=== PATIENT | male | born 1950 | race Caucasian/White ===

== ENCOUNTER 2024-10-04 11:03 | Outpatient (AMB) | payer MEDICARE, SELFPAY ==
--- NOTE | 2024-10-04 11:07 | A.OFFVIS_ITS ---
Intake Visit Reasons: urinary incontinence Intake Note: New Patient presents for initial visit for urinary incontinence Urology Medications: alfuzosin Blood Thinner: clopidogrel PVR: 22ml's [employer] Required: No Accompanied by: Self / Same As Patient Allergies januvia Adverse Reaction (Uncoded 10/04/24 11:55) dizziness Medication List - Last Reconciled 10/04/24 by AUSTIN Knutson atorvastatin mg PO DAILY bupropion HCl XL mg PO DAILY cholecalciferol (vitamin D3) 50 mcg PO DAILY clopidogrel mg PO DAILY donepezil mg PO DAILY dulaglutide (Trulicity) mg subcut glipizide ER mg PO DAILY lisinopril mg PO DAILY mecobalamin (vitamin B12) mcg PO metformin mg PO sertraline mg PO DAILY HPI Comments Details: Jamal is a very pleasantly confused 74-year-old male patient of Dr. Naidu who was accompanied by his Marta at today's office visit. He has a past medical history of bladder cancer, type 2 diabetes, hyperlipidemia, urinary incontinence, depression, cerebral infarction, abnormal gait, neuropathy, anxiety, dementia, and sensorineural hearing loss. He presents to the office today as a new patient for ongoing lower urinary tract symptoms he has been experiencing. In discussion with the patient and his today reports previously following up with [facility] Dr. Chambers and has a longstanding history of bladder cancer. He reports his last follow-up in November 2023 cystoscopy noted no acute findings. He reports having trialed alfuzosin as well as Flomax in the past for episodes of urinary urgency and frequency continues to experience. Also reports noting urinary incontinence at night. He otherwise denies hematuria, dysuria, foul smelling urine, changes to urinary stream, flank pain, fever, and or chills. He reports wanting to establish his urological care here. We discussed obtaining medical release form to obtain previous urology records for continuity of care. We discussed obtaining retroperitoneal ultrasound as well as PSA for further assessment evaluation. We discussed at length potential causes of lower urinary tract symptoms patient was experiencing as well as further workup in risks and benefits of these interventions. In office urinalysis results reviewed with the patient today. PVR 22mls. He discusses being told by previous urologist he had an enlarged prostate. We discussed in office cystoscopy during this office visit. [facility] Medical History (Updated 10/04/24 @ 11:56 by KARIE Knutson) Bladder cancer Type 2 diabetes mellitus Hyperlipidemia Urinary incontinence Major depressive disorder Rosacea Cerebral infarction Abnormal gait Neuropathy Anxiety Dementia with behavioral disturbance Sensorineural hearing loss Surgical History History of basal cell carcinoma excision Review of Systems Eyes Reports no additional complaints ENT Reports no additional complaints Card Reports as per HPI Resp Reports no additional complaints GI Reports no additional complaints Reports as per HPI Musc Reports as per HPI Neuro Reports as per HPI Psych Reports as per HPI Endo Reports as per HPI Damaso/Lymph Reports no additional complaints Aller/Immun Reports no additional complaints Physical Exam Const General: cooperative, healthy appearing, comfortable, no acute distress, well developed, alert and awake Orientation/consciousness: oriented to person HEENT Head: Yes normal to inspection, Yes normocephalic and Yes atraumatic Ears: hearing grossly normal bilaterally Eyes General: appearance normal, both eyes and all related structures Neck Neck: Yes normal visual inspection and Yes trachea midline Chest Chest palpation & inspection: normal inspection of the chest Resp Effort & Inspection: normal respiratory effort and able to speak in complete sentences Cardio Rate: regular rate GI Inspection: Yes normal to inspection General: Yes no CVA tenderness Back/Spine/Pelvis Back: no CVA tenderness Skin General skin exam: no rashes or lesions noted Neuro General: oriented to person Extrem General: Yes normal to inspection Psych Appearance: grossly normal and well kempt Mental Status: mental status grossly normal Speech and movement: Normal speech and movement present and Clear speech present Affect: normal affect Attitude: cooperative Thought process: Normal thought process present Thought content: Normal thought content present Insight: Limited insight present (Psych) Judgement: Limited judgement present (Psych) Office Procedures Post Void Residual Post Residual Void Post Void Residual (PVR): 22 [id number] Void Residual by ultrasound Results AMB Urinalysis, Automated UA Leukoctes 0 Rocco/uL Last Edit by Yani Mclaughlin on 10/04/24 12:15 UA Nitrite Negative Last Edit by Yani Mclaughlin on 10/04/24 12:15 UA Urobilinogen 0.2 mg/dL Last Edit by Yani Mclaughlin on 10/04/24 12:15 UA Protein 15 mg/dL Last Edit by Yani Mclaughlin on 10/04/24 12:15 UA pH 6.0 Last Edit by Yani Mclaughlin on 10/04/24 12:15 UA Blood 0 Daren/uL Last Edit by Yani Mclaughlin on 10/04/24 12:15 UA Specific [place] 1.015 Last Edit by Yani Mclaughlin on 10/04/24 12:15 UA Ketone Negative Last Edit by Yani Mclaughlin on 10/04/24 12:15 UA Bilirubin 0 mg/dL Last Edit by Yani Mclaughlin on 10/04/24 12:15 UA Glucose 0 mg/dL Last Edit by Yani Mclaughlin on 10/04/24 12:15 Results Reviewed Results Reviewed: Laboratory Last Values Urine pH (Auto) 6.0 10/04/24 11:49 Specific [place] (Auto) 1.015 10/04/24 11:49 Urine Protein (Auto) 15 mg/dL 10/04/24 11:49 Glucose (UA)(Auto) 0 mg/dL 10/04/24 11:49 Urine Ketones (Auto) Negative 10/04/24 11:49 Urine Blood (Auto) 0 Daren/uL 10/04/24 11:49 Urine Nitrite (Auto) Negative 10/04/24 11:49 Urine Bilirubin (Auto) 0 mg/dL 10/04/24 11:49 Urine Urobilinogen (Auto) 0.2 mg/dL 10/04/24 11:49 Leukocyte Esterase (Auto) 0 Rocco/uL 10/04/24 11:49 Assessment & Plan Assessment & Plan (1) Bladder cancer: Code(s): C67.9 - Malignant neoplasm of bladder, unspecified Category: Medical (2) Enlarged prostate: Code(s): N40.0 - Benign prostatic hyperplasia without lower urinary tract symptoms Category: Medical Plan In office urinalysis results reviewed with the patient today; as noted above. PVR 22 mL. Stop alfuzosin. Start VESIcare 5 mg at bedtime as discussed and prescribed. Will obtain retroperitoneal ultrasound for further assessment evaluation. NOY offered however deferred. Will obtain PSA for further assessment evaluation. Discussed in office cystoscopy as patient with a longstanding history of bladder cancer. We discussed at length potential causes of lower urinary tract symptoms patient was experiencing as well as further treatment options and risks and benefits of these treatment options. Will attempt to send prescription to [facility] for [place]/condom catheters. Orders: Orders AMB Urinalysis Automated Today Z13.9 - Encounter for screening, unspecified AMB Post Void Residual by ultrasound Today Z13.9 - Encounter for screening, unspecified US retroperitoneal comp Today C67.9 - Malignant neoplasm of bladder, unspecified, N40.0 - Benign prostatic hyperplasia without lower urinary tract symptoms Prostate Specific Antigen Today N40.0 - Benign prostatic hyperplasia without lower urinary tract symptoms Medications: New solifenacin (Vesicare) 5 mg PO DAILY 30 days 30 tabs 3RF Patient Instructions: The patient had an opportunity to ask questions regarding the treatment plan. All questions were answered. Physical exam, labs, and imaging were discussed and reviewed in detail. As well as risks, benefits, and discussion of treatment choices. No major barriers to understanding were identified. The patient expressed understanding and agreement with the above treatment plan. The patient was made aware they should contact our office by phone for worsening of their current condition, the appearance of new symptoms, or with any questions or concerns. Compliance is encouraged with any medications and follow up testing that is ordered. It is a privilege to be allowed the opportunity to participate in? your urological care.? Again, if you have any questions or concerns If you have any questions or concerns please do not hesitate to contact me. The office is [phone]. This note is constructed using voice recognition software. While every effort has been made to ensure accuracy dobby loom fixer errors may have been included. Yours sincerely, AUSTIN Knutson Coding Level of Care Code New Pt Level 4 (15337) Diagnoses Bladder cancer C67.9 Enlarged prostate N40.0 CPT Codes Post Residual Void - PVR CPT Code: 38920-Ozpv Void Residual by ultrasound ([id number])
--- OUTSIDE RECORDS SUMMARY | 2024-10-04 12:19 | XMS_ITS | Data Portability ---
Author Organization [facility] [employer] [facility], [facility] Address [address] [place] [address] Care Team Providers Care Tray Room Worker Name Role Phone CRISTIANO IRWIN Primary Care Provider [phone] PAULETTE YEBOAH [employer] Consultant [phone] Assessment Encounter Date Assessment Date Assessment LastModified by Organization Details LastModified Time 01/12/2024 01/12/2024 Assessment and plan based on Geriatric 5 M framework (Mind, Mobility, Multicomplexity, Medications, and Matters Most) Mind: Cognition: Dementia, moderate, likely mixed, Alzheimer's + Vascular with behaviors (anxiety, irritabilty) Contributing factors: hearing loss, poorly controlled DMII, h/o prior CVA From initial history: Per Ady: he is aware he has some memory changes but cant really give details. Denies AH/VH, doesnt think that anyone is stealing from him. Has dreams but no nightmares Denies tremors, denies shuffling. He denies movements in his mouth Per : Summer 2021 - first noticed that Ady started repeating himself. He does have sig hearing loss - but loses his hearing aides. She was questioning his hearing as part of the memory problem. Her kids were noticing things (some before them) that she didnt want to agree with them about. Their son, Julián, was seeing things and trying to convince Marta that there was dementia. In the fall 2021, they told PCP about his concerns. He had evaluation by Dr Quiroz,[facility] and Dr Nelson on November 11, 2022. Since then she has seen a decline in memory. Dr Nelson noted that Dr Quiroz noted a gait disorder with superimposed cognitive and memory impairment but didnt diagnose Parkinsonism. He suggested MRi C spine, neuropsych eval, PT and return visit in [address] Nelson noted that had noted a declined over the past 2 years, with diffiuclty recalling recent events, conversations, dates and locations as well as naming problems and trouble keeping track of time. Labs: None in our chart Head imaging: per report, has had head ct done in the past. MOCA 8.1: (done today 01/11/23) VIsuospatial/execu tive: 1/5 able to draw hands Namin /3 Attention: 5/6 difficulty with serial 7 Language: 1/3 Abstraction: 2/2 Delayed recall:0 /5; MIS = 2 Score: Plan: As part of w/u Would consider getting Brain MRI Agree with assessment for sleep apnea - appreciate that insurance denied in home study - would consider trying to appeal. Could at least try an inhome overnight pulse ox assessment. Continue donepezil 10 mg- monitor for urinary symptoms. Reviewing the chart - I was concerned that there might be a movement component along with the cognitive impairment. But, notes gait/posture have been going on for some time and may be due to deconditioning and the tongue movements had always been somewhat present and are better now that he is not trying to work on the computer. Would monitor If further eval thought needed, would look into [facility] - Dr Ribera or Dr Vazquez Note he scored high in anxiety and lower mood: I would start sertraline 25 mg daily - I think it will help with anxiety and irritabilty. SE could include GI upset, It can take 2-3 weeks to work and we may have to increase dose. Asked to keep us posted. May be able to stop or lower dose of am quetiapine. Consider day program - [facility] in [place] Would consider a Memory Cafe. Would be in touch with SS - check on dementia resources. Would think about financial planning. Would look at [employer] videos Continue to check with elder care medical pathologist Can look at [facility] for resources. Caregiver stress: Appreciate how difficult this journey can be Would look into resources mentioned above. Gave info on dementia road map, legal planning. Will schedule a cognitive care plan in a few months. Diagnosis reviewed? yes, with . They do not discuss dx with Ady Mood: anxiety/depression , ongoing Dr Nelson noted he saw a experimental rocketsled mechanic from 2001 to 2003 and was also in counseling at that time. PHQ9: 9 tired, appetite changes CIRILO 7: 18 feeling nervous, trouble relaxing, becoming easily annoyed Was tapered off Paxil as it was anti-cholinergic. notes that Ady wont talk about his symptoms (he completed screening on his own) but she agreed with what he wrote. Plan: will start sertraline as above Mobility: gait instability: in part due to sig deconditioning, also had C spine laminectomy. also with diabetic neuropathy. Plan: Appreciate that he doesnt have motivation and spends most of day in his lounge chair Would consider a day program for more activity. Would see if they can have someone help with exercises. For neck pain, hand weakness - would check in with Dr Carlson, Neurosurgery. - to contact. Multicomplexity/ Medications: managing meds which is appropriate. Will discuss urinary symptoms further next visit. Matters most: ACP: Health care proxy: Dianst:didnt discuss I personally spent 120 minutes preparing for, caring for the patient (F2F and non-F2F), and finalizing the visit for this patient, which included discussion with patient and/or family about diagnosis, prognosis, recommendations, risk/benefits, risk reduction and education of above. Thank you for this interesting consult. Will f/u in 2 months for a repeat cognitive care plan. Not available 01/12/2024 14:59:17 03/15/2024 03/15/2024 Assessment and plan based on Geriatric 5 M framework (Mind, Mobility, Multicomplexity, Medications, and Matters Most) Elements: Cognition: Dementia, moderate, likely mixed, Alzheimer's + Vascular with behaviors (anxiety, irritabilty) Contributing factors: hearing loss, poorly controlled DMII, h/o prior CVA From initial history: Per Ady: he is aware he has some memory changes but cant really give details. Denies AH/VH, doesnt think that anyone is stealing from him. Has dreams but no nightmares Denies tremors, denies shuffling. He denies movements in his mouth Per : Summer 2021 - she first noticed that Ady started repeating himself. He does have sig hearing loss - but was losing his hearing aides. She was questioning if his hearing was part of the memory problem. Her kids were noticing things that she didnt want to agree with them about. Their son, Julián, was seeing things and trying to convince Marta that Ady had dementia. In the fall 2021, they told PCP about his concerns. He had evaluation by Dr Quiroz, [facility] and Dr Nelson on November 11, 2022. Since then she has seen a decline in his memory. Dr Nelson noted that Dr Quiroz noted a gait disorder with super-imposed cognitive and memory impairment but didnt diagnose Parkinsonism. He suggested MRi C spine, neuropsych eval, PT and return visit in [address] Nelson noted that had noted a decline over the past 2 years, with diffiuculty recalling recent events, conversations, dates and locations as well as naming problems and trouble keeping track of time. Labs: None in our chart Head imaging: per report, has had head ct done in the past. MOCA 8.1: (done 01/11/23) VIsuospatial/execu tive: 1/5 able to draw hands Namin /3 Attention: 5/6 difficulty with serial 7 Language: 1/3 Abstraction: 2/2 Delayed recall:0 /5; MIS = 2 Score: Since last visit, he was started on sertraline with good effect. has been dealing with her own issues and having a difficult time making calls to get more assistance. Plan: As part of w/u Would consider getting Brain MRI - declines at this time Agree with assessment for sleep apnea - appreciate that insurance denied in-home study - would consider trying to appeal. Could at least try an in-home overnight pulse ox assessment. Continue donepezil 10 mg- monitor for urinary symptoms. Reviewing the chart - I was concerned that there might be a movement component along with the cognitive impairment. But, notes gait/posture have been going on for some time and may be due to deconditioning and the tongue movements had always been somewhat present and are better now that he is not trying to work on the computer. Would monitor If further eval thought needed, would look into [facility], [facility] - Dr Ribera or Dr Vazquez We started sertraline 25 to help with anxiety and irritabilty - it has been effective but may be wearing off. Will increase dose to 50 mg daily In one week, stop the AM dose of quetiapine. See how he does. If he seems calmer, after another 1 week, stop the PM dose of quetiapine. We will check in in 3-4 weeks. Please call us if anything. I will write for donepezil refill Consider day program - [facility] in [place] - noted that her therapist didnt think he was ready for it - but I disagree and feel it is worth trying - and will give her some time as well. Will make a referral to [facility] caregiver program Would be in touch with [facility] - check on dementia resources - she has not done this yet but gave me permission to do so. Would continue to work on financial planning - she will look for her financials this week. She looked at [employer] videos - and found some helpful. Reviewed that he can become perserverative in late afternoons - may be a form of sundowning - would try to involve him in dinner prep if possible, give warm tea, play music - more sensory input may be needed. Diagnosis reviewed? yes, with . They do not discuss dx with Ady 2. Function: a. [place] ADL: 6 b. [place] IADL: 4 not driving, c. Plan: helping with finances, meds, shopping and driving - he still wants to help around the house and would work to ensure he has jobs. 3. Stage of cognitive impairment: a. Dementia Severity Rating Scale (DSRS) : 9 - memory, speech, orientation to time, ability to make decisions, home activities, sometimes forgets personal care b. Plan: I honestly think that the DSRS score understates his degree of dementia - I would say he has mild-moderate dementia though appreciate that apathy likely playing a role in his responses. i. Continue to think about planning for the future based on stages and care recommendations ii. Continue to work with elder care manager business management I will reach out to [facility] to see if they can help with planning. 4. Decision-making: a. 3 level rating scale global clinician judgement: very limited - I do not think he is can make his own decisions. b. (Able to make own decisions, not able to , uncertain/needs more evaluation) c. Plan: I will invoke HCP as his insight into his disease process is very limited. 5. Neuropsychiatric symptoms/Depressio n: a. Assessment tool: NPI-Q (12 items) Severity: 1-2/ Distress to caregiver: 2 Mood: anxiety/depression , ongoing Dr Nelson noted he saw a experimental rocketsled mechanic from 2001 to 2003 and was also in counseling at that time. Was tapered off Paxil as it was anti-cholinergic. notes that Ady won't talk about his symptoms (he completed screening on his own) but she agreed with what he wrote. Plan: as above, will increase sertraline to 50 mg daily. In one week, stop the AM dose of quetiapine. See how he does. If he seems calmer, after another 1 week, stop the PM dose of quetiapine. We will check in in 3-4 weeks. Please call us if anything. 6. Medication review and reconciliation: a. Medications reviewed and reconciled: Yes b. PIMs (Potentially Inappropriate Medications) identified: quetiapine c. Administration: helping with meds, will work to taper off quetiapine as above. 7. Safety: a. Safety Assessment Guide: i. Is the patient still driving? no ii. Is the patient taking medications as prescribed? yes iii. Are there concerns about safety in the home? no iv. Has the patient gotten lost in familiar places or wandered? no v. Are firearms present in the home? no vi. Has the patient experienced unsteadiness or sustained falls? yes vii. Does the patient live alone? no Mobility: gait instability: in part due to sig deconditioning, also had C spine laminectomy. also with diabetic neuropathy. Plan: Appreciate that he doesnt have motivation and spends most of day in his lounge chair Would consider a day program for more activity. Would see if they can have someone help with exercises. For neck pain - as prior, could check in with Dr Carlson, Neurosurgery who did his surgery. 8. Caregiver identification and needs assessment: a. Assessment tool: Stress thermometer: very stressed ; JAMAICARIT-12: 31 feels like she has lost control of her life due to her 's illness. Plan: Appreciate how hard this is for all of them - she is left trying to manage everything amidst her own depression. Continue to check with elder care medical pathologist Will put in referral for [facility] Caregiver plan as well as contact SS Gave info on dementia road map, legal planning. She is working on her mental health - with therapy and Psych - and knows to contact us with any concerns. 9. Advance care planning: a. Checklist reviewed b. Plan (Preferences and legal needs): c. HCP: yes d. MOLST didnt discuss e. POA: no f. Is there an emergency plan in case the caregiver is unable to provide care?: son lives with them. Patient and caregiver resources discussed and/or handed out More than 50% of this 90 minute visit was spent face to face with the patient and/or family caregiver, providing counseling, decision making, and coordination of care. Written plan discussed with and given to the patient and/or family caregiver. Written plan shared with PCP Will f/u in 2 months Not available 03/15/2024 22:11:41 05/17/2024 05/17/2024 Assessment and plan based on Geriatric 5 M framework (Mind, Mobility, Multicomplexity, Medications, and Matters Most) Cognition: Dementia, moderate, likely mixed, Alzheimer's + Vascular with behaviors (anxiety, irritabilty) Contributing factors: hearing loss, poorly controlled DMII, h/o prior CVA From initial history, 01/2024: Per Ady: he is aware he has some memory changes but cant really give details. Denies AH/VH, doesnt think that anyone is stealing from him. Has dreams but no nightmares Denies tremors, denies shuffling. He denies movements in his mouth Per : Summer 2021 - she first noticed that Ady started repeating himself. He does have sig hearing loss - but was losing his hearing aides. She was questioning if his hearing was part of the memory problem. Her kids were noticing things that she didnt want to agree with them about. Their son, Julián, was seeing things and trying to convince Marta that Ady had dementia. In the fall 2021, they told PCP about his concerns. He had evaluation by Dr Quiroz, [facility] and Dr Nelson on November 11, 2022. Since then she has seen a decline in his memory. Dr Nelson noted that Dr Quiroz noted a gait disorder with super-imposed cognitive and memory impairment but didnt diagnose Parkinsonism. He suggested MRi C spine, neuropsych eval, PT and return visit in [address] Nelson noted that had noticed a decline over the past 2 years, with difficulty recalling recent events, conversations, dates and locations as well as naming problems and trouble keeping track of time. Labs: None in our chart Head imaging: per report, has had head ct done in the past. MOCA 8.1: (done 01/11/23) VIsuospatial/execu tive: 1 able to draw hands Namin Attention: 5/6 difficulty with serial 7 Language: 1/ Abstraction: 2/2 Delayed recall:0 /5; MIS = 2 Score: Since last visit, he continues on sertraline with good effect. no sig events but notices his memory is getting worse, he keeps asking the same questions - but she has been in touch with [facility] and they have been helpful. Plan: As part of w/u Would consider getting Brain MRI - declines at this time Agree with assessment for sleep apnea - appreciate that insurance denied in-home study - would consider trying to appeal. Could at least try an in-home overnight pulse ox assessment. Continue donepezil 10 mg - has tolerated it well. Reviewing the chart - I was concerned that there might be a movement component along with the cognitive impairment. But, notes gait/posture have been going on for some time and may be due to deconditioning and the tongue movements had always been somewhat present and are better now that he is not trying to work on the computer. Would monitor If further eval thought needed, would look into [facility], [facility] - Dr Ribera or Dr Vazquez Continue to Sertraline 50 mg daily to help with irritability . Plan was to stop the AM dose of quetiapine but kept it on - she was nervous to stop as it was started when he was getting angry, throwing things. We reviewed she could try to stop the quetiapine and if he becomes agitated again, she can restart it. Consider day program - [facility] in [place] - noted that her therapist didnt think he was ready for it - but I disagree and feel it is worth trying - and will give her some time as well. We reviewed this again - she will also look into Memory Cafes. Referral made to to [facility] caregiver program She is in touch with [facility] which is great. Would continue to work on financial planning - she will look for her financials this week. She looked at [employer] videos - and found some helpful. We watched one today - Brain Changes and Dementia. Reviewed that he can become perserverative in late afternoons - may be a form of sundowning - would try to involve him in dinner prep if possible, give warm tea, play music - more sensory input may be needed. Diagnosis reviewed? yes, with . Continue to think about planning for the future based on stages and care recommendations Continue to work with elder care manager business management Neuropsychiatric symptoms/Depressio n: a. Assessment tool: NPI-Q (12 items) Severity: 1-2/ Distress to caregiver: 2 Mood: anxiety/depression , ongoing Dr Nelson noted he saw a experimental rocketsled mechanic from 2001 to 2003 and was also in counseling at that time. PHQ9: 8 - little interest in doing things, feeling down, feeling tired GAD7: 2 Was feeling down when he had pain in his neck, better now. Plan: Continue sertraline 50 mg daily. Also on buproprion 300 mg daily Could stop the AM dose of quetiapine. See how he does - can restart if needed. Caregiver identification and needs assessment: a. Assessment tool: Stress thermometer: very stressed ; JAMAICARIT-12: 31 feels like she has lost control of her life due to her 's illness. Plan: Appreciate how hard this is for all of them - she is left trying to manage everything amidst her own depression. Continue to check with elder care medical pathologist Continue with [facility] Caregiver plan as well as contact [facility] Gave info on dementia road map, legal planning at last visit. She is working on her mental health - with therapy and Psych - and knows to contact us with any concerns. 9. Advance care planning: a. Checklist reviewed b. Plan (Preferences and legal needs): c. HCP: yes d. TYREE didnt discuss e. POA: no f. Is there an emergency plan in case the caregiver is unable to provide care?: son lives with them. Patient and caregiver resources discussed and/or handed out More than 50% of this 70 minute visit was spent face to face with the patient and/or family caregiver, providing counseling, decision making, and coordination of care. Written plan discussed with and given to the patient and/or family caregiver. Written plan shared with PCP Will f/u after Oct 16 2024 for cognitive care plan. Not available 05/17/2024 14:08:21 Plan of Treatment Reminders Order Date Submit Date Provider Last Modified By Organization Details Last Modified Time Details Appointments None recorded. Lab None recorded. Referral None recorded. Procedures None recorded. Surgeries None recorded. Imaging None recorded. Medication Orders sertraline 25 mg tablet [address] [facility] [place], [address], 4 22:13:03 sertraline 25 mg tablet 2023 [facility] [place], [address], 4 22:17:52 donepezil 10 mg tablet 2023 [facility], [place], [address], 4 22:12:15 sertraline 50 mg tablet 2023 [facility], [place], [address], 4 22:12:15 Patient TargetsNo targets recorded. Patient Instructions Encounter Date Encounter Id Patient Instructions Last Modified By Organization Details Last Modified Time 01/12/2024 [id number] anxiety disorder : care instructions Not available 01/12/2024 15:00:04 Plan: Note he scored high in anxiety and lower mood: I wouldstart sertraline 25 mg daily - I think it will help with anxiety and irritabilty. SE could include GI upset, It can take 2-3 weeks to work and we may have to increase dose. Asked to keep us posted. May be able to stop or lower dose of am quetiapine. Consider day program - [facility] in [place] Would consider a Memory Cafe. Would be in touch with [facility] - check on dementia resources. Would think about financial planning. Would look at [employer] videos Continue to check with elder care medical pathologist Can look at [facility] for resources. Not available 01/12/2024 12:35:54 Reason for Referral None Reported. Problems Name Problem SNOMED Code Status Onset Date Resolution Date Notes Provider Name and Address Organization Details Recorded Time Type 2 diabetes mellitus 29556778 Active 2023 last AIC 9.3, sees Dr Nuñez , Endocrin e, [facility]. Nadia Montague MD [address], [place], [address], [employer] 4 20:11:36 Hyperlip idemia 12754267 Active 2023 Nadia Montague MD [address], [place], [address], [employer] 4 20:11:49 Urinary incontin ence 331329019 Active 2023 Nadia Montague MD [address], [place], [address], [employer] 4 20:12:36 Malignan t neoplasm of urinary bladder 446126850 Completed 202301/10/2024 dx 2004 (Paulette rose) Nadia Montague MD [address], [place], [address], [employer] 4 20:13:16 Major depressi ve disorder 340130459 Active 2023 Nadia Montague MD [address], [place], [address], [employer] 4 20:13:35 Educatio n of caregive r 710174381 Active 2023 Nadia Montague MD [address], [place], [address], [employer] 4 14:09:04 Rosacea 512739378 Active 2023 Nadia Montague MD [address], [place], [address], [employer] 4 20:13:45 Basal cell carcinom a of skin 485812131 Completed 202301/10/2024 Removal Reason: Sees new [facility] yearly Nadia Montague MD [address], [place], [address], [employer] 4 20:14:08 Cerebral infarcti on 143146671 Active 2023 h/o. right temporal lob infarct seen on CT 10/13/19 - chronic appearin g. Nadia Montague MD [address], [place], [address], [employer] 4 20:15:14 Abnormal gait 96879413 Active 2023 Nadia Montague MD [address], [place], [address], [employer] 4 20:24:03 Neuropat hy 145269734 Active 2023 right hand, h/o CTS Nadia Montague MD [address], [place], [address], [employer] 4 20:28:50 Anxiety 05661173 Active 2023 Nadia Montague MD [address], [place], [address], [employer] 4 20:28:59 Advance care planning Active 2023 Nadia Montague MD [address], [place], [address], [employer] 4 20:29:15 Dementia with behavior al disturba ohe [id number] 03 Active 2023 Nadia Montague MD [address], [place], [address], [facility] 20:30:44 Review of advance care plan Active 2023 HCP: Marta Hercules Nadia Montague MD [address] [facility] [address] [facility] [address], [place], [address], [facility] 13:54:10 Sensorin eural hearing loss [id number] Active 2023 Nadia Montague MD [address], [place], [address], [facility] 13:54:54 Problem Notes None recorded. Procedures Surgical History Date Name Laterality Status Provider Name and Address Organization Details Recorded Time 12/07/19 23 primary decompression of cervical spine completed Nadia Montague MD [address] [facility],[address], [address], [facility] 01/10/2024 20:16:04 01/06/20 10 excision of basal cell carcinoma completed Nadia Montague MD [address] [facility],[address], [address], [facility] 01/10/2024 20:16:36 excision of basal cell carcinoma completed Nadia Montague MD [address] [facility],[address], [address], [facility] 01/10/2024 20:16:42 removal of sebaceous cyst completed Nadia Montague MD [address] [facility] [address] [facility] [address] [place] [address], [address], [facility] 01/10/2024 20:17:46 Imaging Results None recorded. Procedure Notes None recorded. Medical Equipment None Reported. Allergies Allergen ID Allergen Name Allergen Category Reaction Reaction Severity Criticality Documentation Date Start Date Code Code System Note Provider Name and Address Organization Details Recorded Time 61 Januvia medicatio n dizziness Not available Not available 01/10/2024 98409 6 RxNorm Nadia Montague MD 264 [facility] 12[facility], [address], [facility] [employer] [facility] 20:25:15 Medications Name Sig Start Date Stop Date Status Note LastModified by Organization Details LastModified Time quetiapine 25 mg tablet active Not Available Not Available Not Available atorvastati n 40 mg tablet active Not Available Not Available Not Available metformin 500 mg tablet active Not Available Not Available Not Available atorvastati n 80 mg tablet 01/11 completed Not Available Not Available Not Available donepezil 5 mg tablet TAKE 1 TABLET BY MOUTH EVERYDAY AT BEDTIME 01/11 completed Not Available Not Available Not Available donepezil 10 mg tablet Take 1 tablet every day by oral route. active Not Available Not Available No t Available clopidogrel 75 mg tablet active Not Available Not Available Not Available triamcinolo ne acetonide 0.1 % topical cream APPLY TO AFFECTED AREA EVERY DAY FOR 10 DAYS 01/11 completed Not Available Not Available Not Available tamsulosin 0.4 mg capsule TAKE 1 CAPSULE BY MOUTH EVERYDAY AT BEDTIME active Not Available Not Available No t Available glipizide ER 2.5 mg tablet, extended release 24 hr active Not Available Not Available Not Available nystatin 100,000 unit/gram topical cream APPLY 1 APPLICATI ON TOPICALLY EVERY DAY FOR 30 DAYS 01/11 completed Not Available Not Available Not Available sertraline 25 mg tablet Take 1 tablet every day by oral route. 03/15 completed Not Available Not Available Not Available lisinopril 5 mg tablet TAKE 1 TABLET BY MOUTH EVERY DAY FOR 30 DAYS active Not Available Not Available No t Available oxybutynin chloride 5 mg tablet TAKE 1 TABLET BY MOUTH EVERY DAY IN THE MORNING 01/11 completed Not Available Not Available Not Available sertraline 50 mg tablet TAKE 1 TABLET DAILY IN THE MORNING 2023 active Not Available Not Available Not Avai lable metronidazo le 0.75 % topical gel APPLY TO AFFECTED AREA TWICE A DAY FOR 30 DAYS 01/11 completed Not Available Not Available Not Available bupropion HCl SR 200 mg tablet,12 hr sustained-r elease 01/11 completed Not Available Not Available Not Available Vitamin D3 25 mcg (1,000 unit) capsule active Not Available Not Available Not Available bupropion HCl XL 300 mg 24 hr tablet, extended release TAKE 1 TABLET BY MOUTH EVERY DAY IN THE MORNING active Not Available Not Available No t Available alfuzosin ER 10 mg tablet,exte nded release 24 hr TAKE 1 TABLET BY MOUTH EVERYDAY AT BEDTIME 01/11 completed Not Available Not Available Not Available Vitamin D3 2000 IU two times per day 05/15 completed Not Available Not Available Not Available Vitamin B12 1000 mg every other day active Not Available Not Available No t Available Trulicity 0.75 mg/0.5 mL subcutaneou s pen injector INJECT 0.5 ML (0.75 MG total) UNDER THE SKIN EVERY SEVEN DAYS active Not Available Not Available No t Available OneTouch Delica Plus Lancet 33 gauge active Not Available Not Available Not Available Vitals Date Recorded Heart rate Body height Body mass index (BMI) Body weight Oxygen saturation Oxygen saturation in Arterial blood by Pulse oximetry Systolic blood pressure Diastolic blood pressure Provider Name and Address Organization Details Last Updated DateTime 4 88 /min 167.01 cm 31.4 kg/m2 20758.3 3 g 96 % 96 % 120 mm[Hg] 64 mm[Hg] [employer] 4 11:09:39 Date Recorded Body height Heart rate Body mass index (BMI) Body weight Oxygen saturation Oxygen saturation in Arterial blood by Pulse oximetry Systolic blood pressure Diastolic blood pressure Provider Name and Address Organization Details Last Updated DateTime 4 167.01 cm 96 /min 29.6 kg/m2 08946.5 3 g 74 % 74 % 124 mm[Hg] 64 mm[Hg] [employer] 4 12:53:14 Date Recorded Body height Heart rate Body mass index (BMI) Body weight Oxygen saturation Oxygen saturation in Arterial blood by Pulse oximetry Systolic blood pressure Diastolic blood pressure Provider Name and Address Organization Details Last Updated DateTime 4 167.01 cm 88 /min 30.6 kg/m2 69994.3 7 g 96 % 96 % 110 mm[Hg] 68 mm[Hg] [employer] 4 11:30:17 Social History Question Answer Notes LastModified by Organizat ion Details LastModified Time Tobacco Smoking Status Former Smoker Nadia Montague MD [address] [address], [place], [address], [facility] 01/10/2024 20:21:00 When Did You Quit Smoking? 11-15yearssi bk calderon Information not available 01/10/2024 What Is Your Relationship Status? Information not available 01/10/2024 Sex: Unknown Functional Status None recorded. Mental Status None recorded. Family History Relationship Description Onset Age of this Age Resolved Age Notes LastModified by Organization Details LastModified Time Father Myocardial infarction 56 56 Not available 01/09 20:18:28 Mother Diabetes mellitus 84 Not available 2023 20:18:46 Unspecified Relation Malignant tumor of colon salma billingsley Not available 01/10/2024 20:20:00 Medical History No medical history recorded. Past Encounters Encounter ID Performer Location Encounter Start Date Encounter Closed Date Diagnosis/Indication Diagnosis SNOMED-CT Code Diagnosis ICD10 Code Diagnosis Note 56 MD [facility] [address] [address] 01/12/2024 10:45:34 01/12/2024 12:43:02 Mixed dementia [id number] 9107 G30.1 see above Abnormal gait 13439659 R 26.9 Advance care planning 71 8358604 Z71.89 HCP is .on border of needing to invoke HCP. Will further assess next visit. Anxiety 95376296 F41.9 Cerebral infarction 4325 85277 I63.9 Major depr essive disorder 288810737 F32.9 see above Urinary incontinence 165 619519 R32 185 MD [facility] [address] [address] 03/15/2024 11:19:03 03/15/2024 22:15:25 Abnormal gait 04891739 R26.9 as above, would consider PT appt and f/u iwth Neurosurge ry - will defer to PCP. Advance care planning 71 8609006 Z71.89 HCP is .Will invoke HCP Anxiety 64797026 F41.9 as above Dementia w ith behavioral disturbance 2023360645 103 F01.518 as above Major depr essive disorder 431550654 F32.9 see aboveincre ase sertraline to 50 mg dailycan discuss buproprion next visit - may be able to decrease dose. 357 MD [facility] [address] [place] [address] 05/17/2024 12:28:27 05/17/2024 14:14:58 Anxiety 68263385 F41.9 as above Dementia w ith behavioral disturbance 5679086871 103 F01.518 as above Major depr essive disorder 182217446 F32.9 as above Education of caregiver 084057039 Z71.9 spoke to at length - informatio n as above. Goals Section Goal Description Status Start Date LastModified by Organization Details LastModified Time Activities of Daily Living Performs activities of daily living independently or with minimal assistance Goal not achieved Margie Onushco Information not available 03/30/2024 20:25:16 Exercise Regularly Follows a regular exercise regimen or instructed exercise plan as per care team recommendation( s) Goal not achieved 024 Margie Onush[employer] Information not available 03/30/2024 20:25:16 Medication Regimen Follows medication regimen as per care team recommendation( s) Goal not achieved 024 Margie Onushco Information not available 03/30/2024 20:25:16 Adequate Sleep Achieves adequate, well-rested sleep with minimal disruption Goal not achieved 024 Margie Onushco Information not available 03/30/2024 20:25:16 Home/Environ ment Safety Reports having a safe environment that promotes independence and prevents injury Goal not achieved 024 Margie Onushco Information not available 03/30/2024 20:25:16 Health Concerns Section Related Observation LastModified by Organization Detai ls LastModified Time None Recorded Concern Status LastModified by Organization Details LastModified Time Dementia with behavioral disturbance Active Margie Onushco Not Available 03/30/2024 20:23 :06 Advance Directives Directive None Recorded Payers Encounter Date Sequence Insurance Name Policy Number Policy Gomez Covered Member ID Gomez Member ID Guarantor Name 01/12/2024 1 [facility]: MEDICARE [place] BLUE (MEDICARE REPLACEMENT PPO) [id number] Jamal Hercules [id number] Jamal Hercules 03/15/2024 1 [facility] (MEDICARE REPLACEMENT PPO) [id number] Jamal Hercules [id number] Jamal Hercules 05/17/2024 1 [facility]: [place]UE (MEDICARE REPLACEMENT PPO) [id number] Jamal Hercules [id number] Jamal Hercules Notes Date Note Type Note Provider Name and Address Organization Details Recorded Time text/html Person to contact for follow up visits: Goals for visit:She is hopeful that getting different medications might help. She is concerned about the side effects that might be affecting him. Problems or specific concerns for this visit: Alzheimer's DementiaMixed per Neurology PHQ9: 9GAD7: 18 Patient history: Ady Mood:Yes - does feel depressed. has had things - like biting inside his mouth, drops his keys.Sometimes gets angry or frustrated, doesnt know why - maybe because he is biting his mouth. Memory:Noticing some trouble with his memory. Forgetting things - not some big deal. Denies having evaluation of his memory. Denies AH/VH, doesnt think that anyone is stealing from him.Has dreams but no nightmaresDenies tremors, denies shuffling. He denies movements in his mouth he doesnt remember name of his doctor.When asked what his medical problems - he asks his about blood pressure. sugar but denies any problems lately. Notes some pain in side of his neck and shoulders. ( notes that he has had surgery on his cervical spine C3,C4, C5 a year ago by Dr Carlson) was not sure what symptoms pointed to that diagnosis.Has some challenges with balance and had to have surgery. when asked what he liked to do in the past, he thinks about it.Did some woodworking. Finds things in the house that he takes care of.Not doing much, not watching TV, sometimes he reads Family/caregiver history: Marta Summer 2021 - first noticed that Ady started repeating himself. He does have sig hearing loss - but loses his hearing aides. She was questioning his hearing as part of the memory problem. Her kids were noticing things (some before them) that she didnt want to agree with them about. Their son, Julián, was seeing things and trying to convince Marta that there was dementia. In the fall 2021, they told PCP about his concerns.He had evaluation by [facility] and Dr Nelson in spring 2022. Since then she has seen a decline in memory. Posture has declined in the past 3-4 years, sits in a recliner all day long and when he gets up, this posture continues. He is weak. HIs neck and shoulders hurt - she thinks he tries to do things that require strength. He gets PASTOR when he is doing things that are physical. She has friends that are very supportive and joined a support group as well. The clumsiness in his hands is concerning. He has foot neuropathy and she wonders if he has it has in his hands. They see Dr Saldivar tomorrow.They have not seen Dr Carlson since the surgery. He didnt get noticably delirious after surgery. He did have a lot of pain after surgery and didnt expect that the recovery would be so hard. They have been 47 years and together for 9 years before that. He has always been on the quiet side. Since he retired in 2019, he has gone downhill. 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 Personality changes: a big change (referred by Roland Boykin) - a lot of disinhibition and gets frustrated, throws things (was always pessimistic but now more so) Was having some mouth/tongue movements. He was always someone who would put his tongue in and out (The tongue of concentration) -The computer has been a major source of frustration and now that he is not using the computer (he broke 2) - the tongue movements have decreased. Mood:Was on paxil but was tapered off as it could be anti-cholinergic.Was put on quetiapine after a visit with Dr Quiroz - cesar, frustrations, then dose was increased to 75 mg and then brought down to 50 mg. She feels that he is quite sedentary and feels that is related.Dr Quiroz rx quetiapine 25 mg in am and 25 mg in pm. PCP was managing SSRI. He is on donepezil and does have some urinary problems. Is on tamsulosin now. Recent ED visits/hospitalizations: None Review of chart: Seen by Dr Irwin PCP, 11/25/23gets frustrated with some things he cannot do on laptop or phone. Swears or smashes thing.s. broke screen on the laptop. ON equtiapine 75 mg daily bupriopion 300 mg/day.Seen by Dr Quiroz [facility] who left practice. Has shuffling gait but per , not told ntot [facility]. Has chronic urinary incontinence. Dr Padilla said cystoscopy ok.oxybutyin changed to alfluzosin. (now on tamsulosin) concerned that donepezil could be contributing to incontinence. DMII, uncontrolled: Sees Dr Yeboah, [facility] [place] [place] [facility], AIC up to 9.3. Plan to add back trulicity Function:ADL: (bathing, dressing, toileting, transferring, continence, feeding)independent (noted that sometimes he doesnt like to shower) IADL: ( Telephone, shopping, food preparation, housekeeping, laundry, Transportation, Medications, Finances)he lives on [facility]. is doing all the finances and medications as well as shopping and food preparation. Supports:Help at home: son helps a littleWho provides the care? and son. Ady will help take out the trash and clean up the kitchen.She used to put out index cards but that is not working. General information about you: Mobility:Assistive device: okayAny falls? noIf yes, any injuries? n/aAre you afraid of falling? aware to be careful Sleep:How would you describe your sleep? good (options: good, fair, poor)Do you snore? occasionally (options: yes, no, don't know)Have you ever been tested for sleep apnea? no, insurance wouldnt cover in home study. (yes, no, don't know) Driving?: Yes ( says no)Any concerns? he deniesTruck is not functional anymore. Nutrition:Appetite: goodHas food intake declined over the past 3 months?Weight loss/gain: had lost weight when higher dose on trulicity. Dr Saldivar took him off that, everything rebounded, put him back on smaller dose of trulicity. appetite variesWould you like assistance with meals? No Finances: Any concerns? didnt ask today Health Maintenance:Overall health: getting background noise in earsbit tongue, lips, gums, mouth - doesnt know whyDepression//sadness: okayAnxiety: depends on how much he has to go throughMemory loss: yesAre you or others concerned about your memory?: yesFeels safe at home: yesHearing Test: yes, (says he has hearing aides) Physical fitness: Gets a little exercise ( says no) Frailty Screening:Fatigue: yesResistance (able to climb a flight of stairs): yesAerobic (able to walk a block): limitedPresence of > 5 illnesses(HTN, DM, CA, chronic respiratorydisease, ID, CVA, arthritis (or RA), CKD, or liver disease): yesWeight loss > 5% in the past 6 months: noScore: 2-3 (Robust: 0, Pre-frail: 1-2, Frail: >=3) Social History:[place]ational level: Bachelor's Degree, Education 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 yesETOH: yes, now and thenConcern about amount of ETOH? doesnt think soTobacco: yes, quit a long time agoOther drugs: doesnt think so. FH:Father - heart attackMother Nadia Montague MD [address] [place] [address], [phone], [facility] 01/12/2024 16:13:02 4 text/html Subjective:Since last visit: date: 01/12/2024 Falls/change in gait: noED visits/hospitalizations: noChanges in function: overall declineChanges in medication: we started sertraline and he is doing much better.Was diagnosis from initial visit discussed?: yesPer Ady:Thinks month is December though knows it was his birthday in February and he just turned 74.Has some pain in his neckHow he spends his day ? not working, spends time around the house, doing the lawn.Has some mouth movements.Memory: sometimes pretty goodMood: denies feeling down or depressed. Per :She didn? t get in touch with [facility]. She doesn? t feel it is a priority compared to the other things she has to do. She has to meet with the medical pathologist and director financial systems.Both children are having a difficult time dealing with this diagnosis. They hate to see him the way he is and he is going to get worse. Their son lives with them but he doesn? t spend much time with him.We started him on the sertraline ? it has worked out quite well on the swearing and calming down ? 85% better but lately he seems to be getting more agitated.He is taking quetiapine 25 mg in the morning and one at night. He was started on this for anger. He doesn? t do much during the day. She wonders if she still needs it.He is depressed, he does very little. Nadia Montague MD [address] [place] [address], [phone], [facility] 03/15/2024 22:14:48 4 text/html Subjective:Since last visit: date: 03/15/24 Falls/change in gait:ED visits/hospitalizations:Mami nges in function:Changes in medication:Was diagnosis from initial visit discussed?: Mood:PHQ9: 8 - little interest in doing things, feeling down, feeling tiredGAD7: 2Was feeling down when he had pain in his neck, better now. Memory:Okay (looks to for approval) - Appetite is okay - maybe has lost around 5-6 lbs. Summer was okay. They didnt travel.They dont get out and walk as Ady cant walk that far. That has been going on for at least 5 years. They do have a treadmill. He denies working with PT. 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 They dont have a grandchild but have a granddog.Their son lives with them and dtr lives in [place]. Last saw Dr Irwin in January. 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 He gets stuck on things.He spends most of his day sitting in his chair.They had to get rid of his truck - he is having a haard time dealing with it. She has to watch him closely.He sometimes he thinks he can go out in his boxer shorts to get the mail.He can get frustrated - and say I dont have a brain Mood is okay. [place] [facility] [place] to see Shyanne from [facility] - she was interested in services. Judith Whitney called her and she really likes her - meeting with her next week. She is hoping to get more support. He went on quetiapine 25 mg to help with violence and throwing things. Dose was increased to 2 pills. Nadia Montague MD [address] [place] [address],[facility], [place], [address], [facility] 05/17/2024 14:12:09
== END 2024-10-04 13:58 | disposition home or self-care (01) ==
PROVIDERS: PCP Internal Medicine; Visit Provider Nurse Practitioner Family
DX: C67.9 Malignant neoplasm of bladder, unspecified (principal); N40.0 Benign prostatic hyperplasia without lower urinary tract symptoms; Z13.9 Encounter for screening, unspecified
CPT/HCPCS: 99204

== ENCOUNTER → 2024-10-04 11:03 | Outpatient (BNVA) | payer MEDICARE, SELFPAY | PROVIDERS: PCP Internal Medicine; Visit Provider Nurse Practitioner Family | DX: N40.0 Benign prostatic hyperplasia without lower urinary tract symptoms (principal); C67.9 Malignant neoplasm of bladder, unspecified | CPT/HCPCS: 51798; 81003; 99202 ==

== ENCOUNTER 2024-11-18 14:35 | Outpatient (REF) | payer MEDICARE, SELFPAY ==
[2024-11-18 15:57] LABS: Prostate Specific Antigen 4.81 ng/mL (<0.05-4.0)
--- OUTSIDE RECORDS SUMMARY | 2024-11-18 16:08 | XMS_ITS | Data Portability ---
Author Organization [facility] [employer] s [facility], [facility] Address [address] [place] [address] Care Team Providers Care Catalyst Operator Name Role Phone CRISTIANO IRWIN Primary Care Provider [phone] PAULETTE YEBOAH Kennel Operator Assessment Encounter Date Assessment Date Assessment LastModified [...] his concerns. He had evaluation by Dr Quiroz,[facility] and Dr Nelson on November 11, [...] further eval thought needed, would look into [facility] Neurology - Dr Ribera or Dr [...] Consider day program - [facility] [place] Would consider a Memory Cafe. Would be in touch with SS - check on dementia resources. Would think about financial planning. Would look at [employer] videos Continue to check with elder care homebirth midwife Can look at [facility] for resources. Caregiver stress: Appreciate how difficult this journey can be Would look into resources mentioned above. Gave info on dementia road map, legal planning. Will schedule a cognitive care plan in a few months. Diagnosis reviewed? yes, with . They do not discuss dx with Ady Mood: anxiety/depression , ongoing Dr Nelson noted he saw a specialty development consultant from 2001 to 2003 and was also [...] concerns. He had evaluation by Dr Quiroz, [facility] and Dr Nelson on November 11, [...] needed, would look into [facility], [facility] Neurology - Dr Ribera or Dr [...] for donepezil refill Consider day program - [facility] [place] - noted that her therapist didnt think he was ready for it - but I disagree and feel it is worth trying - and will give her some time as well. Will make a referral to [facility] caregiver program Would be in touch with [facility] - check on dementia resources - she has not done this yet but gave me permission to do so. Would continue to work on financial planning - she will look for her financials this week. She looked at [employer] videos - and found some helpful. Reviewed [...] 2. Function: a. [place] ADL: 6 b. [place] IADL: 4 not driving, c. Plan: helping [...] ii. Continue to work with elder care county attorney I will reach out to [facility] to see if they can help with [...] ongoing Dr Nelson noted he saw a specialty development consultant from 2001 to 2003 and was also [...] depression. Continue to check with elder care homebirth midwife Will put in referral for [facility] Caregiver plan as well as contact SS [...] concerns. He had evaluation by Dr Quiroz, [facility] and Dr Nelson on November 11, [...] needed, would look into [facility], [facility] Neurology - Dr Ribera or Dr [...] can restart it. Consider day program - [facility] [place] - noted that her therapist didnt think he was ready for it - but I disagree and feel it is worth trying - and will give her some time as well. We reviewed this again - she will also look into Memory Cafes. Referral made to to [facility] caregiver program She is in touch with [facility] which is great. Would continue to work on financial planning - she will look for her financials this week. She looked at [employer] videos - and found some helpful. We [...] recommendations Continue to work with elder care county attorney Neuropsychiatric symptoms/Depressio n: a. Assessment tool: NPI-Q (12 items) Severity: 1-2/ Distress to caregiver: 2 Mood: anxiety/depression , ongoing Dr Nelson noted he saw a specialty development consultant from 2001 to 2003 and was also [...] depression. Continue to check with elder care homebirth midwife Continue with [facility] Caregiver plan as well as contact [facility] Gave info on dementia road map, legal [...] Organization Details Last Modified Time Details Appointments COGNITIVE CARE PLANS 2024 01:00P M Nadia Montague MD Not available Not available Not available Lab None recorded. Referral None recorded. Procedures None recorded. Surgeries None recorded. Imaging None recorded. Medication Orders donepezil 10 mg tablet 2023 024 [facility] [place], [address], 03/15/2024 22:12:15 sertralin e 50 mg tablet 2023 024 [facility] [place], [address], 03/15/2024 22:12:15 sertralin e 25 mg tablet 2023 024 [facility] [place], [address], 03/15/2024 22:13:03 sertralin e 25 mg tablet 2023 024 [facility] [place] [place], [address], 03/15/2024 22:17:52 Patient TargetsNo targets recorded. Patient Instructions Encounter [...] of am quetiapine. Consider day program - [facility] [place] Would consider a Memory Cafe. Would be in touch with [facility] - check on dementia resources. Would think about financial planning. Would look at [employer] videos Continue to check with elder care homebirth midwife Can look at [facility] for resources. Not available 01/12/2024 12:35:54 Reason for Referral None Reported. Problems Name Problem SNOMED Code Status Onset Date Resolution Date Notes Provider Name and Address Organization Details Recorded Time Type 2 diabetes mellitus 50073589 Active 2023 last AIC 9.3, sees Dr Nuñez , Endocrin e, [facility]. Nadia Montague MD [address], [place], [address], [employer] 4 20:11:36 Hyperlip idemia 18823048 Active 2023 Nadia Montague MD [address], [place], [address], [employer] 4 20:11:49 Urinary incontin ence 889689191 Active 2023 Nadia Montague MD [address], [place], [address], [employer] 4 20:12:36 Malignan t neoplasm of urinary bladder 179964499 Completed 202301/10/2024 dx 2004 (Paulette torrese) Nadia Montague MD [address], [place], [address], [employer] 4 20:13:16 Major depressi ve disorder 129001546 Active 2023 Nadia Montague MD [address], [place], [address], [employer] 4 20:13:35 Educatio n of caregive r 706199909 Active 2023 Nadia Montague MD [address], [place], [address], [place] [facility] [employer] 4 14:09:04 Chriss 739846381 Active 2023 Nadia Montague MD [address], [place], [address], [place] [facility] [employer] 4 20:13:45 Basal cell carcinom a of skin 001717150 Completed 202301/10/2024 Removal Reason: Sees new [facility] yearly Nadia Montague MD [address], [place], [address], [place] [facility] [employer] 4 20:14:08 Cerebral infarcti on 687218927 Active 2023 h/o. right temporal lob infarct seen on CT 10/13/19 - chronic appearin g. Nadia Montague MD [address], [place], [address], [place] [facility] [employer] 20:15:14 Abnormal gait 51601155 Active 2023 Nadia Montague MD [address], [place], [address], [employer] 20:24:03 Neuropat hy 614745274 Active 2023 right hand, h/o CTS Nadia Montague MD [address], [place], [address], [place] [facility] [employer] 20:28:50 Anxiety 35356799 Active 2023 Nadia Montague MD [address], [place], [address], [place] [facility] [employer] 20:28:59 Advance care planning Active 2023 Nadia Montague MD [address], [place], [address], [place] [employer] 4 20:29:15 Dementia with behavior al disturba [facility] 59031075863 03 Active 2023 Nadia Montague MD [address] [place] [address],[address], [address], [employer] 20:30:44 Review of advance care plan Active 2023 HCP: Rakesh Hercules Nadia Montague MD [address] [place] [address],[address], [address], [employer] 13:54:10 Sensorin eural hearing loss 65275969 Active 2023 Nadia Montague MD [address] [place] [address],[address], [address], [employer] 13:54:54 Problem Notes None recorded. Procedures Surgical History Date Name Laterality Status Provider Name and Address Organization Details Recorded Time 12/07/19 23 primary decompression of cervical spine completed Nadia Montague MD [address] [place] [address],[address], [address], [employer] 01/10/2024 20:16:04 01/06/20 10 excision of basal cell carcinoma completed Nadia Montague MD [address] [place] [address], [address], [employer] 01/10/2024 20:16:36 excision of basal cell carcinoma completed Nadia Montague MD [address] [place] [address], [address], [employer] 01/10/2024 20:16:42 removal of sebaceous cyst completed Nadia Montague MD [address] [place] [address], [address], [employer] 01/10/2024 20:17:46 Imaging Results None recorded. Procedure Notes None recorded. Medical Equipment None Reported. Allergies Allergen ID Allergen Name Allergen Category Reaction Reaction Severity Criticality Documentation Date Start Date Code Code System Note Provider Name and Address Organization Details Recorded Time 61 Januvia medicatio n dizziness Not available Not available 01/10/2024 54972 6 RxNorm Nadia Montague MD [address] [place] [address], [place], [address], [facility] 20:25:15 Medications Name Sig Start Date Stop [...] Not Available Not Available No t Available Myrbetriq Take one tablet once daily active Not Available Not Available No t [...] 4 88 /min 167.01 cm 31.4 kg/m2 10992.3 3 g 96 % 96 % 120 mm[Hg] 64 mm[Hg] [employer] 4 11:09:39 Date Recorded Body height Heart rate Body mass index (BMI) Body weight Oxygen saturation Oxygen saturation in Arterial blood by Pulse oximetry Systolic blood pressure Diastolic blood pressure Provider Name and Address Organization Details Last Updated DateTime 4 167.01 cm 96 /min 29.6 kg/m2 52177.5 3 g 74 % 74 % 124 mm[Hg] 64 mm[Hg] [employer] 4 12:53:14 Date Recorded Body height Heart rate Body mass index (BMI) Body weight Oxygen saturation Oxygen saturation in Arterial blood by Pulse oximetry Systolic blood pressure Diastolic blood pressure Provider Name and Address Organization Details Last Updated DateTime 4 167.01 cm 88 /min 30.6 kg/m2 35987.3 7 g 96 % 96 % 110 mm[Hg] 68 mm[Hg] [employer] 11:30:17 Social History Question Answer Notes LastModified by Organizat ion Details LastModified Time Tobacco Smoking Status Former Smoker Nadia Montague MD [address] [place] [address], [place], [address], [employer] 01/10/2024 20:21:00 When Did You Quit Smoking? 11-15yearssi ncelastcicelina ette Information not available 01/10/2024 What Is Your [...] MD [facility] [address] [place] [address] 01/12/2024 10:45:34 01/12/2024 12:43:02 Mixed dementia 3124848604 9107 G30.1 see above Abnormal gait 56403963 R 26.9 Advance care planning 71 6721337 Z71.89 HCP is .on border of needing to invoke HCP. Will further assess next visit. Anxiety 62373993 F41.9 Cerebral infarction 4325 37809 I63.9 Major depr essive disorder 016707948 F32.9 see above Urinary incontinence 165 554990 R32 185 MD [facility] [address] [place] [address] 03/15/2024 11:19:03 03/15/2024 22:15:25 Abnormal gait 64604675 R26.9 as above, would consider PT appt and f/u [facility] - will defer to PCP. Advance care planning 71 8848820 Z71.89 HCP is .Will invoke HCP Anxiety 39424910 F41.9 as above Dementia w ith behavioral disturbance 2411485483 103 F01.518 as above Major depr essive disorder 646855382 F32.9 see aboveincre ase sertraline to 50 mg dailycan discuss buproprion next visit - may be able to decrease dose. 357 MD [facility] [address] [facility] [facility] [address] [place] [address] 05/17/2024 12:28:27 05/17/2024 14:14:58 Anxiety 30446033 F41.9 as above Dementia w ith behavioral disturbance 3118851918 103 F01.518 as above Major depr essive disorder 207905345 F32.9 as above Education of caregiver 510510764 Z71.9 spoke to at length - informatio n as above. Goals Section Goal Description Progress Status Start Date LastModified by Organization Details LastModified Time Activities of Daily Living Performs activities of daily living independently or with minimal assistance None active 2023 Margie [employer] Information not available 03/30/2024 20:25:16 Exercise Regularly Follows a regular exercise regimen or instructed exercise plan as per care team recommendation (s) None active 2023 Margie [employer] Information not available 03/30/2024 20:25:16 Medication Regimen Follows medication regimen as per care team recommendation (s) None active 2023 Margie Onush[employer] Information not available 03/30/2024 20:25:16 Adequate Sleep Achieves adequate, well-rested sleep with minimal disruption None active 2023 Margie Onush[employer] Information not available 03/30/2024 20:25:16 Home/Envir onment Safety Reports having a safe environment that promotes independence and prevents injury None active 2023 Margie Onushco Information not available 03/30/2024 20:25:16 [...] Gomez Member ID Guarantor Name 01/12/2024 1 [facility]: [place] BLUE (MEDICARE REPLACEMENT PPO) [id number] Jamal Hercules [id number] 364 Jamal Hercules 03/15/2024 1 [facility] ([place]ICARE [place]PLACEMENT PPO) [id number] Jamal Hercules [id number] 364 Jamal Hercules 05/17/2024 1 [facility] (MEDICARE [place]PLACEMENT PPO) [id number] Jamal Hercules [id number] 364 Jamal Hercules Notes Date Note Type Note Provider Name and Address Organization Details Recorded Time 4 text/html Person to contact for follow up [...] TV, sometimes he reads Family/caregiver history: Marta Burger 2022 - first noticed that Ady started repeating [...] PCP about his concerns.He had evaluation by [facility] and Dr Nelson in spring 2022. [...] he has gone downhill. 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 Has shuffling gait but per , not told ntot Desi. Has chronic urinary incontinence. Dr Padilla said cystoscopy ok.oxybutyin changed to alfluzosin. (now on tamsulosin) concerned that donepezil could be contributing to incontinence. DMII, uncontrolled: Sees Dr Yeboah, [facility] Endocrine, AIC up to 9.3. Plan to add back trulicity Function:ADL: (bathing, dressing, toileting, transferring, continence, feeding)independent (noted that sometimes he doesnt like to shower) IADL: ( Telephone, shopping, food preparation, housekeeping, laundry, Transportation, Medications, Finances)he lives on [facility]. 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 yesETOH: yes, now and thenConcern about amount of ETOH? doesnt think soTobacco: yes, quit a long time agoOther drugs: doesnt think so. FH:Father - heart attackMother Nadia Montague MD [address] [place] [address], [place], [address], [facility] 01/12/2024 16:13:02 4 text/html Subjective:Since last visit: [...] :She didn? t get in touch with [facility]. She doesn? t feel it is a priority compared to the other things she has to do. She has to meet with the homebirth midwife and financial assistance advisor.Both children are having a difficult time dealing [...] he does very little. Nadia Montague MD [address] [place] [address], [address], Y[facility] 03/15/2024 22:14:48 4 text/html Subjective:Since last visit: [...] dont get out and walk as Ady de la cruz walk that far. That has been going on for at least 5 years. They do have a treadmill. He denies working with PT. 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 They dont have a grandchild but have a granddog.Their son lives with them and dtr lives in [place]. Last saw Dr Irwin in January. says [...] a brain Mood is okay. Salina from [facility] [place] went in to see Shyanne from [facility] - she was interested in services. Judith Whitney called her and she really likes her - meeting with her next week. She is hoping to get more support. He went on quetiapine 25 mg to help with violence and throwing things. Dose was increased to 2 pills. Nadia Montague MD [address] [place] [address], [place], [address], Y[facility] - [facility] 05/17/2024 14:12:09
== END 2024-11-18 14:36 | disposition home or self-care (01) ==
LOC: HO.LAB 14:35
PROVIDERS: PCP Internal Medicine; Visit Provider Nurse Practitioner Family
DX: N40.0 Benign prostatic hyperplasia without lower urinary tract symptoms (principal); Z12.5 Encounter for screening for malignant neoplasm of prostate
CPT/HCPCS: 36415; 84153

== ENCOUNTER 2024-12-01 13:24 | Outpatient (AMB) | payer MEDICARE, SELFPAY ==
--- NOTE | 2024-12-01 13:24 | A.OFFVIS_ITS ---
Intake Visit Reasons: cysto/PSA Intake Note: Patient presents today for Cystoscopy Urology Medications: myrbetriq Blood Thinner: clopidogrel URO- G Disposable Cystoscope Lot:: [id number] Exp: 01/13/27 Lgsw Required: No Accompanied by: Self / Same As Patient Allergies januvia Adverse Reaction (Uncoded 12/02/24 09:15) dizziness Medication List - Last Reconciled 12/02/24 by AUSTIN Knutson atorvastatin mg PO DAILY bupropion HCl XL mg PO DAILY catheter ([facility] External Catheter) As directed daily cholecalciferol (vitamin D3) 50 mcg PO DAILY clopidogrel mg PO DAILY donepezil mg PO DAILY dulaglutide (Trulicity) mg subcut glipizide ER mg PO DAILY lisinopril mg PO DAILY mecobalamin (vitamin B12) mcg PO metformin mg PO mirabegron ER (Myrbetriq) 25 mg PO DAILY 30 days sertraline mg PO DAILY HPI Comments Details: Jamal is a very pleasantly confused 74-year-old male patient of Dr. Naidu who was accompanied by his Marta at today's office visit. He has a past medical history of bladder cancer, type 2 diabetes, hyperlipidemia, urinary incontinence, depression, cerebral infarction, abnormal gait, neuropathy, anxiety, dementia, and sensorineural hearing loss. He presents to the office today for follow-up of his lower urinary tract symptoms as well as longstanding history of bladder cancer. In office cystoscopy was performed no bladder lesions were noted throughout the bladder. In discussion with the patient's who provides much of today's history as patient suffers from dementia she reports no improvement in lower urinary tract symptoms with 25 mg of Myrbetriq. Also, during last office visits recommendations were made for [place] catheter at however patient's states this was unable to be carried out as patient would take off [place] catheterization shortly after she applied it. She reports feeling lower urinary tract symptoms are manageable throughout the day with timed/scheduled voiding however he continues with incontinent episodes while sleeping. He has a previous history of trialing alfuzosin as well as Flomax with no improvement in lower urinary tract symptoms. She otherwise denies patient to have hematuria, dysuria, foul smelling urine, changes to urinary stream, flank pain, fever, and or chills. During last office visit a retroperitoneal ultrasound and PSA were ordered for further assessment evaluation however patient's discusses it has been difficult getting patient to appointments therefore these are still pending. We discussed at length potential causes of lower urinary tract symptoms patient was experiencing as well as further workup in risks and benefits of these interventions. We discussed dementia in relation to lower urinary tract symptoms. In office urinalysis results reviewed with the patient today. PSA 11/29 4.8. Will await results of retroperitoneal ultrasound to further assess initiation of finasteride. [facility] Medical History (Updated 12/02/24 @ 09:29 by Rosetta Fuentes [facility]) Bladder cancer Type 2 diabetes mellitus Hyperlipidemia Urinary incontinence Major depressive disorder Rosacea Cerebral infarction Abnormal gait Neuropathy Anxiety Dementia with behavioral disturbance Sensorineural hearing loss Surgical History History of basal cell carcinoma excision Review of Systems Eyes Reports no additional complaints ENT Reports no additional complaints Card Reports as per HPI Resp Reports no additional complaints GI Reports no additional complaints Reports as per HPI Musc Reports as per HPI Neuro Reports as per HPI Psych Reports as per HPI Endo Reports as per HPI Damaso/Lymph Reports no additional complaints Aller/Immun Reports no additional complaints Physical Exam Const General: cooperative, healthy appearing, comfortable, no acute distress, well developed, alert and awake Orientation/consciousness: oriented to person HEENT Head: Yes normal to inspection, Yes normocephalic and Yes atraumatic Ears: hearing grossly normal bilaterally Eyes General: appearance normal, both eyes and all related structures Neck Neck: Yes normal visual inspection and Yes trachea midline Chest Chest palpation & inspection: normal inspection of the chest Resp Effort & Inspection: normal respiratory effort and able to speak in complete sentences Cardio Rate: regular rate GI Inspection: Yes normal to inspection General: Yes no CVA tenderness Back/Spine/Pelvis Back: no CVA tenderness Skin General skin exam: no rashes or lesions noted Neuro General: oriented to person Extrem General: Yes normal to inspection Psych Appearance: grossly normal and well kempt Mental Status: other (slow to respond at times) Speech and movement: Clear speech present Affect: normal affect Attitude: cooperative Insight: Limited insight present (Psych) Judgement: Limited judgement present (Psych) Office Procedures Cystoscopy Consent Discussed risk and benefit or proposed procedure with the patient. Information consent for procedure given to the patient. Discussed technical aspects, risks, benefits and alternatives in full. Addressed all of the patient's questions and concerns regarding the procedure. The patient demonstrated knowledge and understanding. They wish to proceed with this procedure. Preparation The patient was prepped in the usual manner. A automobile and property underwriter was present and in the room. Genitalia was prepped with betadine solution in a sterile manner. Lidocaine Jelly 2% was placed into the urethra and 16Fr flexible cystoscope was inserted into the meatus after adequate lubrication. Procedure Meatus normal position Urethra normal Bladder examination with retroflexion of cystoscope Bladder Orifices normal shape and position Trigone normal Bladder Capacity moderate Trabeculations moderate Cellule Formation none Diverticulum Formation present Mucosal Erythema none Bladder Tumor none Patient tolerated procedure well [id number] DISPOSABLE SCOPE URO-G FLEXIBLE SCOPE Procedure code (CPT) selection complete Office Meds lidocaine HCl 2 % mucosal jelly in applicator Performing Provider: AUSTIN Knutson Performing Location: [facility] Administered by: Caprice Lopez RN on 12/01/24 13:36 Dose Route Admin Location Dispensed Lot Number Expiration Date [facility] [employer] 10 mL intra-urethral 10 mL nitrofurantoin monohydrate/macrocrystals 100 mg capsule Performing Provider: AUSTIN Knutson Performing Location: [facility] Administered by: Caprice Lopez RN on 12/01/24 13:36 Dose Route Admin Location Dispensed Lot Number Expiration Date [place] [employer] 100 mg PO 1 cap Results AMB Urinalysis, Automated UA Leukoctes 0 Rocco/uL Last Edit by Yani Mclaughlin on 12/01/24 14:09 UA Nitrite Last Edit by Yani Mclaughlin on 12/01/24 14:09 UA Urobilinogen 0.2 mg/dL Last Edit by Yani Mclaughlin on 12/01/24 14:09 UA Protein 0 mg/dL Last Edit by Yani Mclaughlin on 12/01/24 14:09 UA pH 6.0 Last Edit by Yani Mclaughlin on 12/01/24 14:09 UA Blood 0 Daren/uL Last Edit by Yani Mclaughlin on 12/01/24 14:09 UA Specific [place] 1.015 Last Edit by Yani Mclaughlin on 12/01/24 14:09 UA Ketone Last Edit by Yani Mclaughlin on 12/01/24 14:09 UA Bilirubin 0 mg/dL Last Edit by Yani Mclaughlin on 12/01/24 14:09 UA Glucose 0 mg/dL Last Edit by Yani Mclaughlin on 12/01/24 14:09 Results Reviewed Results Reviewed: Laboratory Last Values Urine pH (Auto) 6.0 12/01/24 14:02 Specific [place] (Auto) 1.015 12/01/24 14:02 Urine Protein (Auto) 0 mg/dL 12/01/24 14:02 Glucose (UA)(Auto) 0 mg/dL 12/01/24 14:02 Urine Blood (Auto) 0 Daren/uL 12/01/24 14:02 Urine Bilirubin (Auto) 0 mg/dL 12/01/24 14:02 Urine Urobilinogen (Auto) 0.2 mg/dL 12/01/24 14:02 Leukocyte Esterase (Auto) 0 Rocco/uL 12/01/24 14:02 Assessment & Plan Assessment & Plan (1) Bladder cancer: Code(s): C67.9 - Malignant neoplasm of bladder, unspecified Category: Medical (2) Enlarged prostate: Code(s): N40.0 - Benign prostatic hyperplasia without lower urinary tract symptoms Category: Medical (3) Urinary incontinence: Code(s): R32 - Unspecified urinary incontinence Category: Medical Plan In office urinalysis results with the patient and today; as noted above. In office cystoscopy was performed; NAD Stop Myrbetriq. Start Toviaz as discussed and prescribed. Continue with timed/scheduled voiding. Reviewed application of [place] condom catheter. Recent PSA results reviewed with the patient and today; will await results of retroperitoneal ultrasound for measurement of prostate and further assess question of initiation of finasteride. All questions were answered. Follow-up in 1-3 months with [facility]; or sooner with any issues, concerns, and or questions Orders: Orders AMB Cystoscopy 12/01/24 C67.9 - Malignant neoplasm of bladder, unspecified, N40.0 - Benign prostatic hyperplasia without lower urinary tract symptoms AMB Urinalysis Automated 12/01/24 Z13.9 - Encounter for screening, unspecified Medications: New fesoterodine ER (Toviaz) 4 mg PO DAILY 30 days 30 tabs 3RF N39.41 - Urge incontinence Discontinued mirabegron ER (Myrbetriq) Discontinued Reason: Doctor's Order 25 mg PO DAILY 30 days 30 tabs 3RF N30.10 - Interstitial cystitis (chronic) without hematuria, N32.81 - Overactive bladder, R35.1 - Nocturia, R39.15 - Urgency of urination Patient Instructions: The patient had an opportunity to ask questions regarding the treatment plan. All questions were answered. Physical exam, labs, and imaging were discussed and reviewed in detail. As well as risks, benefits, and discussion of treatment choices. No major barriers to understanding were identified. The patient expressed understanding and agreement with the above treatment plan. The patient was made aware they should contact our office by phone for worsening of their current condition, the appearance of new symptoms, or with any questions or concerns. Compliance is encouraged with any medications and follow up testing that is ordered. It is a privilege to be allowed the opportunity to participate in? your urological care.? Again, if you have any questions or conc erns If you have any questions or concerns please do not hesitate to contact me. The office is [phone]. This note is constructed using voice recognition software. While every effort has been made to ensure accuracy marketing teacher errors may have been included. Yours sincerely, AUSTIN Knutson Coding Level of Care Code Est Pt Level 4 (49449) Diagnoses Bladder cancer C67.9 Enlarged prostate N40.0 Urinary incontinence R32 CPT Codes Cystoscopy - CPT: 87780-[id number] ([id number])
== END 2024-12-01 14:05 | disposition home or self-care (01) ==
LOC: HO.HUSH 13:24
PROVIDERS: PCP Internal Medicine; Visit Provider Nurse Practitioner Family
DX: C67.9 Malignant neoplasm of bladder, unspecified (principal); N40.0 Benign prostatic hyperplasia without lower urinary tract symptoms; Z13.9 Encounter for screening, unspecified
CPT/HCPCS: 52000; 99214

== ENCOUNTER → 2024-12-01 13:24 | Outpatient (BNVA) | payer MEDICARE, SELFPAY | PROVIDERS: PCP Internal Medicine; Visit Provider Nurse Practitioner Family | DX: C67.9 Malignant neoplasm of bladder, unspecified (principal); N40.0 Benign prostatic hyperplasia without lower urinary tract symptoms; R32 Unspecified urinary incontinence | CPT/HCPCS: 52000; 81003; 99212 ==

== ENCOUNTER 2025-03-02 19:53 | Inpatient (IN) | payer MEDICARE, SELFPAY ==
--- NOTE | 2025-03-02 | ECG_ITS ---
Test Reason : WEAKNESS Blood Pressure : */* mmHG Vent. Rate : 75 BPM Atrial Rate : 75 BPM P-R Int : 190 ms QRS Dur : 168 ms QT Int : 452 ms P-R-T Axes : 62 -28 99 degrees QTcB Int : 504 ms Normal sinus rhythm Left bundle branch block Abnormal ECG No previous ECGs available Referred By: Generic ED Physician Electronically Signed By: AYDEN VIEIRA
--- NOTE | ~2025-03-02 | XR_ITS ---
EXAMINATION: XR CHEST CLINICAL INFORMATION: fever COMPARISON: March 02, 2025. TECHNIQUE: Frontal view of the chest was obtained. FINDINGS: Linear opacities both lower midthoracic. Mild pulmonary reticular pattern. No consolidation, pleural fissure pneumothorax. Poor inspiration. Cardiomediastinal silhouette size is normal. Calcified plaque thoracic ureter corresponding multilevel thoracic spondylosis. Degenerative changes in the left glenohumeral joint. XR/XR chest 1V IMPRESSION: Subsegmental atelectasis, lung lobes. Electronically signed by: Adonay Marshall MD 03/14/2025 09:43 AM EDT
--- NOTE | ~2025-03-02 | XR_ITS ---
CLINICAL HISTORY: vomiting 1 view abdomen Comparison: CT of the abdomen from 03/03/2025 Findings: Mild bibasilar atelectasis/pneumonitis. No small bowel dilatation of the imaged abdomen. Moderate stool burden present. Portions of the pelvis including sacrum and SI joints obscured. Degenerative changes include imaged hips of the imaged spine. Calcifications nonspecific likely including phleboliths in the pelvis and old avulsion from left inferior pubic ramus. IMPRESSION: No small bowel obstruction by one view x-ray of the abdomen. This document has been electronically signed by: Best Barboza MD on 03/13/2025 20:44:42
--- NOTE | ~2025-03-02 | CT_ITS ---
CLINICAL HISTORY: Altered Mental Status CT head without contrast Comparison: None provided Findings: Encephalomalacia and/or marked volume loss involve of the right temporal lobe. Mild-moderate volume loss of the left temporal lobe noted. Small old bilateral basal ganglia region infarctions are also present. No acute intracranial hemorrhage. No midline shift or hydrocephalus accounting for the defined volume loss. Vascular calcifications noted. Imaged paranasal sinuses and imaged mastoid air cells are well aerated, with asymmetric pneumatization of the petrous apices. No acute skull fracture. Scalp thickening is nonspecific. IMPRESSION: 1. No acute intracranial hemorrhage. 2. Old infarctions including basal ganglia regions. 3. Bilateral temporal volume loss, right worse than left. This document has been electronically signed by: Best Barboza MD on 03/03/2025 02:41:19
--- NOTE | ~2025-03-02 | XR_ITS ---
CLINICAL HISTORY: Change in Mental Status 1 view chest x-ray Comparison: None provided Findings: No consolidation. Low lung volumes with minimal atelectasis. Mild emphysematous changes suggested. No definite pneumothorax accounting for emphysematous changes and lateral skin folds present. No pleural effusion in this one view study. Cardiac silhouette and mediastinum accentuated by AP magnification. Degenerative changes include imaged shoulders and imaged AC joints. IMPRESSION: No consolidation. This document has been electronically signed by: Best Barboza MD on 03/02/2025 23:26:54
--- NOTE | ~2025-03-02 | CT_ITS ---
CLINICAL HISTORY: Sepsis; Unknown Source CT abdomen and pelvis without contrast Comparison: None provided Findings: Mild bibasilar atelectasis/pneumonitis in the [id number]. Motion artifacts additional artifacts related to superficial metal and positioning of the upper extremities noted. Cholelithiasis by CT. Fat deposition noted in the imaged liver. Imaged spleen is nonenlarged. Bilateral adrenal hyperplasia in this noncontrast study with motion artifacts. Mild-moderate volume loss of the imaged pancreas. No obstructing stone of either kidney or either ureter. Punctate nephrolithiasis of the right kidney. Additional bilateral renal calcifications likely vascular. No hydronephrosis. Calcified and noncalcified plaque include imaged aorta and its branches. Mesenteric lymph nodes in the periaortic lymph nodes are nonspecific and may be reactive. No small bowel obstruction. Imaged appendix is within normal limits (imaged for 60 of series 4). No free intraperitoneal air. Fluid in the cecum can be seen with diarrhea type illnesses and mild colitis. Otherwise, moderate to severe stool burden. Wall thickening of the large intestine is nonspecific and can be seen with colitis. Other mural pathology not excluded by CT. Small thickening includes sigmoid colon. Rectum is mildly distended. Prostate gland measures 4.8 cm transverse. Mild wall thickening of the urinary bladder is nonspecific. Mild pelvis deformities appear old/chronic. Partial ankylosis of the SI joints, left worse than right. The degenerative changes include the hips and spine, with degenerative disc changes and facet arthropathy. Partial vertebral fusion of the L2-L3 with multifocal findings of spinal stenosis by CT. Schmorl's nodes are also multifocal. IMPRESSION: 1. No obstructing stone of either kidney or either ureter. 2. Cholelithiasis. 3. Wall thickening of the large intestine is nonspecific and concerning for colitis, including sigmoid colon. No small bowel obstruction. 4. Wall thickening of the urinary bladder is nonspecific. 5. Mild atelectasis/pneumonitis of the imaged lung bases. This document has been electronically signed by: Best Barboza MD on 03/03/2025 03:12:48
[2025-03-02 20:03] VITALS: BP 120/81; BP 133/76; PULSE 73; PULSE 78; RESP 16; TEMP 36.6; O2SAT 100; BMI 27.3
[2025-03-02 20:07] LABS: Glucose, Whole Blood 60 mg/dL (60-115)
--- NOTE | 2025-03-02 20:09 | PC.NURSE ---
Pt given orange juice, glucose check 60. RN aware, Resting in bed comfortably, care ongoing.
--- NOTE | 2025-03-02 20:55 | ED.GENADULT ---
HPI - General Adult General Chief complaint: General Medical Stated complaint: Not eating or drinking x5 days, poc 41 Time Seen by Provider: 03/02/25 20:55 Source: patient, family and EMS Mode of arrival: EMS Limitations: altered mental status (Baseline vascular dementia) History of Present Illness ED Provider: Darryl MCCOY HPI narrative: The patient is a 74-year-old male with history of bladder cancer, diabetes, hyperlipidemia, CVA, vascular dementia, anxiety, depression, and abnormal gait presenting to the ED from his SN[facility] today for evaluation of poor p.o. intake over the past 4-5 days. The patient is confused at baseline, majority of HPI obtained from chart review, patient's spouse, and EMS report. Patient reportedly has been not eating or drinking well for the past 4-5 days. There has been no reported associated diarrhea, vomiting, or fever. In the ED patient denies any abdominal pain. Of note patient was found upon arrival to the ED to be hypoglycemic at 41, provided juice, ice cream, and oral glucose with improvement to 60, repeat POC at time of patient interview was unchanged at 60. Related Data Home Medications ?Medication ?Instructions ?Recorded ?Confirmed atorvastatin 40 mg tablet mg PO DAILY 10/04/24 bupropion HCl 300 mg 24 hr tablet, mg PO DAILY 10/04/24 extended release cholecalciferol (vitamin D3) 50 50 mcg PO DAILY 10/04/24 mcg (2,000 unit) capsule clopidogrel 75 mg tablet mg PO DAILY 10/04/24 donepezil 10 mg tablet mg PO DAILY 10/04/24 dulaglutide 0.75 mg/0.5 mL mg subcut 10/04/24 subcutaneous pen injector ([facility]) glipizide 2.5 mg tablet, extended mg PO DAILY 10/04/24 release 24 hr lisinopril 5 mg tablet mg PO DAILY 10/04/24 mecobalamin (vitamin B12) 500 mcg mcg PO 10/04/24 chewable tablet metformin 500 mg tablet mg PO 10/04/24 sertraline 50 mg tablet mg PO DAILY 10/04/24 Previous Rx's ?Medication ?Instructions ?Recorded catheter ([facility] Male #30 ea 10/05/24 External Catheter) fesoterodine 4 mg tablet,extended 4 mg PO DAILY 30 days #30 tabs 12/02/24 release 24 hr (Toviaz) Allergies Allergy/AdvReac Type Severity Reaction Status Date / Time januvia AdvReac dizziness Uncoded 03/02/25 20:12 Review of Systems Review of Systems: Yes all other systems are reviewed and are negative [facility] Past Medical History Medical History (Updated 03/03/25 @ 03:57 by Darryl Goldberg PA-C) Bladder cancer Type 2 diabetes mellitus Hyperlipidemia Urinary incontinence Major depressive disorder Rosacea Cerebral infarction Abnormal gait Neuropathy Anxiety Dementia with behavioral disturbance Sensorineural hearing loss Surgical History History of basal cell carcinoma excision Social History Social History Smoked in Last 30 Days: No Use of substances other than those prescribed or required for medical reasons: No Advance Directives: Yes Advance Directives Information Provided: No Advance Directives on File: No Physical Exam ED Vital Signs: Vital Signs - 24 hr 03/02/25 20:03 03/02/25 22:40 03/02/25 23:33 Temperature 97.8 F Pulse Rate 78 76 83 Respiratory Rate 16 13 17 Blood Pressure 120/81 151/70 H 153/77 H Pulse Oximetry 100 95 96 Oxygen Delivery Method Room Air Room Air Room Air 03/02/25 23:40 Temperature Pulse Rate 77 Respiratory Rate 16 Blood Pressure 153/69 H Pulse Oximetry 95 Oxygen Delivery Method Room Air BMI result Body Mass Index 27.3 CONSTITUTIONAL: The patient appears non-toxic and in no acute distress. Vital signs as documented. HEAD: Atraumatic, normocephalic. EYES: EOMs grossly intact, pupils equal, conjunctiva clear, no exudate. ENT: Nares patent, no discharge. Airway patent, no audible stridor, visible mucosa is pink and moist without noted lesions. Posterior pharynx shows midline nonedematous uvula, no peritonsillar or tonsillar swelling, no tonsillar exudate. NECK: Trachea is midline, no obvious masses or gross abnormalities. CHEST: Symmetric movement, normal appearance. LUNGS: LS present and CTAB, no w/r/r. Non-labored work of breathing. CARDIAC: Regular Rhythm, S1/S2 appreciated, no murmurs, rubs or gallops. ABDOMEN: Abdomen soft and non-tender x4 quadrants, no palpable masses or organomegaly. : Deferred. EXTREMITIES: Normal tone, moves all extremities spontaneously without reported pain. No obvious acute injury or deformity noted. NEURO: Alert and pleasantly confused, at baseline per patient's spouse, CN II-XII appear grossly intact. Cerebellar Functioning grossly intact. No obvious sensory or motor deficits. Speech clear and appropriate. PSYCH: normal affect, appropriate eye contact, fluid speech, with appropriate response to questioning. No reported suicidality or homicidality. SKIN: Warm, dry, color appropriate, normal turgor. No rashes noted. Medications Administered Generic Name Dose Route Start Last Admin Trade Name Freq PRN Reason Stop Dose Admin Dextrose/Lactated Ringer's 1,000 mls @ 100 mls/hr 03/03/25 02:15 03/03/25 02:22 D5lr IVCONT 100 mls/hr .Q10H KHOI Administration Discontinued Medications Generic Name Dose Route Start Last Admin Trade Name Freq PRN Reason Stop Dose Admin Aspirin 324 mg 03/03/25 00:55 03/03/25 01:26 Aspirin 81 Mg Tab.Chew PO 03/03/25 00:56 324 mg ONCE ONE Administration Ceftriaxone Sodium 1 gm 03/02/25 22:18 03/02/25 22:31 Ceftriaxone Sodium 1 Gm Vial IVPUSH 03/02/25 22:19 1 gm ONCE ONE Administration Dextrose 25 gm 03/02/25 22:49 03/02/25 22:52 Dextrose 50 % 25 Gm/50 Ml Syringe IVPUSH 03/02/25 22:50 25 gm ONCE ONE Administration Sodium Chloride 1,000 mls @ 999 mls/hr 03/02/25 21:45 03/02/25 22:40 Ns IV 03/02/25 22:45 Infused .Q1H1M KHOI Infusion Sodium Chloride 1,000 mls @ 999 mls/hr 03/02/25 22:15 03/03/25 00:01 Ns IV 03/02/25 23:46 Not Given .Q1H1M KHOI Sodium Chloride 1,000 mls @ 999 mls/hr 03/03/25 01:00 03/03/25 01:29 Ns IV 03/03/25 02:00 Infused .Q1H1M KHOI Infusion Magnesium Oxide 400 mg 03/02/25 22:18 03/02/25 22:31 Magnesium Oxide 400 Mg Tablet PO 03/02/25 22:19 400 mg ONCE ONE Administration Medical Decision Making Medical Decision Making MDM Narrative: 9:21 PM 03/02/2025: Patient is a pleasantly confused 74-year-old male with history of vascular dementia presenting to the ED for evaluation of poor p.o. intake over the past 4-5 days. Patient arrives to the ED hypoglycemic with blood sugar of 41, provided oral glucose, ice cream, and juice, point of care glucose increased to 60. The patient's ability to provide a reliable HPI is questionable, majority of HPI obtained from EMS report, chart review, and patient's spouse who is present in the ED. The patient's exam is unremarkable, abdominal exam is nontender. Patient's EKG shows left bundle-branch block which is reported as olds by patient's spouse. The patient will be evaluated for infectious, cardiac, and metabolic process contributing to decreased p.o. intake. Spouse denies any report of recent trauma, no indication for CT imaging of the head or abdomen at this time. 9:36 PM 03/02/2025: Patient's laboratory evaluation shows critically high creatinine of 6.02, BUN is also markedly elevated at 58. Anion gap elevated at 25. Patient will receive IV fluid hydration and we will add on lactic acid. 10:15 PM 03/02/2025: Patient's lactic acid reported at 8.7, sepsis IV fluid bolus ordered to a total of 2517 mL, 1 L has already been completed. Blood cultures ordered, prophylactic Rocephin ordered, and sepsis alert called. Family updated. We will also repeat point of care glucose in the setting of fluid hydration. 10:56 PM 03/02/2025: The patient is repeat point of care glucose is 31, patient is actively receiving an amp of D50. We will conduct Q 1 hour glucose checks and consider dextrose drip. 12:39 AM 03/03/2025: Lab called to report patient's repeat lactic acid is 7.7, improving although still significantly elevated, unknown source. Patient's straight cath is still pending, discussed with RN who will be attempting straight cath at this time. We will give additional 1 L fluid bolus. 12:45 AM 03/03/2025: Lab called to report patient's repeat troponin is now elevated at 107.2, patient currently denies active chest pain. Given the spouse is report that patient has left bundle branch block is old, and in the setting of no active chest pain, we will forego heparin, we will however repeat EKG and treat with aspirin. 1:24 AM 03/03/2025: Patient's straight cath was unsuccessful, a condom catheter will be applied for UA. Due to the patient's lack of infectious source, a CT head and CT abdomen and pelvis noncontrast were obtained. Patient's case was discussed with admitting hospitalist, at this time we will await CT imaging results and UA prior to admission. 1:58 AM 03/03/2025: Repeat EKG at 01:39 hours redemonstrates sinus rhythm with a rate of 72 with a left bundle branch block, does not meet Sgarbossa criteria, prolonged QTC at 505, compared to previous there are no acute morphology changes. 3:54 AM 03/03/2025: Patient's repeat lactic acid has continued to improve to 6.5, point of care glucose has improved following initiation of dextrose. The patient's CT head has resulted and shows no acute intracranial pathology although there is significant bilateral volume loss consistent with previous infarctions. Patient's CT of the abdomen shows thickening of the bladder wall, nonspecific thickening of the colon concerning for possible colitis, and cholelithiasis. No other acute findings, no small bowel obstruction or obstructing stone. The patient's urinalysis is still pending. Patient's case was discussed again with Dr. Guevara from the hospitalist team, patient will be admitted however we will still attempt to obtain and send the UA regardless of admission. Admission/Observation Consideration of admission/observation: Escalation of care including admission/observation considered Consult Healthcare Provider Management of the patient was discussed with: Hospitalist Lab Data [facility] Lab Attestation statement: I reviewed the patient's lab results. 03/02/25 21:04 03/02/25 21:04 Labs: Lab Results 03/02/25 03/02/25 03/02/25 Range/Units 20:04 21:04 21:10 WBC 10.7 (4.8-10.8) X10*3/uL RBC 4.45 L (4.60-5.80) X10*6/uL Hgb 13.5 L (14.0-18.0) g/dl Hct 40.3 L (42.0-52.0) % MCV 90.6 (80.0-98.0) fL MCH 30.3 (27.0-33.0) pg MCHC 33.5 (31.0-36.0) g/dl RDW 14.0 (11.0-16.0) % Plt Count 296 (160-400) X10*3/uL MPV 9.7 (9.4-12.4) fL Immature Gran % (Auto) 1.5 H (0.0-0.4) % Neut % (Auto) 76.9 H (45-73) % Lymph % (Auto) 12.5 L (20-40) % [place] % (Auto) 8.3 (2-11) % Eos % (Auto) 0.4 (0-4) % Baso % (Auto) 0.4 (0-2) % Lymph # (Auto) 1.3 (1.2-4.9) X10*3/uL [place] # (Auto) 0.9 (0.1-1.2) X10*3/uL Eos # (Auto) 0.0 (0.0-0.4) X10*3/uL Baso # (Auto) 0.0 (0.0-0.2) X10*3/uL Abs Immat Gran (auto) 0.16 H (0.00-0.03) X10*3/uL Absolute Neuts (auto) 8.2 (2.0-8.3) x10*3/uL Absolute Nucleated RBC 0.000 (0.0-0.012) X10*3/uL Nucleated RBC % (auto) 0.0 (0.0-0.2) /100WBC Sodium 140 (135-145) mmol/L Potassium 5.1 (3.3-5.1) mmol/L Chloride 103 (96-108) mmol/L Carbon Dioxide 17 L (22-29) mmol/L Anion Gap 25 H (12-20) BUN 58 H (9-16) mg/dL Creatinine 6.02 H* (0.5-1.4) mg/dL Estim Creat Clear Calc 10.9 Estimated GFR 9 POC Glucose 60 60 (60-115) mg/dL Random Glucose 65 (60-115) mg/dL Lactic Acid (0.5-2.0) mmol/L Lactic Acid F/U @ 2Hr (0.5-2.0) mmol/L Lactic Acid F/U @ 4Hr (0.5-2.0) mmol/L Calcium 9.6 (8.4-10.2) mg/dL Magnesium (1.6-2.6) mg/dL Total Bilirubin 0.4 (0.0-1.0) mg/dL AST 28 (5-37) U/L ALT 11 (0-40) U/L Alkaline Phosphatase 107 (39-117) U/L Troponin I High Sens (<3.5-35.0) ng/L B-Natriuretic Peptide (<100) pg/mL Total Protein 7.2 (6.5-8.0) g/dL Albumin 4.2 (3.5-5.0) g/dL 03/02/25 03/02/25 03/02/25 Range/Units 21:49 22:48 23:59 WBC (4.8-10.8) X10*3/uL RBC (4.60-5.80) X10*6/uL Hgb (14.0-18.0) g/dl Hct (42.0-52.0) % MCV (80.0-98.0) fL MCH (27.0-33.0) pg MCHC (31.0-36.0) g/dl RDW (11.0-16.0) % Plt Count (160-400) X10*3/uL MPV (9.4-12.4) fL Immature Gran % (Auto) (0.0-0.4) % Neut % (Auto) (45-73) % Lymph % (Auto) (20-40) % [place] % (Auto) (2-11) % Eos % (Auto) (0-4) % Baso % (Auto) (0-2) % Lymph # (Auto) (1.2-4.9) X10*3/uL [place] # (Auto) (0.1-1.2) X10*3/uL Eos # (Auto) (0.0-0.4) X10*3/uL Baso # (Auto) (0.0-0.2) X10*3/uL Abs Immat Gran (auto) (0.00-0.03) X10*3/uL Absolute Neuts (auto) (2.0-8.3) x10*3/uL Absolute Nucleated RBC (0.0-0.012) X10*3/uL Nucleated RBC % (auto) (0.0-0.2) /100WBC Sodium (135-145) mmol/L Potassium (3.3-5.1) mmol/L Chloride (96-108) mmol/L Carbon Dioxide (22-29) mmol/L Anion Gap (12-20) BUN (9-16) mg/dL Creatinine (0.5-1.4) mg/dL Estim Creat Clear Calc Estimated GFR POC Glucose 31 L* 73 (60-115) mg/dL Random Glucose (60-115) mg/dL Lactic Acid 8.7 H* (0.5-2.0) mmol/L Lactic Acid F/U @ 2Hr (0.5-2.0) mmol/L Lactic Acid F/U @ 4Hr (0.5-2.0) mmol/L Calcium (8.4-10.2) mg/dL Magnesium 1.5 L (1.6-2.6) mg/dL Total Bilirubin (0.0-1.0) mg/dL AST (5-37) U/L ALT (0-40) U/L Alkaline Phosphatase (39-117) U/L Troponin I High Sens 33.5 (<3.5-35.0) ng/L B-Natriuretic Peptide 76 (<100) pg/mL Total Protein (6.5-8.0) g/dL Albumin (3.5-5.0) g/dL 03/03/25 03/03/25 03/03/25 Range/Units 00:04 00:09 01:28 WBC (4.8-10.8) X10*3/uL RBC (4.60-5.80) X10*6/uL Hgb (14.0-18.0) g/dl Hct (42.0-52.0) % MCV (80.0-98.0) fL MCH (27.0-33.0) pg MCHC (31.0-36.0) g/dl RDW (11.0-16.0) % Plt Count (160-400) X10*3/uL MPV (9.4-12.4) fL Immature Gran % (Auto) (0.0-0.4) % Neut % (Auto) (45-73) % Lymph % (Auto) (20-40) % [place] % (Auto) (2-11) % Eos % (Auto) (0-4) % Baso % (Auto) (0-2) % Lymph # (Auto) (1.2-4.9) X10*3/uL [place] # (Auto) (0.1-1.2) X10*3/uL Eos # (Auto) (0.0-0.4) X10*3/uL Baso # (Auto) (0.0-0.2) X10*3/uL Abs Immat Gran (auto) (0.00-0.03) X10*3/uL Absolute Neuts (auto) (2.0-8.3) x10*3/uL Absolute Nucleated RBC (0.0-0.012) X10*3/uL Nucleated RBC % (auto) (0.0-0.2) /100WBC Sodium (135-145) mmol/L Potassium (3.3-5.1) mmol/L Chloride (96-108) mmol/L Carbon Dioxide (22-29) mmol/L Anion Gap (12-20) BUN (9-16) mg/dL Creatinine (0.5-1.4) mg/dL Estim Creat Clear Calc Estimated GFR POC Glucose 54 L* (60-115) mg/dL Random Glucose (60-115) mg/dL Lactic Acid (0.5-2.0) mmol/L Lactic Acid F/U @ 2Hr 7.7 H* (0.5-2.0) mmol/L Lactic Acid F/U @ 4Hr (0.5-2.0) mmol/L Calcium (8.4-10.2) mg/dL Magnesium (1.6-2.6) mg/dL Total Bilirubin (0.0-1.0) mg/dL AST (5-37) U/L ALT (0-40) U/L Alkaline Phosphatase (39-117) U/L Troponin I High Sens 107.2 H* D (<3.5-35.0) ng/L B-Natriuretic Peptide (<100) pg/mL Total Protein (6.5-8.0) g/dL Albumin (3.5-5.0) g/dL 03/03/25 03/03/25 Range/Units 02:27 02:38 WBC (4.8-10.8) X10*3/uL RBC (4.60-5.80) X10*6/uL Hgb (14.0-18.0) g/dl Hct (42.0-52.0) % MCV (80.0-98.0) fL MCH (27.0-33.0) pg MCHC (31.0-36.0) g/dl RDW (11.0-16.0) % Plt Count (160-400) X10*3/uL MPV (9.4-12.4) fL Immature Gran % (Auto) (0.0-0.4) % Neut % (Auto) (45-73) % Lymph % (Auto) (20-40) % [place] % (Auto) (2-11) % Eos % (Auto) (0-4) % Baso % (Auto) (0-2) % Lymph # (Auto) (1.2-4.9) X10*3/uL [place] # (Auto) (0.1-1.2) X10*3/uL Eos # (Auto) (0.0-0.4) X10*3/uL Baso # (Auto) (0.0-0.2) X10*3/uL Abs Immat Gran (auto) (0.00-0.03) X10*3/uL Absolute Neuts (auto) (2.0-8.3) x10*3/uL Absolute Nucleated RBC (0.0-0.012) X10*3/uL Nucleated RBC % (auto) (0.0-0.2) /100WBC Sodium (135-145) mmol/L Potassium (3.3-5.1) mmol/L Chloride (96-108) mmol/L Carbon Dioxide (22-29) mmol/L Anion Gap (12-20) BUN (9-16) mg/dL Creatinine (0.5-1.4) mg/dL Estim Creat Clear Calc Estimated GFR POC Glucose 99 (60-115) mg/dL Random Glucose (60-115) mg/dL Lactic Acid (0.5-2.0) mmol/L Lactic Acid F/U @ 2Hr (0.5-2.0) mmol/L Lactic Acid F/U @ 4Hr 6.5 H* (0.5-2.0) mmol/L Calcium (8.4-10.2) mg/dL Magnesium (1.6-2.6) mg/dL Total Bilirubin (0.0-1.0) mg/dL AST (5-37) U/L ALT (0-40) U/L Alkaline Phosphatase (39-117) U/L Troponin I High Sens (<3.5-35.0) ng/L B-Natriuretic Peptide (<100) pg/mL Total Protein (6.5-8.0) g/dL Albumin (3.5-5.0) g/dL Independent Interpretation I performed an independent interpretation of an: EKG (EKG shows sinus rhythm with a rate of 75 with a left bundle branch block, does not meet Sgarbossa criteria, QTC prolonged at 504, no old for comparison however patient's spouse advises left bundle branch block is old. ) Radiology Impression Discussion of test interpretation with radiology: I have reviewed the radiologist's reading. Radiologist Impression: Findings: No consolidation. Low lung volumes with minimal atelectasis. Mild emphysematous changes suggested. No definite pneumothorax accounting for emphysematous changes and lateral skin folds present. No pleural effusion in this one view study. Cardiac silhouette and mediastinum accentuated by AP magnification. Degenerative changes include imaged shoulders and imaged AC joints. IMPRESSION: No consolidation. Independent Historian Clinical information obtained from an independent historian. History obtained from or confirmed by: Spouse External Record Review External record reviewed: Outpatient record Chronic Conditions Patient?s care impacted by: Diabetes Discharge Plan Discharge Clinical Impression: LAURIE (acute kidney injury), Acute lactic acidosis, Hypoglycemia Sepsis Qualifiers: Sepsis type: sepsis due to unspecified organism Sepsis acute organ dysfunction status: with acute organ dysfunction Severe sepsis acute organ dysfunction type: acute renal failure Acute renal failure type: unspecified Severe sepsis shock status: without septic shock Qualified Code(s): A41.9 - Sepsis, unspecified organism Patient Disposition: Admitted As Inpatient Print Language: Rw[place]an
[2025-03-02 21:08] LABS: MANUAL DIFF FLAG NO
[2025-03-02 21:14] LABS: Glucose, Whole Blood 60 mg/dL (60-115)
[2025-03-02 21:16] LABS: Hematocrit 40.3 % (42.0-52.0); Hemoglobin 13.5 g/dl (14.0-18.0); Imm Gran Abs Auto 0.16 X10*3/uL (0.00-0.03); Imm Gran Pct Auto 1.5 % (0.0-0.4); Lymphocytes Absolute Auto 1.3 X10*3/uL (1.2-4.9); Mean Corpuscular HGB Conc 33.5 g/dl (31.0-36.0); Mean Corpuscular Hemoglobin 30.3 pg (27.0-33.0); Mean Corpuscular Volume 90.6 fL (80.0-98.0); NRBC Abs Auto 0.000 X10*3/uL (0.0-0.012); NRBC Pct Auto 0.0 /100WBC (0.0-0.2); Platelet Count 296 X10*3/uL (160-400); Red Blood Count 4.45 X10*6/uL (4.60-5.80); White Blood Count 10.7 X10*3/uL (4.8-10.8)
[2025-03-02 21:31] LABS: Alanine Aminotransferase 11 U/L (0-40); Albumin Level 4.2 g/dL (3.5-5.0); Alkaline Phosphatase 107 U/L (39-117); Anion Gap 25 (12-20); Aspartate Amino Transferase 28 U/L (5-37); Blood Urea Nitrogen 58 mg/dL (9-16); Calcium 9.6 mg/dL (8.4-10.2); Carbon Dioxide 17 mmol/L (22-29); Chloride 103 mmol/L (96-108); Creatinine Clr Calc Pharmacy 10.9; Estimated Glomerular Filt Rate 9; Potassium 5.1 mmol/L (3.3-5.1); Sodium 140 mmol/L (135-145); Total Protein 7.2 g/dL (6.5-8.0)
[2025-03-02 22:10] LABS: Magnesium 1.5 mg/dL (1.6-2.6)
[2025-03-02 22:17] LABS: B Type Natriuretic Peptide 76 pg/mL (<100)
[2025-03-02 22:18] LABS: Troponin-I High Sensitivity 33.5 ng/L (<3.5-35.0)
[2025-03-02 22:40] VITALS: BP 151/70; PULSE 76; RESP 13; O2SAT 95
[2025-03-02 22:53] LABS: Glucose, Whole Blood 31 mg/dL (60-115)
[2025-03-02 23:33] VITALS: BP 153/77; PULSE 83; RESP 17; O2SAT 96
[2025-03-02 23:40] VITALS: BP 153/69; PULSE 77; RESP 16; O2SAT 95
[2025-03-02 23:53] LABS: Reflex Lactate? Lactic Acid Added
--- NOTE | 2025-03-03 00:02 | PC.NURSE ---
Addendum entered by Nel Tierney RN 03/03/25 20:33: late entry- Provider order for 2517 ml of NS on 03/02/25, hung at 2153 infused at 2331 on 03/02/25 at a rate of 999 ml/hr. Original Note: IVF complete, pt received at total of 2517 ml. Scanning issue with nov.
[2025-03-03 00:03] LABS: Glucose, Whole Blood 73 mg/dL (60-115)
[2025-03-03 00:39] LABS: ~Lactic Acid-LAB USE ONLY 7.7 mmol/L (0.5-2.0)
[2025-03-03 00:46] LABS: Troponin-I High Sensitivity 107.2 ng/L (<3.5-35.0)
--- NOTE | 2025-03-03 00:49 | ECG_ITS ---
Test Reason : NSTEMI Blood Pressure : */* mmHG Vent. Rate : 72 BPM Atrial Rate : 72 BPM P-R Int : 236 ms QRS Dur : 160 ms QT Int : 462 ms P-R-T Axes : 45 -50 107 degrees QTcB Int : 505 ms Sinus rhythm with 1st degree A-V block Left axis deviation Left bundle branch block Abnormal ECG When compared with ECG of 02-Mar-2025 20:58, MA interval has increased Referred By: Darryl Goldberg Electronically Signed By: AYDEN VIEIRA
[2025-03-03 01:37] LABS: Glucose, Whole Blood 54 mg/dL (60-115)
[2025-03-03 01:54] VITALS: BP 130/66
[2025-03-03 02:10] VITALS: BP 130/69
[2025-03-03 02:12] LABS: Reflex Lactate? 2 Y
[2025-03-03] MEDS: Dextrose 5 % and Lactated Ring 1,000 ML 100 ML IVCONT (02:22)
[2025-03-03 02:30] LABS: Glucose, Whole Blood 99 mg/dL (60-115)
[2025-03-03 03:15] LABS: ~Lactic Acid-LAB USE ONLY 6.5 mmol/L (0.5-2.0)
[2025-03-03 04:05] VITALS: BP 136/64; PULSE 67; RESP 14; TEMP 36.7; O2SAT 99
[2025-03-03 04:13] LABS: Glucose, Whole Blood 69 mg/dL (60-115)
--- NOTE | 2025-03-03 05:15 | PC.NURSE ---
Addendum entered by Nel Tierney RN 03/03/25 06:06: D5/LR IVF stopped and started D10 IVF @ 75 ml/hr per provider Alexey. Addendum entered by Nel Tierney RN 03/03/25 05:20: Per Dr. Guevara, D5/LR IVF increased from 100 ml/hr to 150 ml/hr. Original Note: Pt biba from [facility], staff reporting pt has had poor PO intake over the past 4-5 days and increasingly lethargic. NO other symptoms of concern reported. Upon EMS arrival pts POC was 41, pt was given oral glucose gel, soda, and crackers on the way to ED, POC improved to 61. Pt has dementia at baseline and is a poor historian. Upon arrival to the ED pt was noted to be alert to self and place, agitated but redirectable, and POC was 60. Pt wasgiven juice and ice cream, 1 hr POC recheck remained at 60. Pts lactic noted to be 8.7, sepsis protocol initiated, pt received 2517ml IVF NS and abx. 2248 pts POC was noted to be 31 pt was given an amp of D50 with POC improvement to 73 and q1hr POC. Pt later noted to be 54 and placed on D5/LR IVF currenty running at 100ml/hr. Pts repeat lactic 7.7, pt received 1L IVF. RN attempted straight cath but pt refused screaming it hurts, placed purwick on pt, pending urine sample. Pts repeat lactic improved to 6.5. Pt has 20G IV in LAC. labs- Anion Gap- 25 BUN- 58 Creatinine- 6.02 Trop- 33.5--> 107.2 Lactic- 8.7-->7.7-->6.5
--- NOTE | 2025-03-03 05:23 | PM.IMHP ---
History of Present Illness Date of Service: 03/03/25 Attending physician on admission: Cee Guevara Chief Complaint: poor appetite, BG 41 Patient is a 75-year-old male currently living in a assisted living/jail for the last 3 weeks s/p rehab after a fall, with past medical history of dementia, stroke, bladder cancer, urinary incontinence, cervical spine stenosis, Carpal dru surgery, neuropathy, insulin-dependent diabetes type 2, hypertension, vitamin-D deficiency, depression anxiety, hyperlipidemia presents to the emergency department via EMS from SNF as reported to staff that patient has had a loss of appetite over the last 4-5 days with profound weakness. Staff had denied patient had any other new symptoms. Patient's blood sugar was 41 when EMS arrived. Patient was still verbal and interactive. Blood glucose increased to 69. Patient's baseline confused and unable to provide any history or HPI. Workup in the ED revealed a lactic acidosis 7.7 with no leukocytosis and after fluids down to 6.5. Patient was started on D5 infusion with LR and blood sugar maximized to 99 and then dropped back down to 69. Again patient currently asymptomatic. Head CT was completed with no acute intracranial hemorrhage and identified old basal ganglia infarctions. Patient also noted have bilateral temporal volume loss, right greater than left. CT of abdomen and chest did not identify any nephrolithiasis or hydronephrosis. Evidence of cholelithiasis without cholecystitis. Also identified evidence of colitis including the sigmoid colon. No evidence of bowel obstruction. Mild atelectasis with pneumonitis also seen. Patient's creatinine 6.02, creatinine clearance 10.9 and GFR 9 indicating severe LAURIE/ CKD stage 5. There are no other labs to compare to from prior outpatient visits. Patient did present with 1 wet diaper. Since Gerri Wick has been will place patient has not produced any urine. Patient aggressively refused attempt at Stein placement. Bladder scans are now ordered Q shift and as needed. Unable to obtain urinalysis so far. Nephrology has been consulted. Patient is started on Zosyn 4.5 g q.12 hours based on creatinine clearance for evidence of colitis. Pt's troponin 33.5 initially, then 107.2 and repeat pending.ECG notes SR with 1st degree AVB, AR 236. QTC 462. Pt is not currently on AV jeri blocking agents. BNP 76. MG 1.5, pt received one dose of po MG but will add 2 GMS IV. The jail did not provide any medical information except the MOLST, which indicates patient is a full code. This leader writer was able to speak to pt's spouse by phone and stated pt has no hx of renal issues in the past. Pt had one episode of hypoglycvemia about three weeks ago when pt moved in to the [facility]. Pt's spouse is not sure if pt should return there. Review of Systems Review of Systems: Pt states No to all questions asked. Yes Unobtainable due to mental status (dementia ) [facility] [place] Medical History (Updated 03/03/25 @ 06:05 by AUSTIN Young) CVA (cerebral vascular accident) Vitamin D deficiency Hearing loss Spinal stenosis, cervical region Bladder cancer Type 2 diabetes mellitus Hyperlipidemia Urinary incontinence Major depressive disorder Rosacea Cerebral infarction Abnormal gait Neuropathy Anxiety Dementia with behavioral disturbance Sensorineural hearing loss Cognitive capacity: Alert to self only Functional capacity: bed bound Pertinent family history: pt unable to provide Surgical History (Updated 03/03/25 @ 06:05 by AUSTIN Young) History of carpal tunnel surgery History of basal cell carcinoma excision Social History Smoked in Last 30 Days: No Use of substances other than those prescribed or required for medical reasons: No Advance Directives: Yes Advance Directives Information Provided: No Advance Directives on File: No Ebola Risk: Travel/Contact With Anyone From Affected Area/s: No Has Patient Experienced Ebola Symptoms: No Meds Allergies Allergy/AdvReac Type Severity Reaction Status Date / Time januvia AdvReac dizziness Uncoded 03/02/25 20:12 Active Medications: Current Medications Acetaminophen (Acetaminophen 325 Mg Tablet) 650 mg PO Q6H PRN PRN Reason: Pain, Mild 1-3,fever,headache Calcium Carbonate (Calcium Carbonate 750 Mg Tab.Chew) 750 mg PO Q4H PRN PRN Reason: Heartburn Dextrose (Dextrose 50 % 25 Gm/50 Ml Syringe) 25 gm IVPUSH Q15M PRN; Protocol PRN Reason: per Hypoglycemia Standing Ord. Enoxaparin Sodium (Enoxaparin Sodium 40 Mg/0.4 Ml Syringe) 40 mg SUBCUT Q24H KHOI Glucose (Glucose Gel 15 Gm Gel..Gram.) 15 gm PO Q15M PRN; Protocol PRN Reason: per Hypoglycemia Standing Ord. Dextrose/Lactated Ringer's (D5lr) 1,000 mls @ 150 mls/hr IVCONT .Q6H40M [facility] Last Admin: 03/03/25 02:22 Dose: 100 mls/hr Dextrose (D10) 1,000 mls @ 75 mls/hr IVCONT .[id number] [facility] Insulin Human Lispro (Insulin Lispro 100 Unit/Ml 3 Ml Vial) 0 unit SUBCUT QIDACHS [facility]; Protocol Magnesium Hydroxide (Milk Of Magnesia 30 Ml Oral.Susp) 30 ml PO DAILY PRN PRN Reason: Constipation Melatonin (Melatonin 3 Mg Tablet) 6 mg PO BEDTIME PRN PRN Reason: Insomnia Pantoprazole Sodium (Pantoprazole Sodium 40 Mg/10 Ml Vial) 40 mg IVPUSH DAILY@0630 [facility] Sodium Chloride (0.9 % Sodium Chloride Flush 3 Ml Syringe) 3 ml IVFLUSH QSHIFT [facility] Home Medications ?Medication ?Instructions ?Recorded ?Confirmed ?Last Taken ?Type atorvastatin 40 mg tablet mg PO DAILY 10/04/24 Unknown History bupropion HCl 300 mg 24 hr tablet, mg PO DAILY 10/04/24 Unknown History extended release cholecalciferol (vitamin D3) 50 50 mcg PO DAILY 10/04/24 Unknown History mcg (2,000 unit) capsule clopidogrel 75 mg tablet mg PO DAILY 10/04/24 Unknown History donepezil 10 mg tablet mg PO DAILY 10/04/24 Unknown History dulaglutide 0.75 mg/0.5 mL mg subcut 10/04/24 Unknown History subcutaneous pen injector (Trulicity) glipizide 2.5 mg tablet, extended mg PO DAILY 10/04/24 Unknown History release 24 hr lisinopril 5 mg tablet mg PO DAILY 10/04/24 Unknown History mecobalamin (vitamin B12) 500 mcg mcg PO 10/04/24 Unknown History chewable tablet metformin 500 mg tablet mg PO 10/04/24 Unknown History sertraline 50 mg tablet mg PO DAILY 10/04/24 Unknown History Physical Exam Vital Signs and Narrative: Vital Signs: Last Vital Signs Temp 98.1 F 03/03/25 04:05 Pulse 67 03/03/25 04:05 Resp 14 03/03/25 04:05 BP 136/64 03/03/25 04:05 Pulse Ox 99 03/03/25 04:05 O2 Del Method Room Air 03/03/25 04:05 BMI result Body Mass Index 27.3 Alert and orientated to self only, verbal, able to protect airway , unable to give good history. Neuro: CN II-X11 intact, pt can follow commands, visual acuity intact EYES: PERRLA, EOM intact, sclera nonicteric ENT: hearing intact, no issues with swallowing, uvula midline, lips moist, nares patent no epistaxis Cardiac: S1 S2 RRR, no murmur, no JVD, no edema in Lower ext Pulmonary: lungs diminished B Abdominal: BS active in all 4 quadrants, no guarding, mild mid abdominal tenderness, no rebounding MSK: strength 3/5 upper and lower extremities : no CVA tenderness no bladder distension no output via Gerri WIck Extremities: no edema in lower extremities, PT and DP pulses palpable +2 Psych: mood stable, no agitation , judgement and insight poor Skin: intact, unable to check backside Results Labs 03/02/25 21:04 03/02/25 21:04 Labs: Laboratory Results - last 24 hr 03/02/25 03/02/25 03/02/25 20:04 21:04 21:10 MCV 90.6 MCH 30.3 MCHC 33.5 RDW 14.0 Plt Count 296 MPV 9.7 Immature Gran % (Auto) 1.5 H Neut % (Auto) 76.9 H Lymph % (Auto) 12.5 L [place] % (Auto) 8.3 Eos % (Auto) 0.4 Baso % (Auto) 0.4 Lymph # (Auto) 1.3 [place] # (Auto) 0.9 Eos # (Auto) 0.0 Baso # (Auto) 0.0 Abs Immat Gran (auto) 0.16 H Absolute Neuts (auto) 8.2 Absolute Nucleated RBC 0.000 Nucleated RBC % (auto) 0.0 Anion Gap 25 H Estim Creat Clear Calc 10.9 Estimated GFR 9 POC Glucose 60 60 Random Glucose 65 Lactic Acid Lactic Acid F/U @ 2Hr Lactic Acid F/U @ 4Hr Calcium 9.6 Magnesium Total Bilirubin 0.4 AST 28 ALT 11 Alkaline Phosphatase 107 Troponin I High Sens B-Natriuretic Peptide Total Protein 7.2 Albumin 4.2 03/02/25 03/02/25 03/02/25 21:49 22:48 23:59 MCV MCH MCHC RDW Plt Count MPV Immature Gran % (Auto) Neut % (Auto) Lymph % (Auto) [place] % (Auto) Eos % (Auto) Baso % (Auto) Lymph # (Auto) [place] # (Auto) Eos # (Auto) Baso # (Auto) Abs Immat Gran (auto) Absolute Neuts (auto) Absolute Nucleated RBC Nucleated RBC % (auto) Anion Gap Estim Creat Clear Calc Estimated GFR POC Glucose 31 L* 73 Random Glucose Lactic Acid 8.7 H* Lactic Acid F/U @ 2Hr Lactic Acid F/U @ 4Hr Calcium Magnesium 1.5 L Total Bilirubin AST ALT Alkaline Phosphatase Troponin I High Sens 33.5 B-Natriuretic Peptide 76 Total Protein Albumin 03/03/25 03/03/25 03/03/25 00:04 00:09 01:28 MCV MCH MCHC RDW Plt Count MPV Immature Gran % (Auto) Neut % (Auto) Lymph % (Auto) [place] % (Auto) Eos % (Auto) Baso % (Auto) Lymph # (Auto) [place] # (Auto) Eos # (Auto) Baso # (Auto) Abs Immat Gran (auto) Absolute Neuts (auto) Absolute Nucleated RBC Nucleated RBC % (auto) Anion Gap Estim Creat Clear Calc Estimated GFR POC Glucose 54 L* Random Glucose Lactic Acid Lactic Acid F/U @ 2Hr 7.7 H* Lactic Acid F/U @ 4Hr Calcium Magnesium Total Bilirubin AST ALT Alkaline Phosphatase Troponin I High Sens 107.2 H* D B-Natriuretic Peptide Total Protein Albumin 03/03/25 03/03/25 03/03/25 02:27 02:38 04:04 MCV MCH MCHC RDW Plt Count MPV Immature Gran % (Auto) Neut % (Auto) Lymph % (Auto) [place] % (Auto) Eos % (Auto) Baso % (Auto) Lymph # (Auto) [place] # (Auto) Eos # (Auto) Baso # (Auto) Abs Immat Gran (auto) Absolute Neuts (auto) Absolute Nucleated RBC Nucleated RBC % (auto) Anion Gap Estim Creat Clear Calc Estimated GFR POC Glucose 99 69 Random Glucose Lactic Acid Lactic Acid F/U @ 2Hr Lactic Acid F/U @ 4Hr 6.5 H* Calcium Magnesium Total Bilirubin AST ALT Alkaline Phosphatase Troponin I High Sens B-Natriuretic Peptide Total Protein Albumin ECG Attestation: I personally reviewed and interpreted this ECG as follows: (SR first degree AVB AR 232) Prior ECG tracings: available for review Imaging Radiologist's Impressions: CT ABD PELVIS IMPRESSION: 1. No obstructing stone of either kidney or either ureter. 2. Cholelithiasis. 3. Wall thickening of the large intestine is nonspecific and concerning for colitis, including sigmoid colon. No small bowel obstruction. 4. Wall thickening of the urinary bladder is nonspecific. 5. Mild atelectasis/pneumonitis of the imaged lung bases. HEAD CT MPRESSION: 1. No acute intracranial hemorrhage. 2. Old infarctions including basal ganglia regions. 3. Bilateral temporal volume loss, right worse than left. CXR Findings: No consolidation. Low lung volumes with minimal atelectasis. Mild emphysematous changes suggested. No definite pneumothorax accounting for emphysematous changes and lateral skin folds present. No pleural effusion in this one view study. Cardiac silhouette and mediastinum accentuated by AP magnification. Degenerative changes include imaged shoulders and imaged AC joints. IMPRESSION: No consolidation. Assessment and Plan (1) LAURIE (acute kidney injury): Status: Acute Plan Patient is a 75-year-old male currently living in a assisted living/jail for the last 3 weeks s/p rehab after a fall, with past medical history of dementia, stroke, bladder cancer, urinary incontinence, cervical spine stenosis, Carpal dru surgery, neuropathy, insulin-dependent diabetes type 2, hypertension, vitamin-D deficiency, depression anxiety, hyperlipidemia presents to the emergency department via EMS from SNF as reported to staff that patient has had a loss of appetite over the last 4-5 days with profound weakness. Staff had denied patient had any other new symptoms. Patient's blood sugar was 41 when EMS arrived. Patient was still verbal and interactive. Blood glucose increased to 69. Patient's baseline confused and unable to provide any history or HPI. Pt being admitted for severe LAURIE, colitis, hypoglycemia, elevated troponin. Severe LAURIE -Nephrology consult -K 5.1, Phosphorous pending -Pt NPO Noting colitis -D10 infusion running due to persistent hypoglcyemia -No urine output noted since gerri wick added, pt refused stein - bladder scans Q shift and prn -Daily weights -Measure I/O Q1H -MOLST Full Code, Pt's spouse if HCP -Total CK pending, pt is on statin -CT notes no hydronephrosis or nephrolithiasis Hypoglycemia -BG 41 at the scene, after Dextrose AMP, gel increased to 60's -Max BG 99 since arrival, currently back down to 60 mg/dL, changed to D10 at 75 mls per hour and addiitonal amp of dextrose -Pt is otherwise asymptomic, able to protect airway, baseline confused with known dementia -Pt is NPO currently due to colitis and tender abdomen -Q1H BG -No plan to resume diabetic meds at this time Lactic Acidosis -No Leukocytosis, fever -Unable to obtain UA -No PNA on CT, ? atelectasis/ pneumonitis -Trend LA - 7.7 --6.5--next level pending -Elevated Troponin -IVF - D10 due to persistent hypoglcyemia -Zosyn 4.5 G Q12 H, renal dosed -Pt does not meet criteria for sepsis with elevated LA alone Colitis via CT scan Zosyn 4.5 gms started Q12, renal dosing Monitor Lactic acid level NPO IVF continue Metabolic Encephalopathy with underlying Dementia -Secondary to renal failure with lactic acidosis probable, Unable to obtain UA so far -Pt does not require 1:1 at this time -Avoid use of naroctics and Benzodiazepines Elevated Troponin/ First degree AVB AR 232/ prolonged Qtc 505 -Pt is not on any AV jeri blocking agents normally -Magnesium low, 1.5 replacement ordered (aware of LAURIE) -Telemetry -Qtc prolonged, hold SSRIs -Will check TSH, FT4 DVT prophyhlaxis: Heparin SC PPI prophylaxis: Protonix MED REC pending FULL CODE status, MOLST in chart Spouse is HCP Quality Stroke Does the patient have a stroke diagnosis?: No Reason for No Anti-thrombotic by Day Two: N/A - Med Ordered VTE Prior VTE?: No VTE Risk Level:: Medical - moderate - high VTE Device Contraindication: N/A - Device Ordered VTE Drug Contraindication: N/A - Med Ordered
[2025-03-03] MEDS: Dextrose 10 % 1,000 ML 75 ML IVCONT (05:55)
[2025-03-03 06:04] LABS: Glucose, Whole Blood 60 mg/dL (60-115)
[2025-03-03] MEDS: Magnesium Sulfate/H2O 2 GM/50 ML PIGGYBACK IV (06:13)
[2025-03-03 06:51] LABS: Troponin-I High Sensitivity 314.4 ng/L (<3.5-35.0)
--- NOTE | 2025-03-03 07:00 | CA_ITS ---
Transthoracic Echocardiogram Patient (Last, First, Middle): Jamal Hercules, Gender: Male Date of : 1950 Age: 75 Procedure Date: 03/03/2025 Procedure Type: Transthoracic Echocardiogram Location: ER Height: 175.26 cm Weight: 83.92 kg BSA: 2.00 m2 Heart Rate: bpm BP: 136 / 64 mmHg Sap Developer: Referring MD: Cee Guevara MD Symptoms: elevated troponin Study Quality: Adequate w contrast ECG Rhythm: Sinus Conclusions: - The left ventricular systolic function is severely decreased. The calculated ejection fraction is 31% by biplane method. - The apical inferior, apical septum, mid inferoseptal, and mid anteroseptal segments are akinetic. - No obvious valvular pathology seen on this study. - Findings from coronary disease vs stress induced cardiomyopathy. Findings Procedure Information Contrast agent, definity, is being given per protocol without apparent complications. Left Ventricle Normal left ventricular cavity size. There is mildly increased left ventricular wall thickness. The left ventricular systolic function is severely decreased. The calculated ejection fraction is 31% by biplane method. There is evidence of regional wall motion abnormalities. Diastolic function is normal for age. Wall Motion Rest Echo Findings The apical inferior, apical septum, mid inferoseptal, and mid anteroseptal segments are akinetic. Right Ventricle Normal right ventricular cavity size and systolic function. Atria Both atria are normal in size. Aortic Valve There is a normal trileaflet aortic valve. There is no aortic valve stenosis. There is no aortic valve regurgitation. Mitral Valve The mitral valve appears normal. There is mild mitral annular calcification. There is no mitral valve regurgitation. There is no mitral valve stenosis. Pulmonic Valve The pulmonic valve is likely normal. Tricuspid Valve There is mild tricuspid valve regurgitation. There is no evidence of pulmonary hypertension. Great Vessels The asc aorta is normal in size. Venous The inferior vena cava is normal in size and collapses less than 50% with inspiration. Pericardium/Pleural There is no evidence of pericardial effusion. Prior Study Comparison No prior study available for comparison. Recommendations, Care & Conclusions No obvious valvular pathology seen on this study. Measurements 2D Linear Measurements IVSd: 1.26 0.6-0.9/0.6-1.0 cm LVIDd: 4.80 3.9-5.3/4.2-5.9 cm LVIDd Index: 2.40 2.4-3.2/2.2-3.1 cm/m2 LVIDs: 3.70 2.0-3.6 cm LVPWd: 1.22 0.7-1.1 cm Ao Root: 3.70 2.1-3.5 cm LA Diam: 4.20 2.7-3.8/3.0-4.0 cm LAIDs Index: 2.10 1.5-2.3 cm/m2 LV Mass: 286.25 67-162/88-224 g LV Mass Index: 143.12 43-95/49-115 g/m2 LVOT Diam: 2.30 3.0+(-)1.3 cm 2D Systolic Function EF 4C: 33.10 >55% EF 2C: 27.70 >55% EF BiP: 30.50 >55% Mitral Valve MV Pk E: 0.49 MV PK A: 0.74 MV Decel Time: 186.00 E/A: 0.70 E'Lateral: 9.25 E'Medial: 4.24 E/E' Med: 11.60 E/E' Lat: 5.30 PHT: 55.00 MVA PHT: 4.00 Decel Mchenry: 2.64 Aortic Valve AoV Pk Josh: 1.23 AoV Mn Josh: 0.85 AoV VTI: 0.27 AoV Pk Grad: 6.00 Aov Mn Grad: 3.00 MARIANA Cont.VTI: 3.37 LVOT LVOT Pk Josh: 0.93 LVOT Mn Josh: 0.70 LVOT VTI: 0.22 LVOT Pk Grad: 3.00 LVOT Mn Grad: 2.00 LVOT Diam: 2.30 LVOT Area: 4.15 Diastolic Function MV Pk E: 0.49 MV Pk A: 0.74 E/A: 0.70 E'Medial: 4.24 E/E' Med: 11.60 E' Laterial: 9.25 E/E' Lat: 5.30 Right Ventricle TAPSE (mm): 19.50 TVS' Josh: 13.10 Tricuspid Valve TR Pk Josh: 2.20 TR Pk Grad: 19.00 Great Vessels Aorta Ao Root-2D: 3.70 2.0-3.7 cm Ao Asc: 3.70 2.1-3.4 cm Pulmonary Valve PV Pk Josh: 0.77 Peak PV Grad: 2.00 Updated in Other Vendor System with Status of Final Delfin Nicholas MD electronically signed on 03/03/2025 4:25:36 PM with status of Final
[2025-03-03 07:14] LABS: Glucose, Whole Blood 115 mg/dL (60-115)
--- NOTE | 2025-03-03 07:16 | PC.NURSE ---
Accepted care of pt. Pt A&O X2 VSS POC stable at this time. Pt un NAD
[2025-03-03 07:41] LABS: Free T4 (Free Thyroxine) 1.06 ng/dL (0.71-1.85); Thyroid Stimulating Hormone 0.69 uIU/mL (0.32-4.0)
[2025-03-03 08:22] LABS: PTT Heparin Drip 31.8 SEC (53-77.9)
[2025-03-03 08:31] LABS: Glucose, Whole Blood 93 mg/dL (60-115)
[2025-03-03] MEDS: Heparin Sodium,Porcine/1/2NS 25,000 UNIT/250 ML IV.SOLN 10 UNIT IVCONT (09:00)
[2025-03-03 09:04] LABS: Anion Gap 20 (12-20); Blood Urea Nitrogen 55 mg/dL (9-16); Calcium 8.3 mg/dL (8.4-10.2); Carbon Dioxide 15 mmol/L (22-29); Chloride 107 mmol/L (96-108); Creatinine Clr Calc Pharmacy 11.0; Estimated Glomerular Filt Rate 9; Potassium 5.2 mmol/L (3.3-5.1); Sodium 137 mmol/L (135-145)
[2025-03-03 09:05] VITALS: BP 117/60; PULSE 63; RESP 14; O2SAT 97
[2025-03-03] MEDS: 0.9 % Sodium Chloride Flush 3 ML SYRINGE IVFLUSH (09:05)
--- NOTE | 2025-03-03 09:20 | P.CONNP_ITS ---
History of Present Illness Reason for Consult Consult date: 03/03/25 Chief Complaint Chief complaint: AMS History of Present Illness Narrative: 75 y/o male who lives in [place] [facility] [place] for the last 3 weeks s/p rehab after a fall, with a medical history of dementia, stroke, bladder cancer, urinary incontinence, cervical spine stenosis, Carpal dru surgery, neuropathy, insulin-dependent diabetes type 2, hypertension, vitamin-D deficiency, depression anxiety, hyperlipidemia. Presented 03/02 from SNF after reported to staff that patient had lost appetite for 4-5 days and developed profound weakness. Blood sugar was 41, patient was alert and interactive. He is confused at baseline. Nephrology consulted for LAURIE creatinine 6.02 on 03/02, 03/03 is 5.96; baseline creatinine in January was 0.67. potassium 5.2 lactic acidosis 7.7 UA ordered but not yet collected pt is able to state that he is not in any pain and denies shortness of breath, though he is not sure if he has urinated recently or not. He is unable to provide additional history. Review of Systems Constitutional: Reports fatigue and Reports poor appetite Cardiovascular: Denies chest pain, Denies leg edema and Denies dyspnea Respiratory: Denies dyspnea Gastrointestinal: Denies abdominal pain, Denies diarrhea, Denies nausea and Denies vomiting Genitourinary: Denies hematuria, Denies oliguria, Denies dysuria and Denies flank pain Musculoskeletal: Denies arthralgias and Denies muscle cramps Skin/Breast: Denies rash Denies tremor(s) Endocrine: Reports fatigue PMF Past Medical History Medical History (Updated 03/03/25 @ 06:05 by ANNA Young-ROBERT) CVA (cerebral vascular accident) Vitamin D deficiency Hearing loss Spinal stenosis, cervical region Bladder cancer Type 2 diabetes mellitus Hyperlipidemia Urinary incontinence Major depressive disorder Rosacea Cerebral infarction Abnormal gait Neuropathy Anxiety Dementia with behavioral disturbance Sensorineural hearing loss Surgical History Surgical History (Updated 03/03/25 @ 06:05 by ANNA Young-ROBERT) History of carpal tunnel surgery History of basal cell carcinoma excision Social History Social History Smoked in Last 30 Days: No Use of substances other than those prescribed or required for medical reasons: No Advance Directives: Yes Advance Directives Information Provided: No Advance Directives on File: No Travel History Ebola Risk: Travel/Contact With Anyone From Affected Area/s: No Has Patient Experienced Ebola Symptoms: No Meds Allergies Allergy/AdvReac Type Severity Reaction Status Date / Time deb AdvReac dizziness Uncoded 03/02/25 20:12 Active Medications: Current Medications Acetaminophen (Acetaminophen 325 Mg Tablet) 650 mg PO Q6H PRN PRN Reason: Pain, Mild 1-3,fever,headache Calcium Carbonate (Calcium Carbonate 750 Mg Tab.Chew) 750 mg PO Q4H PRN PRN Reason: Heartburn Dextrose (Dextrose 50 % 25 Gm/50 Ml Syringe) 25 gm IVPUSH Q15M PRN; Protocol PRN Reason: per Hypoglycemia Standing Ord. Dextrose (Dextrose 50 % 25 Gm/50 Ml Syringe) 25 gm IVPUSH Q15M PRN; Protocol PRN Reason: per Hypoglycemia Standing Ord. Glucose (Glucose Gel 15 Gm Gel..Gram.) 15 gm PO Q15M PRN; Protocol PRN Reason: per Hypoglycemia Standing Ord. Heparin Sodium (Porcine) (Heparin Sodium,Porcine 5,000 Unit/Ml Vial) 3,400 unit 40 unit/kg (3400 unit) IVPUSH PROTOCOL BOLUS PRN; Protocol PRN Reason: 40 unit/kg - Heparin Protocol Heparin Sodium (Porcine) (Heparin Sodium,Porcine 5,000 Unit/Ml Vial) 6,700 unit 80 unit/kg (6700 unit) IVPUSH PROTOCOL BOLUS PRN; Protocol PRN Reason: 80 unit/kg - Heparin Protocol Dextrose (D10) 1,000 mls @ 75 mls/hr IVCONT .[id number] [facility] Last Admin: 03/03/25 05:55 Dose: 75 mls/hr Piperacillin Sod/Tazobactam (Sod 4.5 gm/ Sodium Chloride) 100 mls @ 200 mls/hr IV Q12H [facility] Last Infusion: 03/03/25 06:20 Dose: Infused Heparin Sodium/Sodium Chloride (Heparin Sodium,Porcine/1/2ns) 25,000 unit in 250 mls @ 0 mls/hr IVCONT .Q0M [facility]; Protocol Last Admin: 03/03/25 09:00 Dose: 11.92 units/kg/hr, 10 mls/hr Insulin Human Lispro (Insulin Lispro 100 Unit/Ml 3 Ml Vial) 0 unit SUBCUT QIDACHVasiliy [facility]; Protocol Last Admin: 03/03/25 08:11 Dose: Not Given Melatonin (Melatonin 3 Mg Tablet) 6 mg PO BEDTIME PRN PRN Reason: Insomnia Pantoprazole Sodium (Pantoprazole Sodium 40 Mg/10 Ml Vial) 40 mg IVPUSH DAILY@0630 [facility] Last Admin: 03/03/25 08:58 Dose: 40 mg Sodium Chloride (0.9 % Sodium Chloride Flush 3 Ml Syringe) 3 ml IVFLUSH [facility] Last Admin: 03/03/25 09:05 Dose: 3 ml Home Medications ?Medication ?Instructions ?Recorded ?Confirmed ?Last Taken ?Type bupropion HCl 300 mg 24 hr tablet, 300 mg PO DAILY 03/03/25 03/02/25 History extended release clopidogrel 75 mg tablet 75 mg PO DAILY 10/04/2402/0603/02/25 History glipizide 2.5 mg tablet, extended 2.5 mg PO BEDTIME 03/03/25 03/02/25 History release 24 hr lisinopril 5 mg tablet 5 mg PO DAILY 10/04/2403/0303/02/25 History acetaminophen 500 mg tablet 500 mg PO Q4H PRN Fever Or Pain 03/03/25 03/03/25 03/02/25 History capsaicin 0.033 % topical cream 1 appl topical TID 03/03/25 03/02/25 History colchicine 0.6 mg tablet 0.6 mg PO DAILY 03/03/2503/02/25 History melatonin 3 mg tablet 3 mg PO BEDTIME 03/03/2503/02/25 History metformin 1,000 mg tablet 1,000 mg PO DAILY 03/03/25 0 03/03/25 03/02/25 History olanzapine 2.5 mg tablet 2.5 mg PO BEDTIME 03/03/25 0 03/03/25 03/02/25 History sennosides 8.6 mg tablet (senna) 8.6 mg PO BEDTIME PRN Constipation 03/03/25 03/03/25 03/02/25 History sertraline 25 mg tablet 75 mg PO DAILY 03/03/2502/0603/02/25 History Physical Exam Vital Signs: Last Vital Signs Temp 98.1 F 03/03/25 04:05 Pulse 63 03/03/25 09:05 Resp 14 03/03/25 09:05 BP 117/60 03/03/25 09:05 Pulse Ox 97 03/03/25 09:05 O2 Del Method Room Air 03/03/25 09:05 BMI result Body Mass Index 27.3 Const General: no acute distress, alert and awake Resp Effort & Inspection: normal respiratory effort and able to speak in complete sentences Auscultation: clear to auscultation bilaterally Cardio Rate: regular rate Rhythm: regular rhythm Heart sounds: S1 normal heart sound present and S2 normal heart sound present GI Palpation (GI): Soft to palpation and nontender General: Yes no CVA tenderness Back/Spine/Pelvis Back: no CVA tenderness Skin Rashes: no rashes Extrem General: No edema Results Lab Results 03/02/25 21:04 03/03/25 08:39 Lab results: Chemistry 03/02/25 03/03/25 21:04 08:39 Sodium 140 137 Potassium 5.1 5.2 H Carbon Dioxide 17 L 15 L BUN 58 H 55 H Creatinine 6.02 H* 5.96 H* Calcium 9.6 8.3 L D Hematology 03/02/25 21:04 WBC 10.7 Hgb 13.5 L Plt Count 296 Assessment and Plan (1) LAURIE (acute kidney injury): Status: Acute Plan LAURIE likely ATN in setting of reduced oral intake with maciel inhibitor use creatinine slightly improved overnight. CT without hydronephrosis/obstruction. recommend IVF sodium bicarb at 80mL/hr recommend close urine output monitoring- recommend condom cath or stein if unable to reliably measure via urinal. Recommend daily weights recommend regular blood pressure checks and daily renal function and electrolyte studies Continue supportive care, will continue to follow Discussed with Dr Keegan Colby Date of Service Date of Service: 03/03/25
[2025-03-03 09:21] LABS: Glucose, Whole Blood 93 mg/dL (60-115)
--- NOTE | 2025-03-03 09:32 | PHA.MEDREC ---
Pharmacy Consult ? Medication Reconciliation Pharmacy has completed the medication reconciliation. Utilized list from SNF
[2025-03-03 10:00] VITALS: BP 119/58; PULSE 61; RESP 12; TEMP 36.7; O2SAT 99
--- NOTE | 2025-03-03 10:28 | PC.NURSE ---
Spoke with Dr Fischer about bladder scan results 173 mL and has not put any urine out with extrenal cath at this time. Provider aware and recommends to continue purewick to monitor any u/o.
[2025-03-03 10:33] LABS: Glucose, Whole Blood 88 mg/dL (60-115)
--- NOTE | 2025-03-03 10:33 | PM.CNCAR ---
History of Present Illness History of Present Illness Date of Service: 03/03/25 Chief complaint: AMS Narrative: This is a cardiology consultation regarding elevated troponin. It seems that [facility] the last few weeks status post rehab after a fall. He has got dementia at baseline. Many comorbidities. He is not able to really tell me much. No meaningful history obtainable. He has been brought to the hospital because of loss of appetite for the last several days with increasing weakness. He was hypoglycemic with a blood sugar of 41 upon arrival. Even at that time, it seems he was confused and unable to give any history. Then labs were checked on issue for found to have very high creatinine of 6. The reason labs from [facility] from last month and that actually shows a normal creatinine of 0.67. Hence this increasing creatinine is seems to be a new finding. The concern is the increasing troponin. In previous high sensitivity troponins from [facility] which are high sensitivity troponin T-they were also slightly elevated in the 30s which actually correspond to the current levels when converted to high sensitivity troponin I. Due to confusion unable to obtain any history about chest pains extra. Review of Systems Review of Systems: Unable to obtain due to confusion [facility] Past Medical History Medical History (Updated 03/03/25 @ 10:39 by Delfin Nicholas MD) CVA (cerebral vascular accident) Vitamin D deficiency Hearing loss Spinal stenosis, cervical region Bladder cancer Type 2 diabetes mellitus Hyperlipidemia Urinary incontinence Major depressive disorder Rosacea Cerebral infarction Abnormal gait Neuropathy Anxiety Dementia with behavioral disturbance Sensorineural hearing loss Family History Pertinent family history: No pertinent history but also unable to obtain. Surgical History Surgical History (Updated 03/03/25 @ 06:05 by KARIE Young) History of carpal tunnel surgery History of basal cell carcinoma excision Social History Social History Smoked in Last 30 Days: No Use of substances other than those prescribed or required for medical reasons: No Advance Directives: Yes Advance Directives Information Provided: No Advance Directives on File: No Travel History Ebola Risk: Travel/Contact With Anyone From Affected Area/s: No Has Patient Experienced Ebola Symptoms: No Meds Allergies Allergy/AdvReac Type Severity Reaction Status Date / Time januvia AdvReac dizziness Uncoded 03/02/25 20:12 Active Medications: Current Medications Acetaminophen (Acetaminophen 325 Mg Tablet) 650 mg PO Q6H PRN PRN Reason: Pain, Mild 1-3,fever,headache Calcium Carbonate (Calcium Carbonate 750 Mg Tab.Chew) 750 mg PO Q4H PRN PRN Reason: Heartburn Dextrose (Dextrose 50 % 25 Gm/50 Ml Syringe) 25 gm IVPUSH Q15M PRN; Protocol PRN Reason: per Hypoglycemia Standing Ord. Dextrose (Dextrose 50 % 25 Gm/50 Ml Syringe) 25 gm IVPUSH Q15M PRN; Protocol PRN Reason: per Hypoglycemia Standing Ord. Glucose (Glucose Gel 15 Gm Gel..Gram.) 15 gm PO Q15M PRN; Protocol PRN Reason: per Hypoglycemia Standing Ord. Heparin Sodium (Porcine) (Heparin Sodium,Porcine 5,000 Unit/Ml Vial) 3,400 unit 40 unit/kg (3400 unit) IVPUSH PROTOCOL BOLUS PRN; Protocol PRN Reason: 40 unit/kg - Heparin Protocol Heparin Sodium (Porcine) (Heparin Sodium,Porcine 5,000 Unit/Ml Vial) 6,700 unit 80 unit/kg (6700 unit) IVPUSH PROTOCOL BOLUS PRN; Protocol PRN Reason: 80 unit/kg - Heparin Protocol Piperacillin Sod/Tazobactam (Sod 4.5 gm/ Sodium Chloride) 100 mls @ 200 mls/hr IV Q12H [facility] Last Infusion: 03/03/25 06:20 Dose: Infused Heparin Sodium/Sodium Chloride (Heparin Sodium,Porcine/1/2ns) 25,000 unit in 250 mls @ 0 mls/hr IVCONT .Q0M [facility]; Protocol Last Admin: 03/03/25 09:00 Dose: 11.92 units/kg/hr, 10 mls/hr Sodium Bicarbonate 150 meq/ (Dextrose) 1,000 mls @ 80 mls/hr IV .[id number] [facility] Insulin Human Lispro (Insulin Lispro 100 Unit/Ml 3 Ml Vial) 0 unit SUBCUT QIDACHS [facility]; Protocol Last Admin: 03/03/25 08:11 Dose: Not Given Melatonin (Melatonin 3 Mg Tablet) 6 mg PO BEDTIME PRN PRN Reason: Insomnia Pantoprazole Sodium (Pantoprazole Sodium 40 Mg/10 Ml Vial) 40 mg IVPUSH DAILY@0630 [facility] Last Admin: 03/03/25 08:58 Dose: 40 mg Sodium Chloride (0.9 % Sodium Chloride Flush 3 Ml Syringe) 3 ml IVFLUSH QSHIFT [facility] Last Admin: 03/03/25 09:05 Dose: 3 ml Home Medications ?Medication ?Instructions ?Recorded ?Confirmed ?Last Taken ?Type bupropion HCl 300 mg 24 hr tablet, 300 mg PO DAILY 10/04/24 03/03/25 03/02/25 History extended release clopidogrel 75 mg tablet 75 mg PO DAILY 10/04/24 03/03/25 03/02/25 History glipizide 2.5 mg tablet, extended 2.5 mg PO BEDTIME 10/04/24 03/03/25 03/02/25 History release 24 hr lisinopril 5 mg tablet 5 mg PO DAILY 10/04/24 03/03/25 03/02/25 History acetaminophen 500 mg tablet 500 mg PO Q4H PRN Fever Or Pain 03/03/25 03/03/25 03/02/25 History capsaicin 0.033 % topical cream 1 appl topical TID 03/03/25 03/03/25 03/02/25 History colchicine 0.6 mg tablet 0.6 mg PO DAILY 03/03/25 03/03/25 03/02/25 History melatonin 3 mg tablet 3 mg PO BEDTIME 03/03/25 03/03/25 03/02/25 History metformin 1,000 mg tablet 1,000 mg PO DAILY 03/03/25 03/03/25 03/02/25 History olanzapine 2.5 mg tablet 2.5 mg PO BEDTIME 03/03/25 03/03/25 03/02/25 History sennosides 8.6 mg tablet (senna) 8.6 mg PO BEDTIME PRN Constipation 03/03/25 03/03/25 03/02/25 History sertraline 25 mg tablet 75 mg PO DAILY 03/03/25 03/03/25 03/02/25 History Physical Exam Vital Signs: Vital Signs: Last Vital Signs Temp 98.0 F 03/03/25 10:00 Pulse 61 03/03/25 10:00 Resp 12 03/03/25 10:00 BP 119/58 L 03/03/25 10:00 Pulse Ox 99 03/03/25 10:00 O2 Del Method Room Air 03/03/25 10:00 BMI result Body Mass Index 27.3 Const: General: comfortable and no acute distress Orientation/consciousness: No patient oriented x3 HEENT: Other: Unremarkable Head: Yes normal to inspection Neck: Neck: Yes normal visual inspection Chest: Chest palpation & inspection: normal inspection of the chest Resp: Auscultation: clear to auscultation bilaterally Cardio: Palpation: normal PMI Heart sounds: S1 normal heart sound present, S2 normal heart sound present, no gallops, no murmurs and no rubs GI: Palpation (GI): Soft to palpation Back/Spine/Pelvis: Other: unremarkable Skin: General skin exam: no rashes or lesions noted Neuro: General: No patient oriented x3 Extrem: General: Yes normal to inspection Psych: Mental Status: mental status grossly abnormal Objective Labs and Meds 03/02/25 21:04 03/03/25 08:39 Lab results: Laboratory Results - last 24 hr 03/02/25 03/02/25 03/02/25 20:04 21:04 21:10 WBC 10.7 RBC 4.45 L Hgb 13.5 L Hct 40.3 L MCV 90.6 MCH 30.3 MCHC 33.5 RDW 14.0 Plt Count 296 MPV 9.7 Immature Gran % (Auto) 1.5 H Neut % (Auto) 76.9 H Lymph % (Auto) 12.5 L [place] % (Auto) 8.3 Eos % (Auto) 0.4 Baso % (Auto) 0.4 Lymph # (Auto) 1.3 [place] # (Auto) 0.9 Eos # (Auto) 0.0 Baso # (Auto) 0.0 Abs Immat Gran (auto) 0.16 H Absolute Neuts (auto) 8.2 Absolute Nucleated RBC 0.000 Nucleated RBC % (auto) 0.0 aPTT Heparin Protocol Sodium 140 Potassium 5.1 Chloride 103 Carbon Dioxide 17 L Anion Gap 25 H BUN 58 H Creatinine 6.02 H* Estim Creat Clear Calc 10.9 Estimated GFR 9 POC Glucose 60 60 Random Glucose 65 Lactic Acid Lactic Acid F/U @ 2Hr Lactic Acid F/U @ 4Hr Calcium 9.6 Magnesium Total Bilirubin 0.4 AST 28 ALT 11 Alkaline Phosphatase 107 Total Creatine Kinase Troponin I High Sens B-Natriuretic Peptide Total Protein 7.2 Albumin 4.2 TSH Free T4 03/02/25 03/02/25 03/02/25 21:49 22:48 23:59 WBC RBC Hgb Hct MCV MCH MCHC RDW Plt Count MPV Immature Gran % (Auto) Neut % (Auto) Lymph % (Auto) [place] % (Auto) Eos % (Auto) Baso % (Auto) Lymph # (Auto) [place] # (Auto) Eos # (Auto) Baso # (Auto) Abs Immat Gran (auto) Absolute Neuts (auto) Absolute Nucleated RBC Nucleated RBC % (auto) aPTT Heparin Protocol Sodium Potassium Chloride Carbon Dioxide Anion Gap BUN Creatinine Estim Creat Clear Calc Estimated GFR POC Glucose 31 L* 73 Random Glucose Lactic Acid 8.7 H* Lactic Acid F/U @ 2Hr Lactic Acid F/U @ 4Hr Calcium Magnesium 1.5 L Total Bilirubin AST ALT Alkaline Phosphatase Total Creatine Kinase Troponin I High Sens 33.5 B-Natriuretic Peptide 76 Total Protein Albumin TSH Free T4 03/03/25 03/03/25 03/03/25 00:04 00:09 01:28 WBC RBC Hgb Hct MCV MCH MCHC RDW Plt Count MPV Immature Gran % (Auto) Neut % (Auto) Lymph % (Auto) [place] % (Auto) Eos % (Auto) Baso % (Auto) Lymph # (Auto) [place] # (Auto) Eos # (Auto) Baso # (Auto) Abs Immat Gran (auto) Absolute Neuts (auto) Absolute Nucleated RBC Nucleated RBC % (auto) aPTT Heparin Protocol Sodium Potassium Chloride Carbon Dioxide Anion Gap BUN Creatinine Estim Creat Clear Calc Estimated GFR POC Glucose 54 L* Random Glucose Lactic Acid Lactic Acid F/U @ 2Hr 7.7 H* Lactic Acid F/U @ 4Hr Calcium Magnesium Total Bilirubin AST ALT Alkaline Phosphatase Total Creatine Kinase Troponin I High Sens 107.2 H* D B-Natriuretic Peptide Total Protein Albumin TSH Free T4 03/03/25 03/03/25 03/03/25 02:27 02:38 04:04 WBC RBC Hgb Hct MCV MCH MCHC RDW Plt Count MPV Immature Gran % (Auto) Neut % (Auto) Lymph % (Auto) [place] % (Auto) Eos % (Auto) Baso % (Auto) Lymph # (Auto) [place] # (Auto) Eos # (Auto) Baso # (Auto) Abs Immat Gran (auto) Absolute Neuts (auto) Absolute Nucleated RBC Nucleated RBC % (auto) aPTT Heparin Protocol Sodium Potassium Chloride Carbon Dioxide Anion Gap BUN Creatinine Estim Creat Clear Calc Estimated GFR POC Glucose 99 69 Random Glucose Lactic Acid Lactic Acid F/U @ 2Hr Lactic Acid F/U @ 4Hr 6.5 H* Calcium Magnesium Total Bilirubin AST ALT Alkaline Phosphatase Total Creatine Kinase Troponin I High Sens B-Natriuretic Peptide Total Protein Albumin TSH Free T4 03/03/25 03/03/25 03/03/25 05:53 06:01 07:10 WBC RBC Hgb Hct MCV MCH MCHC RDW Plt Count MPV Immature Gran % (Auto) Neut % (Auto) Lymph % (Auto) [place] % (Auto) Eos % (Auto) Baso % (Auto) Lymph # (Auto) [place] # (Auto) Eos # (Auto) Baso # (Auto) Abs Immat Gran (auto) Absolute Neuts (auto) Absolute Nucleated RBC Nucleated RBC % (auto) aPTT Heparin Protocol Sodium Potassium Chloride Carbon Dioxide Anion Gap BUN Creatinine Estim Creat Clear Calc Estimated GFR POC Glucose 60 115 Random Glucose Lactic Acid Lactic Acid F/U @ 2Hr Lactic Acid F/U @ 4Hr Calcium Magnesium Total Bilirubin AST ALT Alkaline Phosphatase Total Creatine Kinase 108 Troponin I High Sens 314.4 H* D B-Natriuretic Peptide Total Protein Albumin TSH 0.69 Free T4 1.06 03/03/25 03/03/25 03/03/25 07:54 08:27 08:39 WBC RBC Hgb Hct MCV MCH MCHC RDW Plt Count MPV Immature Gran % (Auto) Neut % (Auto) Lymph % (Auto) [place] % (Auto) Eos % (Auto) Baso % (Auto) Lymph # (Auto) [place] # (Auto) Eos # (Auto) Baso # (Auto) Abs Immat Gran (auto) Absolute Neuts (auto) Absolute Nucleated RBC Nucleated RBC % (auto) aPTT Heparin Protocol 31.8 L Sodium 137 Potassium 5.2 H Chloride 107 Carbon Dioxide 15 L Anion Gap 20 BUN 55 H Creatinine 5.96 H* Estim Creat Clear Calc 11.0 Estimated GFR 9 POC Glucose 93 Random Glucose 101 Lactic Acid Lactic Acid F/U @ 2Hr Lactic Acid F/U @ 4Hr Calcium 8.3 L D Magnesium Total Bilirubin AST ALT Alkaline Phosphatase Total Creatine Kinase Troponin I High Sens B-Natriuretic Peptide Total Protein Albumin TSH Free T4 03/03/25 09:17 WBC RBC Hgb Hct MCV MCH MCHC RDW Plt Count MPV Immature Gran % (Auto) Neut % (Auto) Lymph % (Auto) [place] % (Auto) Eos % (Auto) Baso % (Auto) Lymph # (Auto) [place] # (Auto) Eos # (Auto) Baso # (Auto) Abs Immat Gran (auto) Absolute Neuts (auto) Absolute Nucleated RBC Nucleated RBC % (auto) aPTT Heparin Protocol Sodium Potassium Chloride Carbon Dioxide Anion Gap BUN Creatinine Estim Creat Clear Calc Estimated GFR POC Glucose 93 Random Glucose Lactic Acid Lactic Acid F/U @ 2Hr Lactic Acid F/U @ 4Hr Calcium Magnesium Total Bilirubin AST ALT Alkaline Phosphatase Total Creatine Kinase Troponin I High Sens B-Natriuretic Peptide Total Protein Albumin TSH Free T4 ECG Interpretation: EKG shows sinus rhythm with a left bundle-branch block pattern. In the recent [facility] EKG, the report states sinus bradycardia with T-wave abnormality consider anterior ischemia but the actual EKG was not available. Assessment and Plan (1) Elevated troponin: Status: Acute (2) LAURIE (acute kidney injury): Status: Acute Plan Troponin levels are 33, 107 and 314. New renal failure, as the creatinine was normal in the [facility] labs last month. Unobtainable history because of confusion. Many comorbidities. Overall, at his age, probable underlying coronary disease but the current elevation seems to be related to acute kidney injury and additionally possible demand ischemia. He is listed to be on heparin drip and okay to continue that for now. He has received aspirin. We will obtain echocardiogram for cardiac function. Because of lack of any clear chest pain, confusion as well as many comorbidities as well as renal failure, most likely care will be conservative. Procedures Date of Service Date of Service: 03/03/25
[2025-03-03] MEDS: Sodium Bicarbonate 8.4% 150 MEQ in Dextrose 5 % 850 ML 80 MEQ IV (10:52)
[2025-03-03 11:40] LABS: Glucose, Whole Blood 74 mg/dL (60-115)
--- NOTE | 2025-03-03 11:51 | PC.NURSE ---
This RN covering Pt for primary RN lunch break. MAR alerts for acknowledgment on rate change for D5LR however Pt no longer on D5LR and is currently receiving Sodium Bicarb 8.4% 150 ricki in dextrose 5%. Spoke with Dr. Fischer for clarification and to review recent POC of 74. Per Dr. Fischer, Pt is to be receiving Sodium Bicarb 8.4% in Dextrose 5%, also Pt to be receiving a meal tray at this time. Diabetic diet entered at this time.
[2025-03-03 13:19] LABS: Glucose, Whole Blood 57 mg/dL (60-115)
--- NOTE | 2025-03-03 13:24 | PC.NURSE ---
Pt POC low- pt given Apple juice with sugar but refuses 1/2way through. Explained necessity but pt states I'm full and refuses. at bedside and trying also but pt refuses PO. D50 given as ordered. Will recheck POC per protocol.
[2025-03-03 13:26] LABS: Appearance Urine Clear; Glucose Urine UA Negative (Negative); PH 5.0 (5.0-9.0); Specific Gravity - Urine 1.015 (1.005-1.025); UMIC TRIGGER UACC YES
[2025-03-03 13:32] LABS: UACC Culture Trigger YES
[2025-03-03 13:43] LABS: Glucose, Whole Blood 149 mg/dL (60-115)
[2025-03-03 13:56] LABS: Glucose, Whole Blood 139 mg/dL (60-115)
--- NOTE | 2025-03-03 13:57 | PC.NURSE ---
Provider notified of hypoglycemic episode and that D50 was given, repeat POC improved.
--- NOTE | 2025-03-03 14:09 | PC.NURSE ---
200ml urine output via purewick - documented in I&O
[2025-03-03 14:12] LABS: Glucose, Whole Blood 138 mg/dL (60-115)
--- NOTE | 2025-03-03 15:01 | PM.EVENT ---
Event Note Date of Service: 03/03/25 Event Note: Patient seen and examined by the hospitalist team this morning, seen and examined again Seem more awake and talkative. Physical exam-similar to H&P and assessment and plan as per H and P core Severe LAURIE: Nephrology following CPK normal, bladder scan checked by the staff seems fine, CT abdomen:no hydronephrosis or nephrolithiasis Closely monitor I&O,Daily weights ,Measure I/O Q1H Started on bicarb drip Monitor BMP closely dm with Hypoglycemia: Fingersticks somewhat improving Monitor fingersticks closely, patient was encouraged to eat, avoid sliding scale coverage below 200. Acute Lactic Acidosis -due to dec po intake ,laurie. No Leukocytosis, fever UA has some pyuria but no bacteriuria, patient denies any urinary complaints.urine cultures pending No PNA on CT, ? atelectasis/ pneumonitis , cxr negative ,patient does not have sob ro cough ? colitis : on Zosyn 4.5 G Q12 H, renal dosed -Pt does not meet criteria for sepsis with elevated LA alone . Elevated Troponin/ First degree AVB OR 232/ prolonged Qtc 505 Magnesium low, 1.5 replacement ordered (aware of LAURIE) -Telemetry -Qtc prolonged, hold SSRIs seen by cardio:Troponin levels are 33, 107 and 314. New renal failure, as the creatinine was normal in the [facility] labs last month. Unobtainable history because of confusion. Many comorbidities. Overall, at his age, probable underlying coronary disease but the current elevation seems to be related to acute kidney injury and additionally possible demand ischemia. He is listed to be on heparin drip and okay to continue that for now. He has received aspirin. We will obtain echocardiogram for cardiac function. Metabolic Encephalopathy with underlying Dementia :Secondary to renal failure with lactic acidosis probable Avoid use of naroctics and Benzodiazepines Time Spent With Patient Time: Total time managing care of this patient today ____ minutes.
[2025-03-03 15:17] LABS: Glucose, Whole Blood 125 mg/dL (60-115)
[2025-03-03 15:39] LABS: PTT Heparin Drip 80.2 SEC (53-77.9)
[2025-03-03 16:12] LABS: Procalcitonin 0.39 ng/mL
[2025-03-03 16:15] LABS: Glucose, Whole Blood 117 mg/dL (60-115)
[2025-03-03 17:35] LABS: Glucose, Whole Blood 91 mg/dL (60-115)
[2025-03-03 18:48] LABS: Glucose, Whole Blood 89 mg/dL (60-115)
[2025-03-03] MEDS: Aspirin Enteric Coated 81 MG TABLET.DR PO (19:01)
[2025-03-03 19:54] VITALS: BP 136/65; PULSE 61; TEMP 36.7; O2SAT 100
[2025-03-03 20:03] LABS: Glucose, Whole Blood 65 mg/dL (60-115)
[2025-03-03 20:11] LABS: Anion Gap 22 (12-20); Blood Urea Nitrogen 55 mg/dL (9-16); Calcium 8.3 mg/dL (8.4-10.2); Carbon Dioxide 14 mmol/L (22-29); Chloride 109 mmol/L (96-108); Creatinine Clr Calc Pharmacy 10.5; Estimated Glomerular Filt Rate 9; Potassium 4.7 mmol/L (3.3-5.1); Sodium 140 mmol/L (135-145)
[2025-03-03 20:43] LABS: Glucose, Whole Blood 142 mg/dL (60-115)
[2025-03-03 20:56] LABS: Glucose, Whole Blood 123 mg/dL (60-115)
[2025-03-03 21:17] LABS: Glucose, Whole Blood 111 mg/dL (60-115)
[2025-03-03 21:56] LABS: PTT Heparin Drip 84.4 SEC (53-77.9)
[2025-03-03 22:07] LABS: Glucose, Whole Blood 123 mg/dL (60-115)
[2025-03-03 23:06] LABS: Glucose, Whole Blood 138 mg/dL (60-115)
[2025-03-04] MEDS: 0.9 % Sodium Chloride Flush 3 ML SYRINGE IVFLUSH ×3 (02:10→15:30)
[2025-03-04] MEDS: Sodium Bicarbonate 8.4% 150 MEQ in Dextrose 5 % 850 ML 80 MEQ IV ×2 (02:11→05:12)
--- NOTE | 2025-03-04 02:16 | PC.NURSE ---
Assumed care of pt at 2300, pt alert and oriented X1, agitated at times but redirectable and mostly cooperative. #20 L-AC positional, new #22 R-wrist, fluids running without difficulty. SB-SR on tele. Incontinent of urine and stool, cleaned and new linen applied some redness to bottom, refused barrier cream. POC: 138.
--- NOTE | 2025-03-04 02:23 | PC.NURSE ---
pt brought up to room with this RN and sheeter helper. Report to Eugenio GODINEZ on [employer] tele.
[2025-03-04 02:27] LABS: Glucose, Whole Blood 149 mg/dL (60-115)
[2025-03-04 04:00] VITALS: BP 119/62; PULSE 90; RESP 18; TEMP 36.1; O2SAT 99
--- NOTE | 2025-03-04 04:24 | PC.NURSE ---
Pt bladder scanned approximately at 0400 for 130mls.
[2025-03-04 04:25] LABS: Glucose, Whole Blood 149 mg/dL (60-115)
[2025-03-04 04:30] LABS: PTT Heparin Drip 72.0 SEC (53-77.9)
[2025-03-04 05:01] LABS: Anion Gap 19 (12-20); Blood Urea Nitrogen 59 mg/dL (9-16); Calcium 8.3 mg/dL (8.4-10.2); Carbon Dioxide 22 mmol/L (22-29); Chloride 105 mmol/L (96-108); Creatinine Clr Calc Pharmacy 9.6; Estimated Glomerular Filt Rate 8; Magnesium 1.8 mg/dL (1.6-2.6); Potassium 4.5 mmol/L (3.3-5.1); Sodium 141 mmol/L (135-145)
[2025-03-04 05:59] VITALS: BMI 25.6
[2025-03-04 07:07] VITALS: BP 131/70; PULSE 53; RESP 16; TEMP 36.2; O2SAT 97
[2025-03-04 07:15] LABS: Glucose, Whole Blood 110 mg/dL (60-115)
[2025-03-04] MEDS: Aspirin Enteric Coated 81 MG TABLET.DR PO (07:49)
[2025-03-04] MEDS: buPROPion HCl XL 300 MG TAB.ER.24H PO (07:49)
[2025-03-04] MEDS: Heparin Sodium,Porcine/1/2NS 25,000 UNIT/250 ML IV.SOLN 6.65 UNIT IVCONT (07:49)
[2025-03-04 09:29] LABS: Glucose, Whole Blood 113 mg/dL (60-115)
--- NOTE | 2025-03-04 09:51 | PM.PNCARD ---
Subjective Subjective Date of Service: 03/04/25 Interval history: Patient is quite confused. He does not know where he is and not able to give any other information whatsoever. Review of Systems Review of Systems Unable to obtain Physical Exam Vital Signs: Last Vital Signs Temp 97.1 F 03/04/25 07:07 Pulse 53 03/04/25 07:07 Resp 16 03/04/25 07:07 BP 131/70 03/04/25 07:07 Pulse Ox 97 03/04/25 07:07 O2 Del Method Room Air 03/04/25 07:07 BMI result Body Mass Index 25.6 Const General: comfortable and no acute distress Orientation/consciousness: No patient oriented x3 HEENT Other: Unremarkable Head: Yes normal to inspection Neck Neck: Yes normal visual inspection Chest Chest palpation & inspection: normal inspection of the chest Resp Auscultation: clear to auscultation bilaterally Cardio Palpation: normal PMI Heart sounds: S1 normal heart sound present, S2 normal heart sound present, no gallops, no murmurs and no rubs GI Palpation (GI): Soft to palpation Back/Spine/Pelvis Other: unremarkable Skin General skin exam: no rashes or lesions noted Neuro General: No patient oriented x3 Extrem General: Yes normal to inspection Psych Mental Status: mental status grossly abnormal Objective Labs and Meds 03/02/25 21:04 03/04/25 04:14 Lab results: Laboratory Results - last 24 hr 03/03/25 03/03/25 03/03/25 08:39 10:29 11:36 aPTT Heparin Protocol Sodium Potassium Chloride Carbon Dioxide Anion Gap BUN Creatinine Estim Creat Clear Calc Estimated GFR POC Glucose 88 74 Random Glucose Calcium Phosphorus Magnesium Procalcitonin 0.39 Urine Color Urine Appearance Urine pH Ur Specific [place] Urine Protein Urine Glucose (UA) Urine Ketones Urine Blood Urine Nitrite Ur Leukocyte Esterase Urine RBC Urine WBC Ur Squamous Epith Cells Urine Bacteria Hyaline Casts 03/03/25 03/03/25 03/03/25 13:09 13:15 13:39 aPTT Heparin Protocol Sodium Potassium Chloride Carbon Dioxide Anion Gap BUN Creatinine Estim Creat Clear Calc Estimated GFR POC Glucose 57 L* 149 H Random Glucose Calcium Phosphorus Magnesium Procalcitonin Urine Color Yellow Urine Appearance Clear Urine pH 5.0 Ur Specific [place] 1.015 Urine Protein 30 (1+) H Urine Glucose (UA) Negative Urine Ketones Trace Urine Blood Negative Urine Nitrite Negative Ur Leukocyte Esterase Moderate (2+) H Urine RBC 0-2 Urine WBC 11-20 H Ur Squamous Epith Cells 0-2 Urine Bacteria None Seen Hyaline Casts 0-2 03/03/25 03/03/25 03/03/25 13:52 14:06 15:13 aPTT Heparin Protocol Sodium Potassium Chloride Carbon Dioxide Anion Gap BUN Creatinine Estim Creat Clear Calc Estimated GFR POC Glucose 139 H 138 H 125 H Random Glucose Calcium Phosphorus Magnesium Procalcitonin Urine Color Urine Appearance Urine pH Ur Specific [place] Urine Protein Urine Glucose (UA) Urine Ketones Urine Blood Urine Nitrite Ur Leukocyte Esterase Urine RBC Urine WBC Ur Squamous Epith Cells Urine Bacteria Hyaline Casts 03/03/25 03/03/25 03/03/25 15:22 16:11 17:31 aPTT Heparin Protocol 80.2 H D Sodium Potassium Chloride Carbon Dioxide Anion Gap BUN Creatinine Estim Creat Clear Calc Estimated GFR POC Glucose 117 H 91 Random Glucose Calcium Phosphorus Magnesium Procalcitonin Urine Color Urine Appearance Urine pH Ur Specific [place] Urine Protein Urine Glucose (UA) Urine Ketones Urine Blood Urine Nitrite Ur Leukocyte Esterase Urine RBC Urine WBC Ur Squamous Epith Cells Urine Bacteria Hyaline Casts 03/03/25 03/03/25 03/03/25 18:44 19:51 19:53 aPTT Heparin Protocol Sodium 140 Potassium 4.7 Chloride 109 H Carbon Dioxide 14 L Anion Gap 22 H BUN 55 H Creatinine 6.23 H* Estim Creat Clear Calc 10.5 Estimated GFR 9 POC Glucose 89 65 Random Glucose 77 Calcium 8.3 L Phosphorus Magnesium Procalcitonin Urine Color Urine Appearance Urine pH Ur Specific [place] Urine Protein Urine Glucose (UA) Urine Ketones Urine Blood Urine Nitrite Ur Leukocyte Esterase Urine RBC Urine WBC Ur Squamous Epith Cells Urine Bacteria Hyaline Casts 03/03/25 03/03/25 03/03/25 20:39 20:53 21:13 aPTT Heparin Protocol Sodium Potassium Chloride Carbon Dioxide Anion Gap BUN Creatinine Estim Creat Clear Calc Estimated GFR POC Glucose 142 H 123 H 111 Random Glucose Calcium Phosphorus Magnesium Procalcitonin Urine Color Urine Appearance Urine pH Ur Specific [place] Urine Protein Urine Glucose (UA) Urine Ketones Urine Blood Urine Nitrite Ur Leukocyte Esterase Urine RBC Urine WBC Ur Squamous Epith Cells Urine Bacteria Hyaline Casts 03/03/25 03/03/25 03/03/25 21:42 22:04 23:02 aPTT Heparin Protocol 84.4 H Sodium Potassium Chloride Carbon Dioxide Anion Gap BUN Creatinine Estim Creat Clear Calc Estimated GFR POC Glucose 123 H 138 H Random Glucose Calcium Phosphorus Magnesium Procalcitonin Urine Color Urine Appearance Urine pH Ur Specific [place] Urine Protein Urine Glucose (UA) Urine Ketones Urine Blood Urine Nitrite Ur Leukocyte Esterase Urine RBC Urine WBC Ur Squamous Epith Cells Urine Bacteria Hyaline Casts 03/04/25 03/04/25 03/04/25 02:16 04:14 07:05 aPTT Heparin Protocol 72.0 Sodium 141 Potassium 4.5 Chloride 105 Carbon Dioxide 22 Anion Gap 19 BUN 59 H Creatinine 6.85 H* Estim Creat Clear Calc 9.6 Estimated GFR 8 POC Glucose 149 H 149 H 110 Random Glucose 143 H Calcium 8.3 L Phosphorus 3.9 Magnesium 1.8 Procalcitonin Urine Color Urine Appearance Urine pH Ur Specific [place] Urine Protein Urine Glucose (UA) Urine Ketones Urine Blood Urine Nitrite Ur Leukocyte Esterase Urine RBC Urine WBC Ur Squamous Epith Cells Urine Bacteria Hyaline Casts 03/04/25 09:19 aPTT Heparin Protocol Sodium Potassium Chloride Carbon Dioxide Anion Gap BUN Creatinine Estim Creat Clear Calc Estimated GFR POC Glucose 113 Random Glucose Calcium Phosphorus Magnesium Procalcitonin Urine Color Urine Appearance Urine pH Ur Specific [place] Urine Protein Urine Glucose (UA) Urine Ketones Urine Blood Urine Nitrite Ur Leukocyte Esterase Urine RBC Urine WBC Ur Squamous Epith Cells Urine Bacteria Hyaline Casts Progress Note: A&P Assessment and plan (1) NSTEMI (non-ST elevated myocardial infarction): Status: Acute (2) Cardiomyopathy: Status: Acute (3) LAURIE (acute kidney injury): Status: Acute Plan EKG shows left bundle-branch block. Unknown chronicity. Troponin levels are 33, 107 and 314. To rechecked. Creatinine levels are higher and most recently 6.8. In the echocardiogram, LVEF is 31%. Wall motion abnormalities which could be from coronary disease versus stress-induced cardiomyopathy. The degree of troponin does not explain the extent of cardiomyopathy. Hence rechecked the troponin. Overall, either NSTEMI versus stress-induced cardiomyopathy; acute renal failure; altered mental status. In this setting, keep him on IV heparin 48 hours. Aspirin. Low-dose beta-blockers. Statins if okay by renal. Nephrology recommendations regarding the renal failure itself. Overall, at his age, comorbidities, multiple medical issues as above, guarded prognosis. High-risk of cardiac decompensation and . We will need to discuss with family decide on goals of care. Discussed in detail with Dr. Fischer. Time Spent With Patient Time: Total time managing care of this patient today ____ minutes. Progress Note: Quality Stroke Does the patient have a stroke diagnosis?: No Reason for No Anti-thrombotic by Day Two: N/A - Med Ordered Procedures Date of Service Date of Service: 03/04/25
[2025-03-04 10:49] LABS: Glucose, Whole Blood 102 mg/dL (60-115)
[2025-03-04 11:16] VITALS: BP 131/59; PULSE 55; RESP 16; TEMP 36.6; O2SAT 99
--- NOTE | 2025-03-04 11:18 | P.PNIM_ITS ---
Subjective Subjective Date of Service: 03/05/25 Interval History: laurie poor oral intake Review of Systems wnats to sleep gets anxious /agitated Physical Exam 2 Vital Signs: Vital Signs: Last Vital Signs Temp 97.1 F 03/04/25 07:07 Pulse 53 03/04/25 07:07 Resp 16 03/04/25 07:07 BP 131/70 03/04/25 07:07 Pulse Ox 97 03/04/25 07:07 O2 Del Method Room Air 03/04/25 07:07 BMI result Body Mass Index 25.6 Appearance: Alert.? Oriented X3.? cvs: rrr, [id number] . res: clear to auscultation ,no rhonchii or wheezing abd: no rebound or guarding ,nt, bs present. ext pulses present , no cyanosis . neuro: axo3 , nonfocal. Objective Data Active Medications Acetaminophen (Acetaminophen 325 Mg Tablet) 650 mg PO Q6H PRN PRN Reason: Pain, Mild 1-3,fever,headache Aspirin (Aspirin Enteric Coated 81 Mg Tablet.) 81 mg PO DAILY [facility] Last Admin: 03/04/25 07:49 Dose: 81 mg Documented By: SANTOS Atorvastatin Calcium (Atorvastatin Calcium 20 Mg Tablet) 20 mg PO BEDTIME [facility] Bupropion HCl (Bupropion Hcl Xl 300 Mg Tab.Er.24h) 300 mg PO DAILY [facility] Last Admin: 03/04/25 07:49 Dose: 300 mg Documented By: SANTOS Calcium Carbonate (Calcium Carbonate 750 Mg Tab.Chew) 750 mg PO Q4H PRN PRN Reason: Heartburn Capsaicin (Capsaicin 0.025% Cream 60 Gm Tube) 1 appl TOPICAL TID [facility] Last Admin: 03/03/25 22:09 Dose: Not Given Documented By: MALI Non-Admin Reason: Patient Refused Clopidogrel Bisulfate (Clopidogrel Bisulfate 75 Mg Tablet) 75 mg PO DAILY [facility] Last Admin: 03/04/25 07:49 Dose: 75 mg Documented By: SANTOS Dextrose (Dextrose 50 % 25 Gm/50 Ml Syringe) 25 gm IVPUSH Q15M PRN; Protocol PRN Reason: per Hypoglycemia Standing Ord. Last Admin: 03/03/25 20:15 Dose: 25 gm Documented By: MALI Glucose (Glucose Gel 15 Gm Gel..Gram.) 15 gm PO Q15M PRN; Protocol PRN Reason: per Hypoglycemia Standing Ord. Heparin Sodium (Porcine) (Heparin Sodium,Porcine 5,000 Unit/Ml Vial) 3,400 unit 40 unit/kg (3400 unit) IVPUSH PROTOCOL BOLUS PRN; Protocol PRN Reason: 40 unit/kg - Heparin Protocol Heparin Sodium (Porcine) (Heparin Sodium,Porcine 5,000 Unit/Ml Vial) 6,700 unit 80 unit/kg (6700 unit) IVPUSH PROTOCOL BOLUS PRN; Protocol PRN Reason: 80 unit/kg - Heparin Protocol Piperacillin Sod/Tazobactam (Sod 4.5 gm/ Sodium Chloride) 100 mls @ 200 mls/hr IV Q12H [facility] Last Infusion: 03/04/25 05:38 Dose: Infused Documented By: LEXIE Heparin Sodium/Sodium Chloride (Heparin Sodium,Porcine/1/2ns) 25,000 unit in 250 mls @ 0 mls/hr IVCONT .Q0M KHOI; Protocol Last Admin: 03/04/25 07:49 Dose: 7.92 units/kg/hr, 6.65 mls/hr Documented By: SANTOS Co-signed By: MIHIR Sodium Bicarbonate 150 meq/ (Dextrose) 1,000 mls @ 80 mls/hr IV .[id number] [facility] Last Admin: 03/04/25 05:12 Dose: 80 mls/hr Documented By: LEXIE Insulin Human Lispro (Insulin Lispro 100 Unit/Ml 3 Ml Vial) 0 unit SUBCUT QIDACHS [facility]; Protocol Last Admin: 03/04/25 07:26 Dose: Not Given Documented By: SANTOS Non-Admin Reason: No Insulin Coverage Melatonin (Melatonin 3 Mg Tablet) 6 mg PO BEDTIME PRN PRN Reason: Insomnia Melatonin (Melatonin 3 Mg Tablet) 3 mg PO BEDTIME [facility] Last Admin: 03/03/25 22:15 Dose: 3 mg Documented By: GALINA-LEO Metoprolol Tartrate (Metoprolol Tartrate 12.5 Mg Halftab) 12.5 mg PO TID [facility]; Protocol Olanzapine (Olanzapine 2.5 Mg Tablet) 2.5 mg PO BEDTIME [facility] Last Admin: 03/03/25 22:14 Dose: 2.5 mg Documented By: HO.N-LEO Pantoprazole Sodium (Pantoprazole Sodium 40 Mg/10 Ml Vial) 40 mg IVPUSH DAILY@0630 [facility] Last Admin: 03/04/25 05:05 Dose: 40 mg Documented By: LEXIE Hubbard (Sennosides 8.6 Mg Tablet) 8.6 mg PO BEDTIME PRN PRN Reason: Constipation Sodium Chloride (0.9 % Sodium Chloride Flush 3 Ml Syringe) 3 ml IVFLUSH QSHIFT [facility] Last Admin: 03/04/25 07:52 Dose: 3 ml Documented By: SANTOS Labs 03/02/25 21:04 03/05/25 11:17 Labs: Laboratory Results - last 24 hr 03/03/25 03/03/25 03/03/25 08:39 11:36 13:09 aPTT Heparin Protocol Anion Gap Estim Creat Clear Calc Estimated GFR POC Glucose 74 57 L* Random Glucose Calcium Phosphorus Magnesium Procalcitonin 0.39 Urine Color Urine Appearance Urine pH Ur Specific [place] Urine Protein Urine Glucose (UA) Urine Ketones Urine Blood Urine Nitrite Ur Leukocyte Esterase Urine RBC Urine WBC Ur Squamous Epith Cells Urine Bacteria Hyaline Casts 03/03/25 03/03/25 03/03/25 13:15 13:39 13:52 aPTT Heparin Protocol Anion Gap Estim Creat Clear Calc Estimated GFR POC Glucose 149 H 139 H Random Glucose Calcium Phosphorus Magnesium Procalcitonin Urine Color Yellow Urine Appearance Clear Urine pH 5.0 Ur Specific [place] 1.015 Urine Protein 30 (1+) H Urine Glucose (UA) Negative Urine Ketones Trace Urine Blood Negative Urine Nitrite Negative Ur Leukocyte Esterase Moderate (2+) H Urine RBC 0-2 Urine WBC 11-20 H Ur Squamous Epith Cells 0-2 Urine Bacteria None Seen Hyaline Casts 0-2 03/03/25 03/03/25 03/03/25 14:06 15:13 15:22 aPTT Heparin Protocol 80.2 H D Anion Gap Estim Creat Clear Calc Estimated GFR POC Glucose 138 H 125 H Random Glucose Calcium Phosphorus Magnesium Procalcitonin Urine Color Urine Appearance Urine pH Ur Specific [place] Urine Protein Urine Glucose (UA) Urine Ketones Urine Blood Urine Nitrite Ur Leukocyte Esterase Urine RBC Urine WBC Ur Squamous Epith Cells Urine Bacteria Hyaline Casts 03/03/25 03/03/25 03/03/25 16:11 17:31 18:44 aPTT Heparin Protocol Anion Gap Estim Creat Clear Calc Estimated GFR POC Glucose 117 H 91 89 Random Glucose Calcium Phosphorus Magnesium Procalcitonin Urine Color Urine Appearance Urine pH Ur Specific [place] Urine Protein Urine Glucose (UA) Urine Ketones Urine Blood Urine Nitrite Ur Leukocyte Esterase Urine RBC Urine WBC Ur Squamous Epith Cells Urine Bacteria Hyaline Casts 03/03/25 03/03/25 03/03/25 19:51 19:53 20:39 aPTT Heparin Protocol Anion Gap 22 H Estim Creat Clear Calc 10.5 Estimated GFR 9 POC Glucose 65 142 H Random Glucose 77 Calcium 8.3 L Phosphorus Magnesium Procalcitonin Urine Color Urine Appearance Urine pH Ur Specific [place] Urine Protein Urine Glucose (UA) Urine Ketones Urine Blood Urine Nitrite Ur Leukocyte Esterase Urine RBC Urine WBC Ur Squamous Epith Cells Urine Bacteria Hyaline Casts 03/03/25 03/03/25 03/03/25 20:53 21:13 21:42 aPTT Heparin Protocol 84.4 H Anion Gap Estim Creat Clear Calc Estimated GFR POC Glucose 123 H 111 Random Glucose Calcium Phosphorus Magnesium Procalcitonin Urine Color Urine Appearance Urine pH Ur Specific [place] Urine Protein Urine Glucose (UA) Urine Ketones Urine Blood Urine Nitrite Ur Leukocyte Esterase Urine RBC Urine WBC Ur Squamous Epith Cells Urine Bacteria Hyaline Casts 03/03/25 03/03/25 03/04/25 22:04 23:02 02:16 aPTT Heparin Protocol Anion Gap Estim Creat Clear Calc Estimated GFR POC Glucose 123 H 138 H 149 H Random Glucose Calcium Phosphorus Magnesium Procalcitonin Urine Color Urine Appearance Urine pH Ur Specific [place] Urine Protein Urine Glucose (UA) Urine Ketones Urine Blood Urine Nitrite Ur Leukocyte Esterase Urine RBC Urine WBC Ur Squamous Epith Cells Urine Bacteria Hyaline Casts 03/04/25 03/04/25 03/04/25 04:14 07:05 09:19 aPTT Heparin Protocol 72.0 Anion Gap 19 Estim Creat Clear Calc 9.6 Estimated GFR 8 POC Glucose 149 H 110 113 Random Glucose 143 H Calcium 8.3 L Phosphorus 3.9 Magnesium 1.8 Procalcitonin Urine Color Urine Appearance Urine pH Ur Specific [place] Urine Protein Urine Glucose (UA) Urine Ketones Urine Blood Urine Nitrite Ur Leukocyte Esterase Urine RBC Urine WBC Ur Squamous Epith Cells Urine Bacteria Hyaline Casts 03/04/25 10:46 aPTT Heparin Protocol Anion Gap Estim Creat Clear Calc Estimated GFR POC Glucose 102 Random Glucose Calcium Phosphorus Magnesium Procalcitonin Urine Color Urine Appearance Urine pH Ur Specific [place] Urine Protein Urine Glucose (UA) Urine Ketones Urine Blood Urine Nitrite Ur Leukocyte Esterase Urine RBC Urine WBC Ur Squamous Epith Cells Urine Bacteria Hyaline Casts Microbiology Microbiology Results: Microbiology 03/02/25 22:30 Blood Culture - Preliminary Blood - Venous No growth after 24 hours. 03/02/25 22:30 Blood Culture - Preliminary Blood - Venous No growth after 24 hours. Assessment and Plan (1) Cardiomyopathy: Status: Acute (2) Elevated troponin: Status: Acute (3) NSTEMI (non-ST elevated myocardial infarction): Status: Acute (4) LAURIE (acute kidney injury): Status: Acute Assessment and Plan: NSTEMI versus stress-induced cardiomyopathy: denies any chest pain LVEF is 31%. Wall motion abnormalities which could be from coronary disease versus stress-induced cardiomyopathy. The degree of troponin does not explain the extent of cardiomyopathy. Hence rechecked the troponin. on asa ,statin ,bb,iv heaprin drip qtc ? improving Severe LAURIE: Nephrology following CPK normal, bladder scan checked by the staff seems fine, CT abdomen:no hydronephrosis or nephrolithiasis Closely monitor I&O,Daily weights ,Measure I/O Q1H Started on bicarb drip Monitor BMP closely dm with Hypoglycemia: Fingersticks somewhat improving Monitor fingersticks closely, patient was encouraged to eat, avoid sliding scale coverage below 200. Acute Lactic Acidosis -due to dec po intake ,laurie,metformin. urine output in 340ml no retention per bladder scan ct abd:No obstructing stone of either kidney or either ureter. Punctate nephrolithiasis of the right kidney. No hydronephrosis. No Leukocytosis, fever UA has some pyuria but no bacteriuria, patient denies any urinary complaints.urine cultures pending No PNA on CT, ? atelectasis/ pneumonitis , cxr negative ,patient does not have sob ro cough lactic acid trending down(8.7-7.7-6.5) ,defer further treanding unless further change clinicaly. We tried to encourage including patient's also tried patient still not wanting to eat-p.o. intake still low, denies any abdominal pain or nausea vomiting, eats little whenever he wants, takes chiara sips also. labs-reviewed has anion gap ,cr seems similar , bicarb 18,vbg added . d/w nephro: adjusted bicarb drip to 100 ml/hr -moniter bmp closely Patient want to him to be evaluated for anxiety might be causing decreased p.o. intake-we added psych evaluation also. ? colitis :on Zosyn 4.5 G Q12 H, renal dosed no abd pain or diarrhae Metabolic Encephalopathy with underlying Dementia :Secondary to renal failure with lactic acidosis probable Avoid use of naroctics and Benzodiazepines Ongoing need: NSTEMI, severe LAURIE-need iv fluids, moniter bmp /electrolytes Quality Stroke Does the patient have a stroke diagnosis?: No Reason for No Anti-thrombotic by Day Two: N/A - Med Ordered VTE Prior VTE?: No VTE Risk Level:: Medical - moderate - high VTE Device Contraindication: N/A - Device Ordered VTE Drug Contraindication: N/A - Med Ordered
[2025-03-04 11:52] LABS: Troponin-I High Sensitivity 701.5 ng/L (<3.5-35.0)
[2025-03-04 11:52] LABS: PTT Heparin Drip 187.6 SEC (53-77.9)
[2025-03-04 13:42] LABS: Glucose, Whole Blood 112 mg/dL (60-115)
[2025-03-04 13:45] LABS: PTT Heparin Drip 48.5 SEC (53-77.9)
[2025-03-04 15:21] VITALS: BP 131/62; PULSE 60; RESP 16; TEMP 36.9; O2SAT 99
[2025-03-04] MEDS: Metoprolol Tartrate 12.5 MG HALFTAB PO (15:30)
[2025-03-04 15:43] LABS: Glucose, Whole Blood 122 mg/dL (60-115)
--- NOTE | 2025-03-04 16:04 | MHC.CM.PN ---
PT WITH DEMENTIA, CM CALLED PTS , KAYLA [phone] SHE CONFIRMS PT WAS LIVING AT THE [facility], [facility] SHE NOTES SHE CANCELED [facility] AND WAS GOING TO GO WITH LEGACY HOWEVER THEN STATES THE PT IS NOT EXPECTED TO IMPROVE FOR RETURN HOME SHE ALSO STATES SHE DOES NOT WANT THE [facility] INFORMED OF HIS CONDITION COPY OF HCP REQUESTED PCP: KYLEE PADILLA DELIVERED DCP TBD: CM WILL CONFIRM PLANS WITH HOSPITALIST AND CALL KAYLA BACK FOR DCP
[2025-03-04 16:07] LABS: Anion Gap 23 (12-20); Blood Urea Nitrogen 58 mg/dL (9-16); Calcium 8.0 mg/dL (8.4-10.2); Carbon Dioxide 18 mmol/L (22-29); Chloride 105 mmol/L (96-108); Creatinine Clr Calc Pharmacy 9.3; Estimated Glomerular Filt Rate 8; Magnesium 1.7 mg/dL (1.6-2.6); Potassium 4.5 mmol/L (3.3-5.1); Sodium 141 mmol/L (135-145)
--- NOTE | 2025-03-04 16:55 | P.ACPN_ITS ---
Advanced Care Planning Note Advanced Care Planning Note Time spent (in minutes): 30 Narrative: 75-year-old male currently living in a assisted living/jail for the last 3 weeks s/p rehab after a fall, with past medical history of dementia, stroke, bladder cancer, urinary incontinence, cervical spine stenosis, Carpal dru surgery, neuropathy, insulin-dependent diabetes type 2, hypertension, vitamin-D deficiency, depression anxiety, hyperlipidemia presents omar ,possible nsetmi,poor oral intake -patient management discussed with his in detail length -overall prognosis seems poor , decided for dnr/dni , continue conservative management for now. Problems Discussed (1) Cardiomyopathy: (2) Elevated troponin: (3) NSTEMI (non-ST elevated myocardial infarction): (4) OMAR (acute kidney injury):
[2025-03-04 17:29] LABS: VBG HCO3 25 mmol/L (22-26); VBG O2 % Saturation 85.0 %
[2025-03-04 17:34] LABS: Venous Blood Gas Refer to POC result
[2025-03-04] MEDS: Sodium Bicarbonate 8.4% 150 MEQ in Dextrose 5 % 850 ML 100 MEQ IV (18:00)
--- NOTE | 2025-03-04 19:09 | PM.EVENT ---
Event Note Date of Service: 03/04/25 Event Note: P.m. labs reviewed with spouse by phone. Labs indicate no improvement in renal function overall. Spouse is requesting hospice possibly at home and would like the consult placed today for potential meeting on Thursday to discuss plans further. Hospitalist consult placed we will repeat labs for Thursday morning. Nephrology continues to follow. Patient is currently a DNR DNI. Time Spent With Patient Time: Total time managing care of this patient today ____ minutes.
[2025-03-04 19:30] LABS: Glucose, Whole Blood 148 mg/dL (60-115)
[2025-03-04 19:41] VITALS: BP 126/70; PULSE 62; RESP 16; TEMP 36.4; O2SAT 94
[2025-03-04 20:32] LABS: PTT Heparin Drip 37.9 SEC (53-77.9)
[2025-03-04 20:41] LABS: Anion Gap 19 (12-20); Blood Urea Nitrogen 56 mg/dL (9-16); Calcium 8.1 mg/dL (8.4-10.2); Carbon Dioxide 25 mmol/L (22-29); Chloride 100 mmol/L (96-108); Creatinine Clr Calc Pharmacy 9.6; Estimated Glomerular Filt Rate 8; Potassium 3.7 mmol/L (3.3-5.1); Sodium 140 mmol/L (135-145)
[2025-03-04 20:54] VITALS: PULSE 59
[2025-03-04 23:34] LABS: Glucose, Whole Blood 145 mg/dL (60-115)
[2025-03-05] VITALS: BP 133/61; PULSE 57; RESP 18; TEMP 36.7; O2SAT 98
[2025-03-05 03:19] LABS: PTT Heparin Drip 71.0 SEC (53-77.9)
[2025-03-05 04:00] VITALS: BP 131/83; PULSE 59; RESP 18; TEMP 37; O2SAT 98
[2025-03-05] MEDS: Sodium Bicarbonate 8.4% 150 MEQ in Dextrose 5 % 850 ML 100 MEQ IV ×2 (04:00→13:07)
[2025-03-05 04:31] LABS: Glucose, Whole Blood 141 mg/dL (60-115)
[2025-03-05 06:00] VITALS: BMI 25.2
[2025-03-05 07:07] VITALS: BP 162/73; PULSE 56; RESP 18; TEMP 36.3; O2SAT 99
[2025-03-05 07:28] LABS: Glucose, Whole Blood 114 mg/dL (60-115)
[2025-03-05] MEDS: Aspirin Enteric Coated 81 MG TABLET.DR PO (08:16)
[2025-03-05] MEDS: Heparin Sodium,Porcine/1/2NS 25,000 UNIT/250 ML IV.SOLN 4.97 UNIT IVCONT (08:17)
[2025-03-05] MEDS: buPROPion HCl XL 300 MG TAB.ER.24H PO (08:17)
--- NOTE | 2025-03-05 11:10 | PC.NURSE ---
Addendum entered by Pee Zacarias RN 03/05/25 13:04: per hep gtt d/c'ed Addendum entered by Pee Zacarias RN 03/05/25 12:10: pt refused lab draw from phleb. lab draw was taken from pt's IV. per PTT to be re-drawn and checked after critical result and will follow hep gtt protocol for next PTT result Addendum entered by Pee Zacarias RN 03/05/25 11:51: pt voided, bladder scanned, no need for str cath or stein Original Note: pt agitated, confused, hitting staff, pulling out IV and tele monitor. md informed. meds ordered and will be administered as ordered. per administer PO zyprexa first, if no effect then po valium. if no effect then Im med. also informed pt is refusing lab draws and is on hep gtt. per continue to attempt to get labs and contact pharmacy to assess if hep gtt can be d/c'ed.
[2025-03-05 11:32] VITALS: BP 151/74; PULSE 55; RESP 18; TEMP 36.6; O2SAT 97
[2025-03-05 11:42] LABS: Glucose, Whole Blood 138 mg/dL (60-115)
[2025-03-05 12:03] LABS: PTT Heparin Drip 193.6 SEC (53-77.9)
[2025-03-05 12:06] LABS: Anion Gap 18 (12-20); Blood Urea Nitrogen 52 mg/dL (9-16); Calcium 7.9 mg/dL (8.4-10.2); Carbon Dioxide 30 mmol/L (22-29); Chloride 97 mmol/L (96-108); Creatinine Clr Calc Pharmacy 9.8; Estimated Glomerular Filt Rate 8; Potassium 3.6 mmol/L (3.3-5.1); Sodium 141 mmol/L (135-145)
[2025-03-05 13:11] LABS: PTT Heparin Drip 45.4 SEC (53-77.9)
--- NOTE | 2025-03-05 13:24 | P.PNIM_ITS ---
Subjective Subjective Date of Service: 03/05/25 Interval History: nstemi poor oral intake Review of Systems gets anxious /agitated . dec po intake Review of Systems: Yes all other systems are reviewed and are negative Physical Exam 2 Vital Signs: Vital Signs: Last Vital Signs Temp 97.8 F 03/05/25 11:32 Pulse 55 03/05/25 11:32 Resp 18 03/05/25 11:32 BP 151/74 H 03/05/25 11:32 Pulse Ox 97 03/05/25 11:32 O2 Del Method Room Air 03/05/25 11:32 BMI result Body Mass Index 25.2 Appearance: awake ,alert x1-2 ,confused.? cvs: rrr, [id number] . res: air entry fair, no rales or wheezing abd: no rebound or guarding ,nt, bs present. ext pulses present , no cyanosis . neuro: axo3 , nonfocal. Objective Data Active Medications Acetaminophen (Acetaminophen 325 Mg Tablet) 650 mg PO Q6H PRN PRN Reason: Pain, Mild 1-3,fever,headache Aspirin (Aspirin Enteric Coated 81 Mg Tablet.Dr) 81 mg PO DAILY [facility] Last Admin: 03/05/25 08:16 Dose: 81 mg Documented By: JAVAN Atorvastatin Calcium (Atorvastatin Calcium 20 Mg Tablet) 20 mg PO BEDTIME [facility] Last Admin: 03/04/25 20:49 Dose: 20 mg Documented By: LEXIE Bupropion HCl (Bupropion Hcl Xl 300 Mg Tab.Er.24h) 300 mg PO DAILY [facility] Last Admin: 03/05/25 08:17 Dose: 300 mg Documented By: JAVAN Calcium Carbonate (Calcium Carbonate 750 Mg Tab.Chew) 750 mg PO Q4H PRN PRN Reason: Heartburn Capsaicin (Capsaicin 0.025% Cream 60 Gm Tube) 1 appl TOPICAL TID [facility] Last Admin: 03/05/25 09:47 Dose: 1 appl Documented By: JAVAN Clopidogrel Bisulfate (Clopidogrel Bisulfate 75 Mg Tablet) 75 mg PO DAILY [facility] Last Admin: 03/05/25 08:16 Dose: 75 mg Documented By: JAVAN Dextrose (Dextrose 50 % 25 Gm/50 Ml Syringe) 25 gm IVPUSH Q15M PRN; Protocol PRN Reason: per Hypoglycemia Standing Ord. Last Admin: 03/03/25 20:15 Dose: 25 gm Documented By: GALINA-LEO Docusate Sodium (Docusate Sodium 100 Mg/10 Ml Liquid) 100 mg PO BEDTIME [facility] Last Admin: 03/04/25 20:50 Dose: Not Given Documented By: LEXIE Non-Admin Reason: Patient Refused Glucose (Glucose Gel 15 Gm Gel..Gram.) 15 gm PO Q15M PRN; Protocol PRN Reason: per Hypoglycemia Standing Ord. Piperacillin Sod/Tazobactam (Sod 4.5 gm/ Sodium Chloride) 100 mls @ 200 mls/hr IV Q12H [facility] Last Infusion: 03/05/25 05:39 Dose: Infused Documented By: LEXIE Sodium Bicarbonate 150 meq/ (Dextrose) 1,000 mls @ 100 mls/hr IV .Q10H [facility] Last Admin: 03/05/25 13:07 Dose: 100 mls/hr Documented By: JAVAN Insulin Human Lispro (Insulin Lispro 100 Unit/Ml 3 Ml Vial) 0 unit SUBCUT QIDACHS [facility]; Protocol Last Admin: 03/05/25 11:48 Dose: Not Given Documented By: NICOL Non-Admin Reason: low poc Melatonin (Melatonin 3 Mg Tablet) 6 mg PO BEDTIME PRN PRN Reason: Insomnia Melatonin (Melatonin 3 Mg Tablet) 3 mg PO BEDTIME [facility] Last Admin: 03/04/25 20:49 Dose: 3 mg Documented By: LEXIE Metoprolol Tartrate (Metoprolol Tartrate 12.5 Mg Halftab) 12.5 mg PO TID [facility]; Protocol Last Admin: 03/05/25 08:12 Dose: Not Given Documented By: JAVAN Non-Admin Reason: See Note Comments: Per protocol HR 55 Olanzapine (Olanzapine 2.5 Mg Tablet) 2.5 mg PO BEDTIME [facility] Last Admin: 03/04/25 20:49 Dose: 2.5 mg Documented By: LEXIE Pantoprazole Sodium (Pantoprazole Sodium 40 Mg/10 Ml Vial) 40 mg IVPUSH DAILY@0630 [facility] Last Admin: 03/05/25 05:01 Dose: 40 mg Documented By: LEXIE Senna (Sennosides 8.6 Mg Tablet) 8.6 mg PO BEDTIME PRN PRN Reason: Constipation Sodium Chloride (0.9 % Sodium Chloride Flush 3 Ml Syringe) 3 ml IVFLUSH QSHIFT [facility] Last Admin: 03/05/25 07:36 Dose: Not Given Documented By: NICOL Non-Admin Reason: IV Running Labs 03/02/25 21:04 03/05/25 11:17 Labs: Laboratory Results - last 24 hr 03/04/25 03/04/25 03/04/25 13:14 13:37 15:24 aPTT Heparin Protocol 48.5 L D VBG pH VBG pCO2 VBG pO2 VBG HCO3 VBG O2 Saturation VBG Base Excess Anion Gap Estim Creat Clear Calc Estimated GFR POC Glucose 112 122 H Random Glucose Calcium Phosphorus Magnesium Hold Green Top 03/04/25 03/04/25 03/04/25 15:35 17:25 19:27 aPTT Heparin Protocol VBG pH 7.44 H VBG pCO2 36 VBG pO2 55 VBG HCO3 25 VBG O2 Saturation 85.0 VBG Base Excess 1.5 Anion Gap 23 H Estim Creat Clear Calc 9.3 Estimated GFR 8 POC Glucose 148 H Random Glucose 130 H Calcium 8.0 L Phosphorus 4.1 Magnesium 1.7 Hold Green Top See Note 03/04/25 03/04/25 03/05/25 20:13 23:26 03:01 aPTT Heparin Protocol 37.9 L D 71.0 D VBG pH VBG pCO2 VBG pO2 VBG HCO3 VBG O2 Saturation VBG Base Excess Anion Gap 19 Estim Creat Clear Calc 9.6 Estimated GFR 8 POC Glucose 145 H Random Glucose 168 H Calcium 8.1 L Phosphorus 3.7 Magnesium Hold Green Top 03/05/25 03/05/25 03/05/25 04:26 07:25 11:17 aPTT Heparin Protocol 193.6 H* D VBG pH VBG pCO2 VBG pO2 VBG HCO3 VBG O2 Saturation VBG Base Excess Anion Gap 18 Estim Creat Clear Calc 9.8 Estimated GFR 8 POC Glucose 141 H 114 Random Glucose 146 H Calcium 7.9 L Phosphorus Magnesium Hold Green Top 03/05/25 03/05/25 11:38 12:42 aPTT Heparin Protocol 45.4 L D VBG pH VBG pCO2 VBG pO2 VBG HCO3 VBG O2 Saturation VBG Base Excess Anion Gap Estim Creat Clear Calc Estimated GFR POC Glucose 138 H Random Glucose Calcium Phosphorus Magnesium Hold Green Top Microbiology Microbiology Results: Microbiology 03/02/25 22:30 Blood Culture - Preliminary Blood - Venous No growth after 48 hours. 03/02/25 22:30 Blood Culture - Preliminary Blood - Venous No growth after 48 hours. 03/03/25 Unknown Urine Culture - Final Urine clean catch - Clean Catch Midstream Assessment and Plan (1) NSTEMI (non-ST elevated myocardial infarction): Status: Acute (2) Hypoglycemia: Status: Acute (3) LAURIE (acute kidney injury): Status: Acute Assessment and Plan: NSTEMI versus stress-induced cardiomyopathy: denies any chest pain elevated troponins LVEF is 31%. Wall motion abnormalities which could be from coronary disease versus stress-induced cardiomyopathy. The degree of troponin does not explain the extent of cardiomyopathy. Hence rechecked the troponin. d/w cardiology-no further trending troponin ,continue on asa ,statin ,bb,completed iv heaprin drip for 48hrs qtc ? improving Severe LAURIE: Nephrology following CPK normal, bladder scan checked by the staff seems fine, CT abdomen:no hydronephrosis or nephrolithiasis urine output is low continue on bicarb drip Monitor BMP closely dm with Hypoglycemia: Hba1c levels Fingersticks somewhat improving Monitor fingersticks closely, patient was encouraged to eat, avoid sliding scale coverage below 200. Acute Lactic Acidosis -due to dec po intake ,laurie,metformin. urine output in 340ml no retention per bladder scan ct abd:No obstructing stone of either kidney or either ureter. Punctate nephrolithiasis of the right kidney. No hydronephrosis. No Leukocytosis, fever UA has some pyuria but no bacteriuria, patient denies any urinary complaints.urine cultures pending No PNA on CT, ? atelectasis/ pneumonitis , cxr negative ,patient does not have sob ro cough lactic acid trending down,defer further treanding unless further change clinicaly. We tried to encourage including patient's also tried patient still not wanting to eat-p.o. intake still low, denies any abdominal pain or nausea vomiting, eats little whenever he wants, takes cihara sips also. labs-reviewed has anion gap ,cr seems little down from 7 to 6.65 , bicarb 30 d/w nephro:changed bicarb drip to 100 ml/hr to Ns @100 ml/hr-moniter bmp closely Patient want to him to be evaluated for anxiety might be causing decreased p.o. intake-less likely due to depression /anxiety. ? colitis :on Zosyn 4.5 G Q12 H, renal dosed no abd pain or diarrhae Metabolic Encephalopathy with underlying Dementia :Secondary to renal failure ,dec po intake . Avoid use of naroctics and Benzodiazepines . added olanzapine 5 mg x1 ,if needed will consider diazepam 2 mg Ongoing need: severe LAURIE-need iv fluids, moniter bmp /electrolytes Quality Stroke Does the patient have a stroke diagnosis?: No Reason for No Anti-thrombotic by Day Two: N/A - Med Ordered VTE Prior VTE?: No VTE Risk Level:: Medical - moderate - high VTE Device Contraindication: N/A - Device Ordered VTE Drug Contraindication: N/A - Med Ordered
--- NOTE | 2025-03-05 13:35 | PM.PSYCN ---
History of Present Illness Date of Service: 03/05/2025 Chief Complaint: AMS Requesting physician: Santo Fischer Discussed with referring provider: Yes Sources of Information: patient interviewed, chart reviewed and crisis/core team assessment reviewed HPI Narrative: Mr. Hercules is a 75 year-old male with advanced dementia who was sent from [facility] due to dehydration/decrease oral intake, weakness. In the ED, Patient's creatinine 6.02, creatinine clearance 10.9 and GFR 9 indicating severe LAURIE/ CKD stage 5. Psychiatry consulted for decrease oral intake in context of dementia/depression. Pt seen in his room. He presents as calmer. This morning he was agitated, attempting to leave, difficult to redirect given olanzapine 5mg IM. When this abstract writer met with pt, he was much calmer. He is not oriented to place, nor month nor situation. He thinks he is at home and tells this abstract writer that he has been watering his plants all day. He reports he is not hungry when asked about his appetite. He does report having some nausea. [facility] Medical History (Updated 03/05/25 @ 13:46 by Deedee Sánchez NP) CVA (cerebral vascular accident) Vitamin D deficiency Hearing loss Spinal stenosis, cervical region Bladder cancer Type 2 diabetes mellitus Hyperlipidemia Urinary incontinence Major depressive disorder Rosacea Cerebral infarction Abnormal gait Neuropathy Anxiety Dementia with behavioral disturbance Sensorineural hearing loss Surgical History History of carpal tunnel surgery History of basal cell carcinoma excision Diagnostics Vital Signs (24Hr): Vital Signs - 24 hr 03/04/25 15:21 03/04/25 19:41 03/04/25 20:54 Temperature 98.5 F 97.5 F Pulse Rate 60 62 59 Respiratory Rate 16 16 Blood Pressure 131/62 126/70 Pulse Oximetry 99 94 Oxygen Delivery Method Room Air Room Air 03/05/25 00:00 03/05/25 04:00 03/05/25 07:07 Temperature 98.1 F 98.6 F 97.3 F Pulse Rate 57 59 56 Respiratory Rate 18 18 18 Blood Pressure 133/61 131/83 162/73 H Pulse Oximetry 98 98 99 Oxygen Delivery Method Room Air Room Air Room Air 03/05/25 11:32 Temperature 97.8 F Pulse Rate 55 Respiratory Rate 18 Blood Pressure 151/74 H Pulse Oximetry 97 Oxygen Delivery Method Room Air BMI result Body Mass Index 25.2 Labs 03/02/25 21:04 03/05/25 11:17 Labs: Laboratory Results - last 48 hr 03/03/25 03/03/25 03/03/25 08:39 13:39 13:52 aPTT Heparin Protocol VBG pH VBG pCO2 VBG pO2 VBG HCO3 VBG O2 Saturation VBG Base Excess Sodium Potassium Chloride Carbon Dioxide Anion Gap BUN Creatinine Estim Creat Clear Calc Estimated GFR POC Glucose 149 H 139 H Random Glucose Calcium Phosphorus Magnesium Troponin I High Sens Procalcitonin 0.39 Hold Green [facility] 03/03/25 03/03/25 03/03/25 14:06 15:13 15:22 aPTT Heparin Protocol 80.2 H D VBG pH VBG pCO2 VBG pO2 VBG HCO3 VBG O2 Saturation VBG Base Excess Sodium Potassium Chloride Carbon Dioxide Anion Gap BUN Creatinine Estim Creat Clear Calc Estimated GFR POC Glucose 138 H 125 H Random Glucose Calcium Phosphorus Magnesium Troponin I High Sens Procalcitonin Hold [facility] 03/03/25 03/03/25 03/03/25 16:11 17:31 18:44 aPTT Heparin Protocol VBG pH VBG pCO2 VBG pO2 VBG HCO3 VBG O2 Saturation VBG Base Excess Sodium Potassium Chloride Carbon Dioxide Anion Gap BUN Creatinine Estim Creat Clear Calc Estimated GFR POC Glucose 117 H 91 89 Random Glucose Calcium Phosphorus Magnesium Troponin I High Sens Procalcitonin Hold [facility] 03/03/25 03/03/25 03/03/25 19:51 19:53 20:39 aPTT Heparin Protocol VBG pH VBG pCO2 VBG pO2 VBG HCO3 VBG O2 Saturation VBG Base Excess Sodium 140 Potassium 4.7 Chloride 109 H Carbon Dioxide 14 L Anion Gap 22 H BUN 55 H Creatinine 6.23 H* Estim Creat Clear Calc 10.5 Estimated GFR 9 POC Glucose 65 142 H Random Glucose 77 Calcium 8.3 L Phosphorus Magnesium Troponin I High Sens Procalcitonin Hold [facility] 03/03/25 03/03/25 03/03/25 20:53 21:13 21:42 aPTT Heparin Protocol 84.4 H VBG pH VBG pCO2 VBG pO2 VBG HCO3 VBG O2 Saturation VBG Base Excess Sodium Potassium Chloride Carbon Dioxide Anion Gap BUN Creatinine Estim Creat Clear Calc Estimated GFR POC Glucose 123 H 111 Random Glucose Calcium Phosphorus Magnesium Troponin I High Sens Procalcitonin Hold [facility] 03/03/25 03/03/25 03/04/25 22:04 23:02 02:16 aPTT Heparin Protocol VBG pH VBG pCO2 VBG pO2 VBG HCO3 VBG O2 Saturation VBG Base Excess Sodium Potassium Chloride Carbon Dioxide Anion Gap BUN Creatinine Estim Creat Clear Calc Estimated GFR POC Glucose 123 H 138 H 149 H Random Glucose Calcium Phosphorus Magnesium Troponin I High Sens Procalcitonin Hold [facility] 03/04/25 03/04/25 03/04/25 04:14 07:05 09:19 aPTT Heparin Protocol 72.0 VBG pH VBG pCO2 VBG pO2 VBG HCO3 VBG O2 Saturation VBG Base Excess Sodium 141 Potassium 4.5 Chloride 105 Carbon Dioxide 22 Anion Gap 19 BUN 59 H Creatinine 6.85 H* Estim Creat Clear Calc 9.6 Estimated GFR 8 POC Glucose 149 H 110 113 Random Glucose 143 H Calcium 8.3 L Phosphorus 3.9 Magnesium 1.8 Troponin I High Sens Procalcitonin Hold [facility] 03/04/25 03/04/25 03/04/25 10:46 11:08 11:13 aPTT Heparin Protocol 187.6 H* D VBG pH VBG pCO2 VBG pO2 VBG HCO3 VBG O2 Saturation VBG Base Excess Sodium Potassium Chloride Carbon Dioxide Anion Gap BUN Creatinine Estim Creat Clear Calc Estimated GFR POC Glucose 102 Random Glucose Calcium Phosphorus Magnesium Troponin I High Sens 701.5 H* D Procalcitonin Hold [facility] 03/04/25 03/04/25 03/04/25 13:14 13:37 15:24 aPTT Heparin Protocol 48.5 L D VBG pH VBG pCO2 VBG pO2 VBG HCO3 VBG O2 Saturation VBG Base Excess Sodium Potassium Chloride Carbon Dioxide Anion Gap BUN Creatinine Estim Creat Clear Calc Estimated GFR POC Glucose 112 122 H Random Glucose Calcium Phosphorus Magnesium Troponin I High Sens Procalcitonin Hold [facility] 03/04/25 03/04/25 03/04/25 15:35 17:25 19:27 aPTT Heparin Protocol VBG pH 7.44 H VBG pCO2 36 VBG pO2 55 VBG HCO3 25 VBG O2 Saturation 85.0 VBG Base Excess 1.5 Sodium 141 Potassium 4.5 Chloride 105 Carbon Dioxide 18 L Anion Gap 23 H BUN 58 H Creatinine 7.00 H* Estim Creat Clear Calc 9.3 Estimated GFR 8 POC Glucose 148 H Random Glucose 130 H Calcium 8.0 L Phosphorus 4.1 Magnesium 1.7 Troponin I High Sens Procalcitonin Hold Green Top See Note 03/04/25 03/04/25 03/05/25 20:13 23:26 03:01 aPTT Heparin Protocol 37.9 L D 71.0 D VBG pH VBG pCO2 VBG pO2 VBG HCO3 VBG O2 Saturation VBG Base Excess Sodium 140 Potassium 3.7 Chloride 100 Carbon Dioxide 25 Anion Gap 19 BUN 56 H Creatinine 6.79 H* Estim Creat Clear Calc 9.6 Estimated GFR 8 POC Glucose 145 H Random Glucose 168 H Calcium 8.1 L Phosphorus 3.7 Magnesium Troponin I High Sens Procalcitonin Hold Green Top 03/05/25 03/05/25 03/05/25 04:26 07:25 11:17 aPTT Heparin Protocol 193.6 H* D VBG pH VBG pCO2 VBG pO2 VBG HCO3 VBG O2 Saturation VBG Base Excess Sodium 141 Potassium 3.6 Chloride 97 Carbon Dioxide 30 H Anion Gap 18 BUN 52 H Creatinine 6.65 H* Estim Creat Clear Calc 9.8 Estimated GFR 8 POC Glucose 141 H 114 Random Glucose 146 H Calcium 7.9 L Phosphorus Magnesium Troponin I High Sens Procalcitonin Hold Green Top 03/05/25 03/05/25 11:38 12:42 aPTT Heparin Protocol 45.4 L D VBG pH VBG pCO2 VBG pO2 VBG HCO3 VBG O2 Saturation VBG Base Excess Sodium Potassium Chloride Carbon Dioxide Anion Gap BUN Creatinine Estim Creat Clear Calc Estimated GFR POC Glucose 138 H Random Glucose Calcium Phosphorus Magnesium Troponin I High Sens Procalcitonin Hold Green Top Mental Status Exam Mental Status Exam Narrative: Pt with hospital gown, fair hygiene, resting in bed in [facility]. He is not oriented to place, month, year nor situation. He is confabulating. Insight/judgment severely impaired as well as memory and cognition. Medications Medications Current Medications Acetaminophen (Acetaminophen 325 Mg Tablet) 650 mg PO Q6H PRN PRN Reason: Pain, Mild 1-3,fever,headache Aspirin (Aspirin Enteric Coated 81 Mg Tablet.) 81 mg PO DAILY [facility] Last Admin: 03/05/25 08:16 Dose: 81 mg Atorvastatin Calcium (Atorvastatin Calcium 20 Mg Tablet) 20 mg PO BEDTIME [facility] Last Admin: 03/04/25 20:49 Dose: 20 mg Bupropion HCl (Bupropion Hcl Xl 300 Mg Tab.Er.24h) 300 mg PO DAILY [facility] Last Admin: 03/05/25 08:17 Dose: 300 mg Calcium Carbonate (Calcium Carbonate 750 Mg Tab.Chew) 750 mg PO Q4H PRN PRN Reason: Heartburn Capsaicin (Capsaicin 0.025% Cream 60 Gm Tube) 1 appl TOPICAL TID [facility] Last Admin: 03/05/25 09:47 Dose: 1 appl Clopidogrel Bisulfate (Clopidogrel Bisulfate 75 Mg Tablet) 75 mg PO DAILY [facility] Last Admin: 03/05/25 08:16 Dose: 75 mg Dextrose (Dextrose 50 % 25 Gm/50 Ml Syringe) 25 gm IVPUSH Q15M PRN; Protocol PRN Reason: per Hypoglycemia Standing Ord. Last Admin: 03/03/25 20:15 Dose: 25 gm Docusate Sodium (Docusate Sodium 100 Mg/10 Ml Liquid) 100 mg PO BEDTIME [facility] Last Admin: 03/04/25 20:50 Dose: Not Given Glucose (Glucose Gel 15 Gm Gel..Gram.) 15 gm PO Q15M PRN; Protocol PRN Reason: per Hypoglycemia Standing Ord. Piperacillin Sod/Tazobactam (Sod 4.5 gm/ Sodium Chloride) 100 mls @ 200 mls/hr IV Q12H [facility] Last Infusion: 03/05/25 05:39 Dose: Infused Sodium Bicarbonate 150 meq/ (Dextrose) 1,000 mls @ 100 mls/hr IV .Q10H [facility] Last Admin: 03/05/25 13:07 Dose: 100 mls/hr Insulin Human Lispro (Insulin Lispro 100 Unit/Ml 3 Ml Vial) 0 unit SUBCUT QIDACHS [facility]; Protocol Last Admin: 03/05/25 11:48 Dose: Not Given Melatonin (Melatonin 3 Mg Tablet) 6 mg PO BEDTIME PRN PRN Reason: Insomnia Melatonin (Melatonin 3 Mg Tablet) 3 mg PO BEDTIME [facility] Last Admin: 03/04/25 20:49 Dose: 3 mg Metoprolol Tartrate (Metoprolol Tartrate 12.5 Mg Halftab) 12.5 mg PO TID [facility]; Protocol Last Admin: 03/05/25 08:12 Dose: Not Given Olanzapine (Olanzapine 2.5 Mg Tablet) 2.5 mg PO BEDTIME [facility] Last Admin: 03/04/25 20:49 Dose: 2.5 mg Pantoprazole Sodium (Pantoprazole Sodium 40 Mg/10 Ml Vial) 40 mg IVPUSH DAILY@0630 [facility] Last Admin: 03/05/25 05:01 Dose: 40 mg Senna (Sennosides 8.6 Mg Tablet) 8.6 mg PO BEDTIME PRN PRN Reason: Constipation Sodium Chloride (0.9 % Sodium Chloride Flush 3 Ml Syringe) 3 ml IVFLUSH QSHIFT [facility] Last Admin: 03/05/25 07:36 Dose: Not Given Allergies Allergies Allergy/AdvReac Type Severity Reaction Status Date / Time januvia AdvReac dizziness Uncoded 03/02/25 20:12 Assessment & Plan Assessment & Plan (1) Major neurocognitive disorder: Status: Acute Code(s): F03.90 - Unspecified dementia, unspecified severity, without behavioral disturbance, psychotic disturbance, mood disturbance, and anxiety Plan Mr. Hercules is a 75 year-old male with hx of advanced dementia. He is admitted for severe LAURIE in context of decrease oral intake. It is possible that decrease intake may be result of advanced dementia. Assess once medically more stable his oral intake otherwise may have to discuss goals of care including preference for parentenal nutrition/IV or not. For agitation can use low dose olanzapine 5mg BID prn with low dose of diazepam 2mg mg- avoid oversedation. Total time managing care of this patient today ____ minutes.
[2025-03-05 15:13] LABS: Glucose, Whole Blood 140 mg/dL (60-115)
[2025-03-05 15:27] VITALS: BP 134/64; PULSE 64; RESP 18; TEMP 36.5; O2SAT 99
[2025-03-05] MEDS: Metoprolol Tartrate 12.5 MG HALFTAB PO ×2 (15:45→19:39)
[2025-03-05 19:34] VITALS: BP 156/75; PULSE 53; RESP 16; TEMP 37.1; O2SAT 97
[2025-03-05] MEDS: 0.9 % Sodium Chloride Flush 3 ML SYRINGE IVFLUSH (19:51)
[2025-03-05 20:02] LABS: Glucose, Whole Blood 127 mg/dL (60-115)
[2025-03-06] VITALS (8 sets, daily range): BP systolic 114–161; BP diastolic 48–81; PULSE 50–85; RESP 16–20; TEMP 36.1–37.2; O2SAT 95–99; BMI 24.0
[2025-03-06 01:12] LABS: Glucose, Whole Blood 102 mg/dL (60-115)
[2025-03-06 06:56] LABS: Glucose, Whole Blood 91 mg/dL (60-115)
[2025-03-06 07:39] LABS: Anion Gap 17 (12-20); Blood Urea Nitrogen 45 mg/dL (9-16); Calcium 8.1 mg/dL (8.4-10.2); Carbon Dioxide 29 mmol/L (22-29); Chloride 101 mmol/L (96-108); Creatinine Clr Calc Pharmacy 10.5; Estimated Glomerular Filt Rate 9; Potassium 3.1 mmol/L (3.3-5.1); Sodium 144 mmol/L (135-145)
[2025-03-06 08:18] LABS: Glucose, Whole Blood 96 mg/dL (60-115)
--- NOTE | 2025-03-06 08:30 | P.PNNP_ITS ---
Subjective Subjective Date of Service: 03/06/25 Physical Exam 2 Vital Signs: Vital Signs: Last Vital Signs Temp 97.3 F 03/06/25 08:00 Pulse 60 03/06/25 08:00 Resp 18 03/06/25 08:00 BP 161/81 H 03/06/25 08:00 Pulse Ox 96 03/06/25 08:00 O2 Del Method Room Air 03/06/25 08:00 BMI result Body Mass Index 24.0 Objective Data Labs 03/02/25 21:04 03/06/25 06:46 Labs: Laboratory Results - last 24 hr 03/05/25 03/05/25 03/05/25 11:17 11:38 12:42 aPTT Heparin Protocol 193.6 H* D 45.4 L D Sodium 141 Potassium 3.6 Chloride 97 Carbon Dioxide 30 H Anion Gap 18 BUN 52 H Creatinine 6.65 H* Estim Creat Clear Calc 9.8 Estimated GFR 8 POC Glucose 138 H Random Glucose 146 H Calcium 7.9 L Magnesium 03/05/25 03/05/25 03/06/25 15:09 19:56 01:05 aPTT Heparin Protocol Sodium Potassium Chloride Carbon Dioxide Anion Gap BUN Creatinine Estim Creat Clear Calc Estimated GFR POC Glucose 140 H 127 H 102 Random Glucose Calcium Magnesium 03/06/25 03/06/25 03/06/25 05:41 06:46 08:11 aPTT Heparin Protocol Sodium 144 Potassium 3.1 L Chloride 101 Carbon Dioxide 29 Anion Gap 17 BUN 45 H Creatinine 6.21 H* Estim Creat Clear Calc 10.5 Estimated GFR 9 POC Glucose 91 96 Random Glucose 102 Calcium 8.1 L Magnesium 1.6 Microbiology Microbiology Results: Microbiology 03/02/25 22:30 Blood - Venous Blood Culture - Preliminary No growth after 48 hours. 03/02/25 22:30 Blood - Venous Blood Culture - Preliminary No growth after 48 hours. 03/03/25 Unknown Urine clean catch - Clean Catch Midstream Urine Culture - Final Procedures Date of Service Date of Service: 03/06/25 Assessment & Plan Assessment and plan (1) LAURIE (acute kidney injury): Status: Acute Plan LAURIE due to ATN, most likely combination of reduced renal perfusion from possible NSTEMI and poor oral intake prior to hospitalization stable/plateaued patient oliguric, no obstruction on imaging recommend continue IVF as ordered will check urine protein/creatinine ratio- if significantly elevated will check for paraproteins given elevated WBCs and RBCs in urine No indication for renal replacement at this time continue close monitoring of urine output as patient remains oliguric Recommend daily weights recommend regular blood pressure checks and daily renal function and electrolyte studies Continue supportive care, will continue to follow Discussed with Dr Reeves. Time Spent With Patient Time: Total time managing care of this patient today ____ minutes. Progress Note: Quality Stroke Does the patient have a stroke diagnosis?: No Reason for No Anti-thrombotic by Day Two: N/A - Med Ordered
[2025-03-06 09:37] LABS: Magnesium 1.6 mg/dL (1.6-2.6)
[2025-03-06] MEDS: Metoprolol Tartrate 12.5 MG HALFTAB PO ×3 (10:42→19:46)
[2025-03-06] MEDS: Aspirin Enteric Coated 81 MG TABLET.DR PO (10:42)
[2025-03-06] MEDS: buPROPion HCl XL 300 MG TAB.ER.24H PO (10:43)
[2025-03-06] MEDS: Potassium Chloride ER 20 MEQ TAB.ER.PRT PO (10:43)
--- NOTE | 2025-03-06 12:00 | MHC.CM.PN ---
EMR REVIEWED, PT W/AMS, PER HOSPITALIST PT SLOWLY IMPROVING, ANTIC 1-2 MORE DAYS, PT LIVES AT [facility], CM WILL CONT TO FOLLOW DC NEEDS.
--- NOTE | 2025-03-06 16:10 | HO.PM.IMPN ---
Subjective Subjective Date of Service: 03/06/25 Interval History: nstemi,poor oral intake Review of Systems gets anxious /agitated . dec po intake Physical Exam Vital Signs: Vital Signs: Last Vital Signs Temp 98.9 F 03/06/25 15:34 Pulse 52 03/06/25 15:34 Resp 18 03/06/25 15:34 BP 136/65 03/06/25 15:34 Pulse Ox 97 03/06/25 15:34 O2 Del Method Room Air 03/06/25 15:34 BMI result Body Mass Index 24.0 Appearance: awake ,alert x1-2 ,confused.? cvs: rrr, [id number] . res: air entry fair, no rales or wheezing abd: no rebound or guarding ,nt, bs present. ext pulses present , no cyanosis . neuro: axo3 , nonfocal. Objective Data Active Medications Acetaminophen (Acetaminophen 325 Mg Tablet) 650 mg PO Q6H PRN PRN Reason: Pain, Mild 1-3,fever,headache Last Admin: 03/05/25 19:50 Dose: 650 mg Documented By: HAYDER Amlodipine Besylate (Amlodipine Besylate 5 Mg Tablet) 5 mg PO DAILY [facility]; Protocol Last Admin: 03/06/25 10:43 Dose: 5 mg Documented By: CL Aspirin (Aspirin Enteric Coated 81 Mg Tablet.) 81 mg PO DAILY [facility] Last Admin: 03/06/25 10:42 Dose: 81 mg Documented By: LC Atorvastatin Calcium (Atorvastatin Calcium 20 Mg Tablet) 20 mg PO BEDTIME [facility] Last Admin: 03/05/25 19:38 Dose: 20 mg Documented By: HAYDER Bupropion HCl (Bupropion Hcl Xl 300 Mg Tab.Er.24h) 300 mg PO DAILY [facility] Last Admin: 03/06/25 10:43 Dose: 300 mg Documented By: LC Calcium Carbonate (Calcium Carbonate 750 Mg Tab.Chew) 750 mg PO Q4H PRN PRN Reason: Heartburn Capsaicin (Capsaicin 0.025% Cream 60 Gm Tube) 1 appl TOPICAL TID [facility] Last Admin: 03/05/25 19:41 Dose: 1 appl Documented By: HAYDER Clopidogrel Bisulfate (Clopidogrel Bisulfate 75 Mg Tablet) 75 mg PO DAILY [facility] Last Admin: 03/06/25 10:42 Dose: 75 mg Documented By: LC Dextrose (Dextrose 50 % 25 Gm/50 Ml Syringe) 25 gm IVPUSH Q15M PRN; Protocol PRN Reason: per Hypoglycemia Standing Ord. Last Admin: 03/03/25 20:15 Dose: 25 gm Documented By: MALI Docusate Sodium (Docusate Sodium 100 Mg/10 Ml Liquid) 100 mg PO BEDTIME [facility] Last Admin: 03/05/25 20:01 Dose: Not Given Documented By: HAYDER Non-Admin Reason: Patient Refused Glucose (Glucose Gel 15 Gm Gel..Gram.) 15 gm PO Q15M PRN; Protocol PRN Reason: per Hypoglycemia Standing Ord. Piperacillin Sod/Tazobactam (Sod 4.5 gm/ Sodium Chloride) 100 mls @ 200 mls/hr IV Q12H [facility] Last Admin: 03/06/25 06:13 Dose: Not Given Documented By: HAYDER Non-Admin Reason: Med Not Available Sodium Chloride (Ns) 1,000 mls @ 60 mls/hr IVCONT .[id number] [facility] Last Admin: 03/06/25 11:13 Dose: 60 mls/hr Documented By: LC Insulin Human Lispro (Insulin Lispro 100 Unit/Ml 3 Ml Vial) 0 unit SUBCUT QIDACHS [facility]; Protocol Last Admin: 03/06/25 12:47 Dose: Not Given Documented By: LC Non-Admin Reason: No Insulin Coverage Melatonin (Melatonin 3 Mg Tablet) 6 mg PO BEDTIME PRN PRN Reason: Insomnia Melatonin (Melatonin 3 Mg Tablet) 3 mg PO BEDTIME [facility] Last Admin: 03/05/25 19:39 Dose: 3 mg Documented By: HAYDER Metoprolol Tartrate (Metoprolol Tartrate 12.5 Mg Halftab) 12.5 mg PO TID [facility]; Protocol Last Admin: 03/06/25 10:42 Dose: 12.5 mg Documented By: LC Olanzapine (Olanzapine 2.5 Mg Tablet) 2.5 mg PO BID [facility] Last Admin: 03/06/25 10:42 Dose: 2.5 mg Documented By: LC Olanzapine (Olanzapine 5 Mg Tablet) 5 mg PO BID PRN PRN Reason: anxiety Senna (Sennosides 8.6 Mg Tablet) 8.6 mg PO BEDTIME PRN PRN Reason: Constipation Sodium Chloride (0.9 % Sodium Chloride Flush 3 Ml Syringe) 3 ml IVFLUSH QSHIFT [facility] Last Admin: 03/06/25 12:48 Dose: Not Given Documented By: LC Non-Admin Reason: IV Running Labs 03/02/25 21:04 03/06/25 06:46 Labs: Laboratory Results - last 24 hr 03/05/25 03/06/25 03/06/25 19:56 01:05 05:41 Anion Gap Estim Creat Clear Calc Estimated GFR POC Glucose 127 H 102 91 Random Glucose Calcium Magnesium 03/06/25 03/06/25 06:46 08:11 Anion Gap 17 Estim Creat Clear Calc 10.5 Estimated GFR 9 POC Glucose 96 Random Glucose 102 Calcium 8.1 L Magnesium 1.6 Assessment and Plan (1) NSTEMI (non-ST elevated myocardial infarction): Status: Acute (2) Hypoglycemia: Status: Acute (3) LAURIE (acute kidney injury): Status: Acute Assessment and Plan: NSTEMI versus stress-induced cardiomyopathy: denies any chest pain elevated troponins LVEF is 31%. Wall motion abnormalities which could be from coronary disease versus stress-induced cardiomyopathy. The degree of troponin does not explain the extent of cardiomyopathy. Hence rechecked the troponin. d/w cardiology-no further trending troponin ,continue on asa ,statin ,bb,completed iv heaprin drip for 48hrs ekg-lbbb Severe LAURIE: Nephrology following CPK normal, bladder scan checked by the staff seems fine, CT abdomen:no hydronephrosis or nephrolithiasis urine output is low continue on bicarb drip Monitor BMP closely dm with Hypoglycemia: Hba1c levels Fingersticks somewhat improving Monitor fingersticks closely, patient was encouraged to eat, avoid sliding scale coverage below 200. Acute Lactic Acidosis -due to dec po intake ,laurie,metformin. from 03/05 urine output in 490ml no retention per bladder scan ct abd:No obstructing stone of either kidney or either ureter. Punctate nephrolithiasis of the right kidney. No hydronephrosis. No Leukocytosis, fever UA has some pyuria but no bacteriuria, patient denies any urinary complaints.urine cultures pending No PNA on CT, ? atelectasis/ pneumonitis , cxr negative ,patient does not have sob ro cough lactic acid trending down,defer further treanding unless further change clinicaly. We tried to encourage including patient's also tried patient still not wanting to eat-p.o. intake still low, denies any abdominal pain or nausea vomiting, eats little whenever he wants, takes chiara sips also. labs-reviewed has anion gap ,cr seems little 6.2 , bicarb 30 d/w nephro:changed bicarb drip to 100 ml/hr to Ns @100 ml/hr-moniter bmp closely Patient want to him to be evaluated for anxiety might be causing decreased p.o. intake-less likely due to depression /anxiety. ? colitis :on Zosyn 4.5 G Q12 H, renal dosed no abd pain or diarrhae Metabolic Encephalopathy with underlying Dementia :Secondary to renal failure ,dec po intake . Avoid use of naroctics and Benzodiazepines . added olanzapine 5 mg x1 ,if needed will consider diazepam 2 mg Ongoing need: severe LAURIE-need iv fluids, moniter bmp /electrolytes . Quality Stroke Does the patient have a stroke diagnosis?: No Reason for No Anti-thrombotic by Day Two: N/A - Med Ordered VTE Prior VTE?: No VTE Risk Level:: Medical - moderate - high VTE Device Contraindication: N/A - Device Ordered VTE Drug Contraindication: N/A - Med Ordered
[2025-03-06 16:29] LABS: Glucose, Whole Blood 124 mg/dL (60-115)
[2025-03-06] MEDS: 0.9 % Sodium Chloride Flush 3 ML SYRINGE IVFLUSH (17:10)
[2025-03-06 18:20] LABS: Protein/Creatinine Ratio, Ur 0.54 (<0.2); Total Protein Urine Random 15 mg/dL (<12)
[2025-03-06 19:51] LABS: Glucose, Whole Blood 129 mg/dL (60-115)
[2025-03-07 03:23] VITALS: BP 134/74; PULSE 54; RESP 18; TEMP 36.8; O2SAT 97
[2025-03-07 05:52] VITALS: BMI 24.0
[2025-03-07 07:53] LABS: Glucose, Whole Blood 123 mg/dL (60-115)
[2025-03-07 08:00] VITALS: BP 165/78; PULSE 55; RESP 18; TEMP 36.4; O2SAT 95
[2025-03-07] MEDS: Metoprolol Tartrate 12.5 MG HALFTAB PO ×2 (08:25→21:07)
[2025-03-07] MEDS: buPROPion HCl XL 300 MG TAB.ER.24H PO (08:25)
[2025-03-07] MEDS: Aspirin Enteric Coated 81 MG TABLET.DR PO (08:25)
[2025-03-07] MEDS: 0.9 % Sodium Chloride Flush 3 ML SYRINGE IVFLUSH (08:26)
--- NOTE | 2025-03-07 08:30 | P.PNNP_ITS ---
Subjective Subjective Date of Service: 03/07/25 Interval history: following for LAURIE, s/p nstemi, poor oral intake patient reports he feels well at bedside, denies complaints/concerns. UOP increasing though remains oliguric, 300mL/last 24 horus creatinine down to 4.62 from 6.21 Physical Exam 2 Vital Signs: Vital Signs: Last Vital Signs Temp 97.6 F 03/07/25 08:00 Pulse 55 03/07/25 08:00 Resp 18 03/07/25 08:00 BP 165/78 H 03/07/25 08:00 Pulse Ox 95 03/07/25 08:00 O2 Del Method Room Air 03/07/25 08:00 BMI result Body Mass Index 24.0 Const: General: no acute distress and awake Resp: Effort & Inspection: normal respiratory effort and able to speak in complete sentences Auscultation: clear to auscultation bilaterally Cardio: Rate: regular rate Rhythm: regular rhythm Heart sounds: S1 normal heart sound present and S2 normal heart sound present GI: Palpation (GI): Soft to palpation and nontender Skin: Rashes: no rashes Neuro: Other: no tremor, no asterixis Extrem: General: No edema and No pedal edema Objective Data Labs 03/07/25 08:53 03/07/25 08:53 Labs: Laboratory Results - last 24 hr 03/06/25 03/06/25 03/06/25 16:23 17:57 19:44 WBC RBC Hgb Hct MCV MCH MCHC RDW Plt Count MPV Absolute Nucleated RBC Nucleated RBC % (auto) Sodium Potassium Chloride Carbon Dioxide Anion Gap BUN Creatinine Estim Creat Clear Calc Estimated GFR POC Glucose 124 H 129 H Random Glucose Calcium U Random Total Protein 15 H Urine Creatinine 27.54 Protein/Creatinin Ratio 0.54 H 03/07/25 03/07/25 07:49 08:53 WBC 8.2 RBC 4.14 L Hgb 12.6 L Hct 37.3 L MCV 90.1 MCH 30.4 MCHC 33.8 RDW 13.8 Plt Count 221 D MPV 10.3 Absolute Nucleated RBC 0.000 Nucleated RBC % (auto) 0.0 Sodium 145 Potassium 3.0 L Chloride 105 Carbon Dioxide 28 Anion Gap 15 BUN 34 H Creatinine 4.62 H* Estim Creat Clear Calc 14.2 Estimated GFR 13 POC Glucose 123 H Random Glucose 166 H Calcium 7.9 L U Random Total Protein Urine Creatinine Protein/Creatinin Ratio Microbiology Microbiology Results: Microbiology 03/02/25 22:30 Blood - Venous Blood Culture - Preliminary No growth after 48 hours. 03/02/25 22:30 Blood - Venous Blood Culture - Preliminary No growth after 48 hours. 03/03/25 Unknown Urine clean catch - Clean Catch Midstream Urine Culture - Final Procedures Date of Service Date of Service: 03/07/25 Assessment & Plan Assessment and plan (1) LAURIE (acute kidney injury): Status: Acute Plan LAURIE due to ATN, most likely combination of reduced renal perfusion from possible NSTEMI and poor oral intake prior to hospitalization improving patient oliguric, no obstruction on imaging recommend continue IVF as ordered urine protein/creatinine ratio minimally elevated at 0.54 recommend replacing potassium as needed No indication for renal replacement at this time continue close monitoring of urine output as patient remains oliguric Recommend daily weights recommend regular blood pressure checks and daily renal function and electrolyte studies Continue supportive care, will continue to follow Discussed with Dr Reeves. Time Spent With Patient Time: Total time managing care of this patient today ____ minutes. Progress Note: Quality Stroke Does the patient have a stroke diagnosis?: No Reason for No Anti-thrombotic by Day Two: N/A - Med Ordered
--- NOTE | 2025-03-07 08:50 | MHC.CM.PN ---
CM RECEIVED MESSAGE THAT PT IS ACTIVE W/[facility], REF PLACED.
[2025-03-07 09:51] LABS: Hematocrit 37.3 % (42.0-52.0); Hemoglobin 12.6 g/dl (14.0-18.0); Mean Corpuscular HGB Conc 33.8 g/dl (31.0-36.0); Mean Corpuscular Hemoglobin 30.4 pg (27.0-33.0); Mean Corpuscular Volume 90.1 fL (80.0-98.0); NRBC Abs Auto 0.000 X10*3/uL (0.0-0.012); NRBC Pct Auto 0.0 /100WBC (0.0-0.2); Platelet Count 221 X10*3/uL (160-400); Red Blood Count 4.14 X10*6/uL (4.60-5.80); White Blood Count 8.2 X10*3/uL (4.8-10.8)
[2025-03-07 10:09] LABS: Creatinine Clr Calc Pharmacy 14.2; Estimated Glomerular Filt Rate 13
[2025-03-07 10:10] LABS: Anion Gap 15 (12-20); Blood Urea Nitrogen 34 mg/dL (9-16); Calcium 7.9 mg/dL (8.4-10.2); Carbon Dioxide 28 mmol/L (22-29); Chloride 105 mmol/L (96-108); Potassium 3.0 mmol/L (3.3-5.1); Sodium 145 mmol/L (135-145)
--- NOTE | 2025-03-07 10:45 | P.PNIM_ITS ---
Subjective Subjective Date of Service: 03/07/25 Interval History: some increase in urine output Physical Exam 2 Vital Signs: Vital Signs: Last Vital Signs Temp 97.6 F 03/07/25 08:00 Pulse 55 03/07/25 08:00 Resp 18 03/07/25 08:00 BP 165/78 H 03/07/25 08:00 Pulse Ox 95 03/07/25 08:00 O2 Del Method Room Air 03/07/25 08:00 BMI result Body Mass Index 24.0 alert, oriented to person only lungs clear Objective Data Active Medications Acetaminophen (Acetaminophen 325 Mg Tablet) 650 mg PO Q6H PRN PRN Reason: Pain, Mild 1-3,fever,headache Last Admin: 03/05/25 19:50 Dose: 650 mg Documented By: HAYDER Amlodipine Besylate (Amlodipine Besylate 5 Mg Tablet) 5 mg PO DAILY [facility]; Protocol Last Admin: 03/07/25 08:24 Dose: 5 mg Documented By: MARKEL Aspirin (Aspirin Enteric Coated 81 Mg Tablet.Dr) 81 mg PO DAILY [facility] Last Admin: 03/07/25 08:25 Dose: 81 mg Documented By: MARKEL Atorvastatin Calcium (Atorvastatin Calcium 20 Mg Tablet) 20 mg PO BEDTIME [facility] Last Admin: 03/06/25 19:45 Dose: 20 mg Documented By: KAREN Bupropion HCl (Bupropion Hcl Xl 300 Mg Tab.Er.24h) 300 mg PO DAILY [facility] Last Admin: 03/07/25 08:25 Dose: 300 mg Documented By: MARKEL Calcium Carbonate (Calcium Carbonate 750 Mg Tab.Chew) 750 mg PO Q4H PRN PRN Reason: Heartburn Capsaicin (Capsaicin 0.025% Cream 60 Gm Tube) 1 appl TOPICAL TID [facility] Last Admin: 03/06/25 19:44 Dose: Not Given Documented By: KAREN Non-Admin Reason: Patient Refused Clopidogrel Bisulfate (Clopidogrel Bisulfate 75 Mg Tablet) 75 mg PO DAILY [facility] Last Admin: 03/07/25 08:24 Dose: 75 mg Documented By: MARKEL Dextrose (Dextrose 50 % 25 Gm/50 Ml Syringe) 25 gm IVPUSH Q15M PRN; Protocol PRN Reason: per Hypoglycemia Standing Ord. Last Admin: 03/03/25 20:15 Dose: 25 gm Documented By: MALI Docusate Sodium (Docusate Sodium 100 Mg/10 Ml Liquid) 100 mg PO BEDTIME [facility] Last Admin: 03/06/25 19:46 Dose: Not Given Documented By: KAREN Non-Admin Reason: Patient Refused Glucose (Glucose Gel 15 Gm Gel..Gram.) 15 gm PO Q15M PRN; Protocol PRN Reason: per Hypoglycemia Standing Ord. Piperacillin Sod/Tazobactam (Sod 4.5 gm/ Sodium Chloride) 100 mls @ 200 mls/hr IV Q12H [facility] Last Infusion: 03/07/25 08:33 Dose: Infused Documented By: MARKEL Sodium Chloride (Ns) 1,000 mls @ 60 mls/hr IVCONT .[id number] [facility] Last Infusion: 03/07/25 08:33 Dose: 0 mls/hr Documented By: MARKEL Sodium Chloride (Ns) 1,000 mls @ 60 mls/hr IVCONT .[id number] [facility] Last Admin: 03/06/25 19:42 Dose: Not Given Documented By: KAREN Non-Admin Reason: duplicate Insulin Human Lispro (Insulin Lispro 100 Unit/Ml 3 Ml Vial) 0 unit SUBCUT QIDACHS [facility]; Protocol Last Admin: 03/07/25 08:19 Dose: Not Given Documented By: MARKEL Non-Admin Reason: No Insulin Coverage Melatonin (Melatonin 3 Mg Tablet) 6 mg PO BEDTIME PRN PRN Reason: Insomnia Melatonin (Melatonin 3 Mg Tablet) 3 mg PO BEDTIME [facility] Last Admin: 03/06/25 19:46 Dose: 3 mg Documented By: KAREN Metoprolol Tartrate (Metoprolol Tartrate 12.5 Mg Halftab) 12.5 mg PO TID [facility]; Protocol Last Admin: 03/07/25 08:25 Dose: 12.5 mg Documented By: MARKEL Olanzapine (Olanzapine 2.5 Mg Tablet) 2.5 mg PO BID [facility] Last Admin: 03/07/25 08:24 Dose: 2.5 mg Documented By: MARKEL Olanzapine (Olanzapine 5 Mg Tablet) 5 mg PO BID PRN PRN Reason: anxiety Senna (Sennosides 8.6 Mg Tablet) 8.6 mg PO BEDTIME PRN PRN Reason: Constipation Sodium Chloride (0.9 % Sodium Chloride Flush 3 Ml Syringe) 3 ml IVFLUSH QSHIFT [facility] Last Admin: 03/07/25 08:26 Dose: 3 ml Documented By: MARKEL Labs 03/07/25 08:53 03/07/25 08:53 Labs: Laboratory Results - last 24 hr 03/06/25 03/06/25 03/06/25 16:23 17:57 19:44 MCV MCH MCHC RDW Plt Count MPV Absolute Nucleated RBC Nucleated RBC % (auto) Anion Gap Estim Creat Clear Calc Estimated GFR POC Glucose 124 H 129 H Random Glucose Calcium U Random Total Protein 15 H Urine Creatinine 27.54 Protein/Creatinin Ratio 0.54 H 03/07/25 03/07/25 07:49 08:53 MCV 90.1 MCH 30.4 MCHC 33.8 RDW 13.8 Plt Count 221 D MPV 10.3 Absolute Nucleated RBC 0.000 Nucleated RBC % (auto) 0.0 Anion Gap 15 Estim Creat Clear Calc 14.2 Estimated GFR 13 POC Glucose 123 H Random Glucose 166 H Calcium 7.9 L U Random Total Protein Urine Creatinine Protein/Creatinin Ratio Assessment and Plan (1) Cardiomyopathy: Status: Acute Plan 75M PMH alzhemiers/vascular dementia, history of CVA, bladder cancer, DM, htn, presented from [place] with failure to thrive, found to have severe LAURIE and NSTEMI FTT complicated due to LAURIE slowly improving with hydration monitor renal following nstemi with cardiomyopathy cardio appreciated would hold off on further work up continue asa, plavix, statin, beta merlene s/p 48 heparin advanced alzheimers/vascular dementia zyprexa history of cva dapl, statin dm insulin possible colitis continue zosyn dvt prophylaxis - hep sq DNR/DNI reason for continued hospitalization:ivf, monitor creatinine Quality Stroke Does the patient have a stroke diagnosis?: No Reason for No Anti-thrombotic by Day Two: N/A - Med Ordered VTE Prior VTE?: No VTE Risk Level:: Medical - moderate - high VTE Device Contraindication: N/A - Device Ordered VTE Drug Contraindication: N/A - Med Ordered
[2025-03-07 12:17] LABS: Glucose, Whole Blood 138 mg/dL (60-115)
[2025-03-07 14:58] VITALS: BP 155/86; PULSE 55; RESP 16; TEMP 36.7; O2SAT 95
[2025-03-07 16:27] LABS: Glucose, Whole Blood 173 mg/dL (60-115)
[2025-03-07 19:41] VITALS: BP 181/77; PULSE 51; RESP 16; TEMP 36.4; O2SAT 95
[2025-03-07 20:09] LABS: Glucose, Whole Blood 133 mg/dL (60-115)
[2025-03-07 23:39] VITALS: BP 161/74; PULSE 48; RESP 18; TEMP 36.4; O2SAT 98
[2025-03-08] VITALS (7 sets, daily range): BP systolic 121–162; BP diastolic 69–99; PULSE 48–56; RESP 16–18; TEMP 35.8–36.2; O2SAT 94–97; BMI 23.8
[2025-03-08 06:17] LABS: Hematocrit 37.1 % (42.0-52.0); Hemoglobin 12.6 g/dl (14.0-18.0); Mean Corpuscular HGB Conc 34.0 g/dl (31.0-36.0); Mean Corpuscular Hemoglobin 30.3 pg (27.0-33.0); Mean Corpuscular Volume 89.2 fL (80.0-98.0); NRBC Abs Auto 0.000 X10*3/uL (0.0-0.012); NRBC Pct Auto 0.0 /100WBC (0.0-0.2); Platelet Count 215 X10*3/uL (160-400); Red Blood Count 4.16 X10*6/uL (4.60-5.80); White Blood Count 6.8 X10*3/uL (4.8-10.8)
[2025-03-08 07:13] LABS: Anion Gap 15 (12-20); Blood Urea Nitrogen 24 mg/dL (9-16); Calcium 8.0 mg/dL (8.4-10.2); Carbon Dioxide 25 mmol/L (22-29); Chloride 108 mmol/L (96-108); Creatinine Clr Calc Pharmacy 19.7; Estimated Glomerular Filt Rate 18; Potassium 2.6 mmol/L (3.3-5.1); Sodium 145 mmol/L (135-145)
[2025-03-08 07:39] LABS: Glucose, Whole Blood 150 mg/dL (60-115)
[2025-03-08] MEDS: Potassium Chloride ER 20 MEQ TAB.ER.PRT 40 MEQ PO (09:04)
[2025-03-08] MEDS: Metoprolol Tartrate 12.5 MG HALFTAB PO ×2 (09:04→16:13)
[2025-03-08] MEDS: Aspirin Enteric Coated 81 MG TABLET.DR PO (09:04)
[2025-03-08] MEDS: buPROPion HCl XL 300 MG TAB.ER.24H PO (09:04)
[2025-03-08] MEDS: Potassium Chloride/H20 10 MEQ/100 ML PIGGYBACK 100 MEQ IV ×4 (09:05→13:00)
[2025-03-08] MEDS: 0.9 % Sodium Chloride Flush 3 ML SYRINGE IVFLUSH (09:05)
--- NOTE | 2025-03-08 09:10 | P.PNNP_ITS ---
Subjective Subjective Date of Service: 03/08/25 Interval history: following for LAURIE, s/p nstemi, poor oral intake patient reports he feels well at bedside, denies complaints/concerns. UOP improving- not measured, incontinent of urine per staff at bedside. creatinine down to 3.33 from 4.62 Physical Exam 2 Vital Signs: Vital Signs: Last Vital Signs Temp 97.2 F 03/08/25 07:25 Pulse 54 03/08/25 07:25 Resp 18 03/08/25 07:25 BP 136/99 H 03/08/25 09:04 Pulse Ox 96 03/08/25 07:25 O2 Del Method Room Air 03/08/25 07:25 BMI result Body Mass Index 23.8 Const: General: no acute distress and awake Resp: Effort & Inspection: normal respiratory effort and able to speak in complete sentences Auscultation: clear to auscultation bilaterally Cardio: Rate: regular rate Rhythm: regular rhythm Heart sounds: S1 normal heart sound present and S2 normal heart sound present GI: Palpation (GI): Soft to palpation and nontender Skin: Rashes: no rashes Neuro: Other: no tremor, no asterixis Extrem: General: No edema and No pedal edema Objective Data Labs 03/08/25 05:58 03/08/25 05:58 Labs: Laboratory Results - last 24 hr 03/07/25 03/07/25 03/07/25 12:11 16:19 20:05 WBC RBC Hgb Hct MCV MCH MCHC RDW Plt Count MPV Absolute Nucleated RBC Nucleated RBC % (auto) Sodium Potassium Chloride Carbon Dioxide Anion Gap BUN Creatinine Estim Creat Clear Calc Estimated GFR POC Glucose 138 H 173 H 133 H Random Glucose Calcium 03/08/25 03/08/25 05:58 07:29 WBC 6.8 RBC 4.16 L Hgb 12.6 L Hct 37.1 L MCV 89.2 MCH 30.3 MCHC 34.0 RDW 13.6 Plt Count 215 MPV 9.8 Absolute Nucleated RBC 0.000 Nucleated RBC % (auto) 0.0 Sodium 145 Potassium 2.6 L* Chloride 108 Carbon Dioxide 25 Anion Gap 15 BUN 24 H Creatinine 3.33 H Estim Creat Clear Calc 19.7 Estimated GFR 18 POC Glucose 150 H Random Glucose 146 H Calcium 8.0 L Microbiology Microbiology Results: Microbiology 03/02/25 22:30 Blood - Venous Blood Culture - Final No growth after 5 days. 03/02/25 22:30 Blood - Venous Blood Culture - Final No growth after 5 days. 03/03/25 Unknown Urine clean catch - Clean Catch Midstream Urine Culture - Final Procedures Date of Service Date of Service: 03/08/25 Assessment & Plan Assessment and plan (1) LAURIE (acute kidney injury): Status: Acute Plan LAURIE due to ATN, most likely combination of reduced renal perfusion from possible NSTEMI and poor oral intake renal function continues to improve patient oliguric, no obstruction on imaging recommend continue IVF as ordered urine protein/creatinine ratio minimally elevated at 0.54 recommend replacing potassium as needed No indication for renal replacement at this time continue close monitoring of urine output as patient remains oliguric Recommend daily weights recommend regular blood pressure checks and daily renal function and electrolyte studies Continue supportive care, will continue to follow Discussed with Dr Reeves. Time Spent With Patient Time: Total time managing care of this patient today ____ minutes. Progress Note: Quality Stroke Does the patient have a stroke diagnosis?: No Reason for No Anti-thrombotic by Day Two: N/A - Med Ordered
--- NOTE | 2025-03-08 10:20 | HO.PM.IMPN ---
Subjective Subjective Date of Service: 03/08/25 Interval History: Urine output improving Physical Exam Vital Signs: Vital Signs: Last Vital Signs Temp 97.2 F 03/08/25 07:25 Pulse 54 03/08/25 07:25 Resp 18 03/08/25 07:25 BP 136/99 H 03/08/25 09:04 Pulse Ox 96 03/08/25 07:25 O2 Del Method Room Air 03/08/25 07:25 BMI result Body Mass Index 23.8 alert, oriented to person only lungs clear Objective Data Active Medications Acetaminophen (Acetaminophen 325 Mg Tablet) 650 mg PO Q6H PRN PRN Reason: Pain, Mild 1-3,fever,headache Last Admin: 03/05/25 19:50 Dose: 650 mg Documented By: HAYDER Amlodipine Besylate (Amlodipine Besylate 5 Mg Tablet) 5 mg PO DAILY [facility]; Protocol Last Admin: 03/08/25 09:04 Dose: 5 mg Documented By: PAMELA Aspirin (Aspirin Enteric Coated 81 Mg Tablet.Dr) 81 mg PO DAILY [facility] Last Admin: 03/08/25 09:04 Dose: 81 mg Documented By: PAMELA Atorvastatin Calcium (Atorvastatin Calcium 20 Mg Tablet) 20 mg PO BEDTIME [facility] Last Admin: 03/07/25 21:08 Dose: 20 mg Documented By: LATRICIA Bupropion HCl (Bupropion Hcl Xl 300 Mg Tab.Er.24h) 300 mg PO DAILY [facility] Last Admin: 03/08/25 09:04 Dose: 300 mg Documented By: PAMELA Calcium Carbonate (Calcium Carbonate 750 Mg Tab.Chew) 750 mg PO Q4H PRN PRN Reason: Heartburn Capsaicin (Capsaicin 0.025% Cream 60 Gm Tube) 1 appl TOPICAL TID [facility] Last Admin: 03/08/25 09:04 Dose: Not Given Documented By: PAMELA Non-Admin Reason: Patient Refused Clopidogrel Bisulfate (Clopidogrel Bisulfate 75 Mg Tablet) 75 mg PO DAILY [facility] Last Admin: 03/08/25 09:04 Dose: 75 mg Documented By: PAMELA Dextrose (Dextrose 50 % 25 Gm/50 Ml Syringe) 25 gm IVPUSH Q15M PRN; Protocol PRN Reason: per Hypoglycemia Standing Ord. Last Admin: 03/03/25 20:15 Dose: 25 gm Documented By: MALI Docusate Sodium (Docusate Sodium 100 Mg/10 Ml Liquid) 100 mg PO BEDTIME [facility] Last Admin: 03/07/25 21:08 Dose: 100 mg Documented By: LATRICIA Glucose (Glucose Gel 15 Gm Gel..Gram.) 15 gm PO Q15M PRN; Protocol PRN Reason: per Hypoglycemia Standing Ord. Heparin Sodium (Porcine) (Heparin Sodium,Porcine 5,000 Unit/Ml Vial) 5,000 unit SUBCUT Q12H [facility] Last Admin: 03/07/25 21:20 Dose: Not Given Documented By: LATRICIA Non-Admin Reason: Patient Refused Piperacillin Sod/Tazobactam (Sod 4.5 gm/ Sodium Chloride) 100 mls @ 200 mls/hr IV Q12H [facility] Last Infusion: 03/08/25 07:00 Dose: Infused Documented By: LATRICIA Sodium Chloride (Ns) 1,000 mls @ 60 mls/hr IVCONT .[id number] [facility] Last Infusion: 03/08/25 06:00 Dose: Infused Documented By: LATRICIA Sodium Chloride (Ns) 1,000 mls @ 60 mls/hr IVCONT .[id number] [facility] Last Admin: 03/08/25 05:38 Dose: Not Given Documented By: LATRICIA Non-Admin Reason: IV Running Potassium Chloride (Potassium Chloride/H20) 10 meq in 100 mls @ 100 mls/hr IV Q1H [facility] Stop: 03/08/25 11:44 Last Admin: 03/08/25 09:05 Dose: 100 mls/hr Documented By: PAMELA Insulin Human Lispro (Insulin Lispro 100 Unit/Ml 3 Ml Vial) 0 unit SUBCUT QIDACHS [facility]; Protocol Last Admin: 03/08/25 08:52 Dose: Not Given Documented By: PAMELA Non-Jl Reason: No Insulin Coverage Melatonin (Melatonin 3 Mg Tablet) 6 mg PO BEDTIME PRN PRN Reason: Insomnia Melatonin (Melatonin 3 Mg Tablet) 3 mg PO BEDTIME [facility] Last Admin: 03/07/25 21:08 Dose: 3 mg Documented By: LATRICIA Metoprolol Tartrate (Metoprolol Tartrate 12.5 Mg Halftab) 12.5 mg PO TID [facility]; Protocol Last Admin: 03/08/25 09:04 Dose: 12.5 mg Documented By: PAMELA Olanzapine (Olanzapine 2.5 Mg Tablet) 2.5 mg PO BID [facility] Last Admin: 03/08/25 09:04 Dose: 2.5 mg Documented By: PAMELA Olanzapine (Olanzapine 5 Mg Tablet) 5 mg PO BID PRN PRN Reason: anxiety Senna (Sennosides 8.6 Mg Tablet) 8.6 mg PO BEDTIME PRN PRN Reason: Constipation Sodium Chloride (0.9 % Sodium Chloride Flush 3 Ml Syringe) 3 ml IVFLUSH QSHIFT [facility] Last Admin: 03/08/25 09:05 Dose: 3 ml Documented By: PAMELA Labs 03/08/25 05:58 03/08/25 05:58 Labs: Laboratory Results - last 24 hr 03/07/25 03/07/25 03/07/25 12:11 16:19 20:05 MCV MCH MCHC RDW Plt Count MPV Absolute Nucleated RBC Nucleated RBC % (auto) Anion Gap Estim Creat Clear Calc Estimated GFR POC Glucose 138 H 173 H 133 H Random Glucose Calcium 03/08/25 03/08/25 05:58 07:29 MCV 89.2 MCH 30.3 MCHC 34.0 RDW 13.6 Plt Count 215 MPV 9.8 Absolute Nucleated RBC 0.000 Nucleated RBC % (auto) 0.0 Anion Gap 15 Estim Creat Clear Calc 19.7 Estimated GFR 18 POC Glucose 150 H Random Glucose 146 H Calcium 8.0 L Microbiology Microbiology Results: Microbiology 03/02/25 22:30 Blood Culture - Final Blood - Venous No growth after 5 days. 03/02/25 22:30 Blood Culture - Final Blood - Venous No growth after 5 days. Assessment and Plan (1) Cardiomyopathy: Status: Acute Plan 75M PMH alzhemiers/vascular dementia, history of CVA, bladder cancer, DM, htn, [place] with failure to thrive, found to have severe LAURIE and NSTEMI FTT complicated due to LAURIE slowly improving with hydration monitor renal following Acute hypokalemia replace and monitor nstemi with cardiomyopathy cardio appreciated would hold off on further work up continue asa, plavix, statin, beta merlene s/p 48 heparin advanced alzheimers/vascular dementia zyprexa history of cva dapl, statin dm insulin possible colitis continue zosyn dvt prophylaxis - hep sq DNR/DNI reason for continued hospitalization:ivf, , low k Quality Stroke Does the patient have a stroke diagnosis?: No Reason for No Anti-thrombotic by Day Two: N/A - Med Ordered VTE Prior VTE?: No VTE Risk Level:: Medical - moderate - high VTE Device Contraindication: N/A - Device Ordered VTE Drug Contraindication: N/A - Med Ordered
--- NOTE | 2025-03-08 10:59 | MHC.CM.PN ---
Per ROUNDS discussion, Patient is not yet medically cleared for dc (severe Hypokalemia); returning to [facility] is the goal and CM will continue to follow.
[2025-03-08 11:16] LABS: Glucose, Whole Blood 162 mg/dL (60-115)
[2025-03-08 16:08] LABS: Glucose, Whole Blood 189 mg/dL (60-115)
[2025-03-08 20:37] LABS: Glucose, Whole Blood 121 mg/dL (60-115)
[2025-03-08] MEDS: OLANZapine 10 MG VIAL 5 MG IM (21:24)
[2025-03-09 03:07] VITALS: BP 139/82; PULSE 55; RESP 18; TEMP 36.2; O2SAT 98
[2025-03-09] MEDS: OLANZapine 10 MG VIAL 5 MG IM ×2 (04:27→17:19)
[2025-03-09 06:00] VITALS: BMI 23.8
[2025-03-09 07:48] VITALS: BP 148/84; PULSE 55; RESP 17; TEMP 36.1; O2SAT 96
[2025-03-09 07:49] LABS: Glucose, Whole Blood 185 mg/dL (60-115)
[2025-03-09] MEDS: 0.9 % Sodium Chloride Flush 3 ML SYRINGE IVFLUSH ×2 (08:55→22:23)
--- NOTE | 2025-03-09 09:23 | HO.PM.IMPN ---
Subjective Subjective Date of Service: 03/09/25 Interval History: Urine output improving Physical Exam Vital Signs: Vital Signs: Last Vital Signs Temp 97.0 F 03/09/25 07:48 Pulse 55 03/09/25 07:48 Resp 17 03/09/25 07:48 BP 148/84 H 03/09/25 07:48 Pulse Ox 96 03/09/25 07:48 O2 Del Method Room Air 03/09/25 07:48 BMI result Body Mass Index 23.8 Const: General: no acute distress and awake Resp: Effort & Inspection: normal respiratory effort and able to speak in complete sentences Auscultation: clear to auscultation bilaterally Cardio: Rate: regular rate Rhythm: regular rhythm Heart sounds: S1 normal heart sound present and S2 normal heart sound present GI: Palpation (GI): Soft to palpation and nontender Skin: Rashes: no rashes Neuro: Other: no tremor, no asterixis Extrem: General: No edema and No pedal edema Objective Data Active Medications Acetaminophen (Acetaminophen 325 Mg Tablet) 650 mg PO Q6H PRN PRN Reason: Pain, Mild 1-3,fever,headache Last Admin: 03/05/25 19:50 Dose: 650 mg Documented By: HAYDER Amlodipine Besylate (Amlodipine Besylate 5 Mg Tablet) 5 mg PO DAILY [facility]; Protocol Last Admin: 03/08/25 09:04 Dose: 5 mg Documented By: PAMELA Aspirin (Aspirin Enteric Coated 81 Mg Tablet.Dr) 81 mg PO DAILY [facility] Last Admin: 03/08/25 09:04 Dose: 81 mg Documented By: PAMELA Atorvastatin Calcium (Atorvastatin Calcium 20 Mg Tablet) 20 mg PO BEDTIME [facility] Last Admin: 03/08/25 20:31 Dose: 20 mg Documented By: LATRICIA Bupropion HCl (Bupropion Hcl Xl 300 Mg Tab.Er.24h) 300 mg PO DAILY [facility] Last Admin: 03/08/25 09:04 Dose: 300 mg Documented By: PAMELA Calcium Carbonate (Calcium Carbonate 750 Mg Tab.Chew) 750 mg PO Q4H PRN PRN Reason: Heartburn Capsaicin (Capsaicin 0.025% Cream 60 Gm Tube) 1 appl TOPICAL TID [facility] Last Admin: 03/08/25 20:32 Dose: Not Given Documented By: LATRICIA Non-Admin Reason: Patient Refused Clopidogrel Bisulfate (Clopidogrel Bisulfate 75 Mg Tablet) 75 mg PO DAILY [facility] Last Admin: 03/08/25 09:04 Dose: 75 mg Documented By: PAMELA Dextrose (Dextrose 50 % 25 Gm/50 Ml Syringe) 25 gm IVPUSH Q15M PRN; Protocol PRN Reason: per Hypoglycemia Standing Ord. Last Admin: 03/03/25 20:15 Dose: 25 gm Documented By: MALI Docusate Sodium (Docusate Sodium 100 Mg/10 Ml Liquid) 100 mg PO BEDTIME [facility] Last Admin: 03/08/25 20:31 Dose: 100 mg Documented By: LATRICIA Glucose (Glucose Gel 15 Gm Gel..Gram.) 15 gm PO Q15M PRN; Protocol PRN Reason: per Hypoglycemia Standing Ord. Heparin Sodium (Porcine) (Heparin Sodium,Porcine 5,000 Unit/Ml Vial) 5,000 unit SUBCUT Q12H [facility] Last Admin: 03/09/25 00:39 Dose: Not Given Documented By: LATRICIA Non-Admin Reason: Patient Asleep Piperacillin Sod/Tazobactam (Sod 4.5 gm/ Sodium Chloride) 100 mls @ 200 mls/hr IV Q12H [facility] Last Infusion: 03/09/25 07:40 Dose: Infused Documented By: JAVNA Insulin Human Lispro (Insulin Lispro 100 Unit/Ml 3 Ml Vial) 0 unit SUBCUT QIDACHS [facility]; Protocol Last Admin: 03/09/25 08:47 Dose: Not Given Documented By: JAVAN Non-Admin Reason: Patient Asleep Comments: pt not intaking PO this morning Melatonin (Melatonin 3 Mg Tablet) 6 mg PO BEDTIME PRN PRN Reason: Insomnia Melatonin (Melatonin 3 Mg Tablet) 3 mg PO BEDTIME [facility] Last Admin: 03/08/25 20:31 Dose: 3 mg Documented By: LATRICIA Metoprolol Tartrate (Metoprolol Tartrate 12.5 Mg Halftab) 12.5 mg PO TID [facility]; Protocol Last Admin: 03/09/25 08:56 Dose: Not Given Documented By: JAVAN Non-Admin Reason: per protocol, HR 55 Olanzapine (Olanzapine 2.5 Mg Tablet) 2.5 mg PO BID [facility] Last Admin: 03/08/25 20:31 Dose: 2.5 mg Documented By: LATRICIA Olanzapine (Olanzapine 5 Mg Tablet) 5 mg PO BID PRN PRN Reason: anxiety Senna (Sennosides 8.6 Mg Tablet) 8.6 mg PO BEDTIME PRN PRN Reason: Constipation Sodium Chloride (0.9 % Sodium Chloride Flush 3 Ml Syringe) 3 ml IVFLUSH QSHIFT [facility] Last Admin: 03/09/25 08:55 Dose: 3 ml Documented By: JAVAN Labs 03/08/25 05:58 03/08/25 05:58 Labs: Laboratory Results - last 24 hr 03/08/25 03/08/25 03/08/25 11:11 15:50 20:28 POC Glucose 162 H 189 H 121 H 03/09/25 07:34 POC Glucose 185 H Assessment and Plan (1) Cardiomyopathy: Status: Acute Plan 75M PMH alzhemiers/vascular dementia, history of CVA, bladder cancer, DM, htn, presented from [place] with failure to thrive, found to have severe LAURIE and NSTEMI FTT complicated due to LAURIE slowly improving with hydration - refused labs this AM monitor renal following Acute hypokalemia replace and monitor nstemi with cardiomyopathy cardio appreciated would hold off on further work up continue asa, plavix, statin, beta merlene s/p 48 heparin advanced alzheimers/vascular dementia zyprexa history of cva dapl, statin dm insulin possible colitis continue zosyn dvt prophylaxis - hep sq DNR/DNI reason for continued hospitalization:ivf, , low k Quality Stroke Does the patient have a stroke diagnosis?: No Reason for No Anti-thrombotic by Day Two: N/A - Med Ordered VTE Prior VTE?: No VTE Risk Level:: Medical - moderate - high VTE Device Contraindication: N/A - Device Ordered VTE Drug Contraindication: N/A - Med Ordered
[2025-03-09 11:36] VITALS: BP 174/79; PULSE 57; RESP 17; TEMP 36.2; O2SAT 94
[2025-03-09 11:37] LABS: Glucose, Whole Blood 139 mg/dL (60-115)
[2025-03-09 12:22] LABS: Hematocrit 36.0 % (42.0-52.0); Hemoglobin 12.4 g/dl (14.0-18.0); Mean Corpuscular HGB Conc 34.4 g/dl (31.0-36.0); Mean Corpuscular Hemoglobin 30.6 pg (27.0-33.0); Mean Corpuscular Volume 88.9 fL (80.0-98.0); NRBC Abs Auto 0.000 X10*3/uL (0.0-0.012); NRBC Pct Auto 0.0 /100WBC (0.0-0.2); Platelet Count 234 X10*3/uL (160-400); Red Blood Count 4.05 X10*6/uL (4.60-5.80); White Blood Count 6.5 X10*3/uL (4.8-10.8)
[2025-03-09 12:45] LABS: Anion Gap 14 (12-20); Blood Urea Nitrogen 14 mg/dL (9-16); Calcium 8.0 mg/dL (8.4-10.2); Carbon Dioxide 25 mmol/L (22-29); Chloride 109 mmol/L (96-108); Creatinine Clr Calc Pharmacy 29.6; Estimated Glomerular Filt Rate 29; Magnesium 1.3 mg/dL (1.6-2.6); Potassium 2.9 mmol/L (3.3-5.1); Sodium 145 mmol/L (135-145)
[2025-03-09] MEDS: Potassium Chloride ER 20 MEQ TAB.ER.PRT 40 MEQ PO (14:16)
[2025-03-09 16:00] VITALS: BP 160/74; PULSE 66; RESP 18; TEMP 36.4; O2SAT 98
[2025-03-09 16:06] LABS: Glucose, Whole Blood 199 mg/dL (60-115)
--- NOTE | 2025-03-09 16:15 | MHC.CM.PN ---
EMR REVIEWED, CREATINE CONT'S TO TREND DOWN, PLAN TO CONT IVF AND K REPLETION, CM WILL CONT TO FOLLOW DC NEEDS.
[2025-03-09] MEDS: Metoprolol Tartrate 12.5 MG HALFTAB PO (16:37)
[2025-03-09 19:08] VITALS: BP 160/77; PULSE 59; RESP 18; TEMP 36.7; O2SAT 95
[2025-03-09 21:08] LABS: Glucose, Whole Blood 146 mg/dL (60-115)
[2025-03-09] MEDS: Magnesium Sulfate/H2O 2 GM/50 ML PIGGYBACK IV (21:38)
[2025-03-09] MEDS: Potassium Chloride/H20 10 MEQ/100 ML PIGGYBACK 100 MEQ IV (22:23)
[2025-03-09 23:16] VITALS: BP 145/76; PULSE 56; RESP 16; TEMP 36.3; O2SAT 97
[2025-03-10] MEDS: Potassium Chloride/H20 10 MEQ/100 ML PIGGYBACK 100 MEQ IV ×3 (00:44→04:25)
[2025-03-10] MEDS: OLANZapine 10 MG VIAL 5 MG IM (01:10)
[2025-03-10 06:00] VITALS: BMI 23.5
[2025-03-10 07:31] LABS: Glucose, Whole Blood 170 mg/dL (60-115)
[2025-03-10 07:34] LABS: Anion Gap 14 (12-20); Blood Urea Nitrogen 11 mg/dL (9-16); Calcium 8.4 mg/dL (8.4-10.2); Carbon Dioxide 23 mmol/L (22-29); Chloride 111 mmol/L (96-108); Creatinine Clr Calc Pharmacy 36.3; Estimated Glomerular Filt Rate 37; Magnesium 1.6 mg/dL (1.6-2.6); Potassium 3.3 mmol/L (3.3-5.1); Sodium 145 mmol/L (135-145)
[2025-03-10 07:38] VITALS: BP 155/91; PULSE 53; RESP 18; TEMP 36.2; O2SAT 97
[2025-03-10] MEDS: Magnesium Sulfate/H2O 2 GM/50 ML PIGGYBACK IV (07:58)
[2025-03-10] MEDS: Aspirin Enteric Coated 81 MG TABLET.DR PO (08:05)
[2025-03-10] MEDS: Potassium Chloride ER 20 MEQ TAB.ER.PRT 40 MEQ PO (08:05)
[2025-03-10] MEDS: buPROPion HCl XL 300 MG TAB.ER.24H PO (08:05)
--- NOTE | 2025-03-10 09:54 | P.PNIM_ITS ---
Subjective Subjective Date of Service: 03/10/25 Interval History: Urine output improving Physical Exam 2 Vital Signs: Vital Signs: Last Vital Signs Temp 97.2 F 03/10/25 07:38 Pulse 53 03/10/25 07:38 Resp 18 03/10/25 07:38 BP 155/91 H 03/10/25 07:38 Pulse Ox 97 03/10/25 07:38 O2 Del Method Room Air 03/10/25 07:38 BMI result Body Mass Index 23.5 Const: General: no acute distress and awake Resp: Effort & Inspection: normal respiratory effort and able to speak in complete sentences Auscultation: clear to auscultation bilaterally Cardio: Rate: regular rate Rhythm: regular rhythm Heart sounds: S1 normal heart sound present and S2 normal heart sound present GI: Palpation (GI): Soft to palpation and nontender Skin: Rashes: no rashes Neuro: Other: no tremor, no asterixis Extrem: General: No edema and No pedal edema Objective Data Active Medications Acetaminophen (Acetaminophen 325 Mg Tablet) 650 mg PO Q6H PRN PRN Reason: Pain, Mild 1-3,fever,headache Last Admin: 03/05/25 19:50 Dose: 650 mg Documented By: HAYDER Amlodipine Besylate (Amlodipine Besylate 5 Mg Tablet) 5 mg PO DAILY [facility]; Protocol Last Admin: 03/09/25 14:12 Dose: 5 mg Documented By: JAVAN Aspirin (Aspirin Enteric Coated 81 Mg Tablet.) 81 mg PO DAILY [facility] Last Admin: 03/10/25 08:05 Dose: 81 mg Documented By: NICOL Atorvastatin Calcium (Atorvastatin Calcium 20 Mg Tablet) 20 mg PO BEDTIME [facility] Last Admin: 03/09/25 21:14 Dose: 20 mg Documented By: MIHIR Bupropion HCl (Bupropion Hcl Xl 300 Mg Tab.Er.24h) 300 mg PO DAILY [facility] Last Admin: 03/10/25 08:05 Dose: 300 mg Documented By: NICOL Calcium Carbonate (Calcium Carbonate 750 Mg Tab.Chew) 750 mg PO Q4H PRN PRN Reason: Heartburn Capsaicin (Capsaicin 0.025% Cream 60 Gm Tube) 1 appl TOPICAL TID [facility] Last Admin: 03/10/25 08:06 Dose: 1 appl Documented By: NICOL Clopidogrel Bisulfate (Clopidogrel Bisulfate 75 Mg Tablet) 75 mg PO DAILY [facility] Last Admin: 03/10/25 08:05 Dose: 75 mg Documented By: NICOL Dextrose (Dextrose 50 % 25 Gm/50 Ml Syringe) 25 gm IVPUSH Q15M PRN; Protocol PRN Reason: per Hypoglycemia Standing Ord. Last Admin: 03/03/25 20:15 Dose: 25 gm Documented By: GALINA-LEO Docusate Sodium (Docusate Sodium 100 Mg/10 Ml Liquid) 100 mg PO BEDTIME [facility] Last Admin: 03/09/25 21:19 Dose: Not Given Documented By: MIHIR Non-Admin Reason: Patient Refused Glucose (Glucose Gel 15 Gm Gel..Gram.) 15 gm PO Q15M PRN; Protocol PRN Reason: per Hypoglycemia Standing Ord. Heparin Sodium (Porcine) (Heparin Sodium,Porcine 5,000 Unit/Ml Vial) 5,000 unit SUBCUT Q12H [facility] Last Admin: 03/09/25 22:23 Dose: 5,000 unit Documented By: MIHIR Piperacillin Sod/Tazobactam (Sod 4.5 gm/ Sodium Chloride) 100 mls @ 200 mls/hr IV Q8H [facility] Insulin Human Lispro (Insulin Lispro 100 Unit/Ml 3 Ml Vial) 0 unit SUBCUT QIDACHS [facility]; Protocol Last Admin: 03/10/25 08:06 Dose: 2 unit Documented By: NICOL Melatonin (Melatonin 3 Mg Tablet) 6 mg PO BEDTIME PRN PRN Reason: Insomnia Last Admin: 03/10/25 00:44 Dose: 6 mg Documented By: MIHIR Melatonin (Melatonin 3 Mg Tablet) 3 mg PO BEDTIME [facility] Last Admin: 03/09/25 21:14 Dose: 3 mg Documented By: MIHIR Metoprolol Tartrate (Metoprolol Tartrate 12.5 Mg Halftab) 12.5 mg PO TID [facility]; Protocol Last Admin: 03/10/25 07:46 Dose: Not Given Documented By: NICOL Non-Admin Reason: low HR Olanzapine (Olanzapine 2.5 Mg Tablet) 2.5 mg PO BID [facility] Last Admin: 03/10/25 08:05 Dose: 2.5 mg Documented By: NICOL Olanzapine (Olanzapine 5 Mg Tablet) 5 mg PO BID PRN PRN Reason: anxiety Last Admin: 03/09/25 14:12 Dose: 5 mg Documented By: JAVAN Hubbard (Sennosides 8.6 Mg Tablet) 8.6 mg PO BEDTIME PRN PRN Reason: Constipation Sodium Chloride (0.9 % Sodium Chloride Flush 3 Ml Syringe) 3 ml IVFLUSH QSHIFT [facility] Last Admin: 03/10/25 07:12 Dose: Not Given Documented By: NICOL Non-Admin Reason: Previously Administered Labs 03/09/25 12:15 03/10/25 07:00 Labs: Laboratory Results - last 24 hr 03/09/25 03/09/25 03/09/25 11:31 12:15 15:57 MCV 88.9 MCH 30.6 MCHC 34.4 RDW 13.8 Plt Count 234 MPV 9.4 Absolute Nucleated RBC 0.000 Nucleated RBC % (auto) 0.0 Hold Purple Top Anion Gap 14 Estim Creat Clear Calc 29.6 Estimated GFR 29 POC Glucose 139 H 199 H Random Glucose 151 H Calcium 8.0 L Magnesium 1.3 L* 03/09/25 03/10/25 03/10/25 21:05 07:00 07:14 MCV MCH MCHC RDW Plt Count MPV Absolute Nucleated RBC Nucleated RBC % (auto) Hold Purple Top SEE NOTE Anion Gap 14 Estim Creat Clear Calc 36.3 Estimated GFR 37 POC Glucose 146 H 170 H Random Glucose 164 H Calcium 8.4 Magnesium 1.6 Assessment and Plan (1) Cardiomyopathy: Status: Acute Plan 75M PMH alzhemiers/vascular dementia, history of CVA, bladder cancer, DM, htn, presented from [place] with failure to thrive, found to have severe LAURIE and NSTEMI FTT complicated due to LAURIE slowly improving with hydration monitor renal following Acute hypokalemia replace and monitor nstemi with cardiomyopathy cardio appreciated would hold off on further work up continue asa, plavix, statin, beta merlene s/p 48 heparin advanced alzheimers/vascular dementia zyprexa history of cva dapl, statin dm insulin possible colitis continue zosyn dvt prophylaxis - hep sq DNR/DNI reason for continued hospitalization:ivf, , low k Quality Stroke Does the patient have a stroke diagnosis?: No Reason for No Anti-thrombotic by Day Two: N/A - Med Ordered VTE Prior VTE?: No VTE Risk Level:: Medical - moderate - high VTE Device Contraindication: N/A - Device Ordered VTE Drug Contraindication: N/A - Med Ordered
[2025-03-10] MEDS: Lactated Ringers 1,000 ML 80 ML IVCONT ×2 (10:12→22:35)
[2025-03-10 11:24] LABS: Glucose, Whole Blood 184 mg/dL (60-115)
[2025-03-10 11:51] VITALS: BP 142/73; PULSE 54; RESP 20; TEMP 35.8; O2SAT 100
[2025-03-10 15:30] VITALS: BP 149/76; PULSE 58; RESP 18; TEMP 36.2; O2SAT 98
[2025-03-10 16:48] LABS: Glucose, Whole Blood 133 mg/dL (60-115)
[2025-03-10 19:53] VITALS: BP 158/77; PULSE 68; RESP 20; TEMP 36.4; O2SAT 97
[2025-03-10 20:34] LABS: Glucose, Whole Blood 164 mg/dL (60-115)
[2025-03-10 23:56] VITALS: BP 149/74; PULSE 56; RESP 18; TEMP 36.1; O2SAT 90
[2025-03-11 03:11] VITALS: BP 147/69; PULSE 59; RESP 18; TEMP 36.1; O2SAT 92
[2025-03-11 05:55] VITALS: BMI 23.5
[2025-03-11 07:03] VITALS: BP 158/88; PULSE 64; RESP 18; TEMP 37.1; O2SAT 98
[2025-03-11 07:03] LABS: Glucose, Whole Blood 172 mg/dL (60-115)
[2025-03-11 07:20] LABS: Hematocrit 34.0 % (42.0-52.0); Hemoglobin 11.7 g/dl (14.0-18.0); Mean Corpuscular HGB Conc 34.4 g/dl (31.0-36.0); Mean Corpuscular Hemoglobin 30.5 pg (27.0-33.0); Mean Corpuscular Volume 88.8 fL (80.0-98.0); NRBC Abs Auto 0.000 X10*3/uL (0.0-0.012); NRBC Pct Auto 0.0 /100WBC (0.0-0.2); Platelet Count 224 X10*3/uL (160-400); Red Blood Count 3.83 X10*6/uL (4.60-5.80); White Blood Count 6.6 X10*3/uL (4.8-10.8)
[2025-03-11 07:32] LABS: Anion Gap 14 (12-20); Blood Urea Nitrogen 12 mg/dL (9-16); Calcium 8.2 mg/dL (8.4-10.2); Carbon Dioxide 24 mmol/L (22-29); Chloride 112 mmol/L (96-108); Creatinine Clr Calc Pharmacy 43.2; Estimated Glomerular Filt Rate 45; Magnesium 1.6 mg/dL (1.6-2.6); Potassium 3.0 mmol/L (3.3-5.1); Sodium 147 mmol/L (135-145)
[2025-03-11] MEDS: Metoprolol Tartrate 12.5 MG HALFTAB PO ×2 (08:07→17:10)
[2025-03-11] MEDS: buPROPion HCl XL 300 MG TAB.ER.24H PO (08:08)
[2025-03-11] MEDS: Aspirin Enteric Coated 81 MG TABLET.DR PO (08:09)
[2025-03-11] MEDS: 0.9 % Sodium Chloride Flush 3 ML SYRINGE IVFLUSH (08:10)
--- NOTE | 2025-03-11 09:01 | P.PNIM_ITS ---
Subjective Subjective Date of Service: 03/11/25 Interval History: Urine output improving Physical Exam 2 Vital Signs: Vital Signs: Last Vital Signs Temp 98.8 F 03/11/25 07:03 Pulse 64 03/11/25 07:03 Resp 18 03/11/25 07:03 BP 158/88 H 03/11/25 07:03 Pulse Ox 98 03/11/25 07:03 O2 Del Method Room Air 03/11/25 07:03 BMI result Body Mass Index 23.5 Const: General: no acute distress and awake Resp: Effort & Inspection: normal respiratory effort and able to speak in complete sentences Auscultation: clear to auscultation bilaterally Cardio: Rate: regular rate Rhythm: regular rhythm Heart sounds: S1 normal heart sound present and S2 normal heart sound present GI: Palpation (GI): Soft to palpation and nontender Skin: Rashes: no rashes Neuro: Other: no tremor, no asterixis Extrem: General: No edema and No pedal edema Objective Data Active Medications Acetaminophen (Acetaminophen 325 Mg Tablet) 650 mg PO Q6H PRN PRN Reason: Pain, Mild 1-3,fever,headache Last Admin: 03/10/25 19:26 Dose: 650 mg Documented By: EULALIO Amlodipine Besylate (Amlodipine Besylate 5 Mg Tablet) 5 mg PO DAILY [facility]; Protocol Last Admin: 03/11/25 08:09 Dose: 5 mg Documented By: PHYLLIS Aspirin (Aspirin Enteric Coated 81 Mg Tablet.) 81 mg PO DAILY [facility] Last Admin: 03/11/25 08:09 Dose: 81 mg Documented By: PHYLLIS Atorvastatin Calcium (Atorvastatin Calcium 20 Mg Tablet) 20 mg PO BEDTIME [facility] Last Admin: 03/10/25 20:35 Dose: Not Given Documented By: EULALIO Non-Admin Reason: Patient Refused Bupropion HCl (Bupropion Hcl Xl 300 Mg Tab.Er.24h) 300 mg PO DAILY [facility] Last Admin: 03/11/25 08:08 Dose: 300 mg Documented By: PHYLLIS Calcium Carbonate (Calcium Carbonate 750 Mg Tab.Chew) 750 mg PO Q4H PRN PRN Reason: Heartburn Capsaicin (Capsaicin 0.025% Cream 60 Gm Tube) 1 appl TOPICAL TID [facility] Last Admin: 03/11/25 08:32 Dose: Not Given Documented By: PHYLLIS Non-Admin Reason: Patient Refused Clopidogrel Bisulfate (Clopidogrel Bisulfate 75 Mg Tablet) 75 mg PO DAILY [facility] Last Admin: 03/11/25 08:09 Dose: 75 mg Documented By: PHYLLIS Dextrose (Dextrose 50 % 25 Gm/50 Ml Syringe) 25 gm IVPUSH Q15M PRN; Protocol PRN Reason: per Hypoglycemia Standing Ord. Last Admin: 03/03/25 20:15 Dose: 25 gm Documented By: MALI Docusate Sodium (Docusate Sodium 100 Mg/10 Ml Liquid) 100 mg PO BEDTIME [facility] Last Admin: 03/10/25 20:34 Dose: Not Given Documented By: EULALIO Non-Admin Reason: Patient Refused Glucose (Glucose Gel 15 Gm Gel..Gram.) 15 gm PO Q15M PRN; Protocol PRN Reason: per Hypoglycemia Standing Ord. Heparin Sodium (Porcine) (Heparin Sodium,Porcine 5,000 Unit/Ml Vial) 5,000 unit SUBCUT Q12H [facility] Last Admin: 03/10/25 23:37 Dose: 5,000 unit Documented By: LLUVIA Piperacillin Sod/Tazobactam (Sod 4.5 gm/ Sodium Chloride) 100 mls @ 200 mls/hr IV Q8H [facility] Last Infusion: 03/11/25 06:48 Dose: Infused Documented By: LLUVIA Lactated Ringer's (Lr) 1,000 mls @ 80 mls/hr IVCONT .[id number] [facility] Last Infusion: 03/11/25 06:48 Dose: 80 mls/hr Documented By: LLUVIA Magnesium Sulfate (Magnesium Sulfate/H2o) 2 gm in 50 mls @ 25 mls/hr IV ONCE ONE Stop: 03/11/25 10:59 Dextrose/Sodium Chloride (D51/2ns) 1,000 mls @ 100 mls/hr IVCONT .Q10H [facility] Potassium Chloride (Potassium Chloride/H20) 10 meq in 100 mls @ 100 mls/hr IV Q1H [facility] Stop: 03/11/25 12:59 Insulin Human Lispro (Insulin Lispro 100 Unit/Ml 3 Ml Vial) 0 unit SUBCUT QIDACHS [facility]; Protocol Last Admin: 03/11/25 08:06 Dose: 2 unit Documented By: PHYLLIS Melatonin (Melatonin 3 Mg Tablet) 6 mg PO BEDTIME PRN PRN Reason: Insomnia Last Admin: 03/10/25 20:39 Dose: 6 mg Documented By: EULALIO Melatonin (Melatonin 3 Mg Tablet) 3 mg PO BEDTIME [facility] Last Admin: 03/10/25 19:26 Dose: 3 mg Documented By: EULALIO Metoprolol Tartrate (Metoprolol Tartrate 12.5 Mg Halftab) 12.5 mg PO TID [facility]; Protocol Last Admin: 03/11/25 08:07 Dose: 12.5 mg Documented By: PHYLLIS Olanzapine (Olanzapine 2.5 Mg Tablet) 2.5 mg PO BID [facility] Last Admin: 03/11/25 08:32 Dose: Not Given Documented By: PHYLLIS Non-Admin Reason: pt drowsy Olanzapine (Olanzapine 5 Mg Tablet) 5 mg PO BID PRN PRN Reason: anxiety Last Admin: 03/10/25 20:39 Dose: 5 mg Documented By: EULALIO Senna (Sennosides 8.6 Mg Tablet) 8.6 mg PO BEDTIME PRN PRN Reason: Constipation Sodium Chloride (0.9 % Sodium Chloride Flush 3 Ml Syringe) 3 ml IVFLUSH QSHIFT [facility] Last Admin: 03/11/25 08:10 Dose: 3 ml Documented By: PHYLLIS Labs 03/11/25 06:19 03/11/25 06:19 Labs: Laboratory Results - last 24 hr 03/10/25 03/10/25 03/10/25 11:17 16:44 20:28 MCV MCH MCHC RDW Plt Count MPV Absolute Nucleated RBC Nucleated RBC % (auto) Anion Gap Estim Creat Clear Calc Estimated GFR POC Glucose 184 H 133 H 164 H Random Glucose Calcium Magnesium 03/11/25 03/11/25 06:19 06:59 MCV 88.8 MCH 30.5 MCHC 34.4 RDW 13.9 Plt Count 224 MPV 10.0 Absolute Nucleated RBC 0.000 Nucleated RBC % (auto) 0.0 Anion Gap 14 Estim Creat Clear Calc 43.2 Estimated GFR 45 POC Glucose 172 H Random Glucose 173 H Calcium 8.2 L Magnesium 1.6 Assessment and Plan (1) Cardiomyopathy: Status: Acute Plan 75M PMH alzhemiers/vascular dementia, history of CVA, bladder cancer, DM, htn, presented from [place] with failure to thrive, found to have severe LAURIE and NSTEMI FTT complicated due to LAURIE slowly improving with hydration monitor renal following Acute hypokalemia replace and monitor hypernatremia change fluids to d51/2ns nstemi with cardiomyopathy cardio appreciated would hold off on further work up continue asa, plavix, statin, beta merlene s/p 48 heparin advanced alzheimers/vascular dementia zyprexa history of cva dapl, statin dm insulin possible colitis continue zosyn dvt prophylaxis - hep sq DNR/DNI reason for continued hospitalization:ivf, , low k Quality Stroke Does the patient have a stroke diagnosis?: No Reason for No Anti-thrombotic by Day Two: N/A - Med Ordered VTE Prior VTE?: No VTE Risk Level:: Medical - moderate - high VTE Device Contraindication: N/A - Device Ordered VTE Drug Contraindication: N/A - Med Ordered
[2025-03-11] MEDS: Dextrose 5 % and 0.45 % NaCl 1,000 ML 100 ML IVCONT ×2 (09:27→19:45)
[2025-03-11] MEDS: Potassium Chloride/H20 10 MEQ/100 ML PIGGYBACK 100 MEQ IV ×4 (09:28→17:09)
[2025-03-11 10:56] LABS: Glucose, Whole Blood 221 mg/dL (60-115)
[2025-03-11 11:04] VITALS: BP 152/69; PULSE 59; RESP 18; TEMP 36.2; O2SAT 99
[2025-03-11] MEDS: Magnesium Sulfate/H2O 2 GM/50 ML PIGGYBACK IV (12:48)
[2025-03-11 16:00] VITALS: BP 154/82; PULSE 66; RESP 18; TEMP 36.6; O2SAT 95
[2025-03-11 16:28] LABS: Glucose, Whole Blood 137 mg/dL (60-115)
[2025-03-11 19:52] VITALS: BP 159/78; PULSE 58; RESP 18; TEMP 36.7; O2SAT 98
[2025-03-11 20:12] LABS: Glucose, Whole Blood 145 mg/dL (60-115)
[2025-03-12] VITALS (7 sets, daily range): BP systolic 122–179; BP diastolic 62–85; PULSE 54–73; RESP 17–18; TEMP 36.1–36.7; O2SAT 96–99; BMI 23.5
[2025-03-12] MEDS: OLANZapine 10 MG VIAL 2.5 MG IM (02:38)
[2025-03-12] MEDS: Dextrose 5 % and 0.45 % NaCl 1,000 ML 100 ML IVCONT ×3 (02:43→23:26)
--- NOTE | 2025-03-12 04:33 | PC.NURSE ---
Pt aggressive, combative, punching staff in face despite scheduled and PRN Zyprexa. MD notified. IM Zyprexa ordered and given. Effectiveness pending.
[2025-03-12 07:23] LABS: Glucose, Whole Blood 193 mg/dL (60-115)
[2025-03-12] MEDS: Metoprolol Tartrate 12.5 MG HALFTAB PO ×2 (08:08→22:00)
[2025-03-12] MEDS: Aspirin Enteric Coated 81 MG TABLET.DR PO (08:08)
[2025-03-12] MEDS: buPROPion HCl XL 300 MG TAB.ER.24H PO (08:08)
--- NOTE | 2025-03-12 08:51 | PC.NURSE ---
Per provider ( Emely), no need to obtain a bladder scan during this shift as his scans have been low and he remains incontinent
--- NOTE | 2025-03-12 10:02 | P.PNIM_ITS ---
Subjective Subjective Date of Service: 03/12/25 Interval History: Urine output improving Physical Exam 2 Vital Signs: Vital Signs: Last Vital Signs Temp 97.0 F 03/12/25 08:00 Pulse 68 03/12/25 08:00 Resp 18 03/12/25 08:00 BP 179/85 H 03/12/25 08:00 Pulse Ox 99 03/12/25 08:00 O2 Del Method Room Air 03/12/25 08:00 BMI result Body Mass Index 23.5 Const: General: no acute distress and awake Resp: Effort & Inspection: normal respiratory effort and able to speak in complete sentences Auscultation: clear to auscultation bilaterally Cardio: Rate: regular rate Rhythm: regular rhythm Heart sounds: S1 normal heart sound present and S2 normal heart sound present GI: Palpation (GI): Soft to palpation and nontender Skin: Rashes: no rashes Neuro: Other: no tremor, no asterixis Extrem: General: No edema and No pedal edema Objective Data Active Medications Acetaminophen (Acetaminophen 325 Mg Tablet) 650 mg PO Q6H PRN PRN Reason: Pain, Mild 1-3,fever,headache Last Admin: 03/11/25 19:44 Dose: 650 mg Documented By: EULALIO Amlodipine Besylate (Amlodipine Besylate 5 Mg Tablet) 5 mg PO DAILY [facility]; Protocol Last Admin: 03/12/25 08:09 Dose: 5 mg Documented By: PHYLLIS Aspirin (Aspirin Enteric Coated 81 Mg Tablet.) 81 mg PO DAILY [facility] Last Admin: 03/12/25 08:08 Dose: 81 mg Documented By: PHYLLIS Atorvastatin Calcium (Atorvastatin Calcium 20 Mg Tablet) 20 mg PO BEDTIME [facility] Last Admin: 03/11/25 21:04 Dose: Not Given Documented By: EULALIO Non-Admin Reason: Patient Refused Bupropion HCl (Bupropion Hcl Xl 300 Mg Tab.Er.24h) 300 mg PO DAILY [facility] Last Admin: 03/12/25 08:08 Dose: 300 mg Documented By: PHYLLIS Calcium Carbonate (Calcium Carbonate 750 Mg Tab.Chew) 750 mg PO Q4H PRN PRN Reason: Heartburn Capsaicin (Capsaicin 0.025% Cream 60 Gm Tube) 1 appl TOPICAL TID [facility] Last Admin: 03/12/25 09:34 Dose: Not Given Documented By: PHYLLIS Non-Admin Reason: Patient Refused Clopidogrel Bisulfate (Clopidogrel Bisulfate 75 Mg Tablet) 75 mg PO DAILY [facility] Last Admin: 03/12/25 08:08 Dose: 75 mg Documented By: PHYLLIS Dextrose (Dextrose 50 % 25 Gm/50 Ml Syringe) 25 gm IVPUSH Q15M PRN; Protocol PRN Reason: per Hypoglycemia Standing Ord. Last Admin: 03/03/25 20:15 Dose: 25 gm Documented By: MALI Docusate Sodium (Docusate Sodium 100 Mg/10 Ml Liquid) 100 mg PO BEDTIME [facility] Last Admin: 03/11/25 21:04 Dose: Not Given Documented By: EULALIO Non-Admin Reason: Patient Refused Glucose (Glucose Gel 15 Gm Gel..Gram.) 15 gm PO Q15M PRN; Protocol PRN Reason: per Hypoglycemia Standing Ord. Heparin Sodium (Porcine) (Heparin Sodium,Porcine 5,000 Unit/Ml Vial) 5,000 unit SUBCUT Q12H [facility] Last Admin: 03/12/25 01:40 Dose: Not Given Documented By: EULALIO Non-Admin Reason: Patient Refused Dextrose/Sodium Chloride (D51/2ns) 1,000 mls @ 100 mls/hr IVCONT .Q10H [facility] Last Admin: 03/12/25 02:43 Dose: 100 mls/hr Documented By: EULALIO Piperacillin Sod/Tazobactam (Sod 4.5 gm/ Sodium Chloride) 100 mls @ 200 mls/hr IV Q8H [facility] Last Infusion: 03/12/25 08:56 Dose: Infused Documented By: LC Insulin Human Lispro (Insulin Lispro 100 Unit/Ml 3 Ml Vial) 0 unit SUBCUT QIDACHS [facility]; Protocol Last Admin: 03/12/25 08:08 Dose: 2 unit Documented By: PHYLLIS Melatonin (Melatonin 3 Mg Tablet) 6 mg PO BEDTIME PRN PRN Reason: Insomnia Last Admin: 03/11/25 22:52 Dose: 6 mg Documented By: EULALIO Melatonin (Melatonin 3 Mg Tablet) 3 mg PO BEDTIME [facility] Last Admin: 03/11/25 19:44 Dose: 3 mg Documented By: EULALIO Metoprolol Tartrate (Metoprolol Tartrate 12.5 Mg Halftab) 12.5 mg PO TID [facility]; Protocol Last Admin: 03/12/25 08:08 Dose: 12.5 mg Documented By: PHYLLIS Olanzapine (Olanzapine 2.5 Mg Tablet) 2.5 mg PO BID [facility] Last Admin: 03/12/25 08:09 Dose: 2.5 mg Documented By: PHYLLIS Olanzapine (Olanzapine 5 Mg Tablet) 5 mg PO BID PRN PRN Reason: anxiety Last Admin: 03/11/25 22:52 Dose: 5 mg Documented By: EULALIO Senna (Sennosides 8.6 Mg Tablet) 8.6 mg PO BEDTIME PRN PRN Reason: Constipation Sodium Chloride (0.9 % Sodium Chloride Flush 3 Ml Syringe) 3 ml IVFLUSH QSHIFT [facility] Last Admin: 03/12/25 08:56 Dose: Not Given Documented By: LC Non-Admin Reason: IV Running Labs 03/11/25 06:19 03/11/25 06:19 Labs: Laboratory Results - last 24 hr 03/11/25 03/11/25 03/11/25 10:51 16:14 20:08 POC Glucose 221 H 137 H 145 H 03/12/25 07:04 POC Glucose 193 H Assessment and Plan (1) Cardiomyopathy: Status: Acute Plan 75M PMH alzhemiers/vascular dementia, history of CVA, bladder cancer, DM, htn, presented from [place] with failure to thrive, found to have severe LAURIE and NSTEMI FTT complicated due to LAURIE slowly improving with hydration monitor renal following Acute hypokalemia replace and monitor hypernatremia change fluids to d51/2ns nstemi with cardiomyopathy cardio appreciated would hold off on further work up continue asa, plavix, statin, beta merlene s/p 48 heparin advanced alzheimers/vascular dementia zyprexa history of cva dapl, statin dm insulin possible colitis continue zosyn dvt prophylaxis - hep sq DNR/DNI reason for continued hospitalization:ivf, , low k Quality Stroke Does the patient have a stroke diagnosis?: No Reason for No Anti-thrombotic by Day Two: N/A - Med Ordered VTE Prior VTE?: No VTE Risk Level:: Medical - moderate - high VTE Device Contraindication: N/A - Device Ordered VTE Drug Contraindication: N/A - Med Ordered
[2025-03-12 11:30] LABS: Hematocrit 34.7 % (42.0-52.0); Hemoglobin 11.9 g/dl (14.0-18.0); Mean Corpuscular HGB Conc 34.3 g/dl (31.0-36.0); Mean Corpuscular Hemoglobin 30.5 pg (27.0-33.0); Mean Corpuscular Volume 89.0 fL (80.0-98.0); NRBC Abs Auto 0.000 X10*3/uL (0.0-0.012); NRBC Pct Auto 0.0 /100WBC (0.0-0.2); Platelet Count 234 X10*3/uL (160-400); Red Blood Count 3.90 X10*6/uL (4.60-5.80); White Blood Count 8.6 X10*3/uL (4.8-10.8)
[2025-03-12 11:37] LABS: Glucose, Whole Blood 232 mg/dL (60-115)
[2025-03-12 11:49] LABS: Anion Gap 14 (12-20); Blood Urea Nitrogen 8 mg/dL (9-16); Calcium 8.7 mg/dL (8.4-10.2); Carbon Dioxide 25 mmol/L (22-29); Chloride 107 mmol/L (96-108); Creatinine Clr Calc Pharmacy 46.9; Estimated Glomerular Filt Rate 50; Magnesium 1.7 mg/dL (1.6-2.6); Potassium 3.5 mmol/L (3.3-5.1); Sodium 142 mmol/L (135-145)
[2025-03-12 15:57] LABS: Glucose, Whole Blood 215 mg/dL (60-115)
[2025-03-12 21:33] LABS: Glucose, Whole Blood 167 mg/dL (60-115)
[2025-03-12] MEDS: 0.9 % Sodium Chloride Flush 3 ML SYRINGE IVFLUSH (23:27)
[2025-03-13 03:33] VITALS: BP 150/70; PULSE 72; RESP 16; TEMP 36.7; O2SAT 92
[2025-03-13 06:00] VITALS: BMI 23.5
[2025-03-13 06:55] LABS: Anion Gap 15 (12-20); Blood Urea Nitrogen 9 mg/dL (9-16); Calcium 8.9 mg/dL (8.4-10.2); Carbon Dioxide 25 mmol/L (22-29); Chloride 107 mmol/L (96-108); Creatinine Clr Calc Pharmacy 46.0; Estimated Glomerular Filt Rate 48; Magnesium 1.5 mg/dL (1.6-2.6); Potassium 3.5 mmol/L (3.3-5.1); Sodium 143 mmol/L (135-145)
[2025-03-13 06:56] LABS: Hematocrit 36.1 % (42.0-52.0); Hemoglobin 11.9 g/dl (14.0-18.0); Mean Corpuscular HGB Conc 33.0 g/dl (31.0-36.0); Mean Corpuscular Hemoglobin 29.8 pg (27.0-33.0); Mean Corpuscular Volume 90.3 fL (80.0-98.0); NRBC Abs Auto 0.000 X10*3/uL (0.0-0.012); NRBC Pct Auto 0.0 /100WBC (0.0-0.2); Platelet Count 265 X10*3/uL (160-400); Red Blood Count 4.00 X10*6/uL (4.60-5.80); White Blood Count 10.3 X10*3/uL (4.8-10.8)
[2025-03-13 06:57] LABS: Glucose, Whole Blood 202 mg/dL (60-115)
[2025-03-13 07:10] VITALS: BP 129/75; PULSE 78; RESP 20; TEMP 37.4; O2SAT 96
[2025-03-13] MEDS: Magnesium Sulfate/H2O 2 GM/50 ML PIGGYBACK IV (08:02)
--- NOTE | 2025-03-13 09:37 | P.DS_ITS ---
DS: Providers Provider Date of Service: 03/13/25 Date of admission: 03/03/25 05:02 Date of discharge: 03/13/25 Primary care physician: Lucy Khoury MD Consults: 03/03/25 05:21 Consult to Nephrology Routine Consulting Provider: [facility] Reason for consultation: severe LAURIE Has provider been notified: No 03/03/25 06:23 Consult to Case Management Routine Comment: spouse has concerns about sending pt back to [facility] 03/03/25 06:52 Consult to Cardiology Routine Consulting Provider: [facility] Reason for consultation: elevated troponin Has provider been notified: Yes 03/04/25 13:59 Consult to Psychiatry Routine Consulting Provider: [facility] [place] [facility] Reason for consultation: Anxiety's interfering with eating Has provider been notified: No 03/04/25 19:42 Consult to Hospice Routine Comment: LAURIE, CKD stage 5 now...spouse asked for Hospice co 03/05/25 10:59 Consult for Sitter Routine Reason for consultation: behavioural agiattion Has provider been notified: No DS: Diagnosis Discharge Diagnosis (1) Cardiomyopathy: Status: Acute DS: Summary Hospital Course Hospital Course: from initial hpi: 75-year-old male currently living in a assisted living/alf for the last 3 weeks s/p rehab after a fall, with past medical history of dementia, stroke, bladder cancer, urinary incontinence, cervical spine stenosis, Carpal dru surgery, neuropathy, insulin-dependent diabetes type 2, hypertension, vitamin-D deficiency, depression anxiety, hyperlipidemia presents to the emergency department via EMS from SNF as reported to staff that patient has had a loss of appetite over the last 4-5 days with profound weakness. Staff had denied patient had any other new symptoms. Patient's blood sugar was 41 when EMS arrived. Patient was still verbal and interactive. Blood glucose increased to 69. Patient's baseline confused and unable to provide any history or HPI. Workup in the ED revealed a lactic acidosis 7.7 with no leukocytosis and after fluids down to 6.5. Patient was started on D5 infusion with LR and blood sugar maximized to 99 and then dropped back down to 69. Again patient currently asymp tomatic. Head CT was completed with no acute intracranial hemorrhage and identified old basal ganglia infarctions. Patient also noted have bilateral temporal volume loss, right greater than left. CT of abdomen and chest did not identify any nephrolithiasis or hydronephrosis. Evidence of cholelithiasis without cholecystitis. Also identified evidence of colitis including the sigmoid colon. No evidence of bowel obstruction. Mild atelectasis with pneumonitis also seen. Patient's creatinine 6.02, creatinine clearance 10.9 and GFR 9 indicating severe LAURIE/ CKD stage 5. There are no other labs to compare to from prior outpatient visits. Patient did present with 1 wet diaper. Since Gerri Wick has been will place patient has not produced any urine. Patient aggressively refused attempt at Euceda placement. Bladder scans are now ordered Q shift and as needed. Unable to obtain urinalysis so far. Nephrology has been consulted. Patient is started on Zosyn 4.5 g q.12 hours based on creatinine clearance for evidence of colitis. Pt's troponin 33.5 initially, then 107.2 and repeat pending.ECG notes SR with 1st degree AVB, [place] 236. QTC 462. Pt is not currently on AV jeri blocking agen ts. BNP 76. MG 1.5, pt received one dose of po MG but will add 2 GMS IV. The alf did not provide any medical information except the MOLST, which indicates patient is a full code. This film writer was able to speak to pt's spouse by phone and stated pt has no hx of renal issues in the past. Pt had one episode of hypoglycvemia about three weeks ago when pt moved in to the [facility]. Pt's spouse is not sure if pt should return there. hospital course: Patient was admitted for failure to thrive complicated by acute kidney injury. Received IV hydration and slowly improved, creatinine 1.52 at time of discharge. We will continue to follow up with Nephrology as outpatient. For acute hypokalemia and hypomagnesemia received replacement. For hypernatremia received hypotonic fluids and p.o. fluids encouraged. Course also complicated by NSTEMI with cardiomyopathy was seen by Cardiology who recommended conservative management with 48 hours of heparin, dual antiplatelet, statin, beta-merlene. For advanced Alzheimer's/vascular dementia with acute hospital delirium was treated with Zyprexa. For history of CVA was continued on dual antiplatelet and statin. For diabetes was continued on insulin. For possible colitis completed course of Zosyn. Patient is now medically stable will be discharged to assisted living. Time Attestation Discharge Coordination Time (in mins): 35 Quality: Safe Use of Opioids Does Pt have an Active Cancer Diagnosis on the Problem List?: No Quality: Stroke Does the patient have a stroke diagnosis?: No Physical Exam Vital Signs: Vital Signs: Last Vital Signs Temp 99.4 F 03/13/25 07:10 Pulse 78 03/13/25 07:10 Resp 20 03/13/25 07:10 BP 129/75 03/13/25 07:10 Pulse Ox 96 03/13/25 07:10 O2 Del Method Room Air 03/13/25 07:10 BMI result Body Mass Index 23.5 Const: General: no acute distress and awake Resp: Effort & Inspection: normal respiratory effort and able to speak in complete sentences Auscultation: clear to auscultation bilaterally Cardio: Rate: regular rate Rhythm: regular rhythm Heart sounds: S1 normal heart sound present and S2 normal heart sound present GI: Palpation (GI): Soft to palpation and nontender Skin: Rashes: no rashes Neuro: Other: no tremor, no asterixis Extrem: General: No edema and No pedal edema DS: Data Data Completed and Pending Labs on day of discharge: Laboratory Results - last 24 hr 03/12/25 03/12/25 03/12/25 11:20 11:21 15:35 WBC 8.6 RBC 3.90 L Hgb 11.9 L Hct 34.7 L MCV 89.0 MCH 30.5 MCHC 34.3 RDW 13.9 Plt Count 234 MPV 9.1 L Absolute Nucleated RBC 0.000 Nucleated RBC % (auto) 0.0 Sodium 142 Potassium 3.5 Chloride 107 Carbon Dioxide 25 Anion Gap 14 BUN 8 L Creatinine 1.40 Estim Creat Clear Calc 46.9 Estimated GFR 50 POC Glucose 232 H 215 H Random Glucose 250 H Calcium 8.7 D Magnesium 1.7 03/12/25 03/13/25 03/13/25 21:27 06:15 06:50 WBC 10.3 RBC 4.00 L Hgb 11.9 L Hct 36.1 L MCV 90.3 MCH 29.8 MCHC 33.0 RDW 14.1 Plt Count 265 MPV 9.9 Absolute Nucleated RBC 0.000 Nucleated RBC % (auto) 0.0 Sodium 143 Potassium 3.5 Chloride 107 Carbon Dioxide 25 Anion Gap 15 BUN 9 Creatinine 1.43 H Estim Creat Clear Calc 46.0 Estimated GFR 48 POC Glucose 167 H 202 H Random Glucose 215 H Calcium 8.9 Magnesium 1.5 L Discharge Plan Discharge Anticipated Discharge Date/Time: 03/13/25 09:33 Patient Disposition: Xfer Other Discharge Diagnosis: laurie Referrals: Parish Reeves MD [Physician, Nephrology] - 1 Week Lucy Khoury MD [Primary Care Provider, Medical] - 1 Week Discharge Medications: New amlodipine 5 mg Tablet 5 mg PO DAILY Qty: 90 0RF Protocol: Hold for SBP< HOLD for SBP < : 90 metoprolol tartrate 25 mg tablet 25 mg PO BID Qty: 180 0RF atorvastatin 20 mg Tablet 20 mg PO BEDTIME Qty: 90 0RF olanzapine 5 mg Tablet 5 mg PO BID PRN (Reason: anxiety) Qty: 180 0RF aspirin 81 mg Tablet,Delayed Release (Dr/Ec) 81 mg PO DAILY Qty: 90 0RF Continued (DME) [facility] Male External Cath Misc See Rx Instructions .Route Qty: 30 5RF Rx Instructions: As directed daily sennosides [senna] 8.6 mg Tablet 8.6 mg PO BEDTIME PRN (Reason: Constipation) melatonin 3 mg Tablet 3 mg PO BEDTIME olanzapine 2.5 mg tablet 2.5 mg PO BEDTIME acetaminophen 500 mg Tablet 500 mg PO Q4H PRN (Reason: Fever Or Pain) metformin 1,000 mg tablet 1,000 mg PO DAILY sertraline 25 mg Tablet 75 mg PO DAILY colchicine 0.6 mg tablet 0.6 mg PO DAILY capsaicin 0.033 % Cream 1 appl TOPICAL TID Rx Instructions: Apply to Elbow, knee, and feet. Do not wash area for at least 30 min after application clopidogrel 75 mg tablet 75 mg PO DAILY bupropion HCl 300 mg tablet extended release 24 hr 300 mg PO DAILY glipizide 2.5 mg tablet extended release 24hr 2.5 mg PO BEDTIME Discontinued lisinopril 5 mg tablet 5 mg PO DAILY Diet: Advance to usual diet Activity on Discharge: As tolerated Stand Alone Forms: Patient Portal Discharge page Print Language: Prydeinig Care Plan Goals: Recovery Health Concerns: NSTEMI, Acute kidney injury, poor p.o. intake Plan of Treatment: Encourage p.o. intake, follow up with Nephrology, med changes as per med rec Assessment: See above
--- NOTE | 2025-03-13 09:39 | HO.PM.IMPN ---
Subjective Subjective Date of Service: 03/13/25 Interval History: Urine output improving Physical Exam Vital Signs: Vital Signs: Last Vital Signs Temp 99.4 F 03/13/25 07:10 Pulse 78 03/13/25 07:10 Resp 20 03/13/25 07:10 BP 129/75 03/13/25 07:10 Pulse Ox 96 03/13/25 07:10 O2 Del Method Room Air 03/13/25 07:10 BMI result Body Mass Index 23.5 Const: General: no acute distress and awake Resp: Effort & Inspection: normal respiratory effort and able to speak in complete sentences Auscultation: clear to auscultation bilaterally Cardio: Rate: regular rate Rhythm: regular rhythm Heart sounds: S1 normal heart sound present and S2 normal heart sound present GI: Palpation (GI): Soft to palpation and nontender Skin: Rashes: no rashes Neuro: Other: no tremor, no asterixis Extrem: General: No edema and No pedal edema Objective Data Active Medications Acetaminophen (Acetaminophen 325 Mg Tablet) 650 mg PO Q6H PRN PRN Reason: Pain, Mild 1-3,fever,headache Last Admin: 03/12/25 19:19 Dose: 650 mg Documented By: EUALLIO Amlodipine Besylate (Amlodipine Besylate 5 Mg Tablet) 5 mg PO DAILY [facility]; Protocol Last Admin: 03/12/25 08:09 Dose: 5 mg Documented By: PHYLLIS Aspirin (Aspirin Enteric Coated 81 Mg Tablet.Dr) 81 mg PO DAILY [facility] Last Admin: 03/12/25 08:08 Dose: 81 mg Documented By: PHYLLIS Atorvastatin Calcium (Atorvastatin Calcium 20 Mg Tablet) 20 mg PO BEDTIME [facility] Last Admin: 03/12/25 19:19 Dose: 20 mg Documented By: EULALIO Bupropion HCl (Bupropion Hcl Xl 300 Mg Tab.Er.24h) 300 mg PO DAILY [facility] Last Admin: 03/12/25 08:08 Dose: 300 mg Documented By: PHYLLIS Calcium Carbonate (Calcium Carbonate 750 Mg Tab.Chew) 750 mg PO Q4H PRN PRN Reason: Heartburn Capsaicin (Capsaicin 0.025% Cream 60 Gm Tube) 1 appl TOPICAL TID [facility] Last Admin: 03/12/25 19:22 Dose: 1 appl Documented By: EULALIO Clopidogrel Bisulfate (Clopidogrel Bisulfate 75 Mg Tablet) 75 mg PO DAILY [facility] Last Admin: 03/12/25 08:08 Dose: 75 mg Documented By: PHYLLIS Dextrose (Dextrose 50 % 25 Gm/50 Ml Syringe) 25 gm IVPUSH Q15M PRN; Protocol PRN Reason: per Hypoglycemia Standing Ord. Last Admin: 03/03/25 20:15 Dose: 25 gm Documented By: MALI Docusate Sodium (Docusate Sodium 100 Mg/10 Ml Liquid) 100 mg PO BEDTIME [facility] Last Admin: 03/12/25 19:19 Dose: 100 mg Documented By: EULALIO Glucose (Glucose Gel 15 Gm Gel..Gram.) 15 gm PO Q15M PRN; Protocol PRN Reason: per Hypoglycemia Standing Ord. Heparin Sodium (Porcine) (Heparin Sodium,Porcine 5,000 Unit/Ml Vial) 5,000 unit SUBCUT Q12H [facility] Last Admin: 03/12/25 23:27 Dose: 5,000 unit Documented By: EULALIO Piperacillin Sod/Tazobactam (Sod 4.5 gm/ Sodium Chloride) 100 mls @ 200 mls/hr IV Q8H [facility] Last Admin: 03/13/25 08:13 Dose: 200 mls/hr Documented By: ABHAY Insulin Human Lispro (Insulin Lispro 100 Unit/Ml 3 Ml Vial) 0 unit SUBCUT QIDACHS [facility]; Protocol Last Admin: 03/13/25 08:02 Dose: 4 unit Documented By: ABHAY Melatonin (Melatonin 3 Mg Tablet) 6 mg PO BEDTIME PRN PRN Reason: Insomnia Last Admin: 03/12/25 22:01 Dose: 6 mg Documented By: EULALIO Melatonin (Melatonin 3 Mg Tablet) 3 mg PO BEDTIME [facility] Last Admin: 03/12/25 19:19 Dose: 3 mg Documented By: EULALIO Metoprolol Tartrate (Metoprolol Tartrate 12.5 Mg Halftab) 12.5 mg PO TID [facility]; Protocol Last Admin: 03/12/25 22:00 Dose: 12.5 mg Documented By: EULALIO Olanzapine (Olanzapine 2.5 Mg Tablet) 2.5 mg PO BID [facility] Last Admin: 03/12/25 19:19 Dose: 2.5 mg Documented By: EULALOI Olanzapine (Olanzapine 5 Mg Tablet) 5 mg PO BID PRN PRN Reason: anxiety Last Admin: 03/12/25 22:00 Dose: 5 mg Documented By: EULALIO Senna (Sennosides 8.6 Mg Tablet) 8.6 mg PO BEDTIME PRN PRN Reason: Constipation Sodium Chloride (0.9 % Sodium Chloride Flush 3 Ml Syringe) 3 ml IVFLUSH QSHIFT [facility] Last Admin: 03/13/25 08:09 Dose: Not Given Documented By: ABHAY Non-Admin Reason: IV Running Labs 03/13/25 06:15 03/13/25 06:15 Labs: Laboratory Results - last 24 hr 03/12/25 03/12/25 03/12/25 11:20 11:21 15:35 MCV 89.0 MCH 30.5 MCHC 34.3 RDW 13.9 Plt Count 234 MPV 9.1 L Absolute Nucleated RBC 0.000 Nucleated RBC % (auto) 0.0 Anion Gap 14 Estim Creat Clear Calc 46.9 Estimated GFR 50 POC Glucose 232 H 215 H Random Glucose 250 H Calcium 8.7 D Magnesium 1.7 03/12/25 03/13/25 03/13/25 21:27 06:15 06:50 MCV 90.3 MCH 29.8 MCHC 33.0 RDW 14.1 Plt Count 265 MPV 9.9 Absolute Nucleated RBC 0.000 Nucleated RBC % (auto) 0.0 Anion Gap 15 Estim Creat Clear Calc 46.0 Estimated GFR 48 POC Glucose 167 H 202 H Random Glucose 215 H Calcium 8.9 Magnesium 1.5 L Assessment and Plan (1) Cardiomyopathy: Status: Acute Plan 75M PMH alzhemiers/vascular dementia, history of CVA, bladder cancer, DM, htn, presented from [place] with failure to thrive, found to have severe LAURIE and NSTEMI FTT complicated due to LAURIE slowly improving with hydration monitor renal following Acute hypokalemia replace and monitor hypernatremia improved nstemi with cardiomyopathy cardio appreciated would hold off on further work up continue asa, plavix, statin, beta merlene s/p 48 heparin advanced alzheimers/vascular dementia zyprexa history of cva dapl, statin dm insulin possible colitis continue zosyn dvt prophylaxis - hep sq DNR/DNI reason for continued hospitalization: dispo planning Quality Stroke Does the patient have a stroke diagnosis?: No Reason for No Anti-thrombotic by Day Two: N/A - Med Ordered VTE Prior VTE?: No VTE Risk Level:: Medical - moderate - high VTE Device Contraindication: N/A - Device Ordered VTE Drug Contraindication: N/A - Med Ordered
[2025-03-13 09:58] VITALS: BP 129/75
[2025-03-13] MEDS: Aspirin Enteric Coated 81 MG TABLET.DR PO (09:58)
[2025-03-13] MEDS: Metoprolol Tartrate 12.5 MG HALFTAB PO ×2 (09:58→21:36)
[2025-03-13] MEDS: buPROPion HCl XL 300 MG TAB.ER.24H PO (09:58)
--- NOTE | 2025-03-13 10:39 | MHC.CM.PN ---
Addendum entered by Divya Sol RN 03/13/25 11:08: CM RECEIVED CALL BACK FROM THE [facility] AND SPOKE TO DIRECTOR OF COMMUNITY RELATIONS WHO REPORTED THAT PT'S KAYLA GAVE HALFWAY NOTICE AND SHE REMOVED ALL OF PT'S BELONGINGS, SHE DID SAY THAT PT IS WELCOME BACK. SHE ALSO VERIFIED [facility]LA'S NUMBER AND THEY DID NOT HAVE ANY OTHER PHONE # ON FILE. CM AWAITING CALL BACK FROM [facility] AND WILL REVISIT. Original Note: PER HOSPITALIST PT MEDICALLY CLEARED FOR DC TO RETURN TO HALFWAY, CM ATTEMPTED TO CONTACT PT'S KAYLA AT 10:35AM #ON FILE, NO ANSWER AND DETAILED MESSAGE LEFT, CM CONTACTED THE [facility] TO DISCUSS DC, CM SPOKE TO DIRECTOR WHO REPORTS SHE AND DON WILL CHECK INTO A FEW THINGS AND GET BACK TO CM, CM AWAITING CALL BACK FROM THE [facility] AND PT'S .
[2025-03-13 11:04] LABS: Glucose, Whole Blood 212 mg/dL (60-115)
[2025-03-13 11:34] VITALS: BP 119/58; PULSE 63; RESP 20; TEMP 36.8; O2SAT 97
[2025-03-13 16:00] VITALS: BP 124/76; PULSE 92; RESP 20; TEMP 37.3; O2SAT 97
[2025-03-13] MEDS: 0.9 % Sodium Chloride Flush 3 ML SYRINGE IVFLUSH ×2 (16:15→21:50)
--- NOTE | 2025-03-13 16:17 | P.PNNP_ITS ---
Subjective Subjective Date of Service: 03/13/25 Interval history: Patient has some confusion and some shaking, unable to give me any history Urine output improving Physical Exam 2 Vital Signs: Vital Signs: Last Vital Signs Temp 99.2 F 03/13/25 16:00 Pulse 92 03/13/25 16:00 Resp 20 03/13/25 16:00 BP 124/76 03/13/25 16:00 Pulse Ox 97 03/13/25 16:00 O2 Del Method Room Air 03/13/25 16:00 BMI result Body Mass Index 23.5 General: Elderly male in somewhat acute distress, ill appearing and tired appearing Nutritional Appearance: well nourished and overweight Eyes: appearance normal, both eyes and all related structures; Alignment and Position: alignment normal and position normal Neck: No lymphadenopathy, no thyromegaly Resp: bilateral air entry equal, occasional added sounds present Cardio: Regular rate, regular rhythm; Heart sounds: S1 normal heart sound present and S2 normal heart sound present GI: soft, nontender, no guarding, no hepatosplenomegaly : bladder normal to inspection, bladder normal to palpation, no renal angle tenderness Skin: no rashes or lesions noted and elasticity normal Neuro: Continuous shaking of the extremities , confused Objective Data Labs 03/13/25 06:15 03/13/25 06:15 Labs: Laboratory Results - last 24 hr 03/12/25 03/13/25 03/13/25 21:27 06:15 06:50 WBC 10.3 RBC 4.00 L Hgb 11.9 L Hct 36.1 L MCV 90.3 MCH 29.8 MCHC 33.0 RDW 14.1 Plt Count 265 MPV 9.9 Absolute Nucleated RBC 0.000 Nucleated RBC % (auto) 0.0 Sodium 143 Potassium 3.5 Chloride 107 Carbon Dioxide 25 Anion Gap 15 BUN 9 Creatinine 1.43 H Estim Creat Clear Calc 46.0 Estimated GFR 48 POC Glucose 167 H 202 H Random Glucose 215 H Calcium 8.9 Magnesium 1.5 L 03/13/25 10:57 WBC RBC Hgb Hct MCV MCH MCHC RDW Plt Count MPV Absolute Nucleated RBC Nucleated RBC % (auto) Sodium Potassium Chloride Carbon Dioxide Anion Gap BUN Creatinine Estim Creat Clear Calc Estimated GFR POC Glucose 212 H Random Glucose Calcium Magnesium Microbiology Microbiology Results: Microbiology 03/02/25 22:30 Blood - Venous Blood Culture - Final No growth after 5 days. 03/02/25 22:30 Blood - Venous Blood Culture - Final No growth after 5 days. 03/03/25 Unknown Urine clean catch - Clean Catch Midstream Urine Culture - Final Procedures Date of Service Date of Service: 03/13/25 Assessment & Plan Assessment and plan (1) LAURIE (acute kidney injury): Status: Acute (2) Urinary incontinence: Status: Acute (3) Acute lactic acidosis: Status: Acute (4) Bladder cancer: Status: Acute Plan Acute kidney injury possibly secondary to ATN from NSTEMI and poor oral intake, currently is imrpoving, creatinine is down to 1.43, GFR 50. Unknown baseline. Continue hydration in case of poor oral intake. Urinalysis showing 11-20 WBC, leukocyte esterase positive, no RBCs. Abdominal CT ruled out any obstruction as an etiology of LAURIE. Has some proteinuria, UPCR 0.54 needs outpatient renal follow-up upon discharge. Nephrology will sign off, please reconsult if additional support needed. Time Spent With Patient Time: Total time managing care of this patient today ____ minutes. Progress Note: Quality Stroke Does the patient have a stroke diagnosis?: No Reason for No Anti-thrombotic by Day Two: N/A - Med Ordered
--- NOTE | 2025-03-13 16:18 | PC.NURSE ---
Patient refusing oral 12.5mg metoprolol becoming agitated and flailing his fists at staff. Medication not given and MD notified.
[2025-03-13 16:32] LABS: Glucose, Whole Blood 181 mg/dL (60-115)
--- NOTE | 2025-03-13 16:39 | PC.NURSE ---
Addendum entered by Gali Berg RN 03/13/25 18:24: PCT reported patient vomited 50 - 60cc emesis. MD notified. Original Note: Pt vomited 20-30cc peach colored emesis. MD notified.
[2025-03-13 20:00] VITALS: BP 140/83; PULSE 78; RESP 16; TEMP 36.8; O2SAT 94
[2025-03-13 20:40] LABS: Glucose, Whole Blood 191 mg/dL (60-115)
[2025-03-14] VITALS (8 sets, daily range): BP systolic 118–198; BP diastolic 62–85; PULSE 67–83; RESP 16–20; TEMP 36.6–38.1; O2SAT 94–98; BMI 22.4
[2025-03-14 06:43] LABS: Hematocrit 31.5 % (42.0-52.0); Hemoglobin 11.0 g/dl (14.0-18.0); Mean Corpuscular HGB Conc 34.9 g/dl (31.0-36.0); Mean Corpuscular Hemoglobin 30.8 pg (27.0-33.0); Mean Corpuscular Volume 88.2 fL (80.0-98.0); NRBC Abs Auto 0.000 X10*3/uL (0.0-0.012); NRBC Pct Auto 0.0 /100WBC (0.0-0.2); Platelet Count 270 X10*3/uL (160-400); Red Blood Count 3.57 X10*6/uL (4.60-5.80); White Blood Count 12.2 X10*3/uL (4.8-10.8)
[2025-03-14 06:56] LABS: Anion Gap 15 (12-20); Blood Urea Nitrogen 11 mg/dL (9-16); Calcium 9.1 mg/dL (8.4-10.2); Carbon Dioxide 23 mmol/L (22-29); Chloride 110 mmol/L (96-108); Creatinine Clr Calc Pharmacy 47.8; Estimated Glomerular Filt Rate 52; Magnesium 1.7 mg/dL (1.6-2.6); Potassium 2.7 mmol/L (3.3-5.1); Sodium 145 mmol/L (135-145)
[2025-03-14 08:09] LABS: Glucose, Whole Blood 151 mg/dL (60-115)
[2025-03-14] MEDS: 0.9 % Sodium Chloride Flush 3 ML SYRINGE IVFLUSH ×2 (09:07→15:50)
[2025-03-14] MEDS: Potassium Chloride Packet 20 MEQ PACKET 40 MEQ PO (09:08)
[2025-03-14] MEDS: Metoprolol Tartrate 12.5 MG HALFTAB PO ×3 (09:08→22:17)
[2025-03-14] MEDS: buPROPion HCl XL 300 MG TAB.ER.24H PO (09:08)
[2025-03-14] MEDS: Aspirin Enteric Coated 81 MG TABLET.DR PO (09:08)
[2025-03-14] MEDS: Potassium Chloride/H20 10 MEQ/100 ML PIGGYBACK 100 MEQ IV ×4 (09:12→13:16)
--- NOTE | 2025-03-14 10:39 | MHC.CM.PN ---
Addendum entered by Divya Sol RN 03/14/25 15:15: CM RECEIVED CALL FROM AJ ESTES ([facility]), PT ACTIVE P.T. ONLY, RETURN REFERRAL REPLACED. Original Note: EMR REVIEWED, CM RECEIVED A CALL FROM PT'S /HCP KAYLA KAYLA REPORTS PT WILL TENTATIVELY GO TO THE [facility] IN [facility] [place] AND THEY ARE REQUESTING PT'S MEDICAL RECORD FOR REVIEW AND WILL NEED TO DO A BEDSIDE VISIT. [facility] CONTACTED THE [facility] AT 10:44AM, DILIP GUAJARDO NOT IN TODAY HOWEVER WILL RETURN TOMORROW 03/15, CM WILL FAX DOCUMENTS TO [phone]. KAYLA ALSO REQUESTING HOSPITALIST FILL OUT/SIGN FORM SO PT WILL HAVE HOSPITAL BED AT [facility].
--- NOTE | 2025-03-14 10:45 | HO.PM.IMPN ---
Subjective Subjective Date of Service: 03/14/25 Interval History: agitated Physical Exam Vital Signs: Vital Signs: Last Vital Signs Temp 98.7 F 03/14/25 08:00 Pulse 78 03/14/25 07:21 Resp 18 03/14/25 07:21 BP 144/65 H 03/14/25 07:21 Pulse Ox 97 03/14/25 07:21 O2 Del Method Room Air 03/14/25 07:21 BMI result Body Mass Index 22.4 General: Elderly male in somewhat acute distress, ill appearing and tired appearing Nutritional Appearance: well nourished and overweight Eyes: appearance normal, both eyes and all related structures; Alignment and Position: alignment normal and position normal Neck: No lymphadenopathy, no thyromegaly Resp: bilateral air entry equal, occasional added sounds present Cardio: Regular rate, regular rhythm; Heart sounds: S1 normal heart sound present and S2 normal heart sound present GI: soft, nontender, no guarding, no hepatosplenomegaly : bladder normal to inspection, bladder normal to palpation, no renal angle tenderness Skin: no rashes or lesions noted and elasticity normal Neuro: Continuous shaking of the extremities , confused Objective Data Active Medications Acetaminophen (Acetaminophen 325 Mg Tablet) 650 mg PO Q6H PRN PRN Reason: Pain, Mild 1-3,fever,headache Last Admin: 03/14/25 00:47 Dose: 325 mg Documented By: VENANCIO Amlodipine Besylate (Amlodipine Besylate 5 Mg Tablet) 5 mg PO DAILY [facility]; Protocol Last Admin: 03/14/25 09:08 Dose: 5 mg Documented By: AMANDA Aspirin (Aspirin Enteric Coated 81 Mg Tablet.) 81 mg PO DAILY [facility] Last Admin: 03/14/25 09:08 Dose: 81 mg Documented By: AMANDA Atorvastatin Calcium (Atorvastatin Calcium 20 Mg Tablet) 20 mg PO BEDTIME [facility] Last Admin: 03/13/25 21:53 Dose: 20 mg Documented By: VENANCIO Bupropion HCl (Bupropion Hcl Xl 300 Mg Tab.Er.24h) 300 mg PO DAILY [facility] Last Admin: 03/14/25 09:08 Dose: 300 mg Documented By: AMANDA Calcium Carbonate (Calcium Carbonate 750 Mg Tab.Chew) 750 mg PO Q4H PRN PRN Reason: Heartburn Capsaicin (Capsaicin 0.025% Cream 60 Gm Tube) 1 appl TOPICAL TID [facility] Last Admin: 03/14/25 09:13 Dose: 1 appl Documented By: AMANDA Clopidogrel Bisulfate (Clopidogrel Bisulfate 75 Mg Tablet) 75 mg PO DAILY [facility] Last Admin: 03/14/25 09:09 Dose: 75 mg Documented By: AMANDA Dextrose (Dextrose 50 % 25 Gm/50 Ml Syringe) 25 gm IVPUSH Q15M PRN; Protocol PRN Reason: per Hypoglycemia Standing Ord. Last Admin: 03/03/25 20:15 Dose: 25 gm Documented By: GALINA-LEO Docusate Sodium (Docusate Sodium 100 Mg/10 Ml Liquid) 100 mg PO BEDTIME [facility] Last Admin: 03/13/25 21:47 Dose: 100 mg Documented By: VENANCIO Glucose (Glucose Gel 15 Gm Gel..Gram.) 15 gm PO Q15M PRN; Protocol PRN Reason: per Hypoglycemia Standing Ord. Heparin Sodium (Porcine) (Heparin Sodium,Porcine 5,000 Unit/Ml Vial) 5,000 unit SUBCUT Q12H [facility] Last Admin: 03/14/25 00:43 Dose: 5,000 unit Documented By: VENANCIO Piperacillin Sod/Tazobactam (Sod 4.5 gm/ Sodium Chloride) 100 mls @ 200 mls/hr IV Q8H [facility] Last Infusion: 03/14/25 09:59 Dose: Infused Documented By: AMANDA Potassium Chloride (Potassium Chloride/H20) 10 meq in 100 mls @ 100 mls/hr IV Q1H [facility] Stop: 03/14/25 11:59 Last Admin: 03/14/25 10:29 Dose: 100 mls/hr Documented By: AMANDA Insulin Human Lispro (Insulin Lispro 100 Unit/Ml 3 Ml Vial) 0 unit SUBCUT QIDACHS [facility]; Protocol Last Admin: 03/14/25 09:06 Dose: 2 unit Documented By: AMANDA Melatonin (Melatonin 3 Mg Tablet) 6 mg PO BEDTIME PRN PRN Reason: Insomnia Last Admin: 03/12/25 22:01 Dose: 6 mg Documented By: EULALIO Melatonin (Melatonin 3 Mg Tablet) 3 mg PO BEDTIME [facility] Last Admin: 03/13/25 21:49 Dose: Not Given Documented By: VENANCIO Non-Admin Reason: Patient Refused Metoprolol Tartrate (Metoprolol Tartrate 12.5 Mg Halftab) 12.5 mg PO TID [facility]; Protocol Last Admin: 03/14/25 09:08 Dose: 12.5 mg Documented By: AMANDA Olanzapine (Olanzapine 2.5 Mg Tablet) 2.5 mg PO BID [facility] Last Admin: 03/14/25 09:09 Dose: 2.5 mg Documented By: AMANDA Olanzapine (Olanzapine 5 Mg Tablet) 5 mg PO BID PRN PRN Reason: anxiety Last Admin: 03/12/25 22:00 Dose: 5 mg Documented By: EULALIO Senna (Sennosides 8.6 Mg Tablet) 8.6 mg PO BEDTIME PRN PRN Reason: Constipation Sodium Chloride (0.9 % Sodium Chloride Flush 3 Ml Syringe) 3 ml IVFLUSH QSNCFT [facility] Last Admin: 03/14/25 09:07 Dose: 3 ml Documented By: AMANDA Labs 03/14/25 06:08 03/14/25 06:08 Labs: Laboratory Results - last 24 hr 03/13/25 03/13/25 03/13/25 10:57 16:22 20:23 MCV MCH MCHC RDW Plt Count MPV Absolute Nucleated RBC Nucleated RBC % (auto) Anion Gap Estim Creat Clear Calc Estimated GFR POC Glucose 212 H 181 H 191 H Random Glucose Calcium Magnesium 03/14/25 03/14/25 06:08 07:25 MCV 88.2 MCH 30.8 MCHC 34.9 RDW 14.1 Plt Count 270 MPV 9.6 Absolute Nucleated RBC 0.000 Nucleated RBC % (auto) 0.0 Anion Gap 15 Estim Creat Clear Calc 47.8 Estimated GFR 52 POC Glucose 151 H Random Glucose 157 H Calcium 9.1 Magnesium 1.7 Assessment and Plan (1) Cardiomyopathy: Status: Acute Plan 75M PMH alzhemiers/vascular dementia, history of CVA, bladder cancer, DM, htn, presented from [place] with failure to thrive, found to have severe LAURIE and NSTEMI FTT complicated due to LAURIE mostly resolved N/V no obstruction, now tolerating po Acute hypokalemia replace and monitor hypernatremia improved nstemi with cardiomyopathy cardio appreciated would hold off on further work up continue asa, plavix, statin, beta merlene s/p 48 heparin advanced alzheimers/vascular dementia zyprexa history of cva dapl, statin dm insulin possible colitis continue zosyn dvt prophylaxis - hep sq DNR/DNI reason for continued hospitalization: hypok Quality Stroke Does the patient have a stroke diagnosis?: No Reason for No Anti-thrombotic by Day Two: N/A - Med Ordered VTE Prior VTE?: No VTE Risk Level:: Medical - moderate - high VTE Device Contraindication: N/A - Device Ordered VTE Drug Contraindication: N/A - Med Ordered
[2025-03-14 11:47] LABS: Glucose, Whole Blood 221 mg/dL (60-115)
[2025-03-14 16:08] LABS: Glucose, Whole Blood 254 mg/dL (60-115)
[2025-03-14 20:39] LABS: Glucose, Whole Blood 134 mg/dL (60-115)
[2025-03-15] VITALS (7 sets, daily range): BP systolic 111–136; BP diastolic 55–72; PULSE 60–72; RESP 16–18; TEMP 36.6–37.2; O2SAT 93–98; BMI 22.4
[2025-03-15] MEDS: 0.9 % Sodium Chloride Flush 3 ML SYRINGE IVFLUSH ×4 (01:10→20:08)
[2025-03-15 07:23] LABS: Hematocrit 29.1 % (42.0-52.0); Hemoglobin 10.1 g/dl (14.0-18.0); Mean Corpuscular HGB Conc 34.7 g/dl (31.0-36.0); Mean Corpuscular Hemoglobin 30.6 pg (27.0-33.0); Mean Corpuscular Volume 88.2 fL (80.0-98.0); NRBC Abs Auto 0.000 X10*3/uL (0.0-0.012); NRBC Pct Auto 0.0 /100WBC (0.0-0.2); Platelet Count 274 X10*3/uL (160-400); Red Blood Count 3.30 X10*6/uL (4.60-5.80); White Blood Count 10.4 X10*3/uL (4.8-10.8)
[2025-03-15 07:32] LABS: Anion Gap 15 (12-20); Blood Urea Nitrogen 15 mg/dL (9-16); Calcium 9.1 mg/dL (8.4-10.2); Carbon Dioxide 22 mmol/L (22-29); Chloride 112 mmol/L (96-108); Creatinine Clr Calc Pharmacy 53.8; Estimated Glomerular Filt Rate 60; Magnesium 1.7 mg/dL (1.6-2.6); Potassium 3.0 mmol/L (3.3-5.1); Sodium 146 mmol/L (135-145)
[2025-03-15 07:37] LABS: Glucose, Whole Blood 165 mg/dL (60-115)
[2025-03-15 08:54] LABS: Plasma Renin Activity 0.73 ng/mL/h (0.25-5.82)
[2025-03-15] MEDS: Aspirin Enteric Coated 81 MG TABLET.DR PO (09:17)
[2025-03-15] MEDS: Metoprolol Tartrate 12.5 MG HALFTAB PO ×3 (09:17→20:00)
[2025-03-15] MEDS: Potassium Chloride Packet 20 MEQ PACKET 40 MEQ PO (09:18)
[2025-03-15] MEDS: buPROPion HCl XL 300 MG TAB.ER.24H PO (09:18)
--- NOTE | 2025-03-15 09:18 | MHC.CM.PN ---
Addendum entered by Divya Sol RN 03/15/25 10:30: PT EVAL FOR CURRENT LEVEL OF FX AND PSYCH TO REVIEW MEDS D/T AGITATION REQUESTED FROM HOSPITALIST Original Note: CM RECEIVED A CALL FROM VALENTÍN AT THE [facility] REPORTING THAT A NURSE WILL BE HERE FOR VISIT AT 4PM TODAY. VALENTÍN ALSO REQUESTING H&P, PN'S, MED LIST ETC BE EMAILED TO [email or web address].
--- NOTE | 2025-03-15 09:55 | HO.PM.IMPN ---
Subjective Subjective Date of Service: 03/15/25 Interval History: no complaints Physical Exam Vital Signs: Vital Signs: Last Vital Signs Temp 97.9 F 03/15/25 07:19 Pulse 71 03/15/25 07:19 Resp 16 03/15/25 07:19 BP 133/72 03/15/25 09:17 Pulse Ox 96 03/15/25 07:19 O2 Del Method Room Air 03/15/25 07:19 BMI result Body Mass Index 22.4 General: Elderly male in somewhat acute distress, ill appearing and tired appearing Nutritional Appearance: well nourished and overweight Eyes: appearance normal, both eyes and all related structures; Alignment and Position: alignment normal and position normal Neck: No lymphadenopathy, no thyromegaly Resp: bilateral air entry equal, occasional added sounds present Cardio: Regular rate, regular rhythm; Heart sounds: S1 normal heart sound present and S2 normal heart sound present GI: soft, nontender, no guarding, no hepatosplenomegaly : bladder normal to inspection, bladder normal to palpation, no renal angle tenderness Skin: no rashes or lesions noted and elasticity normal Neuro: Continuous shaking of the extremities , confused Objective Data Active Medications Acetaminophen (Acetaminophen 325 Mg Tablet) 650 mg PO Q6H PRN PRN Reason: Pain, Mild 1-3,fever,headache Last Admin: 03/14/25 00:47 Dose: 325 mg Documented By: VENANCIO Amlodipine Besylate (Amlodipine Besylate 5 Mg Tablet) 5 mg PO DAILY [facility]; Protocol Last Admin: 03/15/25 09:17 Dose: 5 mg Documented By: AMANDA Aspirin (Aspirin Enteric Coated 81 Mg Tablet.) 81 mg PO DAILY [facility] Last Admin: 03/15/25 09:17 Dose: 81 mg Documented By: AMANDA Atorvastatin Calcium (Atorvastatin Calcium 20 Mg Tablet) 20 mg PO BEDTIME [facility] Last Admin: 03/14/25 22:28 Dose: Not Given Documented By: KAREN Non-Admin Reason: Patient Refused Bupropion HCl (Bupropion Hcl Xl 300 Mg Tab.Er.24h) 300 mg PO DAILY [facility] Last Admin: 03/15/25 09:18 Dose: 300 mg Documented By: AMANDA Calcium Carbonate (Calcium Carbonate 750 Mg Tab.Chew) 750 mg PO Q4H PRN PRN Reason: Heartburn Capsaicin (Capsaicin 0.025% Cream 60 Gm Tube) 1 appl TOPICAL TID [facility] Last Admin: 03/15/25 09:19 Dose: 1 appl Documented By: AMANDA Clopidogrel Bisulfate (Clopidogrel Bisulfate 75 Mg Tablet) 75 mg PO DAILY [facility] Last Admin: 03/15/25 09:17 Dose: 75 mg Documented By: AMANDA Dextrose (Dextrose 50 % 25 Gm/50 Ml Syringe) 25 gm IVPUSH Q15M PRN; Protocol PRN Reason: per Hypoglycemia Standing Ord. Last Admin: 03/03/25 20:15 Dose: 25 gm Documented By: MALI Docusate Sodium (Docusate Sodium 100 Mg/10 Ml Liquid) 100 mg PO BEDTIME [facility] Last Admin: 03/14/25 22:28 Dose: Not Given Documented By: KAREN Non-Admin Reason: Patient Refused Glucose (Glucose Gel 15 Gm Gel..Gram.) 15 gm PO Q15M PRN; Protocol PRN Reason: per Hypoglycemia Standing Ord. Heparin Sodium (Porcine) (Heparin Sodium,Porcine 5,000 Unit/Ml Vial) 5,000 unit SUBCUT Q12H [facility] Last Admin: 03/15/25 01:09 Dose: 5,000 unit Documented By: KAREN Piperacillin Sod/Tazobactam (Sod 4.5 gm/ Sodium Chloride) 100 mls @ 200 mls/hr IV Q8H [facility] Last Infusion: 03/15/25 09:22 Dose: Infused Documented By: AMANDA Insulin Human Lispro (Insulin Lispro 100 Unit/Ml 3 Ml Vial) 0 unit SUBCUT QIDACHS [facility]; Protocol Last Admin: 03/15/25 08:46 Dose: 2 unit Documented By: AMANDA Melatonin (Melatonin 3 Mg Tablet) 6 mg PO BEDTIME PRN PRN Reason: Insomnia Last Admin: 03/12/25 22:01 Dose: 6 mg Documented By: EULALIO Melatonin (Melatonin 3 Mg Tablet) 3 mg PO BEDTIME [facility] Last Admin: 03/14/25 22:28 Dose: Not Given Documented By: KAREN Non-Admin Reason: Patient Refused Metoprolol Tartrate (Metoprolol Tartrate 12.5 Mg Halftab) 12.5 mg PO TID [facility]; Protocol Last Admin: 03/15/25 09:17 Dose: 12.5 mg Documented By: AMANDA Olanzapine (Olanzapine 2.5 Mg Tablet) 2.5 mg PO BID [facility] Last Admin: 03/15/25 09:17 Dose: 2.5 mg Documented By: AMANDA Olanzapine (Olanzapine 5 Mg Tablet) 5 mg PO BID PRN PRN Reason: anxiety Last Admin: 03/12/25 22:00 Dose: 5 mg Documented By: EULALIO Senna (Sennosides 8.6 Mg Tablet) 8.6 mg PO BEDTIME PRN PRN Reason: Constipation Sodium Chloride (0.9 % Sodium Chloride Flush 3 Ml Syringe) 3 ml IVFLUSH QSHIFT [facility] Last Admin: 03/15/25 08:47 Dose: 3 ml Documented By: AMANDA Labs 03/15/25 07:08 03/15/25 07:08 Labs: Laboratory Results - last 24 hr 03/08/25 03/14/25 03/14/25 05:59 11:23 15:44 MCV MCH MCHC RDW Plt Count MPV Absolute Nucleated RBC Nucleated RBC % (auto) Anion Gap Estim Creat Clear Calc Estimated GFR POC Glucose 221 H 254 H Random Glucose Calcium Magnesium Renin Activity 0.73 Aldosterone <1 Aldosterone/Renin Ratio see note 03/14/25 03/15/25 03/15/25 20:28 07:08 07:25 MCV 88.2 MCH 30.6 MCHC 34.7 RDW 14.5 Plt Count 274 MPV 9.3 L Absolute Nucleated RBC 0.000 Nucleated RBC % (auto) 0.0 Anion Gap 15 Estim Creat Clear Calc 53.8 Estimated GFR 60 POC Glucose 134 H 165 H Random Glucose 182 H Calcium 9.1 Magnesium 1.7 Renin Activity Aldosterone Aldosterone/Renin Ratio Assessment and Plan (1) Cardiomyopathy: Status: Acute Plan 75M PMH alzhemiers/vascular dementia, history of CVA, bladder cancer, DM, htn, presented from [place] with failure to thrive, found to have severe LAURIE and NSTEMI FTT complicated due to LAURIE mostly resolved creatinine improved from 7 to 1.19 N/V no obstruction, now tolerating po Acute hypokalemia replace and monitor hypernatremia improved, encourage po intake nstemi with cardiomyopathy cardio appreciated would hold off on further work up continue asa, plavix, statin, beta merlene s/p 48 heparin advanced alzheimers/vascular dementia zyprexa 2..5 po bid behaviours improved, sitter discontinued history of cva dapl, statin dm insulin possible colitis completed course of zosyn dvt prophylaxis - hep sq DNR/DNI reason for continued hospitalization: hypok, dispo planning Quality Stroke Does the patient have a stroke diagnosis?: No Reason for No Anti-thrombotic by Day Two: N/A - Med Ordered VTE Prior VTE?: No VTE Risk Level:: Medical - moderate - high VTE Device Contraindication: N/A - Device Ordered VTE Drug Contraindication: N/A - Med Ordered
[2025-03-15 11:34] LABS: Glucose, Whole Blood 289 mg/dL (60-115)
--- NOTE | 2025-03-15 13:36 | MHC.CLN ---
NUTRITION LAB SHOWS LOW POTASSIUM. REMOVED LOW POTASSIUM FROM DIET ORDER. INCREASED DIABETIC KCALS FROM 1800 TO 2000 KCALS TO PROMOTE PO INTAKE. SKIN WITH REDNESS TO GROIN. PO INTAKE AT MEALS VARIABLE, 25-75%. RD TO MONITOR WEEKLY.
[2025-03-15 15:56] LABS: Glucose, Whole Blood 142 mg/dL (60-115)
[2025-03-15 21:31] LABS: Glucose, Whole Blood 163 mg/dL (60-115)
[2025-03-16] VITALS (7 sets, daily range): BP systolic 121–150; BP diastolic 58–75; PULSE 59–79; RESP 16–20; TEMP 36.4–37.5; O2SAT 96–98; BMI 23.5
[2025-03-16 06:59] LABS: Hematocrit 28.3 % (42.0-52.0); Hemoglobin 9.5 g/dl (14.0-18.0); Mean Corpuscular HGB Conc 33.6 g/dl (31.0-36.0); Mean Corpuscular Hemoglobin 30.2 pg (27.0-33.0); Mean Corpuscular Volume 89.8 fL (80.0-98.0); NRBC Abs Auto 0.000 X10*3/uL (0.0-0.012); NRBC Pct Auto 0.0 /100WBC (0.0-0.2); Platelet Count 292 X10*3/uL (160-400); Red Blood Count 3.15 X10*6/uL (4.60-5.80); White Blood Count 8.3 X10*3/uL (4.8-10.8)
[2025-03-16 07:08] LABS: Anion Gap 14 (12-20); Blood Urea Nitrogen 14 mg/dL (9-16); Calcium 8.9 mg/dL (8.4-10.2); Carbon Dioxide 22 mmol/L (22-29); Chloride 112 mmol/L (96-108); Creatinine Clr Calc Pharmacy 69.9; Estimated Glomerular Filt Rate > 60; Potassium 3.0 mmol/L (3.3-5.1); Sodium 145 mmol/L (135-145)
[2025-03-16 07:25] LABS: Glucose, Whole Blood 163 mg/dL (60-115)
--- NOTE | 2025-03-16 08:01 | HO.PM.IMPN ---
Subjective Subjective Date of Service: 03/16/25 Interval History: Seen and examined this morning Interval history: Remains confused but comfortable. Eating and drinking without difficulty Physical Exam Vital Signs: Vital Signs: Last Vital Signs Temp 98.4 F 03/16/25 06:55 Pulse 72 03/16/25 06:55 Resp 20 03/16/25 06:55 BP 135/64 03/16/25 06:55 Pulse Ox 97 03/16/25 06:55 O2 Del Method Room Air 03/16/25 06:55 BMI result Body Mass Index 23.5 EXAM: Constitutional - Awake and Alert, No apparent distress Eyes - PERRL Cardiovascular - S1S2, RRR, No edema Respiratory - Normal lung expansion, Normal respiratory effort, No respiratory distress, CTA bilaterally Extremities - no calf tenderness bilaterally, no swelling Skin - Warm/Dry Neurological - Alert & disoriented Psychological - Appropriate affect Objective Data Active Medications Acetaminophen (Acetaminophen 325 Mg Tablet) 650 mg PO Q6H PRN PRN Reason: Pain, Mild 1-3,fever,headache Last Admin: 03/15/25 15:19 Dose: 650 mg Documented By: AMANDA Amlodipine Besylate (Amlodipine Besylate 5 Mg Tablet) 5 mg PO DAILY [facility]; Protocol Last Admin: 03/15/25 09:17 Dose: 5 mg Documented By: AMANDA Aspirin (Aspirin Enteric Coated 81 Mg Tablet.) 81 mg PO DAILY [facility] Last Admin: 03/15/25 09:17 Dose: 81 mg Documented By: AMANDA Atorvastatin Calcium (Atorvastatin Calcium 20 Mg Tablet) 20 mg PO BEDTIME [facility] Last Admin: 03/15/25 20:00 Dose: 20 mg Documented By: HAYDER Bupropion HCl (Bupropion Hcl Xl 300 Mg Tab.Er.24h) 300 mg PO DAILY [facility] Last Admin: 03/15/25 09:18 Dose: 300 mg Documented By: AMANDA Calcium Carbonate (Calcium Carbonate 750 Mg Tab.Chew) 750 mg PO Q4H PRN PRN Reason: Heartburn Capsaicin (Capsaicin 0.025% Cream 60 Gm Tube) 1 appl TOPICAL TID [facility] Last Admin: 03/15/25 20:05 Dose: 1 appl Documented By: HAYDER Clopidogrel Bisulfate (Clopidogrel Bisulfate 75 Mg Tablet) 75 mg PO DAILY [facility] Last Admin: 03/15/25 09:17 Dose: 75 mg Documented By: AMANDA Dextrose (Dextrose 50 % 25 Gm/50 Ml Syringe) 25 gm IVPUSH Q15M PRN; Protocol PRN Reason: per Hypoglycemia Standing Ord. Last Admin: 03/03/25 20:15 Dose: 25 gm Documented By: MALI Docusate Sodium (Docusate Sodium 100 Mg/10 Ml Liquid) 100 mg PO BEDTIME [facility] Last Admin: 03/15/25 20:00 Dose: 100 mg Documented By: HAYDER Glucose (Glucose Gel 15 Gm Gel..Gram.) 15 gm PO Q15M PRN; Protocol PRN Reason: per Hypoglycemia Standing Ord. Heparin Sodium (Porcine) (Heparin Sodium,Porcine 5,000 Unit/Ml Vial) 5,000 unit SUBCUT Q12H [facility] Last Admin: 03/16/25 00:09 Dose: 5,000 unit Documented By: HAYDER Insulin Human Lispro (Insulin Lispro 100 Unit/Ml 3 Ml Vial) 0 unit SUBCUT QIDACHS [facility]; Protocol Last Admin: 03/15/25 21:49 Dose: 2 unit Documented By: HAYDER Melatonin (Melatonin 3 Mg Tablet) 6 mg PO BEDTIME PRN PRN Reason: Insomnia Last Admin: 03/12/25 22:01 Dose: 6 mg Documented By: EULALIO Melatonin (Melatonin 3 Mg Tablet) 3 mg PO BEDTIME [facility] Last Admin: 03/15/25 20:00 Dose: 3 mg Documented By: HAYDER Metoprolol Tartrate (Metoprolol Tartrate 12.5 Mg Halftab) 12.5 mg PO TID [facility]; Protocol Last Admin: 03/15/25 20:00 Dose: 12.5 mg Documented By: HAYDER Olanzapine (Olanzapine 2.5 Mg Tablet) 2.5 mg PO BID [facility] Last Admin: 03/15/25 20:00 Dose: 2.5 mg Documented By: GALINA-SUSIE Olanzapine (Olanzapine 5 Mg Tablet) 5 mg PO BID PRN PRN Reason: anxiety Last Admin: 03/12/25 22:00 Dose: 5 mg Documented By: EULALIO Senna (Sennosides 8.6 Mg Tablet) 8.6 mg PO BEDTIME PRN PRN Reason: Constipation Sodium Chloride (0.9 % Sodium Chloride Flush 3 Ml Syringe) 3 ml IVFLUSH QSHIFT [facility] Last Admin: 03/15/25 20:08 Dose: 3 ml Documented By: HAYDER Labs 03/16/25 06:45 03/16/25 06:45 Labs: Laboratory Results - last 24 hr 03/08/25 03/15/25 03/15/25 05:59 11:00 15:41 MCV MCH MCHC RDW Plt Count MPV Absolute Nucleated RBC Nucleated RBC % (auto) Anion Gap Estim Creat Clear Calc Estimated GFR POC Glucose 289 H 142 H Random Glucose Calcium Renin Activity 0.73 Aldosterone <1 Aldosterone/Renin Ratio see note 03/15/25 03/16/25 03/16/25 21:01 06:45 06:59 MCV 89.8 MCH 30.2 MCHC 33.6 RDW 14.6 Plt Count 292 MPV 9.3 L Absolute Nucleated RBC 0.000 Nucleated RBC % (auto) 0.0 Anion Gap 14 Estim Creat Clear Calc 69.9 Estimated GFR > 60 POC Glucose 163 H 163 H Random Glucose 180 H Calcium 8.9 Renin Activity Aldosterone Aldosterone/Renin Ratio Assessment and Plan (1) Cardiomyopathy: Status: Acute Plan 75M PMH alzhemiers/vascular dementia, history of CVA, bladder cancer, DM, htn, presented from [place] with failure to thrive, found to have severe LAURIE and NSTEMI FTT complicated due to LAURIE mostly resolved creatinine improved from 7 to 1.19 N/V no obstruction, now tolerating po Acute hypokalemia replace and monitot added 20mg ER daily hypernatremia improved, encourage po intake nstemi with cardiomyopathy cardio appreciated would hold off on further work up continue asa, plavix, statin, beta merlene s/p 48 heparin advanced alzheimers/vascular dementia zyprexa 2..5 po bid behaviours improved, sitter discontinued history of cva dapl, statin dm insulin possible colitis completed course of zosyn dvt prophylaxis - hep sq DNR/DNI reason for continued hospitalization: hypok, dispo planning Quality Stroke Does the patient have a stroke diagnosis?: No Reason for No Anti-thrombotic by Day Two: N/A - Med Ordered VTE Prior VTE?: No VTE Risk Level:: Medical - moderate - high VTE Device Contraindication: N/A - Device Ordered VTE Drug Contraindication: N/A - Med Ordered
[2025-03-16] MEDS: Potassium Chloride Packet 20 MEQ PACKET 40 MEQ PO (08:24)
[2025-03-16] MEDS: Potassium Chloride ER 20 MEQ TAB.ER.PRT PO (08:24)
[2025-03-16] MEDS: buPROPion HCl XL 300 MG TAB.ER.24H PO (08:25)
[2025-03-16] MEDS: Aspirin Enteric Coated 81 MG TABLET.DR PO (08:25)
[2025-03-16] MEDS: Metoprolol Tartrate 12.5 MG HALFTAB PO ×3 (08:25→19:59)
[2025-03-16] MEDS: 0.9 % Sodium Chloride Flush 3 ML SYRINGE IVFLUSH ×3 (08:26→19:59)
--- NOTE | 2025-03-16 11:17 | MHC.CM.PN ---
EMR REVIEWED, PER [facility] STAFF PT DID HAVE VISIT FROM NURSE FROM [facility] YESTERDAY EVEING AFTER CM SHIFT, CM HAS EMAILED VALENTÍN FROM THE [facility] TO FOLLOW UP AND PT EVAL WAS SENT WELL PER REQUEST. CM AWAITING RESPONSE VIA EMAIL AND WILL CONT TO FOLLOW.
[2025-03-16 11:28] LABS: Glucose, Whole Blood 268 mg/dL (60-115)
[2025-03-16 16:51] LABS: Glucose, Whole Blood 241 mg/dL (60-115)
[2025-03-16 20:48] LABS: Glucose, Whole Blood 135 mg/dL (60-115)
[2025-03-17 03:29] VITALS: BP 125/59; PULSE 59; RESP 18; TEMP 36.6; O2SAT 98
[2025-03-17 06:00] VITALS: BMI 23.0
[2025-03-17 07:11] LABS: Anion Gap 13 (12-20); Blood Urea Nitrogen 18 mg/dL (9-16); Calcium 9.6 mg/dL (8.4-10.2); Carbon Dioxide 25 mmol/L (22-29); Chloride 112 mmol/L (96-108); Creatinine Clr Calc Pharmacy 70.7; Estimated Glomerular Filt Rate > 60; Potassium 3.3 mmol/L (3.3-5.1); Sodium 147 mmol/L (135-145)
[2025-03-17 07:24] LABS: Glucose, Whole Blood 167 mg/dL (60-115)
[2025-03-17 08:00] VITALS: BP 176/72; PULSE 61; RESP 18; TEMP 36.6; O2SAT 97
[2025-03-17] MEDS: Potassium Chloride ER 20 MEQ TAB.ER.PRT PO (08:13)
[2025-03-17] MEDS: Aspirin Enteric Coated 81 MG TABLET.DR PO (08:13)
[2025-03-17] MEDS: Metoprolol Tartrate 12.5 MG HALFTAB PO ×3 (08:13→21:41)
[2025-03-17] MEDS: buPROPion HCl XL 300 MG TAB.ER.24H PO (08:13)
[2025-03-17 11:23] LABS: Glucose, Whole Blood 310 mg/dL (60-115)
--- NOTE | 2025-03-17 11:35 | HO.PM.IMPN ---
Subjective Subjective Date of Service: 03/17/25 Interval History: Seen and examined this morning Baseline confusion unchanged Physical Exam Vital Signs: Vital Signs: Last Vital Signs Temp 97.9 F 03/17/25 08:00 Pulse 61 03/17/25 08:00 Resp 18 03/17/25 08:00 BP 176/72 H 03/17/25 08:00 Pulse Ox 97 03/17/25 08:00 O2 Del Method Room Air 03/17/25 08:00 BMI result Body Mass Index 23.0 EXAM: Constitutional - Awake and Alert, No apparent distress Eyes - PERRL Cardiovascular - S1S2, RRR, No edema Respiratory - Normal lung expansion, Normal respiratory effort, No respiratory distress, CTA bilaterally Extremities - no calf tenderness bilaterally, no swelling Skin - Warm/Dry Neurological - Alert & disoriented Psychological - Appropriate affect Objective Data Active Medications Acetaminophen (Acetaminophen 325 Mg Tablet) 650 mg PO Q6H PRN PRN Reason: Pain, Mild 1-3,fever,headache Last Admin: 03/16/25 19:58 Dose: 650 mg Documented By: HAYDER Amlodipine Besylate (Amlodipine Besylate 5 Mg Tablet) 5 mg PO DAILY [facility]; Protocol Last Admin: 03/17/25 08:13 Dose: 5 mg Documented By: PHYLLIS Aspirin (Aspirin Enteric Coated 81 Mg Tablet.Dr) 81 mg PO DAILY [facility] Last Admin: 03/17/25 08:13 Dose: 81 mg Documented By: PHYLLIS Atorvastatin Calcium (Atorvastatin Calcium 20 Mg Tablet) 20 mg PO BEDTIME [facility] Last Admin: 03/16/25 19:59 Dose: 20 mg Documented By: HAYDER Bupropion HCl (Bupropion Hcl Xl 300 Mg Tab.Er.24h) 300 mg PO DAILY [facility] Last Admin: 03/17/25 08:13 Dose: 300 mg Documented By: PHYLLIS Calcium Carbonate (Calcium Carbonate 750 Mg Tab.Chew) 750 mg PO Q4H PRN PRN Reason: Heartburn Capsaicin (Capsaicin 0.025% Cream 60 Gm Tube) 1 appl TOPICAL TID [facility] Last Admin: 03/17/25 08:15 Dose: Not Given Documented By: PHYLLIS Non-Admin Reason: Patient Refused Clopidogrel Bisulfate (Clopidogrel Bisulfate 75 Mg Tablet) 75 mg PO DAILY [facility] Last Admin: 03/17/25 08:13 Dose: 75 mg Documented By: PHYLLIS Dextrose (Dextrose 50 % 25 Gm/50 Ml Syringe) 25 gm IVPUSH Q15M PRN; Protocol PRN Reason: per Hypoglycemia Standing Ord. Last Admin: 03/03/25 20:15 Dose: 25 gm Documented By: MALI Docusate Sodium (Docusate Sodium 100 Mg/10 Ml Liquid) 100 mg PO BEDTIME [facility] Last Admin: 03/16/25 20:08 Dose: Not Given Documented By: HAYDER Non-Admin Reason: Patient Refused Glucose (Glucose Gel 15 Gm Gel..Gram.) 15 gm PO Q15M PRN; Protocol PRN Reason: per Hypoglycemia Standing Ord. Heparin Sodium (Porcine) (Heparin Sodium,Porcine 5,000 Unit/Ml Vial) 5,000 unit SUBCUT Q12H [facility] Last Admin: 03/17/25 00:51 Dose: 5,000 unit Documented By: HAYDER Insulin Human Lispro (Insulin Lispro 100 Unit/Ml 3 Ml Vial) 0 unit SUBCUT QIDACHS [facility]; Protocol Last Admin: 03/17/25 08:12 Dose: 2 unit Documented By: PHYLLIS Melatonin (Melatonin 3 Mg Tablet) 6 mg PO BEDTIME PRN PRN Reason: Insomnia Last Admin: 03/12/25 22:01 Dose: 6 mg Documented By: EULALIO Melatonin (Melatonin 3 Mg Tablet) 3 mg PO BEDTIME [facility] Last Admin: 03/16/25 19:59 Dose: 3 mg Documented By: HAYDER Metoprolol Tartrate (Metoprolol Tartrate 12.5 Mg Halftab) 12.5 mg PO TID [facility]; Protocol Last Admin: 03/17/25 08:13 Dose: 12.5 mg Documented By: PHYLLIS Olanzapine (Olanzapine 2.5 Mg Tablet) 2.5 mg PO BID [facility] Last Admin: 03/17/25 08:13 Dose: 2.5 mg Documented By: PHYLLIS Olanzapine (Olanzapine 5 Mg Tablet) 5 mg PO BID PRN PRN Reason: anxiety Last Admin: 03/12/25 22:00 Dose: 5 mg Documented By: EULALIO Potassium Chloride (Potassium Chloride Er 20 Meq Tab.Er.Prt) 20 meq PO DAILY [facility] Last Admin: 03/17/25 08:13 Dose: 20 meq Documented By: PHYLLIS Senna (Sennosides 8.6 Mg Tablet) 8.6 mg PO BEDTIME PRN PRN Reason: Constipation Sodium Chloride (0.9 % Sodium Chloride Flush 3 Ml Syringe) 3 ml IVFLUSH QSHIFT [facility] Last Admin: 03/16/25 19:59 Dose: 3 ml Documented By: VONNIEDESSK Labs 03/16/25 06:45 03/17/25 06:17 Labs: Laboratory Results - last 24 hr 03/16/25 03/16/25 03/17/25 16:39 20:02 06:17 Anion Gap 13 Estim Creat Clear Calc 70.7 Estimated GFR > 60 POC Glucose 241 H 135 H Random Glucose 179 H Calcium 9.6 D 03/17/25 03/17/25 07:14 11:11 Anion Gap Estim Creat Clear Calc Estimated GFR POC Glucose 167 H 310 H Random Glucose Calcium Assessment and Plan (1) Cardiomyopathy: Status: Acute Plan 75M PMH alzhemiers/vascular dementia, history of CVA, bladder cancer, DM, htn, [place] with failure to thrive, found to have severe LAURIE and NSTEMI Adult FTT complicated due by LAURIE, now resolved. creatinine improved from 7 to now 0.93 N/V no obstruction, now tolerating po Acute hypokalemia replace and monitot added 20mg ER daily hypernatremia improved, encourage po intake nstemi with cardiomyopathy cardio appreciated would hold off on further work up continue asa, plavix, statin, beta merlene s/p 48 heparin advanced alzheimers/vascular dementia zyprexa 2..5 po bid behaviours improved, sitter discontinued history of cva dapl, statin dm insulin possible colitis completed course of zosyn dvt prophylaxis - hep sq DNR/DNI reason for continued hospitalization: hypok, dispo planning Quality Stroke Does the patient have a stroke diagnosis?: No Reason for No Anti-thrombotic by Day Two: N/A - Med Ordered VTE Prior VTE?: No VTE Risk Level:: Medical - moderate - high VTE Device Contraindication: N/A - Device Ordered VTE Drug Contraindication: N/A - Med Ordered
[2025-03-17] MEDS: 0.9 % Sodium Chloride Flush 3 ML SYRINGE IVFLUSH ×2 (11:48→17:26)
[2025-03-17 11:56] VITALS: BP 136/99; PULSE 70; RESP 18; TEMP 36.7; O2SAT 96
[2025-03-17 15:55] LABS: Glucose, Whole Blood 106 mg/dL (60-115)
[2025-03-17 16:00] VITALS: BP 140/82; RESP 18; TEMP 36.6; O2SAT 100
[2025-03-17 19:59] VITALS: BP 173/72; PULSE 75; RESP 18; TEMP 36.6; O2SAT 98
[2025-03-17 20:34] LABS: Glucose, Whole Blood 288 mg/dL (60-115)
[2025-03-17 23:23] VITALS: BP 139/79; PULSE 69; RESP 18; TEMP 36.9; O2SAT 96
[2025-03-18 02:48] VITALS: BP 140/67; PULSE 65; RESP 18; TEMP 36.3; O2SAT 96
[2025-03-18 06:00] VITALS: BMI 22.7
[2025-03-18 07:15] LABS: Glucose, Whole Blood 185 mg/dL (60-115)
[2025-03-18 07:32] VITALS: BP 143/66; PULSE 64; RESP 20; TEMP 36.7; O2SAT 98
[2025-03-18 07:34] LABS: Anion Gap 14 (12-20); Blood Urea Nitrogen 14 mg/dL (9-16); Calcium 9.0 mg/dL (8.4-10.2); Carbon Dioxide 23 mmol/L (22-29); Chloride 111 mmol/L (96-108); Creatinine Clr Calc Pharmacy 77.2; Estimated Glomerular Filt Rate > 60; Potassium 3.1 mmol/L (3.3-5.1); Sodium 145 mmol/L (135-145)
[2025-03-18] MEDS: Metoprolol Tartrate 12.5 MG HALFTAB PO ×3 (08:13→20:17)
[2025-03-18] MEDS: Potassium Chloride ER 20 MEQ TAB.ER.PRT PO ×2 (08:13→09:06)
[2025-03-18] MEDS: buPROPion HCl XL 300 MG TAB.ER.24H PO (08:13)
[2025-03-18] MEDS: Aspirin Enteric Coated 81 MG TABLET.DR PO (08:13)
[2025-03-18] MEDS: 0.9 % Sodium Chloride Flush 3 ML SYRINGE IVFLUSH ×3 (08:14→20:21)
--- NOTE | 2025-03-18 08:21 | P.PNIM_ITS ---
Subjective Subjective Date of Service: 03/18/25 Interval History: Seen and examined this morning Interval history: Reports pain inside the lower lip. Otherwise confused and does appear comfortable Review of Systems Review of Systems: Yes Unobtainable due to mental status Physical Exam 2 Vital Signs: Vital Signs: Last Vital Signs Temp 98.1 F 03/18/25 07:32 Pulse 64 03/18/25 07:32 Resp 20 03/18/25 07:32 BP 143/66 H 03/18/25 07:32 Pulse Ox 98 03/18/25 07:32 O2 Del Method Room Air 03/18/25 07:32 BMI result Body Mass Index 22.7 Constitutional - Awake and Alert, No apparent distress Eyes - PERRLA, EOMI Mouth - mucosal membranes dry Cardiovascular - S1S2, RRR, No edema Respiratory - Normal lung expansion, Normal respiratory effort, No respiratory distress, CTA bilaterally Gastrointestinal - NT / ND; +BS; No rebound or guarding Extremities - no calf tenderness bilaterally, no swelling Skin - Warm/Dry Neurological - Alert & oriented to self. Moving extremities Psychological - Appropriate affect Objective Data Active Medications Acetaminophen (Acetaminophen 325 Mg Tablet) 650 mg PO Q6H PRN PRN Reason: Pain, Mild 1-3,fever,headache Last Admin: 03/16/25 19:58 Dose: 650 mg Documented By: HAYDER Amlodipine Besylate (Amlodipine Besylate 5 Mg Tablet) 5 mg PO DAILY [facility]; Protocol Last Admin: 03/17/25 08:13 Dose: 5 mg Documented By: PHYLLIS Aspirin (Aspirin Enteric Coated 81 Mg Tablet.Dr) 81 mg PO DAILY [facility] Last Admin: 03/17/25 08:13 Dose: 81 mg Documented By: PHYLLIS Atorvastatin Calcium (Atorvastatin Calcium 20 Mg Tablet) 20 mg PO BEDTIME [facility] Last Admin: 03/17/25 21:41 Dose: 20 mg Documented By: LEXIE Bupropion HCl (Bupropion Hcl Xl 300 Mg Tab.Er.24h) 300 mg PO DAILY [facility] Last Admin: 03/17/25 08:13 Dose: 300 mg Documented By: PHYLLIS Calcium Carbonate (Calcium Carbonate 750 Mg Tab.Chew) 750 mg PO Q4H PRN PRN Reason: Heartburn Capsaicin (Capsaicin 0.025% Cream 60 Gm Tube) 1 appl TOPICAL TID [facility] Last Admin: 03/17/25 21:51 Dose: Not Given Documented By: MAXWELL Non-Admin Reason: Patient Refused Clopidogrel Bisulfate (Clopidogrel Bisulfate 75 Mg Tablet) 75 mg PO DAILY [facility] Last Admin: 03/17/25 08:13 Dose: 75 mg Documented By: PHYLLIS Dextrose (Dextrose 50 % 25 Gm/50 Ml Syringe) 25 gm IVPUSH Q15M PRN; Protocol PRN Reason: per Hypoglycemia Standing Ord. Last Admin: 03/03/25 20:15 Dose: 25 gm Documented By: GALINA-LEO Docusate Sodium (Docusate Sodium 100 Mg/10 Ml Liquid) 100 mg PO BEDTIME [facility] Last Admin: 03/17/25 21:51 Dose: Not Given Documented By: MAXWELL Non-Admin Reason: Patient Refused Glucose (Glucose Gel 15 Gm Gel..Gram.) 15 gm PO Q15M PRN; Protocol PRN Reason: per Hypoglycemia Standing Ord. Heparin Sodium (Porcine) (Heparin Sodium,Porcine 5,000 Unit/Ml Vial) 5,000 unit SUBCUT Q12H [facility] Last Admin: 03/18/25 00:22 Dose: Not Given Documented By: MAXWELL Non-Admin Reason: Patient Refused Insulin Human Lispro (Insulin Lispro 100 Unit/Ml 3 Ml Vial) 0 unit SUBCUT QIDACHS [facility]; Protocol Last Admin: 03/17/25 21:41 Dose: 6 unit Documented By: LEXIE Melatonin (Melatonin 3 Mg Tablet) 6 mg PO BEDTIME PRN PRN Reason: Insomnia Last Admin: 03/12/25 22:01 Dose: 6 mg Documented By: EULALIO Melatonin (Melatonin 3 Mg Tablet) 3 mg PO BEDTIME [facility] Last Admin: 03/17/25 21:41 Dose: 3 mg Documented By: LEXIE Metoprolol Tartrate (Metoprolol Tartrate 12.5 Mg Halftab) 12.5 mg PO TID [facility]; Protocol Last Admin: 03/17/25 21:41 Dose: 12.5 mg Documented By: LEXIE Olanzapine (Olanzapine 2.5 Mg Tablet) 2.5 mg PO BID [facility] Last Admin: 03/17/25 21:41 Dose: 2.5 mg Documented By: LEXIE Olanzapine (Olanzapine 5 Mg Tablet) 5 mg PO BID PRN PRN Reason: anxiety Last Admin: 03/12/25 22:00 Dose: 5 mg Documented By: EULALIO Potassium Chloride (Potassium Chloride Er 20 Meq Tab.Er.Prt) 20 meq PO DAILY [facility] Last Admin: 03/17/25 08:13 Dose: 20 meq Documented By: PHYLLIS Senna (Sennosides 8.6 Mg Tablet) 8.6 mg PO BEDTIME PRN PRN Reason: Constipation Sodium Chloride (0.9 % Sodium Chloride Flush 3 Ml Syringe) 3 ml IVFLUSH QSHIFT [facility] Last Admin: 03/17/25 21:51 Dose: Not Given Documented By: MAXWELL Non-Admin Reason: Previously Administered Labs 03/16/25 06:45 03/18/25 06:38 Labs: Laboratory Results - last 24 hr 03/17/25 03/17/25 03/17/25 11:11 15:47 20:24 Hold Purple Top Anion Gap Estim Creat Clear Calc Estimated GFR POC Glucose 310 H 106 288 H Random Glucose Calcium 03/18/25 03/18/25 06:38 07:07 Hold Purple Top SEE NOTE Anion Gap 14 Estim Creat Clear Calc 77.2 Estimated GFR > 60 POC Glucose 185 H Random Glucose 161 H Calcium 9.0 D Assessment and Plan (1) Major neurocognitive disorder: Status: Acute (2) Cardiomyopathy: Status: Acute Plan 75M PMH alzhemiers/vascular dementia, history of CVA, bladder cancer, DM, htn, presented from [place] with failure to thrive, found to have severe LAURIE and NSTEMI FTT complicated due to LAURIE mostly resolved creatinine improved from 7 to 1.19 to 0.8 N/V no obstruction, now tolerating po Acute hypokalemia replace and monitor Continue daily replacement hypernatremia improved, encourage po intake nstemi with cardiomyopathy cardio appreciated would hold off on further work up continue asa, plavix, statin, beta merlene s/p 48 heparin advanced alzheimers/vascular dementia zyprexa 2..5 po bid behaviours improved, sitter discontinued history of cva dapl, statin dm insulin possible colitis completed course of zosyn Oral pain viscous lidocaine dvt prophylaxis - hep sq DNR/DNI reason for continued hospitalization: hypok, dispo planning Quality Stroke Does the patient have a stroke diagnosis?: No Reason for No Anti-thrombotic by Day Two: N/A - Med Ordered VTE Prior VTE?: No VTE Risk Level:: Medical - moderate - high VTE Device Contraindication: N/A - Device Ordered VTE Drug Contraindication: N/A - Med Ordered
[2025-03-18 11:59] LABS: Glucose, Whole Blood 246 mg/dL (60-115)
[2025-03-18 12:00] VITALS: BP 138/75; PULSE 75; RESP 17; TEMP 36.5; O2SAT 99
[2025-03-18 15:51] VITALS: BP 145/69; PULSE 68; RESP 18; TEMP 36.4; O2SAT 100
[2025-03-18 16:14] LABS: Glucose, Whole Blood 151 mg/dL (60-115)
[2025-03-18 19:32] VITALS: BP 138/70; PULSE 64; RESP 17; TEMP 36.7; O2SAT 100
[2025-03-18 20:25] LABS: Glucose, Whole Blood 177 mg/dL (60-115)
[2025-03-18 23:37] VITALS: BP 138/66; PULSE 74; RESP 16; TEMP 36.6; O2SAT 98
[2025-03-19 03:34] VITALS: BP 145/72; PULSE 65; RESP 17; TEMP 37; O2SAT 97
[2025-03-19 06:00] VITALS: BMI 23.8
[2025-03-19 07:04] VITALS: BP 149/66; PULSE 69; RESP 20; TEMP 36.9; O2SAT 96
[2025-03-19 07:13] LABS: Glucose, Whole Blood 159 mg/dL (60-115)
[2025-03-19] MEDS: Potassium Chloride ER 20 MEQ TAB.ER.PRT PO ×2 (07:25→21:07)
[2025-03-19] MEDS: Metoprolol Tartrate 12.5 MG HALFTAB PO ×3 (07:25→21:07)
[2025-03-19] MEDS: Aspirin Enteric Coated 81 MG TABLET.DR PO (07:25)
[2025-03-19] MEDS: buPROPion HCl XL 300 MG TAB.ER.24H PO (07:26)
[2025-03-19] MEDS: 0.9 % Sodium Chloride Flush 3 ML SYRINGE IVFLUSH ×2 (07:26→21:08)
--- NOTE | 2025-03-19 10:30 | HO.PM.IMPN ---
Subjective Subjective Date of Service: 03/19/25 Interval History: Seen and examined this morning Interval history: remains pretty confused, with no specific complaint, Physical Exam Vital Signs: Vital Signs: Last Vital Signs Temp 98.4 F 03/19/25 07:04 Pulse 69 03/19/25 07:04 Resp 20 03/19/25 07:04 BP 149/66 H 03/19/25 07:04 Pulse Ox 96 03/19/25 07:04 O2 Del Method Room Air 03/19/25 07:04 BMI result Body Mass Index 23.8 Constitutional - Awake and Alert, No apparent distress Eyes - PERRLA, EOMI Mouth - mucosal membranes dry Cardiovascular - S1S2, RRR, No edema Respiratory - Normal lung expansion, Normal respiratory effort, No respiratory distress, CTA bilaterally Gastrointestinal - NT / ND; +BS; No rebound or guarding Extremities - no calf tenderness bilaterally, no swelling Skin - Warm/Dry Neurological - Alert & oriented to self. Moving extremities Psychological - Appropriate affect Objective Data Active Medications Acetaminophen (Acetaminophen 325 Mg Tablet) 650 mg PO Q6H PRN PRN Reason: Pain, Mild 1-3,fever,headache Last Admin: 03/16/25 19:58 Dose: 650 mg Documented By: HAYDER Amlodipine Besylate (Amlodipine Besylate 5 Mg Tablet) 5 mg PO DAILY [facility]; Protocol Last Admin: 03/19/25 07:26 Dose: 5 mg Documented By: MARKEL Aspirin (Aspirin Enteric Coated 81 Mg Tablet.) 81 mg PO DAILY [facility] Last Admin: 03/19/25 07:25 Dose: 81 mg Documented By: MARKEL Atorvastatin Calcium (Atorvastatin Calcium 20 Mg Tablet) 20 mg PO BEDTIME [facility] Last Admin: 03/18/25 20:17 Dose: 20 mg Documented By: MAXWELL Bupropion HCl (Bupropion Hcl Xl 300 Mg Tab.Er.24h) 300 mg PO DAILY [facility] Last Admin: 03/19/25 07:26 Dose: 300 mg Documented By: MARKEL Calcium Carbonate (Calcium Carbonate 750 Mg Tab.Chew) 750 mg PO Q4H PRN PRN Reason: Heartburn Capsaicin (Capsaicin 0.025% Cream 60 Gm Tube) 1 appl TOPICAL TID [facility] Last Admin: 03/19/25 07:27 Dose: Not Given Documented By: MARKEL Non-Admin Reason: Patient Refused Clopidogrel Bisulfate (Clopidogrel Bisulfate 75 Mg Tablet) 75 mg PO DAILY [facility] Last Admin: 03/19/25 07:25 Dose: 75 mg Documented By: MARKEL Dextrose (Dextrose 50 % 25 Gm/50 Ml Syringe) 25 gm IVPUSH Q15M PRN; Protocol PRN Reason: per Hypoglycemia Standing Ord. Last Admin: 03/03/25 20:15 Dose: 25 gm Documented By: MALI Docusate Sodium (Docusate Sodium 100 Mg/10 Ml Liquid) 100 mg PO BEDTIME [facility] Last Admin: 03/18/25 20:13 Dose: Not Given Documented By: MAXWELL Non-Admin Reason: loose stools Glucose (Glucose Gel 15 Gm Gel..Gram.) 15 gm PO Q15M PRN; Protocol PRN Reason: per Hypoglycemia Standing Ord. Heparin Sodium (Porcine) (Heparin Sodium,Porcine 5,000 Unit/Ml Vial) 5,000 unit SUBCUT Q12H [facility] Last Admin: 03/18/25 23:52 Dose: Not Given Documented By: VELVET Non-Admin Reason: Patient Refused Insulin Human Lispro (Insulin Lispro 100 Unit/Ml 3 Ml Vial) 0 unit SUBCUT QIDACHS [facility]; Protocol Last Admin: 03/19/25 07:26 Dose: 2 unit Documented By: MARKEL Lidocaine HCl (Lidocaine Hcl Viscous 2 % 15 Ml Solution) 15 ml MUCOUS MEM Q3H PRN PRN Reason: oral pain Melatonin (Melatonin 3 Mg Tablet) 6 mg PO BEDTIME PRN PRN Reason: Insomnia Last Admin: 03/12/25 22:01 Dose: 6 mg Documented By: EULALIO Melatonin (Melatonin 3 Mg Tablet) 3 mg PO BEDTIME [facility] Last Admin: 03/18/25 20:18 Dose: 3 mg Documented By: MAXWELL Metoprolol Tartrate (Metoprolol Tartrate 12.5 Mg Halftab) 12.5 mg PO TID [facility]; Protocol Last Admin: 03/19/25 07:25 Dose: 12.5 mg Documented By: MARKEL Olanzapine (Olanzapine 2.5 Mg Tablet) 2.5 mg PO BID [facility] Last Admin: 03/19/25 07:25 Dose: 2.5 mg Documented By: MARKEL Olanzapine (Olanzapine 5 Mg Tablet) 5 mg PO BID PRN PRN Reason: anxiety Last Admin: 03/12/25 22:00 Dose: 5 mg Documented By: EULALIO Potassium Chloride (Potassium Chloride Er 20 Meq Tab.Er.Prt) 20 meq PO BID [facility] Last Admin: 03/19/25 07:25 Dose: 20 meq Documented By: MARKEL Senna (Sennosides 8.6 Mg Tablet) 8.6 mg PO BEDTIME PRN PRN Reason: Constipation Sodium Chloride (0.9 % Sodium Chloride Flush 3 Ml Syringe) 3 ml IVFLUSH QSHIFT [facility] Last Admin: 03/19/25 07:26 Dose: 3 ml Documented By: MARKEL Labs 03/16/25 06:45 03/18/25 06:38 Labs: Laboratory Results - last 24 hr 03/18/25 03/18/25 03/18/25 11:54 16:10 20:12 POC Glucose 246 H 151 H 177 H 03/19/25 06:57 POC Glucose 159 H Assessment and Plan (1) Major neurocognitive disorder: Status: Acute (2) Cardiomyopathy: Status: Acute Plan 75M PMH alzhemiers/vascular dementia, history of CVA, bladder cancer, DM, htn, presented from [place] with failure to thrive, found to have severe LAURIE and NSTEMI Addult FTT complicated by LAURIE which is now resolved creatinine improved from 7 to now 0.8 N/V no obstruction, now tolerating po Acute hypOkalemia replace and monitor Continue daily replacement hypernatremia improved, encourage po intake nstemi with cardiomyopathy cardio appreciated would hold off on further work up continue asa, plavix, statin, beta merlene s/p 48 heparin advanced alzheimers/vascular dementia zyprexa 2..5 po bid behaviours improved, sitter discontinued pt doesn't appear to be candidate for suresh Psych as condition unlikely to improve history of cva dapl, statin dm insulin possible colitis completed course of zosyn Oral pain viscous lidocaine dvt prophylaxis - hep sq DNR/DNI reason for continued hospitalization: hypok, dispo planning Quality Stroke Does the patient have a stroke diagnosis?: No Reason for No Anti-thrombotic by Day Two: N/A - Med Ordered VTE Prior VTE?: No VTE Risk Level:: Medical - moderate - high VTE Device Contraindication: N/A - Device Ordered VTE Drug Contraindication: N/A - Med Ordered
[2025-03-19 11:05] VITALS: BP 145/65; PULSE 63; RESP 18; TEMP 36.6; O2SAT 97
[2025-03-19 11:08] LABS: Glucose, Whole Blood 196 mg/dL (60-115)
[2025-03-19 11:19] LABS: Anion Gap 13 (12-20); Blood Urea Nitrogen 16 mg/dL (9-16); Calcium 9.1 mg/dL (8.4-10.2); Carbon Dioxide 24 mmol/L (22-29); Chloride 114 mmol/L (96-108); Creatinine Clr Calc Pharmacy 70.7; Estimated Glomerular Filt Rate > 60; Magnesium 1.6 mg/dL (1.6-2.6); Potassium 3.7 mmol/L (3.3-5.1); Sodium 147 mmol/L (135-145)
[2025-03-19] MEDS: Lidocaine HCl Viscous 2 % 15 ML SOLUTION MUCOUS MEM (12:20)
[2025-03-19] MEDS: Dextrose 5 % and Lactated Ring 1,000 ML 80 ML IVCONT (13:25)
[2025-03-19 15:26] VITALS: BP 148/67; PULSE 71; RESP 20; TEMP 36.9; O2SAT 99
[2025-03-19 15:58] LABS: Glucose, Whole Blood 217 mg/dL (60-115)
[2025-03-19 20:00] VITALS: BP 168/70; PULSE 71; RESP 16; TEMP 36.8; O2SAT 95
[2025-03-19 20:49] LABS: Glucose, Whole Blood 242 mg/dL (60-115)
[2025-03-20] VITALS: BP 133/68; PULSE 63; RESP 16; TEMP 36.8; O2SAT 96
[2025-03-20] MEDS: Dextrose 5 % and Lactated Ring 1,000 ML 80 ML IVCONT ×2 (00:45→13:08)
[2025-03-20 06:00] VITALS: BMI 24.1
[2025-03-20 09:41] LABS: Glucose, Whole Blood 238 mg/dL (60-115)
[2025-03-20] MEDS: buPROPion HCl XL 300 MG TAB.ER.24H PO (10:36)
[2025-03-20] MEDS: Aspirin Enteric Coated 81 MG TABLET.DR PO (10:37)
[2025-03-20] MEDS: Potassium Chloride ER 20 MEQ TAB.ER.PRT PO ×2 (10:37→21:43)
[2025-03-20 10:38] VITALS: BP 142/67
[2025-03-20] MEDS: Metoprolol Tartrate 12.5 MG HALFTAB PO ×3 (10:38→21:43)
[2025-03-20 10:51] VITALS: BP 142/67; PULSE 72; RESP 18; TEMP 36.9; O2SAT 98
--- NOTE | 2025-03-20 11:44 | HO.PM.IMPN ---
Subjective Subjective Date of Service: 03/20/25 Interval History: Seen and examined this morning Interval history: No new issues, remains confused, eating little Physical Exam Vital Signs: Vital Signs: Last Vital Signs Temp 98.5 F 03/20/25 10:51 Pulse 72 03/20/25 10:51 Resp 18 03/20/25 10:51 BP 142/67 H 03/20/25 10:51 Pulse Ox 98 03/20/25 10:51 O2 Del Method Room Air 03/20/25 10:51 BMI result Body Mass Index 24.1 Constitutional - Awake and Alert, No apparent distress Eyes - PERRLA, EOMI Mouth - mucosal membranes dry Cardiovascular - S1S2, RRR, No edema Respiratory - Normal lung expansion, Normal respiratory effort, No respiratory distress, CTA bilaterally Gastrointestinal - NT / ND; +BS; No rebound or guarding Extremities - no calf tenderness bilaterally, no swelling Skin - Warm/Dry Neurological - Alert & oriented to self. Moving extremities Psychological - Appropriate affect Const: Other: confused, mostly calm, but can have periods of agitation Objective Data Active Medications Acetaminophen (Acetaminophen 325 Mg Tablet) 650 mg PO Q6H PRN PRN Reason: Pain, Mild 1-3,fever,headache Last Admin: 03/20/25 10:37 Dose: 650 mg Documented By: AMANDA Amlodipine Besylate (Amlodipine Besylate 5 Mg Tablet) 5 mg PO DAILY [facility]; Protocol Last Admin: 03/20/25 10:38 Dose: 5 mg Documented By: AMANDA Aspirin (Aspirin Enteric Coated 81 Mg Tablet.) 81 mg PO DAILY [facility] Last Admin: 03/20/25 10:37 Dose: 81 mg Documented By: AMANDA Atorvastatin Calcium (Atorvastatin Calcium 20 Mg Tablet) 20 mg PO BEDTIME [facility] Last Admin: 03/19/25 21:06 Dose: 20 mg Documented By: KAILASH Bupropion HCl (Bupropion Hcl Xl 300 Mg Tab.Er.24h) 300 mg PO DAILY [facility] Last Admin: 03/20/25 10:36 Dose: 300 mg Documented By: AMANDA Calcium Carbonate (Calcium Carbonate 750 Mg Tab.Chew) 750 mg PO Q4H PRN PRN Reason: Heartburn Capsaicin (Capsaicin 0.025% Cream 60 Gm Tube) 1 appl TOPICAL TID [facility] Last Admin: 03/20/25 10:37 Dose: 1 appl Documented By: AMANDA Clopidogrel Bisulfate (Clopidogrel Bisulfate 75 Mg Tablet) 75 mg PO DAILY [facility] Last Admin: 03/20/25 10:36 Dose: 75 mg Documented By: AMANDA Dextrose (Dextrose 50 % 25 Gm/50 Ml Syringe) 25 gm IVPUSH Q15M PRN; Protocol PRN Reason: per Hypoglycemia Standing Ord. Last Admin: 03/03/25 20:15 Dose: 25 gm Documented By: MALI Docusate Sodium (Docusate Sodium 100 Mg/10 Ml Liquid) 100 mg PO BEDTIME [facility] Last Admin: 03/19/25 21:13 Dose: Not Given Documented By: KAILASH Non-Admin Reason: Patient Refused Glucose (Glucose Gel 15 Gm Gel..Gram.) 15 gm PO Q15M PRN; Protocol PRN Reason: per Hypoglycemia Standing Ord. Heparin Sodium (Porcine) (Heparin Sodium,Porcine 5,000 Unit/Ml Vial) 5,000 unit SUBCUT Q12H [facility] Last Admin: 03/20/25 10:42 Dose: 5,000 unit Documented By: AMANDA Dextrose/Lactated Ringer's (D5lr) 1,000 mls @ 80 mls/hr IVCONT .[id number] [facility] Last Admin: 03/20/25 00:45 Dose: 80 mls/hr Documented By: KAILASH Insulin Human Lispro (Insulin Lispro 100 Unit/Ml 3 Ml Vial) 0 unit SUBCUT QIDACHS [facility]; Protocol Last Admin: 03/20/25 09:58 Dose: 4 unit Documented By: AMANDA Lidocaine HCl (Lidocaine Hcl Viscous 2 % 15 Ml Solution) 15 ml MUCOUS MEM Q3H PRN PRN Reason: oral pain Last Admin: 03/19/25 12:20 Dose: 15 ml Documented By: MARKEL Melatonin (Melatonin 3 Mg Tablet) 6 mg PO BEDTIME PRN PRN Reason: Insomnia Last Admin: 03/12/25 22:01 Dose: 6 mg Documented By: EULALIO Melatonin (Melatonin 3 Mg Tablet) 3 mg PO BEDTIME [facility] Last Admin: 03/19/25 21:07 Dose: 3 mg Documented By: KAILASH Metoprolol Tartrate (Metoprolol Tartrate 12.5 Mg Halftab) 12.5 mg PO TID [facility]; Protocol Last Admin: 03/20/25 10:38 Dose: 12.5 mg Documented By: AMANDA Olanzapine (Olanzapine 2.5 Mg Tablet) 2.5 mg PO BID [facility] Last Admin: 03/20/25 10:36 Dose: 2.5 mg Documented By: AMANDA Olanzapine (Olanzapine 5 Mg Tablet) 5 mg PO BID PRN PRN Reason: anxiety Last Admin: 03/12/25 22:00 Dose: 5 mg Documented By: EULALIO Potassium Chloride (Potassium Chloride Er 20 Meq Tab.Er.Prt) 20 meq PO BID [facility] Last Admin: 03/20/25 10:37 Dose: 20 meq Documented By: AMANDA Senna (Sennosides 8.6 Mg Tablet) 8.6 mg PO BEDTIME PRN PRN Reason: Constipation Sodium Chloride (0.9 % Sodium Chloride Flush 3 Ml Syringe) 3 ml IVFLUSH QSHIFT [facility] Last Admin: 03/20/25 09:58 Dose: Not Given Documented By: AMANDA Non-Admin Reason: IV Running Labs 03/16/25 06:45 03/19/25 10:52 Labs: Laboratory Results - last 24 hr 03/19/25 03/19/25 03/20/25 15:54 20:29 09:37 POC Glucose 217 H 242 H 238 H Assessment and Plan (1) Major neurocognitive disorder: Status: Acute (2) Cardiomyopathy: Status: Acute Plan 75M PMH alzhemiers/vascular dementia, history of CVA, bladder cancer, DM, htn, presented from [place] with failure to thrive, found to have severe LAURIE and NSTEMI Addult FTT complicated by LAURIE which is now resolved creatinine improved from 7 to now 0.8 N/V no obstruction, now tolerating po Acute hypOkalemia replace and monitor Continue daily replacement hypernatremiam, d/t no drinking enough, presently on ivf nstemi with cardiomyopathy cardio appreciated would hold off on further work up continue asa, plavix, statin, beta merlene s/p 48 heparin advanced alzheimers/vascular dementia zyprexa 2..5 po bid behaviours improved, sitter discontinued pt doesn't appear to be candidate for suresh Psych as condition unlikely to improve history of cva dapl, statin dm insulin possible colitis completed course of zosyn Oral pain viscous lidocaine dvt prophylaxis - hep sq DNR/DNI reason for continued hospitalization: hypok, dispo planning overall poor prognosis: discussed with with case management that his condition is unlikely to improve and hospice care maybe reasonable, she agrees. Will get hospice referal Quality Stroke Does the patient have a stroke diagnosis?: No Reason for No Anti-thrombotic by Day Two: N/A - Med Ordered VTE Prior VTE?: No VTE Risk Level:: Medical - moderate - high VTE Device Contraindication: N/A - Device Ordered VTE Drug Contraindication: N/A - Med Ordered
[2025-03-20 12:11] LABS: Glucose, Whole Blood 229 mg/dL (60-115)
[2025-03-20 14:56] VITALS: BP 120/59; PULSE 97; RESP 18; TEMP 37.2; O2SAT 99
--- NOTE | 2025-03-20 15:01 | MHC.CM.PN ---
EMR REVIEWED, CM/HOSPITALIST MET W/PT, PLAN IS LTC PLACEMENT AND POSSIBLE HOSPICE, MARLO CURTIS AND LUZ ARE CLOSEST TO PT'S KAYLA AND MARLO HAS EMAILED KAYLA THEIR LTC CARE EMILY AND HOSPICE INFO, KAYLA WILL WANT TO TOUR FACILITIES, SALVADOR WILL FOLLOW UP W/KAYLA TOMORROW 03/21 AND CONT TO FOLLOW DC NEEDS.
[2025-03-20 15:31] LABS: Glucose, Whole Blood 217 mg/dL (60-115)
--- NOTE | 2025-03-20 17:00 | PC.NURSE ---
pt alert to self only. calm and cooperative with director medical surgical and assessment. pt can be resistive to care and aggressive with staff when incontinent of stool/urine, removing male purwick. otherwise very pleasant during the day. medicated per NOV. bed in lowest locked position. bed alarm on. camera in place.
[2025-03-20 17:26] VITALS: BP 149/69; PULSE 72
[2025-03-20 20:00] VITALS: PULSE 72; RESP 16; TEMP 36.7; O2SAT 97
[2025-03-20 20:09] LABS: Glucose, Whole Blood 236 mg/dL (60-115)
[2025-03-20] MEDS: 0.9 % Sodium Chloride Flush 3 ML SYRINGE IVFLUSH (21:43)
[2025-03-21] VITALS (8 sets, daily range): BP systolic 131–147; BP diastolic 60–91; PULSE 61–81; RESP 16–18; TEMP 36.1–36.9; O2SAT 95–98; BMI 26.3
[2025-03-21] MEDS: Dextrose 5 % and Lactated Ring 1,000 ML 80 ML IVCONT (01:19)
[2025-03-21 07:25] LABS: Glucose, Whole Blood 191 mg/dL (60-115)
[2025-03-21] MEDS: Metoprolol Tartrate 12.5 MG HALFTAB PO ×3 (07:44→20:26)
[2025-03-21] MEDS: Potassium Chloride ER 20 MEQ TAB.ER.PRT PO ×2 (07:45→20:26)
[2025-03-21] MEDS: Aspirin Enteric Coated 81 MG TABLET.DR PO (07:45)
[2025-03-21] MEDS: buPROPion HCl XL 300 MG TAB.ER.24H PO (07:45)
--- NOTE | 2025-03-21 09:52 | P.PNIM_ITS ---
Subjective Subjective Date of Service: 03/21/25 Interval History: Seen and examined this morning Interval history: No new issues, remains confused, eating little spoke to about hospice yesterday, she's agreable Physical Exam 2 Vital Signs: Vital Signs: Last Vital Signs Temp 97.6 F 03/21/25 07:04 Pulse 65 03/21/25 07:04 Resp 17 03/21/25 07:04 BP 139/68 03/21/25 07:04 Pulse Ox 98 03/21/25 07:04 O2 Del Method Room Air 03/21/25 07:04 BMI result Body Mass Index 26.3 Constitutional - Awake and Alert, No apparent distress Eyes - PERRLA, EOMI Mouth - mucosal membranes dry Cardiovascular - S1S2, RRR, No edema Respiratory - Normal lung expansion, Normal respiratory effort, No respiratory distress, CTA bilaterally Gastrointestinal - NT / ND; +BS; No rebound or guarding Extremities - no calf tenderness bilaterally, no swelling Skin - Warm/Dry Neurological - Alert & oriented to self. Moving extremities Psychological - Appropriate affect Const: Other: confused, mostly calm, but can have periods of agitation Objective Data Active Medications Acetaminophen (Acetaminophen 325 Mg Tablet) 650 mg PO Q6H PRN PRN Reason: Pain, Mild 1-3,fever,headache Last Admin: 03/20/25 10:37 Dose: 650 mg Documented By: AMANDA Amlodipine Besylate (Amlodipine Besylate 5 Mg Tablet) 5 mg PO DAILY [facility]; Protocol Last Admin: 03/21/25 07:45 Dose: 5 mg Documented By: AMANDA Aspirin (Aspirin Enteric Coated 81 Mg Tablet.) 81 mg PO DAILY [facility] Last Admin: 03/21/25 07:45 Dose: 81 mg Documented By: AMANDA Atorvastatin Calcium (Atorvastatin Calcium 20 Mg Tablet) 20 mg PO BEDTIME [facility] Last Admin: 03/20/25 21:43 Dose: 20 mg Documented By: KAILASH Bupropion HCl (Bupropion Hcl Xl 300 Mg Tab.Er.24h) 300 mg PO DAILY [facility] Last Admin: 03/21/25 07:45 Dose: 300 mg Documented By: AMANDA Calcium Carbonate (Calcium Carbonate 750 Mg Tab.Chew) 750 mg PO Q4H PRN PRN Reason: Heartburn Capsaicin (Capsaicin 0.025% Cream 60 Gm Tube) 1 appl TOPICAL TID [facility] Last Admin: 03/21/25 07:46 Dose: 1 appl Documented By: AMANDA Clopidogrel Bisulfate (Clopidogrel Bisulfate 75 Mg Tablet) 75 mg PO DAILY [facility] Last Admin: 03/21/25 07:44 Dose: 75 mg Documented By: AMANDA Dextrose (Dextrose 50 % 25 Gm/50 Ml Syringe) 25 gm IVPUSH Q15M PRN; Protocol PRN Reason: per Hypoglycemia Standing Ord. Last Admin: 03/03/25 20:15 Dose: 25 gm Documented By: MALI Docusate Sodium (Docusate Sodium 100 Mg/10 Ml Liquid) 100 mg PO BEDTIME [facility] Last Admin: 03/20/25 21:43 Dose: 100 mg Documented By: KAILASH Glucose (Glucose Gel 15 Gm Gel..Gram.) 15 gm PO Q15M PRN; Protocol PRN Reason: per Hypoglycemia Standing Ord. Heparin Sodium (Porcine) (Heparin Sodium,Porcine 5,000 Unit/Ml Vial) 5,000 unit SUBCUT Q12H [facility] Last Admin: 03/21/25 00:00 Dose: 5,000 unit Documented By: KAILASH Dextrose/Lactated Ringer's (D5lr) 1,000 mls @ 80 mls/hr IVCONT .[id number] [facility] Last Admin: 03/21/25 01:19 Dose: 80 mls/hr Documented By: KAILASH Insulin Human Lispro (Insulin Lispro 100 Unit/Ml 3 Ml Vial) 0 unit SUBCUT QIDACHS [facility]; Protocol Last Admin: 03/21/25 07:45 Dose: 2 unit Documented By: AMANDA Lidocaine HCl (Lidocaine Hcl Viscous 2 % 15 Ml Solution) 15 ml MUCOUS MEM Q3H PRN PRN Reason: oral pain Last Admin: 03/19/25 12:20 Dose: 15 ml Documented By: MARKEL Melatonin (Melatonin 3 Mg Tablet) 6 mg PO BEDTIME PRN PRN Reason: Insomnia Last Admin: 03/12/25 22:01 Dose: 6 mg Documented By: EULALIO Melatonin (Melatonin 3 Mg Tablet) 3 mg PO BEDTIME [facility] Last Admin: 03/20/25 21:43 Dose: 3 mg Documented By: KAILASH Metoprolol Tartrate (Metoprolol Tartrate 12.5 Mg Halftab) 12.5 mg PO TID [facility]; Protocol Last Admin: 03/21/25 07:44 Dose: 12.5 mg Documented By: AMANDA Olanzapine (Olanzapine 2.5 Mg Tablet) 2.5 mg PO BID [facility] Last Admin: 03/21/25 07:45 Dose: 2.5 mg Documented By: AMANDA Olanzapine (Olanzapine 5 Mg Tablet) 5 mg PO BID PRN PRN Reason: anxiety Last Admin: 03/12/25 22:00 Dose: 5 mg Documented By: EULALIO Potassium Chloride (Potassium Chloride Er 20 Meq Tab.Er.Prt) 20 meq PO BID [facility] Last Admin: 03/21/25 07:45 Dose: 20 meq Documented By: AMANDA Senna (Sennosides 8.6 Mg Tablet) 8.6 mg PO BEDTIME PRN PRN Reason: Constipation Sodium Chloride (0.9 % Sodium Chloride Flush 3 Ml Syringe) 3 ml IVFLUSH QSHIFT [facility] Last Admin: 03/21/25 07:46 Dose: Not Given Documented By: AMANDA Non-Admin Reason: IV Running Labs 03/16/25 06:45 03/19/25 10:52 Labs: Laboratory Results - last 24 hr 03/20/25 03/20/25 03/20/25 12:03 15:12 19:58 POC Glucose 229 H 217 H 236 H 03/21/25 07:21 POC Glucose 191 H Assessment and Plan (1) Major neurocognitive disorder: Status: Acute (2) Cardiomyopathy: Status: Acute Plan 75M PMH alzhemiers/vascular dementia, history of CVA, bladder cancer, DM, htn, presented from [place] with failure to thrive, found to have severe LAURIE and NSTEMI Addult FTT complicated by LAURIE which is now resolved, hypernatremia creatinine improved from 7 to now 0.8 N/V no obstruction, now tolerating po Acute hypOkalemia replace and monitor Continue daily replacement hypernatremiam, d/t no drinking enough, presently on ivf, recheck labs nstemi with cardiomyopathy cardio appreciated would hold off on further work up continue asa, plavix, statin, beta merlene s/p 48 heparin advanced alzheimers/vascular dementia zyprexa 2..5 po bid behaviours improved, sitter discontinued pt doesn't appear to be candidate for suresh Psych as condition unlikely to improve history of cva dapl, statin dm insulin possible colitis completed course of zosyn Oral pain viscous lidocaine dvt prophylaxis - hep sq DNR/DNI reason for continued hospitalization: hypok, dispo planning Goals of caree discussed with and given that patient has been declining for over a year and not improve, will move forwared with hospice Quality Stroke Does the patient have a stroke diagnosis?: No Reason for No Anti-thrombotic by Day Two: N/A - Med Ordered VTE Prior VTE?: No VTE Risk Level:: Medical - moderate - high VTE Device Contraindication: N/A - Device Ordered VTE Drug Contraindication: N/A - Med Ordered
[2025-03-21 10:27] LABS: Anion Gap 13 (12-20); Blood Urea Nitrogen 8 mg/dL (9-16); Calcium 8.6 mg/dL (8.4-10.2); Carbon Dioxide 26 mmol/L (22-29); Chloride 112 mmol/L (96-108); Creatinine Clr Calc Pharmacy 78.3; Estimated Glomerular Filt Rate > 60; Potassium 3.5 mmol/L (3.3-5.1); Sodium 147 mmol/L (135-145)
[2025-03-21 11:34] LABS: Glucose, Whole Blood 210 mg/dL (60-115)
--- NOTE | 2025-03-21 13:19 | MHC.CM.PN ---
Addendum entered by Divya Sol RN 03/21/25 14:02: SALVADOR SPOKE W/ELECTRONIC WARFARE OPERATOR AVERY CELL [phone], AVERY REPORTS SHE WILL HAVE LIAISON REVIEW UPDATES SENT AND REACH OUT TO KAYLA TO DISCUSS. Original Note: EMR REVIEWED, CM SPOKE W/PT'S KAYLA TO REVIEW PLACEMENT OPTIONS AND HOSPICE, PER DISCUSSION KAYLA WOULD PREFER [facility]. [facility] REQUESTING 72HRS OF NSG NOTES TO DETERMINE BEHAVIORS, NSG AWARE AND CM TO SEND UPDATES ONCE TODAYS NOTE IS DONE. CM WILL CONT TO FOLLOW DC NEEDS.
--- NOTE | 2025-03-21 13:26 | PC.NURSE ---
pt alert to self only, hx of dementia. pt able to take meds whole in applesauce/yogurt with no issues this AM. 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 pt does not follow commands well and is not easily redirectable. pt is resistive to care when incontinent of stool/urine and can swing at staff. otherwise is very calm and pleasant. pt appears comfortable in bed at this time. no complaints from pt at this time. bed in lowest locked position. bed alarm on. camera in place.
[2025-03-21 16:14] LABS: Glucose, Whole Blood 126 mg/dL (60-115)
[2025-03-21] MEDS: 0.9 % Sodium Chloride Flush 3 ML SYRINGE IVFLUSH (16:24)
--- NOTE | 2025-03-21 18:03 | HO.WOUND ---
Addendum entered by Maura Zhu RN 03/23/25 13:54: 03/23/25 @ 1400 TT to Provider to order topical antifungal powder twice daily to perineal and buttock area. Discussed with staff patient needing Q 2 hours turns and repositions - staff reports currently patient is not refusing turns and repositions - report patient remains combative at times but is re-directable at this time. ZELALEM mattress in use along with wedges and topical treatments. Addendum entered by Maura Zhu RN 03/22/25 08:07: ZELALEM Mattress in use. Original Note: Wound Consult: Initial 75yr old? male [place] [facility] [place] 05:02- See progress notes and H&P for detailed history.? Wound consult placed for buttock.? Patient agreeable to assessment and photo documentation.? Per chart review and discussion with staff patient has alot of refusals and is aggreive towards staff when attempting to clean and reposition making care for the patient challenging. Sacrum Etiology: Deep Tissue Injury Wound Bed: Dark purple non blanchable tissue Drainage / Odor: None - yeast odor noted Edges: ? irregular and attached Gerri wound:MASD and fungal dermatitis scattered open tissue - ? No Induration, Fluctuance or Warmth noted Pain: pain reported Goals of Treatment: ? Off load pressure and protect from friction and moisture Patient is known to favor leaning towards his right side - wedges placed to aid in repositioning. Bilateral heels assessed for redness - remain intact and blanchable - preventative foams applied and off loaded with pillows. Recommendations: 1. Turn and Reposition every 2 hours and as needed for patient comfort.? Use pillows or wedges to support off loading positions. 2. Off Load all bony prominences with use of pillows and heel boots if needed.? Apply Preventative foams where needed. ? 3. Monitor for incontinence and moisture control, use barrier creams when needed for prevention and treatment. 4. Provide adequate and supplemental nutrition.? 5. Order low air loss mattress. 6. When applicable maintain blood glucose levels per Providers order. Sacrum - Off Load Pressure with Q2 hr turns and use of pillows - Cleanse with PH balance spray or wipes, pat dry. ?Apply antifungal powder twice daily. Apply thin layer of Triad to wound bed - only pat and dab no scrub and rub when soiling occurs. Reapply thin layer PRN after each episode of incontinence. Buttock, scrotum and groin - Off Load Pressure with Q2 hr turns and use of pillows - Cleanse with PH balance spray or wipes, pat dry. ?Apply antifungal powder twice daily. Apply thin layer of Triad to wound bed - only pat and dab no scrub and rub when soiling occurs. Reapply thin layer PRN after each episode of incontinence. Bilateral Heels - Elevate heels off of bed surface with pillows.? Float heels off of pillows.? Apply skin prep allow to dry.? Apply heel foam dressings, peel back and assess Q shift and change every 5-7 days and PRN. Re-consult wound care Nurse for wound deterioration or wound changes.
[2025-03-21 20:48] LABS: Glucose, Whole Blood 222 mg/dL (60-115)
[2025-03-22 03:07] VITALS: BP 127/63; PULSE 60; RESP 16; TEMP 36.6; O2SAT 98
[2025-03-22 06:00] VITALS: BMI 26.1
[2025-03-22 07:02] VITALS: BP 136/72; PULSE 86; RESP 17; TEMP 36.3; O2SAT 97
[2025-03-22 07:18] LABS: Anion Gap 11 (12-20); Blood Urea Nitrogen 9 mg/dL (9-16); Calcium 8.7 mg/dL (8.4-10.2); Carbon Dioxide 25 mmol/L (22-29); Chloride 109 mmol/L (96-108); Creatinine Clr Calc Pharmacy 316.6; Estimated Glomerular Filt Rate > 60; Potassium 3.3 mmol/L (3.3-5.1); Sodium 142 mmol/L (135-145)
[2025-03-22 07:29] LABS: Glucose, Whole Blood 194 mg/dL (60-115)
[2025-03-22] MEDS: Potassium Chloride ER 20 MEQ TAB.ER.PRT PO ×2 (08:46→21:20)
[2025-03-22] MEDS: Aspirin Enteric Coated 81 MG TABLET.DR PO (08:46)
[2025-03-22] MEDS: Metoprolol Tartrate 12.5 MG HALFTAB PO ×3 (08:47→21:20)
[2025-03-22] MEDS: buPROPion HCl XL 300 MG TAB.ER.24H PO (08:47)
--- NOTE | 2025-03-22 10:00 | PC.NURSE ---
pt is alert to self only w hx of vascular dementia. Meds was successfully taken whole in apple sauce without issues. pt intermittently follow commands but displays confusion and is difficult to redirect. HX of CVA resulting in some contracture in hands and legs. Currently, pt is calm and resting in bed with fall precaution in place and camera in room for monitoring pt safety.
--- NOTE | 2025-03-22 10:18 | HO.PM.IMPN ---
Subjective Subjective Date of Service: 03/22/25 Interval History: Seen and examined this morning Interval history:No change in his status and no new issues Physical Exam Vital Signs: Vital Signs: Last Vital Signs Temp 97.4 F 03/22/25 07:02 Pulse 86 03/22/25 07:02 Resp 17 03/22/25 07:02 BP 136/72 03/22/25 07:02 Pulse Ox 97 03/22/25 07:02 O2 Del Method Room Air 03/22/25 07:02 BMI result Body Mass Index 195.3 Constitutional - Awake and Alert, No apparent distress Eyes - PERRLA, EOMI Mouth - mucosal membranes dry Cardiovascular - S1S2, RRR, No edema Respiratory - Normal lung expansion, Normal respiratory effort, No respiratory distress, CTA bilaterally Gastrointestinal - NT / ND; +BS; No rebound or guarding Extremities - no calf tenderness bilaterally, no swelling Skin - Warm/Dry Neurological - Alert & oriented to self. Moving extremities Psychological - Appropriate affect Const: Other: confused, mostly calm, but can have periods of agitation Objective Data Active Medications Acetaminophen (Acetaminophen 325 Mg Tablet) 650 mg PO Q6H PRN PRN Reason: Pain, Mild 1-3,fever,headache Last Admin: 03/20/25 10:37 Dose: 650 mg Documented By: AMANDA Amlodipine Besylate (Amlodipine Besylate 5 Mg Tablet) 5 mg PO DAILY [facility]; Protocol Last Admin: 03/22/25 08:47 Dose: 5 mg Documented By: SIMÓN Aspirin (Aspirin Enteric Coated 81 Mg Tablet.) 81 mg PO DAILY [facility] Last Admin: 03/22/25 08:46 Dose: 81 mg Documented By: SIMÓN Atorvastatin Calcium (Atorvastatin Calcium 20 Mg Tablet) 20 mg PO BEDTIME [facility] Last Admin: 03/21/25 20:26 Dose: 20 mg Documented By: MANUELA Bupropion HCl (Bupropion Hcl Xl 300 Mg Tab.Er.24h) 300 mg PO DAILY [facility] Last Admin: 03/22/25 08:47 Dose: 300 mg Documented By: SIMÓN Calcium Carbonate (Calcium Carbonate 750 Mg Tab.Chew) 750 mg PO Q4H PRN PRN Reason: Heartburn Capsaicin (Capsaicin 0.025% Cream 60 Gm Tube) 1 appl TOPICAL TID [facility] Last Admin: 03/22/25 08:49 Dose: 1 appl Documented By: SIMÓN Clopidogrel Bisulfate (Clopidogrel Bisulfate 75 Mg Tablet) 75 mg PO DAILY [facility] Last Admin: 03/22/25 08:47 Dose: 75 mg Documented By: SIMÓN Dextrose (Dextrose 50 % 25 Gm/50 Ml Syringe) 25 gm IVPUSH Q15M PRN; Protocol PRN Reason: per Hypoglycemia Standing Ord. Last Admin: 03/03/25 20:15 Dose: 25 gm Documented By: GALINA-LEO Docusate Sodium (Docusate Sodium 100 Mg/10 Ml Liquid) 100 mg PO BEDTIME [facility] Last Admin: 03/21/25 20:26 Dose: 100 mg Documented By: MANUELA Glucose (Glucose Gel 15 Gm Gel..Gram.) 15 gm PO Q15M PRN; Protocol PRN Reason: per Hypoglycemia Standing Ord. Heparin Sodium (Porcine) (Heparin Sodium,Porcine 5,000 Unit/Ml Vial) 5,000 unit SUBCUT Q12H [facility] Last Admin: 03/22/25 01:57 Dose: 5,000 unit Documented By: MANUELA Dextrose (D5w) 1,000 mls @ 100 mls/hr IVCONT .Q10H [facility] Last Admin: 03/22/25 01:58 Dose: 100 mls/hr Documented By: MANUELA Insulin Human Lispro (Insulin Lispro 100 Unit/Ml 3 Ml Vial) 0 unit SUBCUT QIDACHS [facility]; Protocol Last Admin: 03/22/25 08:47 Dose: 2 unit Documented By: SIMÓN Lidocaine HCl (Lidocaine Hcl Viscous 2 % 15 Ml Solution) 15 ml MUCOUS MEM Q3H PRN PRN Reason: oral pain Last Admin: 03/19/25 12:20 Dose: 15 ml Documented By: MARKEL Melatonin (Melatonin 3 Mg Tablet) 6 mg PO BEDTIME PRN PRN Reason: Insomnia Last Admin: 03/12/25 22:01 Dose: 6 mg Documented By: EULALIO Melatonin (Melatonin 3 Mg Tablet) 3 mg PO BEDTIME [facility] Last Admin: 03/21/25 20:26 Dose: 3 mg Documented By: MANUELA Metoprolol Tartrate (Metoprolol Tartrate 12.5 Mg Halftab) 12.5 mg PO TID [facility]; Protocol Last Admin: 03/22/25 08:47 Dose: 12.5 mg Documented By: SIMÓN Olanzapine (Olanzapine 2.5 Mg Tablet) 2.5 mg PO BID [facility] Last Admin: 03/22/25 08:51 Dose: 2.5 mg Documented By: SIMÓN Olanzapine (Olanzapine 5 Mg Tablet) 5 mg PO BID PRN PRN Reason: anxiety Last Admin: 03/12/25 22:00 Dose: 5 mg Documented By: EULALIO Potassium Chloride (Potassium Chloride Er 20 Meq Tab.Er.Prt) 20 meq PO BID [facility] Last Admin: 03/22/25 08:46 Dose: 20 meq Documented By: SIMÓN Senna (Sennosides 8.6 Mg Tablet) 8.6 mg PO BEDTIME PRN PRN Reason: Constipation Sodium Chloride (0.9 % Sodium Chloride Flush 3 Ml Syringe) 3 ml IVFLUSH QSHIFT [facility] Last Admin: 03/22/25 08:47 Dose: Not Given Documented By: SIMÓN Non-Admin Reason: IV Running Labs 03/16/25 06:45 03/22/25 06:50 Labs: Laboratory Results - last 24 hr 03/21/25 03/21/25 03/21/25 09:59 11:31 16:04 Hold Purple Top Anion Gap 13 Estim Creat Clear Calc 78.3 Estimated GFR > 60 POC Glucose 210 H 126 H Random Glucose 232 H Calcium 8.6 03/21/25 03/22/25 03/22/25 20:38 06:50 07:23 Hold Purple Top SEE NOTE Anion Gap 11 L Estim Creat Clear Calc 316.6 Estimated GFR > 60 POC Glucose 222 H 194 H Random Glucose 212 H Calcium 8.7 Assessment and Plan (1) Major neurocognitive disorder: Status: Acute (2) Cardiomyopathy: Status: Acute Plan 75M PMH alzhemiers/vascular dementia, history of CVA, bladder cancer, DM, htn, presented from [place] with failure to thrive, found to have severe LAURIE and NSTEMI Addult FTT complicated by LAURIE which is now resolved, hypernatremia creatinine improved from 7 to now 0.8 N/V no obstruction, now tolerating po Acute hypOkalemia replace and monitor Continue daily replacement hypernatremiam, d/t no drinking enough, presently on ivf, recheck labs nstemi with cardiomyopathy cardio appreciated would hold off on further work up continue asa, plavix, statin, beta merlene s/p 48 heparin advanced alzheimers/vascular dementia zyprexa 2..5 po bid behaviours improved, sitter discontinued pt doesn't appear to be candidate for suresh Psych as condition unlikely to improve history of cva dapl, statin dm insulin possible colitis completed course of zosyn Oral pain viscous lidocaine dvt prophylaxis - hep sq DNR/DNI reason for continued hospitalization: hypok, dispo planning Goals of caree discussed with and given that patient has been declining for over a year and not improve, will move forwared with hospice in a SNF Quality Stroke Does the patient have a stroke diagnosis?: No Reason for No Anti-thrombotic by Day Two: N/A - Med Ordered VTE Prior VTE?: No VTE Risk Level:: Medical - moderate - high VTE Device Contraindication: N/A - Device Ordered VTE Drug Contraindication: N/A - Med Ordered
[2025-03-22 11:03] LABS: Glucose, Whole Blood 156 mg/dL (60-115)
[2025-03-22 11:13] VITALS: BP 125/87; PULSE 66; RESP 16; TEMP 36.3; O2SAT 94
[2025-03-22 11:40] VITALS: BMI 24.5
--- NOTE | 2025-03-22 11:44 | MHC.CLN ---
PT IS MODERATELY MALNOURISHED PT WITH MILDLY DEPLETED SUBCUTANEOUS FAT AND MUSCLE MASS WITH POOR PO INTAKE AND INCREASED NUTRITION NEEDS R/T PRESSURE INJURY DIET RX: 2000DM-RECOMMEND 2200DM TO PROMOTE WOUND HEALING RECOMMEND ADDING ENSURE MAX BID AND GELATEIN BID WITH MEALS TO PROMOTE WOUND HEALING ENSURE MAX BID TO PROVIDE 300KCALS, 60G PROTEIN GELATEIN BID TO PROVIDE 320KCALS, 40G PROTEIN MONITOR PO INTAKE AND ENCOURAGE SUPPLEMENTS SEE FULL ASSESSMENT
[2025-03-22 14:59] VITALS: BP 131/62; PULSE 69; RESP 17; TEMP 36.3; O2SAT 95
[2025-03-22 16:04] LABS: Glucose, Whole Blood 178 mg/dL (60-115)
[2025-03-22 19:24] VITALS: BP 128/58; PULSE 69; RESP 17; TEMP 36.8; O2SAT 98
[2025-03-22 19:39] LABS: Glucose, Whole Blood 213 mg/dL (60-115)
[2025-03-22 23:26] VITALS: BP 124/58; PULSE 82; RESP 17; TEMP 36.9; O2SAT 98
[2025-03-23 04:00] VITALS: BP 126/56; PULSE 82; RESP 16; TEMP 36.8; O2SAT 98
[2025-03-23 08:00] VITALS: BP 146/109; PULSE 86; RESP 20; TEMP 36.9; O2SAT 97
[2025-03-23 08:09] LABS: Glucose, Whole Blood 217 mg/dL (60-115)
[2025-03-23] MEDS: Aspirin Enteric Coated 81 MG TABLET.DR PO (08:11)
[2025-03-23] MEDS: buPROPion HCl XL 300 MG TAB.ER.24H PO (08:11)
[2025-03-23] MEDS: Potassium Chloride ER 20 MEQ TAB.ER.PRT PO ×2 (08:11→20:43)
[2025-03-23] MEDS: Metoprolol Tartrate 12.5 MG HALFTAB PO ×3 (08:12→20:44)
--- NOTE | 2025-03-23 10:00 | PC.NURSE ---
PT has hx dementia, alert to self only. pt is more cooperative today and tolerating food better today. meds was given in apple sauce without any difficulty. pt was cleaned and repositioned. triad cream applied to coccyx wound per recommendation. pt is resting in bed, camera and fall precaution in place.
--- NOTE | 2025-03-23 11:43 | HO.PM.IMPN ---
Subjective Subjective Date of Service: 03/23/25 Interval History: Seen and examined this morning Interval history:No change in his status and no new issues Physical Exam Vital Signs: Vital Signs: Last Vital Signs Temp 98.5 F 03/23/25 08:00 Pulse 86 03/23/25 08:00 Resp 20 03/23/25 08:00 BP 146/109 H 03/23/25 08:00 Pulse Ox 97 03/23/25 08:00 O2 Del Method Room Air 03/23/25 08:00 BMI result Body Mass Index 24.5 Objective Data Active Medications Acetaminophen (Acetaminophen 325 Mg Tablet) 650 mg PO Q6H PRN PRN Reason: Pain, Mild 1-3,fever,headache Last Admin: 03/20/25 10:37 Dose: 650 mg Documented By: AMANDA Amlodipine Besylate (Amlodipine Besylate 5 Mg Tablet) 5 mg PO DAILY [facility]; Protocol Last Admin: 03/23/25 08:11 Dose: 5 mg Documented By: SIMÓN Aspirin (Aspirin Enteric Coated 81 Mg Tablet.) 81 mg PO DAILY [facility] Last Admin: 03/23/25 08:11 Dose: 81 mg Documented By: SIMÓN Atorvastatin Calcium (Atorvastatin Calcium 20 Mg Tablet) 20 mg PO BEDTIME [facility] Last Admin: 03/22/25 21:20 Dose: 20 mg Documented By: CLAU Bupropion HCl (Bupropion Hcl Xl 300 Mg Tab.Er.24h) 300 mg PO DAILY [facility] Last Admin: 03/23/25 08:11 Dose: 300 mg Documented By: SIMÓN Calcium Carbonate (Calcium Carbonate 750 Mg Tab.Chew) 750 mg PO Q4H PRN PRN Reason: Heartburn Capsaicin (Capsaicin 0.025% Cream 60 Gm Tube) 1 appl TOPICAL TID [facility] Last Admin: 03/23/25 08:12 Dose: 1 appl Documented By: SIMÓN Clopidogrel Bisulfate (Clopidogrel Bisulfate 75 Mg Tablet) 75 mg PO DAILY [facility] Last Admin: 03/23/25 08:12 Dose: 75 mg Documented By: SIMÓN Dextrose (Dextrose 50 % 25 Gm/50 Ml Syringe) 25 gm IVPUSH Q15M PRN; Protocol PRN Reason: per Hypoglycemia Standing Ord. Last Admin: 03/03/25 20:15 Dose: 25 gm Documented By: GALINA-LEO Docusate Sodium (Docusate Sodium 100 Mg/10 Ml Liquid) 100 mg PO BEDTIME [facility] Last Admin: 03/22/25 21:30 Dose: Not Given Documented By: CLAU Non-Admin Reason: Patient Refused Glucose (Glucose Gel 15 Gm Gel..Gram.) 15 gm PO Q15M PRN; Protocol PRN Reason: per Hypoglycemia Standing Ord. Heparin Sodium (Porcine) (Heparin Sodium,Porcine 5,000 Unit/Ml Vial) 5,000 unit SUBCUT Q12H [facility] Last Admin: 03/22/25 23:39 Dose: Not Given Documented By: CLAU Non-Admin Reason: Patient Refused Dextrose (D5w) 1,000 mls @ 100 mls/hr IVCONT .Q10H [facility] Last Admin: 03/23/25 05:53 Dose: 100 mls/hr Documented By: CLAU Insulin Human Lispro (Insulin Lispro 100 Unit/Ml 3 Ml Vial) 0 unit SUBCUT QIDACHS [facility]; Protocol Last Admin: 03/23/25 08:12 Dose: 4 unit Documented By: SIMÓN Lidocaine HCl (Lidocaine Hcl Viscous 2 % 15 Ml Solution) 15 ml MUCOUS MEM Q3H PRN PRN Reason: oral pain Last Admin: 03/19/25 12:20 Dose: 15 ml Documented By: MARKEL Melatonin (Melatonin 3 Mg Tablet) 6 mg PO BEDTIME PRN PRN Reason: Insomnia Last Admin: 03/12/25 22:01 Dose: 6 mg Documented By: EULALIO Melatonin (Melatonin 3 Mg Tablet) 3 mg PO BEDTIME [facility] Last Admin: 03/22/25 21:20 Dose: 3 mg Documented By: CLAU Metoprolol Tartrate (Metoprolol Tartrate 12.5 Mg Halftab) 12.5 mg PO TID [facility]; Protocol Last Admin: 03/23/25 08:12 Dose: 12.5 mg Documented By: SIMÓN Olanzapine (Olanzapine 2.5 Mg Tablet) 2.5 mg PO BID [facility] Last Admin: 03/23/25 08:11 Dose: 2.5 mg Documented By: SIMÓN Olanzapine (Olanzapine 5 Mg Tablet) 5 mg PO BID PRN PRN Reason: anxiety Last Admin: 03/12/25 22:00 Dose: 5 mg Documented By: EULALIO Potassium Chloride (Potassium Chloride Er 20 Meq Tab.Er.Prt) 20 meq PO BID [facility] Last Admin: 03/23/25 08:11 Dose: 20 meq Documented By: SIMÓN Senna (Sennosides 8.6 Mg Tablet) 8.6 mg PO BEDTIME PRN PRN Reason: Constipation Sodium Chloride (0.9 % Sodium Chloride Flush 3 Ml Syringe) 3 ml IVFLUSH QSHIFT [facility] Last Admin: 03/23/25 08:12 Dose: Not Given Documented By: SIMÓN Non-Admin Reason: IV Running Labs 03/16/25 06:45 03/22/25 06:50 Labs: Laboratory Results - last 24 hr 03/22/25 03/22/25 03/23/25 16:00 19:28 08:01 POC Glucose 178 H 213 H 217 H Assessment and Plan (1) Major neurocognitive disorder: Status: Acute (2) Cardiomyopathy: Status: Acute Plan 75M PMH alzhemiers/vascular dementia, history of CVA, bladder cancer, DM, htn, presented from [place] with failure to thrive, found to have severe LAURIE and NSTEMI Addult FTT complicated by LAURIE which is now resolved, hypernatremia creatinine improved from 7 to now 0.8 N/V no obstruction, now tolerating po Acute hypOkalemia replace and monitor Continue daily replacement hypernatremiam, d/t no drinking enough, presently on ivf, recheck labs nstemi with cardiomyopathy cardio appreciated would hold off on further work up continue asa, plavix, statin, beta merlene s/p 48 heparin advanced alzheimers/vascular dementia zyprexa 2..5 po bid behaviours improved, sitter discontinued pt doesn't appear to be candidate for suresh Psych as condition unlikely to improve history of cva dapl, statin dm insulin possible colitis completed course of zosyn Oral pain viscous lidocaine dvt prophylaxis - hep sq DNR/DNI reason for continued hospitalization: hypok, dispo planning Goals of caree discussed with and given that patient has been declining for over a year and not improve, will move forwared with hospice in a SNF Quality Stroke Does the patient have a stroke diagnosis?: No Reason for No Anti-thrombotic by Day Two: N/A - Med Ordered VTE Prior VTE?: No VTE Risk Level:: Medical - moderate - high VTE Device Contraindication: N/A - Device Ordered VTE Drug Contraindication: N/A - Med Ordered
[2025-03-23 11:56] LABS: Glucose, Whole Blood 279 mg/dL (60-115)
[2025-03-23 11:57] VITALS: BP 164/60; PULSE 70; RESP 20; TEMP 36.6; O2SAT 97
[2025-03-23 12:53] LABS: Anion Gap 13 (12-20); Blood Urea Nitrogen 12 mg/dL (9-16); Calcium 8.2 mg/dL (8.4-10.2); Carbon Dioxide 23 mmol/L (22-29); Chloride 103 mmol/L (96-108); Creatinine Clr Calc Pharmacy 75.6; Estimated Glomerular Filt Rate > 60; Potassium 3.7 mmol/L (3.3-5.1); Sodium 135 mmol/L (135-145)
--- NOTE | 2025-03-23 13:24 | MHC.CM.PN ---
Addendum entered by Divya Sol RN 03/23/25 15:17: CM received message from [facility] liaison requesting contact information to discuss financials, liason provided w/Marta's phone number and email. Addendum entered by Divya Sol RN 03/23/25 14:33: CM received call back from pt's Marta who requested ref be expanded to [facility] area snf's, Marta reports if that does not work out she will go with [facility]. Referral expanded and CM awaiting bed offers. Original Note: EMR reviewed, per [facility] no beds this weeks and they will cont to follow. This CM did reach out to [facility] and they reported they have a bed available, CM attempted to contact pt's Marta at # on file however number is not working/ringing, CM emailed Marta and awaiting response.
[2025-03-23 15:15] VITALS: BP 120/56; PULSE 69; RESP 16; TEMP 36.7; O2SAT 97
[2025-03-23 16:09] LABS: Glucose, Whole Blood 117 mg/dL (60-115)
[2025-03-23 19:47] VITALS: BP 103/59; PULSE 78; RESP 18; TEMP 37.2; O2SAT 98
[2025-03-23 20:29] LABS: Glucose, Whole Blood 178 mg/dL (60-115)
[2025-03-23] MEDS: 0.9 % Sodium Chloride Flush 3 ML SYRINGE IVFLUSH (20:45)
[2025-03-23 23:05] VITALS: BP 127/70; PULSE 78; RESP 16; TEMP 36.7; O2SAT 97
[2025-03-24 03:22] VITALS: BP 113/68; PULSE 81; RESP 16; TEMP 36.2; O2SAT 96
[2025-03-24 06:00] VITALS: BMI 24.5
[2025-03-24 07:14] VITALS: BP 110/57; PULSE 68; RESP 18; TEMP 36.6; O2SAT 98
[2025-03-24 07:59] LABS: Glucose, Whole Blood 171 mg/dL (60-115)
[2025-03-24] MEDS: 0.9 % Sodium Chloride Flush 3 ML SYRINGE IVFLUSH (08:27)
[2025-03-24] MEDS: buPROPion HCl XL 300 MG TAB.ER.24H PO (08:28)
[2025-03-24] MEDS: Potassium Chloride ER 20 MEQ TAB.ER.PRT PO ×2 (08:28→19:46)
[2025-03-24] MEDS: Metoprolol Tartrate 12.5 MG HALFTAB PO ×3 (08:28→19:45)
[2025-03-24] MEDS: Aspirin Enteric Coated 81 MG TABLET.DR PO (08:29)
[2025-03-24 11:24] VITALS: BP 118/55; PULSE 80; RESP 18; TEMP 37; O2SAT 90
--- NOTE | 2025-03-24 11:25 | P.PNIM_ITS ---
Subjective Subjective Date of Service: 03/24/25 Interval History: Seen and examined this morning Interval history:Nursing reporting lip smaking and refusing some meds and not eating much Physical Exam 2 Vital Signs: Vital Signs: Last Vital Signs Temp 98 F 03/24/25 07:14 Pulse 68 03/24/25 07:14 Resp 18 03/24/25 07:14 BP 110/57 L 03/24/25 07:14 Pulse Ox 98 03/24/25 07:14 O2 Del Method Room Air 03/24/25 07:14 BMI result Body Mass Index 24.5 Objective Data Active Medications Acetaminophen (Acetaminophen 325 Mg Tablet) 650 mg PO Q6H PRN PRN Reason: Pain, Mild 1-3,fever,headache Last Admin: 03/23/25 20:44 Dose: 650 mg Documented By: HAYDER Amlodipine Besylate (Amlodipine Besylate 5 Mg Tablet) 5 mg PO DAILY [facility]; Protocol Last Admin: 03/24/25 08:28 Dose: 5 mg Documented By: PERLA Aspirin (Aspirin Enteric Coated 81 Mg Tablet.Dr) 81 mg PO DAILY [facility] Last Admin: 03/24/25 08:29 Dose: 81 mg Documented By: PERLA Atorvastatin Calcium (Atorvastatin Calcium 20 Mg Tablet) 20 mg PO BEDTIME [facility] Last Admin: 03/23/25 20:44 Dose: 20 mg Documented By: HAYDER Bupropion HCl (Bupropion Hcl Xl 300 Mg Tab.Er.24h) 300 mg PO DAILY [facility] Last Admin: 03/24/25 08:28 Dose: 300 mg Documented By: PERLA Calcium Carbonate (Calcium Carbonate 750 Mg Tab.Chew) 750 mg PO Q4H PRN PRN Reason: Heartburn Capsaicin (Capsaicin 0.025% Cream 60 Gm Tube) 1 appl TOPICAL TID [facility] Last Admin: 03/24/25 09:43 Dose: Not Given Documented By: PERLA Non-Admin Reason: Patient Refused Clopidogrel Bisulfate (Clopidogrel Bisulfate 75 Mg Tablet) 75 mg PO DAILY [facility] Last Admin: 03/24/25 08:29 Dose: 75 mg Documented By: PERLA Dextrose (Dextrose 50 % 25 Gm/50 Ml Syringe) 25 gm IVPUSH Q15M PRN; Protocol PRN Reason: per Hypoglycemia Standing Ord. Last Admin: 03/03/25 20:15 Dose: 25 gm Documented By: MALI Docusate Sodium (Docusate Sodium 100 Mg/10 Ml Liquid) 100 mg PO BEDTIME [facility] Last Admin: 03/23/25 20:46 Dose: Not Given Documented By: HAYDER Non-Admin Reason: Patient Refused Glucose (Glucose Gel 15 Gm Gel..Gram.) 15 gm PO Q15M PRN; Protocol PRN Reason: per Hypoglycemia Standing Ord. Heparin Sodium (Porcine) (Heparin Sodium,Porcine 5,000 Unit/Ml Vial) 5,000 unit SUBCUT Q12H [facility] Last Admin: 03/23/25 23:31 Dose: 5,000 unit Documented By: HAYDER Insulin Human Lispro (Insulin Lispro 100 Unit/Ml 3 Ml Vial) 0 unit SUBCUT QIDACHS [facility]; Protocol Last Admin: 03/24/25 08:29 Dose: 2 unit Documented By: PERLA Lidocaine HCl (Lidocaine Hcl Viscous 2 % 15 Ml Solution) 15 ml MUCOUS MEM Q3H PRN PRN Reason: oral pain Last Admin: 03/19/25 12:20 Dose: 15 ml Documented By: MARKEL Melatonin (Melatonin 3 Mg Tablet) 6 mg PO BEDTIME PRN PRN Reason: Insomnia Last Admin: 03/12/25 22:01 Dose: 6 mg Documented By: EULALIO Melatonin (Melatonin 3 Mg Tablet) 3 mg PO BEDTIME [facility] Last Admin: 03/23/25 20:44 Dose: 3 mg Documented By: HAYDER Metoprolol Tartrate (Metoprolol Tartrate 12.5 Mg Halftab) 12.5 mg PO TID [facility]; Protocol Last Admin: 03/24/25 08:28 Dose: 12.5 mg Documented By: PERLA Olanzapine (Olanzapine 2.5 Mg Tablet) 2.5 mg PO BID [facility] Last Admin: 03/24/25 08:28 Dose: 2.5 mg Documented By: PERLA Olanzapine (Olanzapine 5 Mg Tablet) 5 mg PO BID PRN PRN Reason: anxiety Last Admin: 03/12/25 22:00 Dose: 5 mg Documented By: EULALIO Potassium Chloride (Potassium Chloride Er 20 Meq Tab.Er.Prt) 20 meq PO BID [facility] Last Admin: 03/24/25 08:28 Dose: 20 meq Documented By: PERLA Senna (Sennosides 8.6 Mg Tablet) 8.6 mg PO BEDTIME PRN PRN Reason: Constipation Last Admin: 03/23/25 20:45 Dose: 8.6 mg Documented By: HAYDER Sodium Chloride (0.9 % Sodium Chloride Flush 3 Ml Syringe) 3 ml IVFLUSH QSHIFT [facility] Last Admin: 03/24/25 08:27 Dose: 3 ml Documented By: PERLA Labs 03/16/25 06:45 03/23/25 12:33 Labs: Laboratory Results - last 24 hr 03/23/25 03/23/25 03/23/25 11:46 12:33 15:58 Anion Gap 13 Estim Creat Clear Calc 75.6 Estimated GFR > 60 POC Glucose 279 H 117 H Random Glucose 281 H Calcium 8.2 L 03/23/25 03/24/25 20:26 07:12 Anion Gap Estim Creat Clear Calc Estimated GFR POC Glucose 178 H 171 H Random Glucose Calcium Assessment and Plan (1) Major neurocognitive disorder: Status: Acute (2) Cardiomyopathy: Status: Acute Plan 75M PMH alzhemiers/vascular dementia, history of CVA, bladder cancer, DM, htn, [place] failure [place] thrive, found to have severe LAURIE and NSTEMI Addult FTT complicated by LAURIE which is now resolved, hypernatremia, advanced dementia with agitations creatinine improved from 7 to now 0.8 N/V no obstruction, now tolerating po Acute hypOkalemia replace and monitor Continue daily replacement hypernatremiam, d/t no drinking enough, presently on ivf, recheck labs nstemi with cardiomyopathy cardio appreciated would hold off on further work up continue asa, plavix, statin, beta merlene s/p 48 heparin advanced alzheimers/vascular dementia zyprexa 2..5 po bid behaviours improved, sitter discontinued pt doesn't appear to be candidate for suresh Psych as condition unlikely to improve history of cva dapl, statin dm insulin possible colitis completed course of zosyn Oral pain viscous lidocaine dvt prophylaxis - hep sq DNR/DNI reason for continued hospitalization: hypok, dispo planning Goals of caree discussed with and given that patient has been declining for over a year and not improve, will move forwared with hospice in a SNF, waiting on placement for hospice Quality Stroke Does the patient have a stroke diagnosis?: No Reason for No Anti-thrombotic by Day Two: N/A - Med Ordered VTE Prior VTE?: No VTE Risk Level:: Medical - moderate - high VTE Device Contraindication: N/A - Device Ordered VTE Drug Contraindication: N/A - Med Ordered
[2025-03-24 11:52] LABS: Glucose, Whole Blood 155 mg/dL (60-115)
--- NOTE | 2025-03-24 12:01 | MHC.CLN ---
F/U PT IS MODERATELY MALNOURISHED SEE FULL ASSESSMENT DATED 03/22/25 PO ITNAKE 25-50% DIET RX: 2200DM -APPROPRIATE RECEIVING ENSURE MAX BID AND GELATEIN BID WITH MEALS TO PROMOTE WOUND HEALING ENSURE MAX BID TO PROVIDE 300KCALS, 60G PROTEIN GELATEIN BID TO PROVIDE 320KCALS, 40G PROTEIN MONITOR PO INTAKE AND ENCOURAGE SUPPLEMENTS
--- NOTE | 2025-03-24 13:34 | MHC.CM.PN ---
EMR REVIEWED, KALYN LÓPEZ INTERESTED AND REQUESTED 72HRS OF NSG NOTES WHICH WILL BE SENT ONCE TODAYS NOTE IS DONE, PER LIAISON THEY DID EMAIL PT'S KAYLA A FINANCIAL DISCLOSURE FORM, CM WILL CONT TO FOLLOE DC NEEDS.
--- NOTE | 2025-03-24 14:20 | PC.NURSE ---
patient took all PO meds crushed in apple sauce. patient agreeable to receiving insulin injections and denies any discomfort or pain. pt cooperatve with care. Pt tolerated lunch eating approximately 50% of his lunch and all of ice cream cup
[2025-03-24 15:48] VITALS: BP 110/54; PULSE 88; RESP 16; TEMP 37.1; O2SAT 94
[2025-03-24 16:23] LABS: Glucose, Whole Blood 140 mg/dL (60-115)
[2025-03-24 19:31] VITALS: BP 122/64; PULSE 76; RESP 16; TEMP 37.9; O2SAT 94
[2025-03-24 20:48] LABS: Glucose, Whole Blood 175 mg/dL (60-115)
[2025-03-24 23:46] VITALS: PULSE 62; RESP 16; TEMP 36.3; O2SAT 98
[2025-03-25] VITALS (7 sets, daily range): BP systolic 114–131; BP diastolic 54–80; PULSE 62–79; RESP 16–19; TEMP 36.2–36.7; O2SAT 95–98; BMI 23.7
[2025-03-25 08:03] LABS: Glucose, Whole Blood 156 mg/dL (60-115)
[2025-03-25] MEDS: Potassium Chloride ER 20 MEQ TAB.ER.PRT PO ×2 (09:31→19:51)
[2025-03-25] MEDS: Metoprolol Tartrate 12.5 MG HALFTAB PO ×3 (09:32→19:51)
[2025-03-25] MEDS: Aspirin Enteric Coated 81 MG TABLET.DR PO (09:32)
[2025-03-25] MEDS: buPROPion HCl XL 300 MG TAB.ER.24H PO (09:32)
--- NOTE | 2025-03-25 10:36 | HO.PM.IMPN ---
Subjective Subjective Date of Service: 03/25/25 Interval History: Patient without any complaints this morning. No acute nursing events overnight Physical Exam Vital Signs: Vital Signs: Last Vital Signs Temp 97.6 F 03/25/25 08:00 Pulse 73 03/25/25 08:00 Resp 18 03/25/25 08:00 BP 117/65 03/25/25 08:00 Pulse Ox 97 03/25/25 08:00 O2 Del Method Room Air 03/25/25 08:00 BMI result Body Mass Index 23.7 Middle-aged male lying in bed in no distress Neck supple, no JVD Regular rate and rhythm, S1-S2 heard Regular breath sounds bilaterally, no wheezing or crackles appreciated Abdomen soft nontender, no guarding, no rigidity Patient is awake, alert and oriented times on ; no focal motor deficit Psych: Normal mood No pedal edema Const: Other: confused, mostly calm, but can have periods of agitation General: no acute distress and awake Resp: Effort & Inspection: normal respiratory effort and able to speak in complete sentences Auscultation: clear to auscultation bilaterally Cardio: Rate: regular rate Rhythm: regular rhythm Heart sounds: S1 normal heart sound present and S2 normal heart sound present GI: Palpation (GI): Soft to palpation and nontender Skin: Rashes: no rashes Neuro: Other: no tremor, no asterixis Extrem: General: No edema and No pedal edema Objective Data Active Medications Acetaminophen (Acetaminophen 325 Mg Tablet) 650 mg PO Q6H PRN PRN Reason: Pain, Mild 1-3,fever,headache Last Admin: 03/24/25 19:45 Dose: 650 mg Documented By: HAYDER Amlodipine Besylate (Amlodipine Besylate 5 Mg Tablet) 5 mg PO DAILY [facility]; Protocol Last Admin: 03/25/25 09:30 Dose: 5 mg Documented By: PERLA Aspirin (Aspirin Enteric Coated 81 Mg Tablet.Dr) 81 mg PO DAILY [facility] Last Admin: 03/25/25 09:32 Dose: 81 mg Documented By: PERLA Atorvastatin Calcium (Atorvastatin Calcium 20 Mg Tablet) 20 mg PO BEDTIME [facility] Last Admin: 03/24/25 19:45 Dose: 20 mg Documented By: HAYDER Bupropion HCl (Bupropion Hcl Xl 300 Mg Tab.Er.24h) 300 mg PO DAILY [facility] Last Admin: 03/25/25 09:32 Dose: 300 mg Documented By: PERLA Calcium Carbonate (Calcium Carbonate 750 Mg Tab.Chew) 750 mg PO Q4H PRN PRN Reason: Heartburn Capsaicin (Capsaicin 0.025% Cream 60 Gm Tube) 1 appl TOPICAL TID [facility] Last Admin: 03/24/25 19:55 Dose: 1 appl Documented By: HAYDER Clopidogrel Bisulfate (Clopidogrel Bisulfate 75 Mg Tablet) 75 mg PO DAILY [facility] Last Admin: 03/25/25 09:31 Dose: 75 mg Documented By: PERLA Dextrose (Dextrose 50 % 25 Gm/50 Ml Syringe) 25 gm IVPUSH Q15M PRN; Protocol PRN Reason: per Hypoglycemia Standing Ord. Last Admin: 03/03/25 20:15 Dose: 25 gm Documented By: MALI Docusate Sodium (Docusate Sodium 100 Mg/10 Ml Liquid) 100 mg PO BEDTIME [facility] Last Admin: 03/24/25 19:56 Dose: Not Given Documented By: HAYDER Non-Admin Reason: Patient Refused Glucose (Glucose Gel 15 Gm Gel..Gram.) 15 gm PO Q15M PRN; Protocol PRN Reason: per Hypoglycemia Standing Ord. Heparin Sodium (Porcine) (Heparin Sodium,Porcine 5,000 Unit/Ml Vial) 5,000 unit SUBCUT Q12H [facility] Last Admin: 03/25/25 00:00 Dose: Not Given Documented By: HAYDER Non-Admin Reason: Patient Refused Insulin Human Lispro (Insulin Lispro 100 Unit/Ml 3 Ml Vial) 0 unit SUBCUT QIDACHS [facility]; Protocol Last Admin: 03/25/25 08:07 Dose: 2 unit Documented By: PERLA Lidocaine HCl (Lidocaine Hcl Viscous 2 % 15 Ml Solution) 15 ml MUCOUS MEM Q3H PRN PRN Reason: oral pain Last Admin: 03/19/25 12:20 Dose: 15 ml Documented By: MARKEL Melatonin (Melatonin 3 Mg Tablet) 6 mg PO BEDTIME PRN PRN Reason: Insomnia Last Admin: 03/12/25 22:01 Dose: 6 mg Documented By: EULALIO Melatonin (Melatonin 3 Mg Tablet) 3 mg PO BEDTIME [facility] Last Admin: 03/24/25 19:46 Dose: 3 mg Documented By: HAYDER Metoprolol Tartrate (Metoprolol Tartrate 12.5 Mg Halftab) 12.5 mg PO TID [facility]; Protocol Last Admin: 03/25/25 09:32 Dose: 12.5 mg Documented By: PERLA Olanzapine (Olanzapine 2.5 Mg Tablet) 2.5 mg PO BID [facility] Last Admin: 03/25/25 09:31 Dose: 2.5 mg Documented By: PERLA Olanzapine (Olanzapine 5 Mg Tablet) 5 mg PO BID PRN PRN Reason: anxiety Last Admin: 03/12/25 22:00 Dose: 5 mg Documented By: EULALIO Potassium Chloride (Potassium Chloride Er 20 Meq Tab.Er.Prt) 20 meq PO BID [facility] Last Admin: 03/25/25 09:31 Dose: 20 meq Documented By: PERLA Senna (Sennosides 8.6 Mg Tablet) 8.6 mg PO BEDTIME PRN PRN Reason: Constipation Last Admin: 03/24/25 19:46 Dose: 8.6 mg Documented By: HAYDER Sodium Chloride (0.9 % Sodium Chloride Flush 3 Ml Syringe) 3 ml IVFLUSH QSHIFT [facility] Last Admin: 03/25/25 00:00 Dose: Not Given Documented By: HAYDER Non-Admin Reason: Patient Refused Labs 03/16/25 06:45 03/23/25 12:33 Labs: Laboratory Results - last 24 hr 03/24/25 03/24/25 03/24/25 11:28 16:19 20:45 POC Glucose 155 H 140 H 175 H 03/25/25 07:58 POC Glucose 156 H Assessment and Plan (1) Major neurocognitive disorder: Status: Acute Plan 75M PMH alzhemiers/vascular dementia, history of CVA, bladder cancer, DM, htn, presented from [place] with failure to thrive, found to have severe LAURIE and NSTEMI Addult FTT complicated by LAURIE which is now resolved, hypernatremia, advanced dementia with agitations creatinine improved from 7 to now 0.8 N/V no obstruction, now tolerating po Acute hypOkalemia replace and monitor Continue daily replacement hypernatremiam, d/t no drinking enough, presently on ivf, recheck labs nstemi with cardiomyopathy cardio appreciated would hold off on further work up continue asa, plavix, statin, beta merlene s/p 48 heparin advanced alzheimers/vascular dementia zyprexa 2..5 po bid behaviours improved, sitter discontinued pt doesn't appear to be candidate for suresh Psych as condition unlikely to improve history of cva dapl, statin dm insulin possible colitis completed course of zosyn Oral pain viscous lidocaine dvt prophylaxis - hep sq DNR/DNI reason for continued hospitalization: dispo planning Goals of care discussed with and given that patient has been declining for over a year and not improve, will move forwared with hospice in a SNF, waiting on placement for hospice Quality Stroke Does the patient have a stroke diagnosis?: No Reason for No Anti-thrombotic by Day Two: N/A - Med Ordered VTE Prior VTE?: No VTE Risk Level:: Medical - moderate - high VTE Device Contraindication: N/A - Device Ordered VTE Drug Contraindication: N/A - Med Ordered
[2025-03-25 12:11] LABS: Glucose, Whole Blood 152 mg/dL (60-115)
[2025-03-25 16:01] LABS: Glucose, Whole Blood 122 mg/dL (60-115)
[2025-03-25] MEDS: 0.9 % Sodium Chloride Flush 3 ML SYRINGE IVFLUSH ×2 (19:52→23:36)
[2025-03-25 20:39] LABS: Glucose, Whole Blood 208 mg/dL (60-115)
[2025-03-26 03:24] VITALS: BP 126/61; PULSE 66; RESP 16; TEMP 36.6; O2SAT 96
[2025-03-26 06:00] VITALS: BMI 23.6
[2025-03-26 07:15] VITALS: BP 132/64; PULSE 70; RESP 16; TEMP 36.1; O2SAT 96
[2025-03-26 07:22] LABS: Glucose, Whole Blood 131 mg/dL (60-115)
[2025-03-26] MEDS: buPROPion HCl XL 300 MG TAB.ER.24H PO (08:04)
[2025-03-26] MEDS: Potassium Chloride ER 20 MEQ TAB.ER.PRT PO ×2 (08:05→22:17)
[2025-03-26] MEDS: Aspirin Enteric Coated 81 MG TABLET.DR PO (08:05)
[2025-03-26] MEDS: Metoprolol Tartrate 12.5 MG HALFTAB PO ×3 (08:07→22:18)
--- NOTE | 2025-03-26 08:39 | HO.PM.IMPN ---
Subjective Subjective Date of Service: 03/26/25 Interval History: No new issues Physical Exam Vital Signs: Vital Signs: Last Vital Signs Temp 96.9 F 03/26/25 07:15 Pulse 70 03/26/25 07:15 Resp 16 03/26/25 07:15 BP 132/64 03/26/25 07:15 Pulse Ox 96 03/26/25 07:15 O2 Del Method Room Air 03/26/25 07:15 BMI result Body Mass Index 23.6 Middle-aged male lying in bed in no distress Neck supple, no JVD Regular rate and rhythm, S1-S2 heard Regular breath sounds bilaterally, no wheezing or crackles appreciated Abdomen soft nontender, no guarding, no rigidity Patient is awake, alert and oriented times on ; no focal motor deficit Psych: Normal mood No pedal edema Objective Data Active Medications Acetaminophen (Acetaminophen 325 Mg Tablet) 650 mg PO Q6H PRN PRN Reason: Pain, Mild 1-3,fever,headache Last Admin: 03/24/25 19:45 Dose: 650 mg Documented By: HAYDER Amlodipine Besylate (Amlodipine Besylate 5 Mg Tablet) 5 mg PO DAILY [facility]; Protocol Last Admin: 03/26/25 08:06 Dose: 5 mg Documented By: PERLA Aspirin (Aspirin Enteric Coated 81 Mg Tablet.Dr) 81 mg PO DAILY [facility] Last Admin: 03/26/25 08:05 Dose: 81 mg Documented By: PERLA Atorvastatin Calcium (Atorvastatin Calcium 20 Mg Tablet) 20 mg PO BEDTIME [facility] Last Admin: 03/25/25 19:51 Dose: 20 mg Documented By: HAYDER Bupropion HCl (Bupropion Hcl Xl 300 Mg Tab.Er.24h) 300 mg PO DAILY [facility] Last Admin: 03/26/25 08:04 Dose: 300 mg Documented By: PERLA Calcium Carbonate (Calcium Carbonate 750 Mg Tab.Chew) 750 mg PO Q4H PRN PRN Reason: Heartburn Capsaicin (Capsaicin 0.025% Cream 60 Gm Tube) 1 appl TOPICAL TID [facility] Last Admin: 03/25/25 19:57 Dose: 1 appl Documented By: HAYDER Clopidogrel Bisulfate (Clopidogrel Bisulfate 75 Mg Tablet) 75 mg PO DAILY [facility] Last Admin: 03/26/25 08:06 Dose: 75 mg Documented By: PERLA Dextrose (Dextrose 50 % 25 Gm/50 Ml Syringe) 25 gm IVPUSH Q15M PRN; Protocol PRN Reason: per Hypoglycemia Standing Ord. Last Admin: 03/03/25 20:15 Dose: 25 gm Documented By: MALI Docusate Sodium (Docusate Sodium 100 Mg/10 Ml Liquid) 100 mg PO BEDTIME [facility] Last Admin: 03/25/25 19:52 Dose: 100 mg Documented By: HAYDER Glucose (Glucose Gel 15 Gm Gel..Gram.) 15 gm PO Q15M PRN; Protocol PRN Reason: per Hypoglycemia Standing Ord. Heparin Sodium (Porcine) (Heparin Sodium,Porcine 5,000 Unit/Ml Vial) 5,000 unit SUBCUT Q12H [facility] Last Admin: 03/25/25 23:36 Dose: 5,000 unit Documented By: HAYDER Insulin Human Lispro (Insulin Lispro 100 Unit/Ml 3 Ml Vial) 0 unit SUBCUT QIDACHS [facility]; Protocol Last Admin: 03/26/25 08:20 Dose: Not Given Documented By: PERLA Non-Admin Reason: No Insulin Coverage Lidocaine HCl (Lidocaine Hcl Viscous 2 % 15 Ml Solution) 15 ml MUCOUS MEM Q3H PRN PRN Reason: oral pain Last Admin: 03/19/25 12:20 Dose: 15 ml Documented By: MARKEL Melatonin (Melatonin 3 Mg Tablet) 6 mg PO BEDTIME PRN PRN Reason: Insomnia Last Admin: 03/12/25 22:01 Dose: 6 mg Documented By: EULALIO Melatonin (Melatonin 3 Mg Tablet) 3 mg PO BEDTIME [facility] Last Admin: 03/25/25 19:51 Dose: 3 mg Documented By: HAYDER Metoprolol Tartrate (Metoprolol Tartrate 12.5 Mg Halftab) 12.5 mg PO TID [facility]; Protocol Last Admin: 03/26/25 08:07 Dose: 12.5 mg Documented By: PERLA Olanzapine (Olanzapine 2.5 Mg Tablet) 2.5 mg PO BID [facility] Last Admin: 03/26/25 08:06 Dose: 2.5 mg Documented By: PERLA Olanzapine (Olanzapine 5 Mg Tablet) 5 mg PO BID PRN PRN Reason: anxiety Last Admin: 03/12/25 22:00 Dose: 5 mg Documented By: EULALIO Potassium Chloride (Potassium Chloride Er 20 Meq Tab.Er.Prt) 20 meq PO BID [facility] Last Admin: 03/26/25 08:05 Dose: 20 meq Documented By: PERLA Senna (Sennosides 8.6 Mg Tablet) 8.6 mg PO BEDTIME PRN PRN Reason: Constipation Last Admin: 03/25/25 19:52 Dose: 8.6 mg Documented By: HAYDER Sodium Chloride (0.9 % Sodium Chloride Flush 3 Ml Syringe) 3 ml IVFLUSH QSHIFT [facility] Last Admin: 03/25/25 23:36 Dose: 3 ml Documented By: HAYDER Labs 03/16/25 06:45 03/23/25 12:33 Labs: Laboratory Results - last 24 hr 03/25/25 03/25/25 03/25/25 11:59 15:57 20:19 POC Glucose 152 H 122 H 208 H 03/26/25 07:17 POC Glucose 131 H Assessment and Plan (1) Major neurocognitive disorder: Status: Acute Plan 75M PMH alzhemiers/vascular dementia, history of CVA, bladder cancer, DM, htn, presented from [place] with failure to thrive, found to have severe LAURIE and NSTEMI Addult FTT complicated by LAURIE which is now resolved, hypernatremia, advanced dementia with agitations creatinine improved from 7 to now 0.8 N/V no obstruction, now tolerating po Acute hypOkalemia replace and monitor Continue daily replacement hypernatremiam, d/t no drinking enough, presently on ivf, recheck labs nstemi with cardiomyopathy cardio appreciated would hold off on further work up continue asa, plavix, statin, beta merlene s/p 48 heparin advanced alzheimers/vascular dementia zyprexa 2..5 po bid behaviours improved, sitter discontinued pt doesn't appear to be candidate for suresh Psych as condition unlikely to improve history of cva dapl, statin dm insulin possible colitis completed course of zosyn Oral pain viscous lidocaine dvt prophylaxis - hep sq DNR/DNI reason for continued hospitalization: dispo planning Goals of care discussed with and given that patient has been declining for over a year and not improve, will move forwared with hospice in a SNF, waiting on placement for hospice Quality Stroke Does the patient have a stroke diagnosis?: No Reason for No Anti-thrombotic by Day Two: N/A - Med Ordered VTE Prior VTE?: No VTE Risk Level:: Medical - moderate - high VTE Device Contraindication: N/A - Device Ordered VTE Drug Contraindication: N/A - Med Ordered
[2025-03-26 15:11] VITALS: BP 116/75; PULSE 85; RESP 18; TEMP 36.7; O2SAT 97
[2025-03-26 16:36] LABS: Glucose, Whole Blood 239 mg/dL (60-115)
[2025-03-26] MEDS: 0.9 % Sodium Chloride Flush 3 ML SYRINGE IVFLUSH (18:17)
--- NOTE | 2025-03-26 19:25 | PC.NURSE ---
patient has done well today and not showing any aggression towards staff. He did refuse his POC at lunch but allowed at dinner.
[2025-03-26 19:30] VITALS: BP 141/66; PULSE 82; RESP 16; TEMP 36.8; O2SAT 97
[2025-03-26 20:31] LABS: Glucose, Whole Blood 212 mg/dL (60-115)
[2025-03-27] VITALS (7 sets, daily range): BP systolic 107–153; BP diastolic 58–84; PULSE 59–80; RESP 14–20; TEMP 36.2–37.1; O2SAT 97–100; BMI 23.5
[2025-03-27 07:39] LABS: Glucose, Whole Blood 170 mg/dL (60-115)
--- NOTE | 2025-03-27 07:52 | P.CDIM_ITS ---
PROVIDER RESPONSE TEXT: To clarify, the appropriate diagnosis supported by the clinical indicators: Pressure induced (decubitus) ulcer, deep tissue injury sacrum QUERY TEXT: PHYSICIAN'S DOCUMENTATION REQUEST Date of Query: 03/22/2025 01:15 PM EDT Patient Name: Jamal Hercules Admit Date: 03/03/2025 Dear Peter Reed MD, A review of the medical record indicates additional documentation may be needed. Please review below and update the documentation accordingly. Clinical Indicators: per Wound Note 03/21/25: deep tissue injury sacrum Off load pressure and protect from friction and moisture Based on the above, could you please provide further information regarding the ulcer/wound: Pressure induced (decubitus) ulcer, deep tissue injury sacrum Other (explain) Clinically unable to determine (explain) Thank you, Emily Angel RN Use of terms such as suspected, likely, concern for, or probable (associated with a specific diagnosis that is being evaluated, monitored, or treated as if it exists) are acceptable and can be coded in the inpatient setting, when documented at the time of discharge. Please use your independent medical judgment in providing your response. THIS QUERY IS PART OF THE PERMANENT MEDICAL RECORD
--- NOTE | 2025-03-27 10:07 | MHC.CLN ---
F/U PT IS MODERATELY MALNOURISHED PO INTAKE VARIABLE RANGING FROM 25-100% DIET RX: 2200DM -APPROPRIATE RECEIVING ENSURE MAX BID AND GELATEIN BID WITH MEALS TO PROMOTE WOUND HEALING ENSURE MAX BID TO PROVIDE 300KCALS, 60G PROTEIN GELATEIN BID TO PROVIDE 320KCALS, 40G PROTEIN MONITOR PO INTAKE AND ENCOURAGE SUPPLEMENTS
[2025-03-27] MEDS: Metoprolol Tartrate 12.5 MG HALFTAB PO (10:10)
[2025-03-27] MEDS: Potassium Chloride ER 20 MEQ TAB.ER.PRT PO ×2 (10:10→21:20)
[2025-03-27] MEDS: buPROPion HCl XL 300 MG TAB.ER.24H PO (10:10)
[2025-03-27] MEDS: Aspirin Enteric Coated 81 MG TABLET.DR PO (10:10)
[2025-03-27] MEDS: 0.9 % Sodium Chloride Flush 3 ML SYRINGE IVFLUSH (10:32)
--- NOTE | 2025-03-27 10:39 | MHC.CM.PN ---
Addendum entered by Jayde Patel 03/27/25 13:27: This CM received notification from [facility] that they spoke to the pts Marta about payment for his stay at their facility, and they have requested for the pt to transport to their facility tomorrow 03/28 in the afternoon. Pts Marta in to visit and confirm that he will be going to [facility] tomorrow and that she has worked out the financials with [facility]. BLS/[facility] pre-booked for 03/28 at 1pm. Second IMM given 03/27. Original Note: EMR reviewed and per MD rounds, pt remains medically cleared for discharge pending safe discharge placement/SNF bed. Pt has a bed offer from [facility] at [place]. CM discussed this with Marta last week and Marta requested a referral be placed to [facility] who sent a financial disclosure agreement to Marta on 03/23. This CM received an update from liaison at [facility] that they have not received the financial disclosure agreement from the pts as of yet on 03/27. This CM placed a call to Marta to inquire about the completion of the financial disclosure for [facility]. Per Marta, she states she received the paperwork from [facility], however she states it was very lengthy and she has not begun filling it out yet, furthermore she states she looked [facility] up online and she doesn't feel that they will be able to meet her husbands needs there. This CM asked for clarification on why she doesn't think [facility] will meet her needs and what her concerns are, Marta responded by asking well do you think they can meet his needs there? Marta unable to provide further concerns about [facility] to this CM. This CM then explained to Marta that if she doesn't want her going to [facility] that we do have a bed offer from [facility]. Marta states she would prefer her go to [facility]. This CM in communication with [facility] liaison via [facility], will plan for pts discharge to their facility.
[2025-03-27 11:36] LABS: Glucose, Whole Blood 252 mg/dL (60-115)
--- NOTE | 2025-03-27 11:51 | HO.WOUND ---
Wound Consult: Follow up 75yr old? male admitted to [facility] on 03/03/25 05:02- See progress notes and H&P for detailed history.? Wound consult follow up for buttock.? Patient agreeable to assessment and photo documentation.? Per chart review and discussion with staff patient has been compliant with repositions for the most part. When attempting to clean and repositionthe patient does often yell out but quickly appologizes for being loud. When movements explained and time allowed for patient participation and process patient has less yelling. He reports there is pain and discomfort to the buttock area - burning sensation this is due to the MASD. Although improving the skin does still appear irritatied and excoriated. Recommend continued treatment with Triad to protect and allow for autolytic healing. Per chart review d/c plan does appear to be facility on Hospice care. 03/21/25 03/27/25 Sacrum Etiology: Deep Tissue Injury in Evolution Wound Bed: light purple non blanchable tissue with adherent pale slough to some areas - areas of improvment noted Drainage / Odor: None - yeast odor noted Edges: ? irregular and attached Gerri wound:MASD and fungal dermatitis scattered open tissue - ? No Induration, Fluctuance or Warmth noted Pain: pain reported Goals of Treatment: ? Off load pressure and protect from friction and moisture - Recommend continuing with Triad and antifungal treatment and discontinuing foam dressing - when removed there appears to be some excess moisture foam dressing is trapping on to skin. Patient is known to favor leaning towards his right side - wedges placed to aid in repositioning. Bilateral heels with preventative foams in place and off loaded with pillows - not assessed at todays followup. Recommendations: 1. Turn and Reposition every 2 hours and as needed for patient comfort.? Use pillows or wedges to support off loading positions. 2. Off Load all bony prominences with use of pillows and heel boots if needed.? Apply Preventative foams where needed. ? 3. Monitor for incontinence and moisture control, use barrier creams when needed for prevention and treatment. 4. Provide adequate and supplemental nutrition.? 5. Order low air loss mattress. 6. When applicable maintain blood glucose levels per Providers order. Sacrum - Off Load Pressure with Q2 hr turns and use of pillows - Cleanse with PH balance spray or wipes, pat dry. ?Apply antifungal powder twice daily. Apply thin layer of Triad to wound bed - only pat and dab no scrub and rub when soiling occurs. Reapply thin layer PRN after each episode of incontinence. Buttock, scrotum and groin - Off Load Pressure with Q2 hr turns and use of pillows - Cleanse with PH balance spray or wipes, pat dry. ?Apply antifungal powder twice daily. Apply thin layer of Triad to wound bed - only pat and dab no scrub and rub when soiling occurs. Reapply thin layer PRN after each episode of incontinence. Bilateral Heels - Elevate heels off of bed surface with pillows.? Float heels off of pillows.? Apply skin prep allow to dry.? Apply heel foam dressings, peel back and assess Q shift and change every 5-7 days and PRN. Re-consult wound care Nurse for wound deterioration or wound changes.
[2025-03-27 16:08] LABS: Glucose, Whole Blood 111 mg/dL (60-115)
--- NOTE | 2025-03-27 18:08 | PC.NURSE ---
Patient alert, oriented to self, calm, requires frequent redirection, incontinent of urine, using male purewick, compliant with medications, took pills crushed in applesauce, refused heparin today, did agree to take insulin. Patient was seen by wound nurse for MASD to buttocks (see wound note) Patient is 1:1 feed and needs encouragement at meal time. Patient can be uncooperative with care at times but is redirectable.
--- NOTE | 2025-03-27 20:07 | PC.NURSE ---
assumed care for patient on 03/26/25 7p-7a. Patient has hx dementia, alert to self only, resting quietly in bed for most of the night. Meds given in pudding, insulin & heparin subq administered. pt was cleaned and repositioned multiple times overnight. triad, barrier cream & new foam dsg applied to coccyx wound. No issues overnight, camera and fall precautions remained in place.
[2025-03-27 21:15] LABS: Glucose, Whole Blood 115 mg/dL (60-115)
[2025-03-28 03:14] VITALS: BP 165/90; PULSE 86; RESP 17; TEMP 36.3; O2SAT 94
[2025-03-28 05:48] VITALS: BMI 23.6
[2025-03-28 07:09] VITALS: BP 130/61; PULSE 69; RESP 18; TEMP 36.3; O2SAT 98
[2025-03-28 07:27] LABS: Glucose, Whole Blood 153 mg/dL (60-115)
--- NOTE | 2025-03-28 08:34 | MHC.CM.PN ---
Addendum entered by Divya Sol RN 03/28/25 13:01: [facility] RECEIVED MESSAGE FROM [facility] REQUESTING PT'S DC TO BE POSTPONED UNTIL TOMORROW AM D/T EMERGENT STAFFING ISSUE, PT'S [facility]LA NOTIFIED AT # ON FILE, [facility] WILL TRANSPORT AT 11AM TOMORROW 03/29. Original Note: PT DISCHARGING TO LTC PP AT [facility] [place] [facility] CONFIRMED W/PT'S /HCP KAYLA AT 8:30AM, [facility] REMAINS AGREEABLE TO PLAN, [facility] FOR BLS TRANSPORT AT 1PM. NSG/HOSPITALIST AWARE.
[2025-03-28] MEDS: Metoprolol Tartrate 12.5 MG HALFTAB PO ×3 (08:47→21:28)
[2025-03-28] MEDS: Aspirin Enteric Coated 81 MG TABLET.DR PO (08:47)
[2025-03-28] MEDS: Potassium Chloride ER 20 MEQ TAB.ER.PRT PO (08:47)
[2025-03-28] MEDS: buPROPion HCl XL 300 MG TAB.ER.24H PO (08:47)
[2025-03-28 11:24] VITALS: BP 135/64; PULSE 65; RESP 18; TEMP 37; O2SAT 98
[2025-03-28 12:02] LABS: Glucose, Whole Blood 183 mg/dL (60-115)
[2025-03-28 16:00] VITALS: BP 138/64; PULSE 67; RESP 16; TEMP 36.6; O2SAT 97
[2025-03-28 16:13] LABS: Glucose, Whole Blood 159 mg/dL (60-115)
--- NOTE | 2025-03-28 17:43 | P.PNIM_ITS ---
Subjective Subjective Date of Service: 03/28/25 Interval History: No new events per staff Review of Systems Review of Systems: Yes all other systems are reviewed and are negative Physical Exam 2 Exam: Exam: Middle-aged male lying in bed in no distress Neck supple, no JVD Regular rate and rhythm, S1-S2 heard Regular breath sounds bilaterally, no wheezing or crackles appreciated Abdomen soft nontender, no guarding, no rigidity Patient is awake, alert and oriented times on ; no focal motor deficit Psych: Normal mood No pedal edema Vital Signs: Vital Signs: Last Vital Signs Temp 97.9 F 03/28/25 16:00 Pulse 67 03/28/25 16:00 Resp 16 03/28/25 16:00 BP 138/64 03/28/25 16:00 Pulse Ox 97 03/28/25 16:00 O2 Del Method Room Air 03/28/25 16:00 BMI result Body Mass Index 23.6 Objective Data Active Medications Acetaminophen (Acetaminophen 325 Mg Tablet) 650 mg PO Q6H PRN PRN Reason: Pain, Mild 1-3,fever,headache Last Admin: 03/27/25 21:19 Dose: 650 mg Documented By: LEXIE Amlodipine Besylate (Amlodipine Besylate 5 Mg Tablet) 5 mg PO DAILY [facility]; Protocol Last Admin: 03/28/25 08:47 Dose: 5 mg Documented By: ALYCE Aspirin (Aspirin Enteric Coated 81 Mg Tablet.Dr) 81 mg PO DAILY [facility] Last Admin: 03/28/25 08:47 Dose: 81 mg Documented By: ALYCE Atorvastatin Calcium (Atorvastatin Calcium 20 Mg Tablet) 20 mg PO BEDTIME [facility] Last Admin: 03/27/25 21:19 Dose: 20 mg Documented By: LEXIE Bupropion HCl (Bupropion Hcl Xl 300 Mg Tab.Er.24h) 300 mg PO DAILY [facility] Last Admin: 03/28/25 08:47 Dose: 300 mg Documented By: ALYCE Calcium Carbonate (Calcium Carbonate 750 Mg Tab.Chew) 750 mg PO Q4H PRN PRN Reason: Heartburn Capsaicin (Capsaicin 0.025% Cream 60 Gm Tube) 1 appl TOPICAL TID [facility] Last Admin: 03/28/25 16:35 Dose: 1 appl Documented By: ALYCE Clopidogrel Bisulfate (Clopidogrel Bisulfate 75 Mg Tablet) 75 mg PO DAILY [facility] Last Admin: 03/28/25 08:47 Dose: 75 mg Documented By: ALYCE Dextrose (Dextrose 50 % 25 Gm/50 Ml Syringe) 25 gm IVPUSH Q15M PRN; Protocol PRN Reason: per Hypoglycemia Standing Ord. Last Admin: 03/03/25 20:15 Dose: 25 gm Documented By: GALINA-LEO Docusate Sodium (Docusate Sodium 100 Mg/10 Ml Liquid) 100 mg PO BEDTIME [facility] Last Admin: 03/27/25 21:23 Dose: Not Given Documented By: LEXIE Non-Admin Reason: Patient Refused Glucose (Glucose Gel 15 Gm Gel..Gram.) 15 gm PO Q15M PRN; Protocol PRN Reason: per Hypoglycemia Standing Ord. Heparin Sodium (Porcine) (Heparin Sodium,Porcine 5,000 Unit/Ml Vial) 5,000 unit SUBCUT Q12H [facility] Last Admin: 03/28/25 12:04 Dose: 5,000 unit Documented By: ALYCE Insulin Human Lispro (Insulin Lispro 100 Unit/Ml 3 Ml Vial) 0 unit SUBCUT QIDACHS [facility]; Protocol Last Admin: 03/28/25 16:34 Dose: 2 unit Documented By: ALYCE Lidocaine HCl (Lidocaine Hcl Viscous 2 % 15 Ml Solution) 15 ml MUCOUS MEM Q3H PRN PRN Reason: oral pain Last Admin: 03/19/25 12:20 Dose: 15 ml Documented By: MARKEL Melatonin (Melatonin 3 Mg Tablet) 6 mg PO BEDTIME PRN PRN Reason: Insomnia Last Admin: 03/12/25 22:01 Dose: 6 mg Documented By: EULALIO Melatonin (Melatonin 3 Mg Tablet) 3 mg PO BEDTIME [facility] Last Admin: 03/27/25 21:20 Dose: 3 mg Documented By: LEXIE Metoprolol Tartrate (Metoprolol Tartrate 12.5 Mg Halftab) 12.5 mg PO TID [facility]; Protocol Last Admin: 03/28/25 16:34 Dose: 12.5 mg Documented By: ALYCE Olanzapine (Olanzapine 2.5 Mg Tablet) 2.5 mg PO BID [facility] Last Admin: 03/28/25 08:47 Dose: 2.5 mg Documented By: ALYCE Olanzapine (Olanzapine 5 Mg Tablet) 5 mg PO BID PRN PRN Reason: anxiety Last Admin: 03/12/25 22:00 Dose: 5 mg Documented By: EULALIO Potassium Chloride (Potassium Chloride Er 20 Meq Tab.Er.Prt) 20 meq PO BID [facility] Last Admin: 03/28/25 08:47 Dose: 20 meq Documented By: ALYCE Senna (Sennosides 8.6 Mg Tablet) 8.6 mg PO BEDTIME PRN PRN Reason: Constipation Last Admin: 03/25/25 19:52 Dose: 8.6 mg Documented By: HAYDER Sodium Chloride (0.9 % Sodium Chloride Flush 3 Ml Syringe) 3 ml IVFLUSH QSHIFT [facility] Last Admin: 03/28/25 16:35 Dose: Not Given Documented By: ALYCE Non-Admin Reason: No Access Labs 03/16/25 06:45 03/23/25 12:33 Labs: Laboratory Results - last 24 hr 03/27/25 03/28/25 03/28/25 21:05 07:14 11:28 POC Glucose 115 153 H 183 H 03/28/25 16:06 POC Glucose 159 H Assessment and Plan (1) Major neurocognitive disorder: Status: Acute Plan 75M PMH alzhemiers/vascular dementia, history of CVA, bladder cancer, DM, htn, presented from [place] with failure to thrive, found to have severe LAURIE and NSTEMI Addult FTT complicated by LAURIE which is now resolved, hypernatremia, advanced dementia with agitations creatinine improved from 7 to now 0.8 N/V no obstruction, now tolerating po Acute hypOkalemia replace and monitor Continue daily replacement hypernatremiam, d/t no drinking enough, presently on ivf, recheck labs nstemi with cardiomyopathy cardio appreciated would hold off on further work up continue asa, plavix, statin, beta merlene s/p 48 heparin advanced alzheimers/vascular dementia zyprexa 2..5 po bid behaviours improved, sitter discontinued pt doesn't appear to be candidate for suresh Psych as condition unlikely to improve history of cva dapl, statin dm insulin possible colitis completed course of zosyn Oral pain viscous lidocaine dvt prophylaxis - hep sq DNR/DNI reason for continued hospitalization: dispo planning Goals of care discussed with and given that patient has been declining for over a year and not improve, will move forwared with hospice in a SNF, waiting on placement for hospice Quality Stroke Does the patient have a stroke diagnosis?: No Reason for No Anti-thrombotic by Day Two: N/A - Med Ordered VTE Prior VTE?: No VTE Risk Level:: Medical - moderate - high VTE Device Contraindication: N/A - Device Ordered VTE Drug Contraindication: N/A - Med Ordered
[2025-03-28 19:26] VITALS: BP 117/85; PULSE 70; RESP 20; TEMP 37; O2SAT 99
[2025-03-28 20:10] LABS: Glucose, Whole Blood 177 mg/dL (60-115)
[2025-03-28] MEDS: Potassium Chloride Packet 20 MEQ PACKET PO (21:45)
[2025-03-28 23:36] VITALS: BP 138/81; PULSE 70; RESP 17; TEMP 36.3; O2SAT 98
[2025-03-29 03:57] VITALS: BP 138/83; PULSE 106; RESP 18; TEMP 36.8; O2SAT 95
[2025-03-29 06:00] VITALS: BMI 23.6
[2025-03-29 06:53] VITALS: BP 136/62; PULSE 70; RESP 18; TEMP 36.9; O2SAT 99
[2025-03-29 06:57] LABS: Glucose, Whole Blood 180 mg/dL (60-115)
[2025-03-29] MEDS: Aspirin Enteric Coated 81 MG TABLET.DR PO (08:27)
[2025-03-29] MEDS: Metoprolol Tartrate 12.5 MG HALFTAB PO (08:27)
[2025-03-29] MEDS: buPROPion HCl XL 300 MG TAB.ER.24H PO (08:27)
[2025-03-29] MEDS: Potassium Chloride Packet 20 MEQ PACKET PO (08:28)
--- NOTE | 2025-03-29 10:30 | PM.DS ---
DS: Providers Provider Date of Service: 03/29/25 Date of admission: 03/03/25 05:02 Date of discharge: 03/29/25 Primary care physician: Lucy Khoury MD Consults: 03/03/25 05:21 Consult to Nephrology Routine Consulting Provider: [facility] Reason for consultation: severe LAURIE Has provider been notified: No 03/03/25 06:23 Consult to Case Management Routine Comment: spouse has concerns about sending pt back to [facility] 03/03/25 06:52 Consult to Cardiology Routine Consulting Provider: [facility] Reason for consultation: elevated troponin Has provider been notified: Yes 03/04/25 13:59 Consult to Psychiatry Routine Consulting Provider: [facility] Reason for consultation: Anxiety's interfering with eating Has provider been notified: No 03/04/25 19:42 Consult to Hospice Routine Comment: LAURIE, CKD stage 5 now...spouse asked for Hospice co 03/05/25 10:59 Consult for Sitter Routine Reason for consultation: behavioural agiattion Has provider been notified: No 03/21/25 10:29 Consult to Wound Care Routine Reason for consultation: MASD on buttocks 03/27/25 04:11 Consult to Wound Care Routine Reason for consultation: worsening wound DTI to buttocks DS: Diagnosis Discharge Diagnosis (1) Major neurocognitive disorder: Status: Acute DS: Summary Hospital Course Hospital Course: from initial hpi: 75-year-old male currently living in a assisted living/senior living for the last 3 weeks s/p rehab after a fall, with past medical history of dementia, stroke, bladder cancer, urinary incontinence, cervical spine stenosis, Carpal dru surgery, neuropathy, insulin-dependent diabetes type 2, hypertension, vitamin-D deficiency, depression anxiety, hyperlipidemia presents to the emergency department via EMS from SNF as reported to staff that patient has had a loss of appetite over the last 4-5 days with profound weakness. Staff had denied patient had any other new symptoms. Patient's blood sugar was 41 when EMS arrived. Patient was still verbal and interactive. Blood glucose increased to 69. Patient's baseline confused and unable to provide any history or HPI. Workup in the ED revealed a lactic acidosis 7.7 with no leukocytosis and after fluids down to 6.5. Patient was started on D5 infusion with LR and blood sugar maximized to 99 and then dropped back down to 69. Again patient currently asymptomatic. Head CT was completed with no acute intracranial hemorrhage and identified old basal ganglia infarctions. Patient also noted have bilateral temporal volume loss, right greater than left. CT of abdomen and chest did not identify any nephrolithiasis or hydronephrosis. Evidence of cholelithiasis without cholecystitis. Also identified evidence of colitis including the sigmoid colon. No evidence of bowel obstruction. Mild atelectasis with pneumonitis also seen. Patient's creatinine 6.02, creatinine clearance 10.9 and GFR 9 indicating severe LAURIE/ CKD stage 5. There are no other labs to compare to from prior outpatient visits. Patient did present with 1 wet diaper. Since [facility] Wick has been will place patient has not produced any urine. Patient aggressively refused attempt at Euceda placement. Bladder scans are now ordered Q shift and as needed. Unable to obtain urinalysis so far. Nephrology has been consulted. Patient is started on Zosyn 4.5 g q.12 hours based on creatinine clearance for evidence of colitis. Pt's troponin 33.5 initially, then 107.2 and repeat pending.ECG notes SR with 1st degree AVB, MO 236. QTC 462. Pt is not currently on AV jeri blocking agents. BNP 76. MG 1.5, pt received one dose of po MG but will add 2 GMS IV. The senior living did not provide any medical information except the MOLST, which indicates patient is a full code. This designer/writer was able to speak to pt's spouse by phone and stated pt has no hx of renal issues in the past. Pt had one episode of hypoglycvemia about three weeks ago when pt moved in to the [facility]. Pt's spouse is not sure if pt should return there. hospital course: Patient was admitted for failure to thrive complicated by acute kidney injury, metabolic encephalopathy and agitation related to dementia. He was treated with IV hydration with complete renal recovery . For acute hypokalemia and hypomagnesemia received replacement and corrected. For hypernatremia received hypotonic fluids and p.o. fluids encouraged sodium level has corrected as well. Course also complicated by NSTEMI with cardiomyopathy was seen by Cardiology who recommended conservative management after 48 hours of heparin, dual antiplatelet, statin, beta-merlene. For advanced Alzheimer's/vascular dementia with acute hospital delirium was treated with Zyprexa. For history of CVA was continued on dual antiplatelet and statin. For diabetes was continued on insulin. For possible colitis completed course of Zosyn. Patient throughout hospitalization continued to have periods of agitation relaed to dementia, poor nutritional status and failure to thrive with overall poor prognosis and follow goals of care conversation with his and health care and decision was made to transition to hospice care. Time Attestation Discharge Coordination Time (in mins): 45 Quality: Safe Use of Opioids Does Pt have an Active Cancer Diagnosis on the Problem List?: No Quality: Stroke Does the patient have a stroke diagnosis?: No Physical Exam Vital Signs: Vital Signs: Selected Entries 03/29/25 06:53 Temperature 98.5 F Pulse Rate 70 Respiratory Rate 18 Blood Pressure 136/62 Oxygen Delivery Me thod Room Air DS: Data Data Completed and Pending Labs on day of discharge: Laboratory Results - last 24 hr 03/27/25 03/27/25 03/27/25 11:08 16:04 21:05 POC Glucose 252 H 111 115 03/28/25 07:14 POC Glucose 153 H Discharge Plan Discharge Anticipated Discharge Date/Time: 03/29/25 10:31 Patient Disposition: Xfer LTC Discharge Diagnosis: laurie Referrals: [facility] [employer] [facility] [employer] [Outside] - 1 Week Parish Reeves MD [Physician, Nephrology] - 1 Week Lucy Khoury MD [Primary Care Provider, Medical] - 1 Week Discharge Medications: New amlodipine 5 mg Tablet 5 mg PO DAILY Qty: 90 0RF Protocol: Hold for SBP< HOLD for SBP < : 90 metoprolol tartrate 25 mg tablet 25 mg PO BID Qty: 180 0RF atorvastatin 20 mg Tablet 20 mg PO BEDTIME Qty: 90 0RF olanzapine 5 mg Tablet 5 mg PO BID PRN (Reason: anxiety) Qty: 180 0RF aspirin 81 mg Tablet,Delayed Release (Dr/Ec) 81 mg PO DAILY Qty: 90 0RF Continued (DME) [facility] External Cath [facility] See Rx Instructions .Route Qty: 30 5RF Rx Instructions: As directed daily sennosides [senna] 8.6 mg Tablet 8.6 mg PO BEDTIME PRN (Reason: Constipation) melatonin 3 mg Tablet 3 mg PO BEDTIME olanzapine 2.5 mg tablet 2.5 mg PO BEDTIME acetaminophen 500 mg Tablet 500 mg PO Q4H PRN (Reason: Fever Or Pain) metformin 1,000 mg tablet 1,000 mg PO DAILY sertraline 25 mg Tablet 75 mg PO DAILY colchicine 0.6 mg tablet 0.6 mg PO DAILY capsaicin 0.033 % Cream 1 appl TOPICAL TID Rx Instructions: Apply to Elbow, knee, and feet. Do not wash area for at least 30 min after application clopidogrel 75 mg tablet 75 mg PO DAILY bupropion HCl 300 mg tablet extended release 24 hr 300 mg PO DAILY glipizide 2.5 mg tablet extended release 24hr 2.5 mg PO BEDTIME Discontinued lisinopril 5 mg tablet 5 mg PO DAILY Discharge Orders: Discharge Order (Routine); Ordered 03/29/25 Ordered By: Peter Reed Diet: Advance to usual diet Activity on Discharge: As tolerated Stand Alone Forms: Patient Portal Discharge page Print Language: Yi Care Plan Goals: Recovery Health Concerns: Advanced dementia with behavior issues, adult failure to thrive, malnutrition Plan of Treatment: Hospice care Assessment: See above
--- NOTE | 2025-03-29 10:38 | MHC.CM.PN ---
PT DISCHARG[facility] TO [facility], PT'S KAYLA NOTIFIED AT # ON FILE AND AGREEABLE TO [facility] FOR BLS TRANSPORT AT 11AM
[2025-03-29 10:54] VITALS: BP 132/63; PULSE 65; RESP 20; TEMP 36.3; O2SAT 100
[2025-03-29 11:02] LABS: Glucose, Whole Blood 155 mg/dL (60-115)
--- NOTE | 2025-03-29 11:03 | MHC.CLN ---
F/U PT IS MODERATELY MALNOURISHED PO INTAKE 25% DIET RX: 2200DM -APPROPRIATE RECEIVING ENSURE MAX BID AND GELATEIN BID WITH MEALS TO PROMOTE WOUND HEALING ENSURE MAX BID TO PROVIDE 300KCALS, 60G PROTEIN GELATEIN BID TO PROVIDE 320KCALS, 40G PROTEIN CONTINUE TO MONITOR PO INTAKE AND ENCOURAGE SUPPLEMENTS
== END 2025-03-29 11:00 | DRG 682 ==
LOC: HO.ED 03-03 03:57 → HO.EDOVER 03-03 05:05 → HO.IMC 03-04 00:42
PROVIDERS: Internal Medicine; Nurse Practitioner Family; Physician Assistant; Admitting Provider Student in an Organized Health Care Education/Training Program; Emergency Provider Internal Medicine; PCP Internal Medicine; Visit Provider Internal Medicine
DX: N17.0 Acute kidney failure with tubular necrosis (principal); G93.41 Metabolic encephalopathy; I21.4 Non-ST elevation (NSTEMI) myocardial infarction; E87.21 Acute metabolic acidosis; I51.81 Takotsubo syndrome; E87.0 Hyperosmolality and hypernatremia; F05 Delirium due to known physiological condition; F02.811 Dementia in other diseases classified elsewhere, unspecified severity, with agitation; F01.511 Vascular dementia, unspecified severity, with agitation; R62.7 Adult failure to thrive; N18.5 Chronic kidney disease, stage 5; E11.649 Type 2 diabetes mellitus with hypoglycemia without coma; E83.42 Hypomagnesemia; I44.0 Atrioventricular block, first degree; Z66 Do not resuscitate; E86.0 Dehydration; Z68.23 Body mass index [BMI] 23.0-23.9, adult; Z79.02 Long term (current) use of antithrombotics/antiplatelets; G30.9 Alzheimer's disease, unspecified; E11.22 Type 2 diabetes mellitus with diabetic chronic kidney disease; E87.6 Hypokalemia; L89.156 Pressure-induced deep tissue damage of sacral region; K52.9 Noninfective gastroenteritis and colitis, unspecified; Z85.51 Personal history of malignant neoplasm of bladder; Z79.83 Long term (current) use of bisphosphonates; Z79.84 Long term (current) use of oral hypoglycemic drugs; Z79.899 Other long term (current) drug therapy
CPT/HCPCS: 36415; 70450; 71045; 74018; 74176; 80048; 80053; 81001; 82088; 82550; 82570; 82803; 82947; 83605; 83735; 83880; 84100; 84145; 84156; 84439; 84443; 84484; 85025; 85027; 85730; 87040; 87086; 93005; 93306; 97162; 99285; J0696; J1630; J1644; J2359; J2405; J2470; J2543; J3475; J3480; J7120; Q9957

== ENCOUNTER → 2025-03-02 20:58 | Outpatient (BNV) | payer MEDICARE, SELFPAY | PROVIDERS: Admitting Provider Student in an Organized Health Care Education/Training Program; Emergency Provider Internal Medicine; PCP Internal Medicine; Visit Provider Internal Medicine | DX: I44.7 Left bundle-branch block, unspecified (principal) | CPT/HCPCS: 93010 ==

== ENCOUNTER → 2025-03-02 22:31 | Outpatient (BNV) | payer MEDICARE, SELFPAY | PROVIDERS: Emergency Provider Internal Medicine; PCP Internal Medicine; Visit Provider Radiology Neuroradiology | DX: R41.82 Altered mental status, unspecified (principal) | CPT/HCPCS: 71045 ==

== ENCOUNTER → 2025-03-03 01:11 | Outpatient (BNV) | payer MEDICARE, SELFPAY | PROVIDERS: Emergency Provider Internal Medicine; PCP Internal Medicine; Visit Provider Radiology Neuroradiology | DX: K52.9 Noninfective gastroenteritis and colitis, unspecified (principal); R41.82 Altered mental status, unspecified | CPT/HCPCS: 70450; 74176 ==

== ENCOUNTER 2025-03-03 05:02 | Outpatient (BNV) | payer MEDICARE, SELFPAY | END 2025-03-14 08:55 | PROVIDERS: Admitting Provider Student in an Organized Health Care Education/Training Program; Emergency Provider Internal Medicine; PCP Internal Medicine; Visit Provider Radiology Diagnostic Radiology | DX: J98.11 Atelectasis (principal) | CPT/HCPCS: 71045 ==

== ENCOUNTER 2025-03-03 05:02 | Outpatient (BNV) | payer MEDICARE, SELFPAY | END 2025-03-13 18:10 | PROVIDERS: Admitting Provider Student in an Organized Health Care Education/Training Program; Emergency Provider Internal Medicine; PCP Internal Medicine; Visit Provider Radiology Neuroradiology | DX: R11.10 Vomiting, unspecified (principal) | CPT/HCPCS: 74018 ==

== ENCOUNTER → 2025-03-03 05:02 | Outpatient (BNV) | payer MEDICARE, SELFPAY | PROVIDERS: Admitting Provider Student in an Organized Health Care Education/Training Program; Emergency Provider Internal Medicine; PCP Internal Medicine; Visit Provider Internal Medicine Critical Care Medicine | DX: N17.9 Acute kidney failure, unspecified (principal); R32 Unspecified urinary incontinence; E87.21 Acute metabolic acidosis; C67.9 Malignant neoplasm of bladder, unspecified | CPT/HCPCS: 99232 ==

== ENCOUNTER → 2025-03-03 05:02 | Outpatient (BNV) | payer MEDICARE, SELFPAY | PROVIDERS: Admitting Provider Student in an Organized Health Care Education/Training Program; Emergency Provider Internal Medicine; PCP Internal Medicine; Visit Provider Internal Medicine | DX: I21.4 Non-ST elevation (NSTEMI) myocardial infarction (principal); I42.9 Cardiomyopathy, unspecified; N17.9 Acute kidney failure, unspecified | CPT/HCPCS: 93306; 99232; 99233 ==

== ENCOUNTER → 2025-03-03 05:02 | Outpatient (BNV) | payer MEDICARE, SELFPAY | PROVIDERS: Admitting Provider Student in an Organized Health Care Education/Training Program; Emergency Provider Internal Medicine; PCP Internal Medicine; Visit Provider Social Worker | DX: F03.90 Unspecified dementia, unspecified severity, without behavioral disturbance, psychotic disturbance, mood disturbance, and anxiety (principal) | CPT/HCPCS: 99232 ==

== ENCOUNTER → 2025-03-03 05:02 | Outpatient (BNV) | payer MEDICARE, SELFPAY | PROVIDERS: Admitting Provider Student in an Organized Health Care Education/Training Program; Emergency Provider Internal Medicine; PCP Internal Medicine; Visit Provider Nurse Practitioner Family | DX: N17.9 Acute kidney failure, unspecified (principal) | CPT/HCPCS: 99222; 99232 ==

== ENCOUNTER → 2025-03-03 05:02 | Outpatient (BNV) | payer MEDICARE, SELFPAY | PROVIDERS: Admitting Provider Student in an Organized Health Care Education/Training Program; Emergency Provider Internal Medicine; PCP Internal Medicine; Visit Provider Nurse Practitioner Family | DX: I42.9 Cardiomyopathy, unspecified (principal); R79.89 Other specified abnormal findings of blood chemistry; I21.4 Non-ST elevation (NSTEMI) myocardial infarction; N17.9 Acute kidney failure, unspecified; E16.2 Hypoglycemia, unspecified | CPT/HCPCS: 99223; 99231; 99232; 99497; 99499 ==